=== PATIENT | female | born 1945 ===

== ENCOUNTER 2024-01-09 16:33 | Outpatient (CLI) | payer OTHER, SELFPAY ==
--- OUTSIDE RECORDS SUMMARY | 2024-01-09 16:36 | XMS_ITS | Encounter Summary ---
Author Organization [facility] Address [address] [address] Care Team Providers Care Bi Data Architect Name Role Phone Monet Vallejo MD Primary Care Provider [phone] Encounter Details Date Type Department Care Team (Latest Contact Info) Description 05/03/1995 Orders Only Surekha Santiago Social History Tobacco Use Types Packs/Day Years Used Date Smoking Tobacco: Never Assessed Sex and Gender Information Value Date Recorded Sex Assigned at Not on file Gender Identity Not on file Sexual Orientation Not on file documented as of this encounter Plan of Treatment Not on file documented as of this encounter Visit Diagnoses Not on filedocumented in this encounter Additional Health Concerns Infection Onset Date Last Indicated Resolved Time R/O COVID19 01/19/2020 01/19/2020 01/26/2020 3:17 AM CDT documented as of this encounter Care Teams Bi Data Architect Relationship Specialty [place] [address] [place] [address] PCP - General Family Practice 10/12/21 documented as of this encounter
--- OUTSIDE RECORDS SUMMARY | 2024-01-09 16:36 | XMS_ITS | Encounter Summary ---
Author Organization [facility] Address [address] [place] [address] Care Team Providers Care Trim Setter Name Role Phone Monet Vallejo MD Primary Care Provider [phone] Encounter Details Date Type Department Care Team (Latest Contact Info) Description 06/08/1997 Orders Only Gerry Rondon MD [place] Social History Tobacco Use Types Packs/Day Years [...] documented as of this encounter Care Teams Trim Setter Relationship Specialty [place] [address] [place] [address] PCP - General Family Practice 10/12/21 documented as of this encounter
--- OUTSIDE RECORDS SUMMARY | 2024-01-09 16:36 | XMS_ITS | Encounter Summary ---
Author Organization [facility] Address [address] [place] [address] Care Team Providers Care Laborer Salvage Name Role Phone Monet Vallejo MD Primary Care Provider [phone] Encounter Details Date Type Department Care Team (Latest Contact Info) Description 07/03/1995 Orders Only Peter Jo MD [address] [place] [address] Social History Tobacco Use Types Packs/Day Years [...] documented as of this encounter Care Teams Laborer Salvage Relationship Specialty [place] [address] [place] [address] PCP - General Family Practice 10/12/21 documented as of this encounter
--- OUTSIDE RECORDS SUMMARY | 2024-01-09 16:36 | XMS_ITS | Encounter Summary ---
Author Organization [facility] Address [address] [place] [address] Care Team Providers Care Lead Project Engineer Name Role Phone Monet Vallejo MD Primary Care Provider [phone] Encounter Details Date Type Department Care Team (Latest Contact Info) Description 12/02/1996 Orders Only Gerry Rondon MD [place] Social [...] documented as of this encounter Care Teams Lead Project Engineer Relationship Specialty [place] [address] [place] [address] PCP - General Family Practice 10/12/21 documented as of this encounter
--- OUTSIDE RECORDS SUMMARY | 2024-01-09 16:36 | XMS_ITS | Encounter Summary ---
Author Organization [facility] Address [address] [place] [address] Care Team Providers Care Court Worker Name Role Phone Monet Vallejo MD Primary Care Provider [phone] Encounter Details Date Type Department Care Team (Latest Contact Info) Description 11/23/1997 Orders Only Peter Jo MD [address] [place] [address] Social History Tobacco Use Types Packs/Day Years [...] documented as of this encounter Care Teams Court Worker Relationship Specialty [place] [address] [place] [address] PCP - General Family Practice 10/12/21 documented as of this encounter
--- OUTSIDE RECORDS SUMMARY | 2024-01-09 16:36 | XMS_ITS | Encounter Summary ---
Author Organization [facility] Address [address] [place] [address] Care Team Providers Care Strawhat Inspector And Packer Name Role Phone Monet Vallejo MD Primary Care Provider [phone] Encounter Details Date Type Department Care Team (Latest Contact Info) Description 04/02/1998 Orders Only Danilo Bernardo Social History Tobacco Use Types Packs/Day Years [...] documented as of this encounter Care Teams Strawhat Inspector And Packer Relationship Specialty [place] [address] [place] [address] PCP - General Family Practice 10/12/21 documented as of this encounter
--- OUTSIDE RECORDS SUMMARY | 2024-01-09 16:36 | XMS_ITS | Encounter Summary ---
Author Organization [facility] Address [address] [place] [address] Care Team Providers Care Photography Colorist Name Role Phone Monet Vallejo MD Primary Care Provider [phone] Encounter Details Date Type Department Care Team (Latest Contact Info) Description 02/27/1995 Orders Only Radha Swift Social History Tobacco Use Types Packs/Day Years [...] documented as of this encounter Care Teams Photography Colorist Relationship Specialty [place] [address] [place] [address] PCP - General Family Practice 10/12/21 documented as of this encounter
--- OUTSIDE RECORDS SUMMARY | 2024-01-09 16:36 | XMS_ITS | Encounter Summary ---
Author Organization [facility] Address [address] [place] [address] Care Team Providers Care Machine Setter Supervisor Name Role Phone Monet Vallejo MD Primary Care Provider [phone] Encounter Details Date Type Department Care Team (Latest Contact Info) Description 03/19/1998 Orders Only Elvia Askew Social History Tobacco Use Types Packs/Day Years [...] documented as of this encounter Care Teams Machine Setter Supervisor Relationship Specialty [place] [address] [place] [address] PCP - General Family Practice 10/12/21 documented as of this encounter
--- OUTSIDE RECORDS SUMMARY | 2024-01-09 16:36 | XMS_ITS | Encounter Summary ---
Author Organization [facility] Address [address], [place] [address] Care Team Providers Care Nursery School Teacher Name Role Phone Monet Vallejo MD Primary Care Provider [phone] Encounter Details Date Type Department Care Team (Latest Contact Info) Description 11/06/1996 Orders Only Maddie Lovelace APRN, TIMBER SETTER Social History Tobacco Use Types Packs/Day Years [...] documented as of this encounter Care Teams Nursery School Teacher Relationship Specialty [place] [address] [place] [address] PCP - General Family Practice 10/12/21 documented as of this encounter
--- OUTSIDE RECORDS SUMMARY | 2024-01-09 16:36 | XMS_ITS | Encounter Summary ---
Author Organization [facility] Address [address], [place] [address] Care Team Providers Care Pattern Maker Programer Name Role Phone Monet Vallejo MD Primary Care Provider [phone] Encounter Details Date Type Department Care Team (Latest Contact Info) Description 03/29/1995 Orders Only Surekha Santiago Social History Tobacco [...] documented as of this encounter Care Teams Pattern Maker Programer Relationship Specialty [place] [address] [place] [address] PCP - General Family Practice 10/12/21 documented as of this encounter
--- OUTSIDE RECORDS SUMMARY | 2024-01-09 16:36 | XMS_ITS | Encounter Summary ---
Author Organization [facility] Address [address] [place] [address] Care Team Providers Care Riding Silks Custodian Name Role Phone Monet Vallejo MD Primary Care Provider [phone] Encounter Details Date Type Department Care Team (Latest Contact Info) Description 03/22/1998 Orders Only Elvia Askew Social History Tobacco [...] documented as of this encounter Care Teams Riding Silks Custodian Relationship Specialty [place] [address] [place] [address] PCP - General Family Practice 10/12/21 documented as of this encounter
--- OUTSIDE RECORDS SUMMARY | 2024-01-09 16:36 | XMS_ITS | Encounter Summary ---
Author Organization [facility] Address [address] [place] [address] Care Team Providers Care Supply Technician Name Role Phone Monet Vallejo MD Primary Care Provider [phone] Encounter Details Date Type Department Care Team (Latest Contact Info) Description 07/15/1996 Orders Only Peter Jo MD [address] [place] [address] Social History Tobacco Use Types Packs/Day Years [...] documented as of this encounter Care Teams Supply Technician Relationship Specialty [place] [address] [place] [address] PCP - General Family Practice 10/12/21 documented as of this encounter
--- OUTSIDE RECORDS SUMMARY | 2024-01-09 16:36 | XMS_ITS | Encounter Summary ---
Author Organization [facility] Address [address] [place] [address] Care Team Providers Care Farmworker Cranberry Name Role Phone Monet Vallejo MD Primary Care Provider [phone] Reason for Visit * Reason Comments Refill buPROPion (WELLBUTRI N XL) 150 MG 24 hour release tablet [Pharmacy Med Name: BUPROPION HYDROCHLORIDE ER (XL) 150 MG Tablet Extended Release 24 Hour] Encounter Details Date Type Department Care Team (Late st Contact Info) Description 10/07/2023 Refill [facility] Medicine [address] [place], [place] [phone] [place] [address] [place] [phone] Refill (buPROPion (WELLBUTRIN XL) 150 MG 24 hour release tablet [Pharmacy Med Name: BUPROPION HYDROCHLORIDE ER (XL) 150 MG Tablet Extended Release 24 Hour]) Social History Tobacco Use Types Packs/Day Years Used Date Smoking Tobacco: Former Cigarettes 0.5 10 Smokeless Tobacco: Never Alcohol Use Standard Drinks/Week Comments Yes 0 (1 standard drink = 0.6 oz pur e alcohol) 1 every few months PHQ-2 Answer Date Recorded PHQ-2 Score 0 03/27/2022 Sex and Gender Information Value Date Recorded Sex Assigned at Not on file Gender Identity Not on file Sexual Orientation Not on file documented as of this encounter Nursing Notes * Char Bartlett RN - 10/09/2023 12:57 PM CDT Further Assistance Needed on Refill from Salt Plant Operator Patient is due for Qualifying Visit- Please call patient my chart message not read. Medication has been refilled for 90 day supply. Patient is due for an Office/Video Visit in the next 90 days. Call Patient and document using .JUAN. After attempting to schedule patient: Close encounter. Refill has already been processed per standing order. Requested Prescriptions Pending Prescriptions Disp Refills buPROPion (WELLBUTRIN XL) 150 MG 24 hour release tablet [Pharmacy Med Name: BUPROPION HYDROCHLORIDEER (XL) 150 MG Tablet Extended Release 24 Hour] 90 Tablet 0 Sig: TAKE 1 TABLET EVERY DAY IN ADDITION TO 300MG TABLET FOR TOTAL 450MG DAILY * Paul Delgado Xrwcomm - 10/07/2023 2:08 AM CDT buPROPion (WELLBUTRIN XL) 150 MG 24 hour release tablet [Pharmacy Med Name: BUPROPION HYDROCHLORIDEER (XL) 150 MG Tablet Extended Release 24 Hour] Medication started: 06/17/2021 Last ordered by MONET VALLEJO: 10/04/2023 (3 days ago) QTY: 90, Refills: 0, Sig: take in addition to 300 mg dose daily (changed) -> The medication is active at more than one strength (150 mg on 10/04/2023, 300 mg on 01/04/2023). -> The patient is requesting a renewal from a different pharmacy. -> Unable to determine if sig has changed, review required. -> Refill x 3 months (until due for an office visit) -> Calculate the quantity and number of refills manually. Last qualifying visit: 12/19/2022 (with MONET VALLEJO) (A more recent visit (in Internal Medicine with CARLITA RAO) was found) Next scheduled visit: None Age: 78 [employer] Embedded Refills, Reference: [id number], 10/07/2023 2:08:38 AM CDT, Raymundo Dyer Centralized Services - Primary Care [[id number]] ([id number]) documented in this encounter Plan of Treatment Not on file documented as of this encounter Visit Diagnoses Diagnosis Depressive disorder Depressive disorder, not elsewhere classified documented in this encounter Care Teams Farmworker Cranberry Relationship Specialty [place] [address] [place] [address] PCP - General Family Practice 10/12/21 documented as of this encounter
--- OUTSIDE RECORDS SUMMARY | 2024-01-09 16:36 | XMS_ITS | Encounter Summary ---
Author Organization [facility] Address [address] [place] [address] Care Team Providers Care Termite Helper Name Role Phone Monet Vallejo MD Primary Care Provider [phone] Encounter Details Date Type Department Care Team (Latest Contact Info) Description 11/19/1997 Orders Only Peter Jo MD [address] [place] [address] Social History Tobacco Use Types Packs/Day Years [...] documented as of this encounter Care Teams Termite Helper Relationship Specialty [place] [address] [place] [address] PCP - General Family Practice 10/12/21 documented as of this encounter
--- OUTSIDE RECORDS SUMMARY | 2024-01-09 16:36 | XMS_ITS | Encounter Summary ---
Author Organization [facility] Address [address], [place] [address] Care Team Providers Care Sugar House Supervisor Name Role Phone Monet Vallejo MD Primary Care Provider [phone] Encounter Details Date Type Department Care Team (Late st Contact Info) Description 01/11/1997 Orders Only [facility] Dave Greman MD [address] [place] [address] Social History Tobacco Use Types Packs/Day Years [...] documented as of this encounter Care Teams Sugar House Supervisor Relationship Specialty [place] [address] [place] [address] PCP - General Family Practice 10/12/21 documented as of this encounter
--- OUTSIDE RECORDS SUMMARY | 2024-01-09 16:36 | XMS_ITS | Encounter Summary ---
Author Organization [facility] Address [address], [place] [address] Care Team Providers Care Powder Mill Operator Name Role Phone Monet Vallejo MD Primary Care Provider [phone] Encounter Details Date Type Department Care Team (Latest Contact Info) Description 03/11/1996 Orders Only Jack, Surekha Social History Tobacco Use Types Packs/Day Years [...] documented as of this encounter Care Teams Powder Mill Operator Relationship Specialty [place] [address] [place] [address] PCP - General Family Practice 10/12/21 documented as of this encounter
--- OUTSIDE RECORDS SUMMARY | 2024-01-09 16:36 | XMS_ITS | Encounter Summary ---
Author Organization [facility] Address [address] [place] [address] Care Team Providers Care Ampoule Filler Name Role Phone Monet Vallejo MD Primary Care Provider [phone] Encounter Details Date Type Department Care Team (Latest Contact Info) Description 06/04/1995 Orders Only Breann Boyle, DO [address] [place] [address] Social History Tobacco Use Types Packs/Day Years [...] documented as of this encounter Care Teams Ampoule Filler Relationship Specialty [place] [address] [place] [address] PCP - General Family Practice 10/12/21 documented as of this encounter
--- OUTSIDE RECORDS SUMMARY | 2024-01-09 16:36 | XMS_ITS | Encounter Summary ---
Author Organization [facility] Address [address] [place] [address] Care Team Providers Care Flight Control Tower Operator Name Role Phone Monet Vallejo MD Primary Care Provider [phone] Encounter Details Date Type Department Care Team (Latest Contact Info) Description 03/26/1995 Orders Only Breann Boyle, DO [address] [place] [address] Social History Tobacco Use Types Packs/Day Years [...] documented as of this encounter Care Teams Flight Control Tower Operator Relationship Specialty [place] [address] [place] [address] PCP - General Family Practice 10/12/21 documented as of this encounter
--- OUTSIDE RECORDS SUMMARY | 2024-01-09 16:36 | XMS_ITS | Encounter Summary ---
Author Organization [facility] Address [address], [place] [address] Care Team Providers Care Career Development Coordinator/Teacher Name Role Phone Monet Vallejo MD Primary Care Provider [phone] Encounter Details Date Type Department Care Team (Latest Contact Info) Description 02/23/1998 Orders Only Calvin [place] [address] Social History Tobacco Use Types Packs/Day Years [...] documented as of this encounter Care Teams Career Development Coordinator/Teacher Relationship Specialty [place] [address] [place] [address] PCP - General Family Practice 10/12/21 documented as of this encounter
--- OUTSIDE RECORDS SUMMARY | 2024-01-09 16:36 | XMS_ITS | Encounter Summary ---
Author Organization [facility] Address [address] [place] [address] Care Team Providers Care Senior Policy Associate Name Role Phone Monet Vallejo MD Primary Care Provider [phone] Encounter Details Date Type Department Care Team (Latest Contact Info) Description 07/13/1997 Orders Only Peter oJ MD [address] [place] [address] Social History Tobacco Use Types Packs/Day Years [...] documented as of this encounter Care Teams Senior Policy Associate Relationship Specialty [place] [address] [place] [address] PCP - General Family Practice 10/12/21 documented as of this encounter
--- OUTSIDE RECORDS SUMMARY | 2024-01-09 16:36 | XMS_ITS | Encounter Summary ---
Author Organization [facility] Address [address] [place] [address] Care Team Providers Care Biodiesel Process Control Technician Name Role Phone Monet Vallejo MD Primary Care Provider [phone] Reason for Visit * Reason Comments Refill buPROPion (WELLBUTRI N XL) 150 MG 24 hour release tablet [Pharmacy Med Name: BUPROPION HYDROCHLORIDE ER (XL) 150 MG Tablet Extended Release 24 Hour] Encounter Details Date Type Department Care Team (Late st Contact Info) Description 12/18/2023 Refill [facility] Medicine [address] [place], [place] [phone] Monet Vallejo [place] [address] [place] [phone] Refill (buPROPion (WELLBUTRIN XL) 150 MG 24 [...] as of this encounter Nursing Notes * Kailey Wall - 12/25/2023 12:23 PM CDT Medication Refill - Due for Visit Medication still pending for clinician review, patient is due to be seen in the next 30 days. Called patient, was: unable to reach patient. 2nd call attempted. Unsuccessful in reaching patient. Frontline Action: Route to clinician identified in nursing documentation below. Clinician Action: Unsuccessful in reaching patient to schedule, requests refill. Please determine whether refill is appropriate. Recommend using ???Refuse All?? quick action to address request. * Kailey Wall - 12/25/2023 12:22 PM CDT Medication Refill - Due for Visit Medication still pending for clinician review, patient is due to be seen in the next 30 days. Called patient, was: unable to reach patient. 1st call attempted. Left message to call back. Scheduling Action: Patient needs to schedule an appointment in the next 30 days. If able to schedule, please document date of appointment and route to clinician/pool identified in nursing documentation below. * Janna Sparrow RN - 12/25/2023 11:38 AM CDT Further Assistance Needed on Refill from Belt Changer Patient is due for Qualifying Visit Medication is still pending. Patient is due for an Office/Video Visit in the next 30 days. Call Patient and document using .JUAN. After attempting to schedule patient: If appointment is scheduled within 60 days: Please route to: Primary Care: Refill candy attendant Specialty Care: Refill candy attendant If unable to schedule appointment: Please route to Monet Vallejo MD Patient was already notified to schedule appt via refill encounter from 10/01/23 and 10/07/23, and noappt has been scheduled. Last qualifying visit: 12/19/2022 Requested Prescriptions Pending Prescriptions Disp Refills buPROPion (WELLBUTRIN XL) 150 MG 24 hour release tablet [Pharmacy Med Name: BUPROPION HYDROCHLORIDEER (XL) 150 MG Tablet Extended Release 24 Hour] 90 Tablet Sig: TAKE 1 TABLET EVERY DAY IN ADDITION TO 300MG TABLET FOR TOTAL 450MG DAILY documented in this encounter Plan of Treatment Not on file documented as of this encounter Visit Diagnoses Diagnosis Depressive disorder Depressive disorder, not elsewhere classified documented in this encounter Care Teams Biodiesel Process Control Technician Relationship Specialty [place] [address] [place] [address] PCP - General Family Practice 10/12/21 documented as of this encounter
--- OUTSIDE RECORDS SUMMARY | 2024-01-09 16:36 | XMS_ITS | Encounter Summary ---
Author Organization [facility] Address [address] [place] [address] Care Team Providers Care Heating Element Winder Name Role Phone Monet Vallejo MD Primary Care Provider [phone] Reason for Visit * Reason Comments Refill metoprolol tartrate (LOPRESSOR) 25 MG tablet [Pharmacy Med Name: METOPROLOL TARTRATE 25 MG Tablet] Encounter Details Date Type Department Care Team (Late st Contact Info) Description 11/07/2023 Refill [facility] [address] [place], [place] [id number] Monet Vallejo MD [address] [place] [phone] Refill (metoprolol tartrate (LOPRESSOR) 25 MG tablet [Pharmacy Med Name: METOPROLOL TARTRATE 25 MG Tablet]) Social History Tobacco Use Types Packs/Day Years [...] as of this encounter Nursing Notes * Freida Del Real RN - 11/07/2023 10:02 AM CDT Renewed medication per refill standing order. Requested Prescriptions Pending Prescriptions Disp Refills metoprolol tartrate (LOPRESSOR) 25 MG tablet [Pharmacy Med Name: METOPROLOL TARTRATE 25 MG Tablet] 90 Tablet 0 Sig: TAKE 1/2 TABLET TWICE DAILY * Paul Delgado Xrwcomm - 11/07/2023 12:50 AM CDT metoprolol tartrate (LOPRESSOR) 25 MG tablet [Pharmacy Med Name: METOPROLOL TARTRATE 25 MG Tablet] Medication started: 06/17/2021 Last ordered by MONET VALLEJO: 01/10/2023 (301 days ago) QTY: 90, Refills: 3, Sig: take 0.5 tablets (12.5 mg) by mouth two times a day. (changed but equivalent) -> Refill x 3 months (until due for an office visit) Last qualifying visit: 12/19/2022 (with MONET VALLEJO) (A more recent visit (in Internal Medicine with CARLITA RAO) was found) Next scheduled visit: [facility] Embedded Refills, Reference: [id number], 11/07/2023 12:50:48 AM CDTChilo: [facility] Refill Centralized Services - Primary Care [[id number]] ([id number]) documented in this encounter Plan of Treatment Not on file documented as of this encounter Visit Diagnoses Diagnosis Hypertension, unspecified type (HRC) documented in this encounter Care Teams Heating Element Winder Relationship Specialty [place] [address] [place] [address] PCP - General Family Practice 10/12/21 documented as of this encounter
--- OUTSIDE RECORDS SUMMARY | 2024-01-09 16:36 | XMS_ITS | Encounter Summary ---
Author Organization [facility] Address [address] [place] [address] Care Team Providers Care Detective Youth Bureau Name Role Phone Monet Vallejo MD Primary Care Provider [phone] Encounter Details Date Type Department Care Team (Latest Contact Info) Description 02/09/1998 Orders Only Peter Jo MD [address] [place] [address] Social History Tobacco Use Types Packs/Day Years [...] documented as of this encounter Care Teams Detective Youth Bureau Relationship Specialty [place] [address] [place] [address] PCP - General Family Practice 10/12/21 documented as of this encounter
--- OUTSIDE RECORDS SUMMARY | 2024-01-09 16:36 | XMS_ITS | Encounter Summary ---
Author Organization Formerly [facility] Address [address] [place] [address] Care Team Providers Care Biochemistry Teacher Name Role Phone Monet Vallejo MD Primary Care Provider [phone] Reason for Visit * Reason Comments Refill buPROPion (WELLBUTRI N XL) 150 MG 24 hour release tablet [Pharmacy Med Name: BUPROPION HCL XL 150 MG TABLET] Encounter Details Date Type Department Care Team (Late st Contact Info) Description 10/01/2023 Refill [facility] [address] [place] [address] [place] [address] [place] [address] Refill (buPROPion (WELLBUTRIN XL) 150 MG 24 hour release tablet [Pharmacy Med Name: BUPROPION HCL XL 150 MG TABLET]) Social History Tobacco Use Types Packs/Day Years [...] as of this encounter Nursing Notes * La Nena Mars - 10/04/2023 12:29 PM CDT Further Assistance Needed on Refill from Health Care Attorney Patient is due for Qualifying Visit and lab(s). Last qualifying visit: 12/19/2022 (with MONET VALLEJO Medication has been refilled for 90 day supply. Patient is due for an Office/Video Visit in the next 90 days. Call Patient and document using .JUAN. After attempting to schedule patient: Close encounter. Refill has already been processed per standing order. Requested Prescriptions Pending Prescriptions Disp Refills buPROPion (WELLBUTRIN XL) 150 MG 24 hour release tablet [Pharmacy Med Name: BUPROPION HCL XL 150 MGTABLET] 90 Tablet Sig: TAKE IN ADDITION TO 300 MG DOSE DAILY * Paul Delgado Xrwcomm - 10/01/2023 2:07 PM CDT buPROPion (WELLBUTRIN XL) 150 MG 24 hour release tablet [Pharmacy Med Name: BUPROPION HCL XL 150 MGTABLET] Medication started: 06/17/2021 Last ordered by MONET VALLEJO: 12/19/2022 (286 days ago) QTY: 90, Refills: 3, Sig: take in addition to 300 mg tab for total of 450 mg daily (changed) -> The requested strength (150 mg extended release oral tablet) was last ordered on 12/19/2022. The patient is taking 300 mg extended release oral tablet as of 01/04/2023. -> The medication is active at more than one strength (150 mg on 12/19/2022, 300 mg on 01/04/2023). -> Unable to determine if sig has changed, review required. -> Refill x 3 months (until due for an office visit) -> Calculate the quantity and number of refills manually. Last qualifying visit: 12/19/2022 (with MONET VALLEJO) (A more recent visit (in Internal Medicine with CARLITA RAO) was found) Next scheduled visit: None Age: 78 [employer] Embedded Refills, Reference: [id number], 10/01/2023 2:07:08 PM CDT, Pool: INNA Refill Centralized Services - Primary Care [[id number]] ([id number]) documented in this encounter Plan of Treatment Not on file documented as of this encounter Visit Diagnoses Diagnosis Depressive disorder Depressive disorder, not elsewhere classified documented in this encounter Care Teams Biochemistry Teacher Relationship Specialty Start [place] [address] [place] [address] [place] [address] PCP - General Family Practice 10/12/21 documented as of this encounter
--- OUTSIDE RECORDS SUMMARY | 2024-01-09 16:36 | XMS_ITS | Clinical Summary ---
Author Organization Formerly [facility] Address [address], [place] [address] Care Team Providers Care Dielectric Testing Machine Operator Name Role Phone Monet Vallejo MD Primary Care Provider + [phone] Source Comments You are receiving this document as you are listed as the primary care provider,follow-up provider, or the patient has been referred to you for consultation.This is in compliance with the Medicare and[facility] Cent[facility] EHR Incentive Program,which states Providers who transition their patient to another setting of careor provider of care or refers their patient to another provider of care shouldprovide summary care record for each transition of care or referral. [facility] Allergies Active Allergy Reactions Criticality Noted Date Comments Aminoglycosides Itching 02/20/2005 ear gtts- symptoms worsened during use Other Hives High 01/25/2023 Sulfa Antibiotics Itching 06/07/2009 PN: LW Reaction: Itching, Pruritis Medications Medication Sig Dispensed Refills Start Date End Date Status FLONASE 50 MCG/ACT NA SUSPIndications:Si nusitis Inhale two (2) sprays into each nostril once a day. 1 prn 06/15/2006 Active Additional Information Patient not taking.Reported on 03/08/2023 MULTIPLE VITAMIN TABS Take one tablet by mouth every day. Active FISH OIL None Entered Active Cowley-3 Fatty Acids (FISH OIL) 1000 MG capsule Take 1 Capsule (1,000 mg) by mouth every 24 hours. Active magnesium 250 MG oral tablet Take 1 Tablet (250 mg) by mouth daily. Active loratadine (CLARITIN) 10 MG tablet Take 1 Tablet (10 mg) by mouth as needed. Active acetaminophen (TYLENOL) 500 MG tablet Take 1-2 Tablets (500-1,000 mg) by mouth every 4 hours as needed for Pain. Maximum acetaminophen dose is 4000 mg in 24 hours Active Misc Natural Products (GLUCOSAMINE CHOND COMPLEX/MSM OR) Take by mouth daily. Active buPROPion (WELLBUTRIN XL) 300 MG 24 hour release tabletIndications: Depressive disorder Take in addition to 150 mg tablet for total of 450 mg daily 90 Tablet 3 01/04/2023 Active lisinopril (ZESTRIL) 5 MG tabletIndications: Depressive disorder,Hypertens ion, unspecified type (HRC) Take 1 Tablet (5 mg) by mouth daily. 90 Tablet 3 01/10/2023 Active buPROPion (WELLBUTRIN XL) 150 MG 24 hour release tabletIndications: Depressive disorder TAKE 1 TABLET EVERY DAY IN ADDITION TO 300MG TABLET FOR TOTAL 450MG DAILY 90 Tablet 10/09/2023 Active metoprolol tartrate (LOPRESSOR) 25 MG tabletIndications: Hypertension, unspecified type (HRC) TAKE 1/2 TABLET TWICE DAILY 90 Tablet 11/07/2023 Active Active Problems Problem Noted Date Diagnosed Date Constipation 12/13/2020 Overview: Last Assessment & Plan: Lifelong, IBS likely. Senokot, MiraLAX ineffective in the past. Lactulose effective but stopped a few years ago. Resume. [facility] database Memory loss 12/13/2020 Overview: Last Assessment & Plan: She reports this began after her craniotomy. She is taking notes. Chart review indicates no recent evaluation for secondary causes.. [facility] database Hyponatremia 01/14/2020 CKD (chronic kidney disease) stage 3, GFR 30-59 ml/min 06/09/2019 Overview: Last Assessment & Plan: She is quite concerned about her diagnosis of CKD. In the [facility] doctors told her she had no kidney damage. She has never taken the MILKA inhibitor. GFR Estimate Date Value Ref Range Status 11/23/2020 52 (L) >60 mL/min/[1.73_m2] Final Comment: Non GFR Calc Starting 06/25/2018, serum creatinine based estimated GFR (eGFR) will be calculated using the Chronic Kidney Disease Epidemiology Collaboration (CKD-EPI) equation. 11/22/2020 53 (L) >60 mL/min/[1.73_m2] Final Comment: Non GFR Calc Starting 06/25/2018, serum creatinine based estimated GFR (eGFR) will be calculated using the Chronic Kidney Disease Epidemiology Collaboration (CKD-EPI) equation. 02/19/2020 49 (L) >60 mL/min/[1.73_m2] Final 01/26/2020 48 (L) >60 mL/min/[1.73_m2] Final Comment: Non GFR Calc Starting 06/25/2018, serum creatinine based estimated GFR (eGFR) will be calculated using the Chronic Kidney Disease Epidemiology Collaboration (CKD-EPI) equation. 01/12/2020 57 (L) >60 mL/min/[1.73_m2] Final Comment: Non GFR Calc Starting 06/25/2018, serum creatinine based estimated GFR (eGFR) will be calculated using the Chronic Kidney Disease Epidemiology Collaboration (CKD-EPI) equation. Discussed CKD, recommend MILKA inhibitor Primary osteoarthritis of both hands 05/16/2018 Cervical high risk HPV (human papillomavirus) te st positive 05/01/2018 Overview: 2007, 2009, 2010 NIL paps. 05/01/18 NIL, +HR HPV, not 16/18. Plan 1 yr co-test 05/29/19 NIL pap, + HR HPV (not 16 or 18). Plan 1 yr co-test, no colp at this time per PCP 08/12/20 Lost to follow-up for pap tracking 11/22/20 NIL, +HR HPV, not 16/18. Plan [facility] bef 02/22/21 12/01/20 Left msg TCB 12/09/20 Left 2nd msg TCB and Result letter sent out 01/21/21 Certified ltr sent. Tracking # [id number] 02/24/21 Your item has been delivered to the original sender at 9:57 am on February 16, 2021 [place] [address]. 02/28/21 [facility] not done. Tracking updated for 6 mo colp/pap due 05/25/21. 04/05/21 Colposcopy completed? Will watch for records (this line entered after reminder letter sent) 04/08/21 [facility]- Normal. Plan 1 yr repeat pap (outside records from [facility]) 05/10/21 Reminder letter - sent before [facility] records received above. Last Assessment & Plan: After discussion and consideration she thinks she may pursue colposcopy when she turns approximately 90-day hence Monoclonal paraproteinemia 04/04/2018 Overview: Last Assessment & Plan: Oncology. Recent bone scan shows humeral areas of question. Defer report and discussion to oncology Dyspepsia 01/11/2018 HTN (hypertension) 11/15/2012 Overview: Last Assessment & Plan: Resume MILKA inhibitor, never taken Hoarding behavior 04/26/2012 H/O: stroke with residual effects 12/29/2011 Overview: 2/2 complication of meningioma removal Anxiety 10/05/2011 Overview: Last Assessment & Plan: She is worried about her health. She is afraid that her. She is afraid that her physician will not listen to all her complaints Diverticulitis of colon 07/24/2008 Fibromyalgia 07/24/2008 History of meningioma 07/24/2008 Overview: (Problem list name updated by automated process. Provider to review and confirm.) Last Assessment & Plan: Status post craniotomy. Completely removed at last imaging Insomnia 07/24/2008 Hyperlipidemia 06/23/2008 IBS (irritable bowel syndrome) 06/23/2008 S/P LASIK surgery 06/22/2008 Overview: S/P LASIK Surgery OU Old retinal detachment, total or subtotal 2007 Overview: Old Retinal Detachment repair OS likely Vitrectomy Depressive disorder 07/18/2004 Overview: Depressive disorder, not elsewhere classified (HRC) Resolved Problems Problem Noted Date Diagnosed Date Resolved Date NILES (obstructive sleep apnea) 05/16/2018 12/19/2022 Senile nuclear sclerosis 06/22/2008 Overview: Senile Nuclear Sclerosis OS Posterior subcapsular polar senile cataract 06/22/2008 12/19/2022 Overview: Posterior Subcapsular Polar Senile OS Encounters Date Type Department Care Team Description 12/18/[address] [address] Monet Vallejo MD Refill (buPROPion (WELLBUTRIN XL) 150 MG 24 hour release tablet [Pharmacy Med Name: BUPROPION HYDROCHLORIDE ER (XL) 150 MG Tablet Extended Release 24 Hour]) 11/07/2023 Refill [facility] [address] [place] [address] Monet Vallejo MD Refill (metoprolol tartrate (LOPRESSOR) 25 MG tablet [Pharmacy Med Name: METOPROLOL TARTRATE 25 MG Tablet]) from Last 3 Months Immunizations Name Administration Dates Next Due Cholera, Unspecified Formulation 06/10/2002 DT Ped 02/11/1987 Flu Vac (3+ yrs) 03/26/2012, 0,04/12/2009,2007,05/16/2006 Flu Vac Preserv Free (3+yrs) 04/05/2013 [id number] 06/11/2009 HepA, Unspecified Formulation 06/10/2002, 998 Influenza ([facility] Only) (Flul aval Quad 0.5, 3+ yrs) 04/08/2021 Influenza (Fluad) 03/25/2019 Influenza IIV3 (Trivalent) F luzone Highdose, 65+ Yrs (75251) 03/27/2018,03/28/2017,03/27/2014 Influenza IIV4 (Quadrivalent ) Fluad, 65+ Yrs 04/26/2022 Influenza IIV4 (Quadrivalent ) Fluzone, 65+ Yrs 04/14/2021,03/02/2020 Influenza Vaccine (3+years) ([facility]) 05/20/2007 Influenza, Unspecified Formulation 05/09,04/07/2022,03/22/2018,1995 OPV, Trivalent (Orimune or tOPV) 02/11/1987 PCV13 (Prevnar) 01/11/2018 PPSV23 (Pneumovax) 03/26/2012, 7,03/08/2007,1994 Pfizer Bivalent 12+ 05/10/2022,04/26/2022 Pfizer Monovalent 12+ 03/07/2022 Pfizer Monovalent 12+ Purple Top 022,02/21/2021,09/04/2020,2020 Td 01/02/1997 Td (7+ yrs) 06/10/2002 Td, Preservative Free 06/10/2002 Tdap 01/12/2020,11/22/2009 Varicella 01/16/1997(Deferred: Immune by Naveen miller) Zoster RZV (Shingrix) 07/15/2018,05/01/2018 Family History Medical History Relation Name Comments Arthritis Father and mother, bot h degenerative Coronary Artery Disease Father 72 y o Hypertension Father Cataract Mother Mental Disorder Mother schizophreni c, age 68 Heart Attack Brother age 52 Diabetes Maternal Grandmother mother Macular Degeneration Maternal Grandmother Relation Name Status Comments Father Mother Brother Maternal Grandmother Social History Tobacco Use Types Packs/Day Years [...] on file Sexual Orientation Not on file Last Filed Vital Signs Vital Sign Reading Time Taken Comments Blood Pressure 138/64 03/08/2023 10:52 AM CDT Pulse 66 03/08/2023 10:52 AM CDT Temperature 36.8 ??C (98.3 ??F) 03/08/2023 10:52 AM C DT Respiratory Rate 12 03/08/2023 10:52 AM CDT Oxygen Saturation 100% 03/08/2023 10:52 AM CDT Inhaled Oxygen Concentration - - Weight 71.5 kg (157 lb 9.6 oz) 01/25/2023 9:00 A M CDT Height 157 cm (5' 1.81) 01/25/2023 9:00 AM CDT Body Mass Index 29 01/25/2023 9:00 AM CDT Plan of Treatment Health Maintenance Due Date Last Done Comments Colonoscopy 12/25/2011 12/24/2006 COVID-19 Vaccine ( season) 2023 05/10/2022, 04/26/2022, 03/07/2022, Additional history exists Medicare Annual Wellness Visit 07/09/2023 12/19/2022 Influenza (Season Ended) 2024 022, 04/26/2022, 04/07/2022, Additional history exists DTaP/Tdap/Td (7 - Tdap) 01/11/2030 01/12/20 20, 11/22/2009, 06/10/2002, Additional history exists IPV (Polio) Aged Out 02/11/1987 No longer eligi ble based on patient's age to complete this topic HepA Aged Out 06/10/2002, 04/12/1998 No lo nger eligible based on patient's age to complete this topic Dexa Completed 05/27/2013 (Completed) Pneumococcal 65+ Yrs Completed 01/11/2018, 03/26/2012, 05/31/2007, Additional history exists Zoster/Shingles Completed 07/15/2018, 05/01/2018 Cholesterol Discontinued 11/21/2021, 06/08, 11/02/2006, Additional history exists Hep C Screening (Preventive Services) Completed 11/21/2021 HepB Aged Out No longer eligi ble based on patient's age to complete this topic Hib Aged Out No longer eligi ble based on patient's age to complete this topic MCV4 Aged Out No longer eligi ble based on patient's age to complete this topic Procedures Procedure Name Priority Date/Time Associated Diagnosis Comments HEPATITIS C ANTIBODY, WITH REFLEX Routine 11/21/2021 8:16 AM CDT Need for hepatitis C screening test LIPID PANEL & DIRECT LDL (IF NEEDED) Routine 11/21/2021 8:16 AM CDT Hyperlipidemia, unspecified hyperlipidemia type COLONOSCOPY 12/24/2006 12:00 AM CDT from Last 3 Months or Most Recently Relevant to Health Maintenance Results * (ABNORMAL) Lipid Panel - LDLD If Trig High (11/21/2021 8:16 AM CDT) Cholesterol 247(H) 0 - 199 mg/dL 11/21/2021 11:41 AM CDT [facility] Triglyceride 91 <=149 mg/dL 11/21/2021 11:41 AM CDT [facility] HDL Cholesterol 91 >=40 mg/dL 11/21/2021 11:41 AM CDT [facility] LDL, Calculated 138(H) <130 mg/dL 11/21/2021 11:41 AM CDT [facility] Non HDL Chol, Calculated 156 <=159 mg/dL 11/21/2021 11:41 AM CDT [facility] Cholesterol/HDL Ratio 2.7 11/21/2021 11:41 AM CDT [facility] Hours Fasting 12 11/21/2021 11:41 AM CDT [facility] Blood Venipuncture / Unknown 11/21/2021 8:16 AM CDT 11/21/2021 8:16 AM CDT Monet Vallejo MD LAB_1 [facility] [address] [address], [facility] [phone] [facility] [address] [place] [address], [facility] [phone] * Hepatitis C Antibody, with Reflex (11/21/2021 8:16 AM CDT) Hepatitis C Antibody Negative (Non Reactive) Negative (Non Reactive) 11/21/2021 12:06 PM CDT [facility] Comment:Antibodies to HCV no t detected. Does not exclude the possiblity of exposure to HCV. Blood Venipuncture / Unknown 11/21/2021 8:16 AM CDT 11/21/2021 8:16 AM CDT Monet Vallejo MD LAB_1 [facility] [address] [phone] * COLONOSCOPY (12/24/2006 12:00 AM CDT) Narrative 12/24/2006 12:00 AM CDT Ordered by an unspecified provider. Transcriptions Rigoberto Barriga - 12/24/2006 12:00 AM CDT Physician Unknown DUMMY/OTHER/AR from Last 3 Months or Most Recently Relevant to Health Maintenance Advance Directives Documents on File Type Date Recorded Patient Feather Sawyer Expl anation Advance Directive/Living Will/Durable Power of Attny on file/POLST PN Care Teams Dielectric Testing Machine Operator Relationship Specialty [place] [address] [place] [address] PCP - General Family Practice 10/12/21
--- OUTSIDE RECORDS SUMMARY | 2024-01-09 16:36 | XMS_ITS | Encounter Summary ---
Author Organization [facility] Address [address] [place] [address] Care Team Providers Care Bleaching Supervisor Name Role Phone Monet Vallejo MD Primary Care Provider [phone] Encounter Details Date Type Department Care Team (Latest Contact Info) Description 04/17/1995 Orders Only Markos Anderson Social History Tobacco Use Types Packs/Day Years [...] Resolved Time R/O COVID19 01/19/2020 01/19/2020 01/26/2020 3:1 7 AM CDT documented as of this encounter Care Teams Bleaching Supervisor Relationship Specialty [place] [address] [place] [address] PCP - General Family Practice 10/12/21 documented as of this encounter
--- OUTSIDE RECORDS SUMMARY | 2024-01-09 16:37 | XMS_ITS | Encounter Summary ---
Author Organization [facility] Address [address] [place] [address] Care Team Providers Care Crisis Clinician Name Role Phone Monet Vallejo MD Primary Care Provider [phone] Encounter Details Date Type Department Care Team (Latest Contact Info) Description 07/24/1994 Orders Only Breann Boyle, DO [address] [place] [address] Social History Tobacco Use Types Packs/Day Years [...] documented as of this encounter Care Teams Crisis Clinician Relationship Specialty [place] [address] [place] [address] PCP - General Family Practice 10/12/21 documented as of this encounter
--- OUTSIDE RECORDS SUMMARY | 2024-01-09 16:37 | XMS_ITS | Encounter Summary ---
Author Organization Formerly [facility] Address [address], [place] [address] Care Team Providers Care Energy Trader Name Role Phone Monet Vallejo MD Primary Care Provider [phone] Encounter Details Date Type Department Care Team (Latest Contact Info) Description 07/13/1994 Orders Only Yinka Ricardo MD [address] [id number] Social History Tobacco Use Types Packs/Day Years [...] documented as of this encounter Care Teams Energy Trader Relationship Specialty [place] [address] [place] [address] PCP - General Family Practice 10/12/21 documented as of this encounter
--- OUTSIDE RECORDS SUMMARY | 2024-01-09 16:37 | XMS_ITS | Encounter Summary ---
Author Organization [place] Address [facility] [place] [address] Care Team Providers Care Foundation Drill Operator Name Role Phone System, Provider Not In Unavailable Unavaila Timothy Driscoll MD Primary Care Provider [phone] Manoj Holley MD Unavailable [phone] Timothy Knott MD Unavailable [phone] Manoj Holley MD Unavailable [phone] Yanelis Galvez Unavailable Unavailable Alia Miller PA-C Unavailable [phone] Lori Barbosa MD Unavailable + Timothy Knott MD Unavailable [phone] Tierney Panchal APRN FORM DESIGNER Unavailable Unavail able Lori Barbosa MD Unavailable + Timothy Knott MD Unavailable [phone] Reason for Visit * Reason Comments Medication Refill Encounter Details Date Type Department Care Team (Late st Contact Info) Description 03/15/[address] [address] Lori Barbosa MD PRIMARY ENT [address] [facility] [address] [place] [address] Medication Refill Social History Tobacco Use Types Packs/Day Years Used Date Smoking Tobacco: Former Cigarettes Q uit: 07/09/1991 Smokeless Tobacco: Never Alcohol Use Standard Drinks/Week Comments Yes 0 (1 standard drink = 0.6 oz pur e alcohol) occasionally PHQ-2 Answer Date Recorded PHQ-2 Score 0 11/22/2020 Sex and Gender Information Value Date Recorded Sex Assigned at Not on file Gender Identity Not on file Sexual Orientation Not on file documented as of this encounter Miscellaneous Notes * Telephone Encounter - Enedina Wagner RN - 03/16/2021 9:44 AM CDT Please review message below and assist patient. JÚNIOR Sanchez, RN [facility] * Telephone Encounter - Tierney Panchal APRN CNP - 03/15/2021 3:35 PM CDT Refilled. Please call to update PHQ and MICHELLE. Plan for virtual visit if remaining out of range. Thank you Tierney Panchal APRN CNP on 03/15/2021 at 3:35 PM * Telephone Encounter - Tierney Matthews RN - 03/15/2021 3:19 PM CDT Images from the original note were not included. Routing refill request to provider for review/approval because: Patient needs to be seen because: SSRIs Protocol [id number]/15/2021 12:29 PM PHQ-9 score less than 5 in past 6 months JÚNIOR Greenwood, RN - Patient Advocate and Liaison (PAL) [facility] [phone] * Telephone Encounter - Eleni Mcqueen - 03/15/2021 12:27 PM CDT Medication Question or Refill Who is calling: Jeannine What medication are you calling about (include dose and sig)?: WELLBUTRIN Controlled Substance Agreement on file: No Patient all out of both dosages Who prescribed the medication?: Dr Knott and Dr Pham Do you need a refill? Yes: When did you use the medication last? Sept 6 Patient offered an appointment? No Do you have any questions or concerns? No [facility] Okay to leave a detailed message?: Yes at Home number on file [phone] (home) documented in this encounter Plan of Treatment Not on file documented as of this encounter Visit Diagnoses Diagnosis Anxiety Anxiety state, unspecified Migraine without status migrainosus, not intractable, unspecified migraine type Mild major depression (H24) Major depressive disorder, single episode, mild documented in this encounter Additional Health Concerns Infection Onset Date Last Indicated Resolved Time Rule Out COVID-03/17/2022 03/17/2022 03/17/2022 1:20 PM CDT COVID-19 03/17/2022 03/17/2022 04/07/2022 11:4 1 PM CDT Assessment Noted Time PHQ-9 Depression Total Score: 5 11/24/19 21 7:03 AM CDT documented as of this encounter Care Teams Foundation Drill Operator Relationship Specialty Start [place] [address] [place] [address] PCP - General Family Practice 01/11/18 System, Provider Not In Clinic 02/03/15 Manoj Holley MD [address] [place] [address] [address] [place] [address] Hematology & Oncology 04/28/19 [place] [address] [place] [address] Assigned PCP 01/25/20 07/16/21 Manoj Holley MD [address] [facility] [address] [place] [address] Assigned Cancer Care Provider 12/05/20 06/02/22 Yanelis Galvez Personal Advocate & Liaison (PAL) 12/14/20 Alia Miller, PAMichaelC [address] [place] [address] Assigned Surgical Provider 01/30/21 07/28/22 Lori Barbosa MD [facility] [address] [facility] [address] [place] [address] Assigned PCP 07/17/21 05/26/22 [place] [address] [place], [place] [id number] Assigned PCP 05/27/22 06/16/22 Tierney Panchal APRN [facility] Assigned PCP 06/17/22 07/21/22 Lori Barbosa MD PRIMARY ENT [address] [facility] [address] [place] [address] Assigned PCP 07/22/22 09/01/22 [place] [address] [place], [place] [address] Assigned PCP 09/02/22 documented as of this encounter
--- OUTSIDE RECORDS SUMMARY | 2024-01-09 16:37 | XMS_ITS | Encounter Summary ---
Author Organization Formerly [facility], [facility] Address [address] [place] [address] Care Team Providers Care Dry Cans Operator Name Role Phone Monet Vallejo MD Primary Care Provider [phone] Encounter Details Date Type Department Care Team (Latest Contact Info) Description 08/30/1994 Orders Only Radha Swift Social History Tobacco [...] documented as of this encounter Care Teams Dry Cans Operator Relationship Specialty [place] [address] [place] [address] PCP - General Family Practice 10/12/21 documented as of this encounter
--- OUTSIDE RECORDS SUMMARY | 2024-01-09 16:37 | XMS_ITS | Encounter Summary ---
Author Organization [facility] Address [address] [place] [address] Care Team Providers Care Wood Milling Machine Operator Name Role Phone Zohra Rosado PA-C Primary Care Provid er System, Provider Not In Unavailable Unavaila ble System, Provider Not In Primary Care Provider Un available No Ref-Primary, Physician Primary Care Provider Timothy Knott MD Primary Care Provider [phone] Timothy Knott MD Unavailable [phone] Timothy Knott MD Unavailable [phone] Manoj Holley MD Unavailable [phone] Tierney Valencia RN Unavailable [phone] Timothy Knott MD Unavailable [phone] Timothy Knott MD Unavailable [phone] Chantale Barboza RN Unavailable Unavailable Manoj Holley MD Unavailable [phone] Radha Trejo DPM, Podiatry /Foot and Ankle Surgery Unavailable Manoj Holley MD Unavailable [phone] Yanelis Galvez Unavailable Unavailable Alia Miller PA-C Unavailable [phone] Lori Barbosa MD Unavailable + Timothy Knott MD Unavailable [phone] Tierney Panchal APRN HYDRO MECHANIC Unavailable Unavail able Lori Barbosa MD Unavailable + Timothy Knott MD Unavailable Reason for Visit * Reason Onset Date Comments Refill Request 05/18/2011 citalopram Encounter Details Date Type Department Care Team (Late st Contact Info) Description 05/18/[address] [phone] Zohra Rosado PA-C [address] [address] Refill Request (citalopram) Social History Tobacco Use Types Packs/Day Years Used Date Smoking Tobacco: Former Cigarettes Q uit: 07/09/1991 Smokeless Tobacco: Never Alcohol Use Standard Drinks/Week Comments No 0 (1 standard drink = 0.6 oz pur e alcohol) Sex and Gender Information Value Date Recorded Sex Assigned at Not on file Gender Identity Not on file Sexual Orientation Not on file documented as of this encounter Miscellaneous Notes * Telephone Encounter - Myranda Patel - 05/18/2011 3:54 PM CST Note dose is 60 mg. Do you advise to continue? Please sign and send if ok. Myranda Patel RN Message Handled by Nurse Triage DEPRESSION/ANXIETY Last Office Visit R/T Diagnosis: 04/03/11 Last PHQ-9 score on record= 7 Date: 04/03/11 SSRI: Celexa OV: 6mths or as indicated in chart. If <18 yrs of age q 3 mths or as indicated in chart Should have OV 1-2 mths after initial RX ANXIETY: follow up q 12 mths Tests: PHQ-9 q 6 mths If PHQ9 has been done once in the last 6 mths, and if score is 5 or less, OK to refill for 12 mths ANXIETY: if SSRI for anxiety, PHQ9 is not needed Max Refills: 6mths N ASSEMBLER * Telephone Encounter - Janine Morgan - 05/18/2011 12:16 PM CST Medication and directions: citalopram - TK 1?? 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 documented in this encounter Additional Health Concerns Infection Onset Date Last Indicated Resolved Time Rule Out COVID-03/17/2022 03/17/2022 03/17/2022 1:20 PM CDT COVID-03/17/2022 03/17/2022 04/07/2022 11:4 1 PM CDT documented as of this encounter Care Teams Wood Milling Machine Operator Relationship Specialty Start Date End Date Zohra Rosado PA-C [address] [address] [place] [address] PCP - General Family Practice 11/22/09 02/05/15 System, Provider Not In PCP - General Clinic 05/30/17 11/14/17 No Ref-Primary, Physician PCP - General 11/15/17 01/10/18 [place] [address] [place] [address] PCP - General Family Practice 01/11/18 [place] [address] [place] [address] PCP - Assigned PCP 11/18/17 09/10/18 System, Provider Not In Clinic 02/03/15 [place] [address] [place] [address] Assigned PCP 11/18/17 11/29/19 Manoj Holley MD [address] [facility] [address] [place] [address] Hematology & Oncology 04/28/19 Tierney Valencia, RN Lead Industrial Mechanic 05/01/19 0 [place] [address] [place] [address] Assigned PCP 01/25/20 07/16/21 [place] [address] [place] [address] Assigned PCP 11/30/19 01/24/20 Chantale Barboza, RN Personal Advocate & Liaison (PAL) Family Practice 04/05/20 12/02/20 Manoj Holley MD [address] [address] Assigned Cancer Care Provider 04/30/20 10/30/20 Radha Trejo DPM, Podiatry/Foot and Ankle Surgery [address] [place] [address] Assigned Musculoskeletal Provider 04/30/20 11/13/20 Manoj Holley MD [address] [address] Assigned Cancer Care Provider 12/05/20 06/02/22 Yanelis Galvez Personal Advocate & Liaison (PAL) 12/14/20 Alia Miller PA-C [address] [place] [address] Assigned Surgical Provider 01/30/21 07/28/22 Lori Barbosa MD PRIMARY ENT [address] [place] [address] Assigned PCP 07/17/21 05/26/22 [place] [address] [place] [address] Assigned PCP 05/27/22 06/16/22 Tierney Panchal APRN [facility] Assigned PCP 06/17/22 07/21/22 Lori Barbosa MD [facility] [address] [facility] [address] [place] [address] Assigned PCP 07/22/22 09/01/22 [place] [address] [place] [address] Assigned PCP 09/02/22 documented as of this encounter
--- OUTSIDE RECORDS SUMMARY | 2024-01-09 16:37 | XMS_ITS | Encounter Summary ---
[facility] Organization [facility] Address [address] [place] [address] Care Team Providers Care Executive Pilot Name Role Phone Monet Vallejo MD Primary Care Provider [phone] Encounter Details Date Type Department Care Team (Latest Contact Info) Description 08/16/1994 Orders Only Jeremias Diaz Social History Tobacco Use Types Packs/Day Years [...] documented as of this encounter Care Teams Executive Pilot Relationship Specialty [place] [address] [place] [address] PCP - General Family Practice 10/12/21 documented as of this encounter
--- OUTSIDE RECORDS SUMMARY | 2024-01-09 16:37 | XMS_ITS | Clinical Summary ---
Author Organization [facility] Address [address] [place] [address] Care Team Providers Care Facilities Assistant Name Role Phone System, Provider Not In Unavailable Unavaila Timothy Driscoll MD Primary Care Provider [phone] Manoj Holley MD Unavailable [phone] Yanelis Galvez Unavailable Unavailable Timothy Knott MD Unavailable [phone] Allergies Active Allergy Reactions Criticality Noted Date Comments Ragweeds 03/28/2019 Sulfa Antibiotics Nausea,Itching,Rash 9 Medications Medication Sig Dispensed Refills Start Date End Date Status fish oil-omega-3 fatty acids 1000 MG capsule Take by mouth daily. Active cholecalciferol (VITAMIN D) 1000 UNIT tablet Take 1 tablet by mouth daily. 100 tablet 3 10/05/2011 Active multivitamin, therapeutic with minerals (THERA-VIT-M) TABS Take 1 tablet by mouth daily. Active calcium carbonate 600 mg-vitamin D 400 units (CALCIUM 600 + D) 600-400 MG-UNIT per tabletIndications:Loki richardson general medical examination at a health care facility Take 1 tablet by mouth 2 times daily 200 tablet 3 03/27/2018 Active buPROPion (WELLBUTRIN XL) 300 MG 24 hr tabletIndications:Anx iety,Mild major depression (H24),Migraine without status migrainosus, not intractable, unspecified migraine type TAKE 1 TABLET (300 MG) BY MOUTH ONCE DAILY IN THE MORNING. TOTAL 450 MG A DAY 90 tablet 09/13/2021 Active buPROPion (WELLBUTRIN XL) 150 MG 24 hr tabletIndications:Anx iety,Mild major depression (H24),Migraine without status migrainosus, not intractable, unspecified migraine type TAKE 1 TABLET BY MOUTH IN THE MORNING . TAKE WITH 300MG TABLET FOR A TOTAL OF 450MG 90 tablet 09/13/2021 Active lisinopril (ZESTRIL) 5 MG tabletIndications:Sta ge 3 chronic kidney disease, unspecified whether stage 3a or 3b CKD (H) Take 1 tablet by mouth once daily 90 tablet 09/13/2021 Active metoprolol tartrate (LOPRESSOR) 25 MG tabletIndications:Ess ential hypertension Take 1/2 (one-half) tablet by mouth twice daily 90 tablet 09/13/2021 Active loratadine (CLARITIN) 10 MG tablet Take 10 mg by mouth daily Active magnesium 250 MG tablet Take 1 tablet by mouth daily Active ondansetron (ZOFRAN ODT) 4 MG ODT tabIndications:Vomiti ng and diarrhea Take 1 tablet (4 mg) by mouth every 8 hours as needed for nausea 9 tablet 03/18/2022 Active Active Problems Problem Noted Date Diagnosed Date Vomiting and diarrhea 03/17/2022 Infection due to 2019 novel coronavirus 03/17/20 22 Callus of foot 12/13/2020 Last Assessment & Plan: Podiatry recommended daily shaving, which she does with unknown device. She cannot see her foot, and abraded herself to bleeding. That wound is 2 mm, not infected. Care discussed, daily pumice stone without complete callus removal discussed and recommended Encephalomalacia on imaging study 12/13/2020 Last Assessment & Plan: Memory defects she reports date to her craniotomy. No recent evaluation for secondary causes. Abdominal pain, right upper quadrant 12/13/2020 Last Assessment & Plan: Episodic, sometimes radiates to back. Status post cholecystectomy. Copious stool x-ray. Exam benign. Treat constipation. Suspect IBS Memory loss 12/13/2020 Last Assessment & Plan: She reports this began after her craniotomy. She is taking notes. Chart review indicates no recent evaluation for secondary causes.. [employer] database Constipation, unspecified constipation type 01/2021 Last Assessment & Plan: Lifelong, IBS likely. Senokot, MiraLAX ineffective in the past. Lactulose effective but stopped a few years ago. Resume. [facility] database Hyponatremia 01/14/2020 Special screening for malignant neoplasms, colon 06/19/2019 Last Assessment & Plan: She is due for colonoscopy Mild major depression 06/19/2019 Last Assessment & Plan: PHQ-9 score: PHQ-9 SCORE 03/28/2019 PHQ-9 Total Score - PHQ-9 Total Score MyChart - PHQ-9 Total Score 5 Partial remission. Continue bupropion CKD (chronic kidney disease) stage 3, GFR 30-59 ml/min 06/09/2019 Last Assessment & Plan: She is quite concerned about her diagnosis of CKD. In the [facility] doctors told her she had no kidney [...] (CKD-EPI) equation. Discussed CKD, recommend MILKA inhibitor NILES (obstructive sleep apnea) 05/16/2018 Primary osteoarthritis of both hands 05/16/2018 Cervical [...] 11/22/20 NIL, +HR HPV, not 16/18. Plan [facility] bef 02/22/21 12/01/20 Left msg TCB 12/09/20 Left 2nd msg TCB and Result letter sent out 01/21/21 Certified ltr sent. Tracking # [id number] 02/24/21 Your item has been delivered to the original sender at 9:57 am on February 16, 2021 [place] [address]. 02/28/21 [facility] not done. Tracking updated for 6 mo colp/pap due 05/25/21. 04/05/21 Colposcopy completed? Will watch for records (this line entered after reminder letter sent) 04/08/21 Collins- Normal. Plan 1 yr repeat pap (outside records from [facility]) 05/10/21 Reminder letter - sent before [facility] records received above. 12/12/2021 ECC - negative. (Care Everywhere at [facility]) Visit note states she will be switching to [facility] due to insurance change. Tracking discontinue. Last Assessment & Plan: After discussion and consideration she thinks she may pursue colposcopy when she turns approximately 90-day hence Monoclonal paraproteinemia 04/04/2018 Last Assessment & Plan: Oncology. Recent bone scan shows humeral areas of question. Defer report and discussion to oncology Hyperlipidemia LDL goal <160 01/12/2018 Overview: The 10-year ASCVD risk score ([place] NIHARIKA Jr, et al., 2013) is: 12.8% Values used to calculate the score: Age: 72 years Sex: Female Is Non- : No Diabetic: No Tobacco smoker: No Systolic Blood Pressure: 115 mmHg Is BP treated: Yes HDL Cholesterol: 58 mg/dL Total Cholesterol: 217 mg/dL Dyspepsia 01/11/2018 Situational anxiety 11/15/2012 HTN (hypertension) 11/15/2012 Last Assessment & Plan: Resume MILKA inhibitor, never taken Moderate major depression 04/26/2012 Last Assessment & Plan: Not well controlled. Increase bupropion from 150mg to 300mg daily. PHQ-9 SCORE 03/27/2018 05/01/2018 11/22/2018 PHQ-9 Total Score - - - PHQ-9 Total Score MyChart - 3 (Minimal depression) 11 (Moderate depression) PHQ-9 Total Score 5 3 11 Hoarding behavior 04/26/2012 Migraine 02/16/2012 Last Assessment & Plan: Subcutaneous Imitrex yields incomplete improvement. Add oral dose H/O: stroke with residual effects 12/29/2011 Non-cardiac chest pain 10/17/2011 Anxiety 10/05/2011 Last Assessment & Plan: She is worried about her health. She is afraid that her. She is afraid that her physician will not listen to all her complaints Fibromyalgia 07/24/2008 Diverticulitis of colon 07/24/2008 Insomnia 07/24/2008 Restless leg 07/24/2008 History of meningioma 07/24/2008 Overview: (Problem list name updated by automated process. Provider to review and confirm.) Last Assessment & Plan: Status post craniotomy. 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 Jaky Alvarado RN-BSN, [facility] [phone] DX V65.8 REPLACED WITH [id number] HEALTH CUSTODIAL (10/14/2012) Advanced directives, counseling/discussion 10/05/2011 12/24/2023 Overview: Discussed advance care planning with patient; however, patient declined at this time. 10/05/2011 Major depressive disorder, s karen episode, moderate 07/07/2010 04/26/2012 CARDIOVASCULAR SCREENING; LD L GOAL LESS THAN 160 05/08/2010 01/12/2018 Immunizations Name Administration Dates Next Due COVID-19 MONOVALENT 12+ (Pfizer) 09/04/2020,020 12/2020 Cholera, unspecified formulation 06/10/2002 Flu 65+ Years 03/25/2019 HEPA 06/10/2002,04/12/1998 Influenza (H1N1) 06/11/2009 Influenza (High Dose) 3 denny nt vaccine 03/27/2018 Influenza (IIV3) PF 03/26/2012,04/25/2010,2008 Influenza Vaccine 65+ (Fluzone HD) 03/02/2020 OPV, trivalent, live 02/11/1987 Pneumo Conj 13-V (2010&after) 01/11/2018 Pneumococcal 23 valent 03/26/2012,2006,03/08/2007,1994 TDAP (Adacel,Boostrix) 01/12/2020,11/22/2009 TDAP Vaccine (Adacel) 01/12/2020,11/22/2009 TDAP Vaccine (Boostrix) 11/22/2009 Zoster recombinant adjuvante d (SHINGRIX) 07/15/2018,05/01/2018 Family History Medical History Relation Comments Cardiovascular Brother Depression Brother Diabetes Daughter 1 Hypertension Daughter 1 Cardiovascular Father Depression Father Prostate Cancer Maternal Grandfather Substance Abuse Maternal Grandfather Diabetes Mother Genitourinary Problems Mother Schizophrenia Mother Cardiovascular Paternal Grandfather Cardiovascular Paternal Grandmother Relation Status Comments Brother Alive Daughter 1 Alive Daughter 2 Alive Father Maternal Grandfather Maternal Grandmother Mother Paternal Grandfather Paternal Grandmother Son Alive Social History Tobacco Use Types Packs/Day Years Used Date Smoking Tobacco: Former Cigarettes Q uit: 07/09/1991 Smokeless Tobacco: Never Tobacco Cessation:Counseling Given: Yes Alcohol Use Standard Drinks/Week Comments Yes 0 (1 standard drink = 0.6 oz pur e alcohol) occasionally PHQ-2 Answer Date Recorded PHQ-2 Score 0 11/22/2020 Adolescent Education Answer Date Record ed Getting School Help Needed Not on file 04/23 Sex and Gender Information Value Date Recorded Sex Assigned at Not on file Gender Identity Not on file Sexual Orientation Not on file Last Filed Vital Signs Vital Sign Reading Time Taken Comments Blood Pressure 140/64 03/18/2022 3:38 PM CDT Pulse 67 03/18/2022 3:38 PM CDT Temperature 36.6 ??C (97.9 ??F) 03/18/2022 3:38 PM CD T Respiratory Rate 20 03/18/2022 3:38 PM CDT Oxygen Saturation 100% 03/18/2022 3:38 PM CDT Inhaled Oxygen Concentration - - Weight 66.6 kg (146 lb 12.8 oz) 03/18/2022 8:40 AM CDT Height 160 cm (5' 3) 03/18/2022 8:40 AM CDT Body Mass Index 26 03/18/2022 8:40 AM CDT Plan of Treatment Health Maintenance Due Date Last Done Comments CT COLONOGRAPHY 1945 FLEX SIG 1945 MICROALBUMIN 1945 sDNA (Cologuard) 1945 IPV IMMUNIZATION (2 of 3 - Adult catch-up series) 03/11/1987 02/11/1987 RSV VACCINE ( & 60+) (1 - 1-dose 60+ series) 2005 COLONOSCOPY 08/05/2014 08/05/2009, 12/24/2006 COLORECTAL CANCER SCREENING 11/06/2018 LIPID 01/11/2019 01/11/2018, 04/12/2011, 12/17/2009 FIT 11/06/2019 11/05/2018, 01/29/2006 LUNG CANCER SCREENING 02/18/2021 02/19/2020 MICHELLE ASSESSMENT 11/14/2021 05/17/2021, 11/06, 01/12/2020, Additional history exists PHQ-9 11/14/2021 05/17/2021, 11/06, 01/12/2020, Additional history exists FALL RISK ASSESSMENT 11/22/2021 11/22/2020, 11/22/2020, 05/01/2019, Additional history exists MEDICARE ANNUAL WELLNESS VISIT 11/22/2021 11/22/2020, 05/01/2018, 11/25/2009, Additional history exists ANNUAL REVIEW OF HM ORDERS 12/13/2021 12/13/2020, HPV FOLLOW-UP 04/08/2022 11/22/2020, 05/10, 05/01/2018 PAP FOLLOW-UP 04/08/2022 11/22/2020, 05/10, 05/01/2018, Additional history exists BMP 09/15/2022 03/18/2022, 09/0 03/2022, 11/23/2020, Additional history exists COVID-19 Vaccine ( season) 2023 03/07/2022, 09/14/2021, 02/21/2021, Additional history exists HEMOGLOBIN 03/18/2023 03/18/2022, 09/0 03/2022, 11/23/2020, Additional history exists INFLUENZA VACCINE (#1) 2024 , 03/02/2020, 03/25/2019, Additional history exists GLUCOSE 03/18/2025 03/18/2022, 09/0 03/2022, 11/23/2020, Additional history exists ADVANCE CARE PLANNING 11/22/2025 11/22/2020 , 10/05/2011, 10/05/2011 DTAP/TDAP/TD IMMUNIZATION (6 - Td or Tdap) 01/11/2030 01/12/2020, 01/12/2020, 11/22/2009, Additional history exists DEXA 07/14/2030 07/14/2015 MIGRAINE ACTION PLAN Completed 02/16/2012 DEPRESSION ACTION PLAN Completed 8, 02/06/2015, 10/31/2012, Additional history exists HEPATITIS C SCREENING Completed 01/11/2018 Pneumococcal Vaccine: 65+ Years Completed 01/11/2018, 03/26/2012, 05/31/2007, Additional history exists ZOSTER IMMUNIZATION Completed 07/15/2018, 8 MAMMO SCREENING Discontinued 04/16/2020, 100 10/2018, 10/11/2018, Additional history exists URINALYSIS Completed 03/17/2022, 06/0 01/2021, 03/27/2018, Additional history exists HPV IMMUNIZATION Aged Out No longer e ligible based on patient's age to complete this topic MENINGITIS IMMUNIZATION Aged Out No l onger eligible based on patient's age to complete this topic RSV MONOCLONAL ANTIBODY Aged Out No l onger eligible based on patient's age to complete this topic Procedures Procedure Name Priority Date/Time Associated Diagnosis Comments CBC WITH PLATELETS AND DIFFERENTIAL STAT 03/18/2022 10:15 AM CDT BASIC METABOLIC PANEL STAT 03/18/2022 10:15 AM CDT ROUTINE UA WITH MICROSCOPIC REFLEX TO CULTURE STAT 03/17/2022 4:14 PM CDT HPV HIGH RISK TYPES DNA CERVICAL Routine 11/22/2020 11:50 AM CDT Encounter for Medicare annual wellness exam PAP IMAGED THIN LAYER SCREEN Routine 11/22/2020 11:43 AM CDT Encounter for screening for malignant neoplasm of cervix MA SCREENING DIGITAL BILATERAL Routine 04/16/2020 1:44 PM CDT Encounter for screening mammogram for malignant neoplasm of breast CT CHEST W CONTRAST Routine 02/19/2020 1 1:06 AM CDT Abnormal chest x-ray FECAL COLORECTAL CANCER SCREEN FIT Routine 11/05/2018 1:05 PM CDT Special screening for malignant neoplasms, colon HEPATITIS C ANTIBODY Routine 01/11/2018 3:57 PM CDT Need for hepatitis C screening test LIPID REFLEX TO DIRECT LDL PANEL Routine 01/11/2018 3:57 PM CDT CARDIOVASCULAR SCREENING; LDL GOAL LESS THAN 160 COLONOSCOPY Routine 08/05/2009 from Last 3 Months or Most Recently Relevant to Health Maintenance Results * CBC with platelets and differential (03/18/2022 10:15 AM CDT) WBC Count 4.2 4.0 - 11.0 10e3/uL 03/18/2022 10:42 AM CDT [facility] RBC Count 3.81 3.80 - 5.20 10e6/uL 03/18/2022 10:42 AM CDT [facility] Hemoglobin 12.1 11.7 - 15.7 g/dL 03/18/2022 10:42 AM CDT [facility] Hematocrit 36.2 35.0 - 47.0 % 03/18/2022 10:42 AM CDT [facility] MCV 95 78 - 100 fL 03/18/2022 10:42 AM CDT [facility] MCH 31.8 26.5 - 33.0 pg 03/18/2022 10:42 AM CDT [facility] MCHC 33.4 31.5 - 36.5 g/dL 03/18/2022 10:42 AM CDT [facility] RDW 12.9 10.0 - 15.0 % 03/18/2022 10:42 AM CDT [facility] Platelet Count 161 150 - 450 10e3/uL 03/18/2022 10:42 AM CDT [facility] % Neutrophils 43 % 03/18/2022 10:42 AM CDT [facility] % Lymphocytes 48 % 03/18/2022 10:42 AM CDT [facility] % Monocytes 9 % 03/18/2022 10:42 AM CDT [facility] % Eosinophils 0 % 03/18/2022 10:42 AM CDT [facility] % Basophils 0 % 03/18/2022 10:42 AM CDT [facility] % Immature Granulocytes 0 % 03/18/2022 10:42 AM CDT [facility] NRBCs per 100 WBC 0 <1 /100 022 10:42 AM CDT [facility] Absolute Neutrophils 1.8 1.6 - 8.3 10e3/uL 03/18/2022 10:42 AM CDT [facility] Absolute Lymphocytes 2.0 0.8 - 5.3 10e3/uL 03/18/2022 10:42 AM CDT [facility] Absolute Monocytes 0.4 0.0 - 1.3 10e3/uL 03/18/2022 10:42 AM CDT [facility] Absolute Eosinophils 0.0 0.0 - 0.7 10e3/uL 03/18/2022 10:42 AM CDT [facility] Absolute Basophils 0.0 0.0 - 0.2 10e3/uL 03/18/2022 10:42 AM CDT [facility]OR[facility] Absolute Immature Granulocytes 0.0 <=0.4 10e3/uL 03/18/2022 10:42 AM CDT LABOR[facility] Absolute NRBCs 0.0 10e3/uL 03/18/2022 10:42 AM CDT [facility] Blood STRUCTURE OF LEFT UPPER LIMB / Unknown Venipuncture / Unknown 03/18/2022 10:15 AM CDT 03/18/2022 10:36 AM CDT Reina Barton PA-C LAB - BLOOD [facility] [address] [facility] (1st [facility], no room number) [place] [address], [facility] [phone] * (ABNORMAL) Basic metabolic panel (03/18/2022 10:15 AM CDT) Creatinine 0.86 0.51 - 0.95 mg/dL 03/18/2022 10:59 AM CDT [facility] Sodium 133(L) 136 - 145 mmol/L 03/18/2022 10:59 AM CDT [facility] Potassium 3.9 3.4 - 5.3 mmol/L 03/18/2022 10:59 AM CDT [facility] Urea Nitrogen 8.1 8.0 - 23.0 mg/dL 03/18/2022 10:59 AM CDT LAB[facility] Chloride 100 98 - 107 mmol/L 03/18/2022 10:59 AM CDT [facility] Carbon Dioxide (CO2) 22 22 - 29 mmol/L 03/18/2022 10:59 AM CDT [facility] Anion Gap 11 7 - 15 mmol/L 03/18/2022 10:59 AM CDT LABOR[facility]ORY Glucose 95 70 - 99 mg/dL 03/18/2022 10:59 AM CDT LABOR[facility]ORY GFR Estimate 70 >60 mL/min/1.7 3m2 03/18/2022 10:59 AM CDT [facility] Comment:Effective June 092020 eGFRcr in adults is calculated using the 2020 CKD-EPI creatinine equation which includes age and gender (Lizy et al., NEJM, DOI: 10.1056/UVODxu0668891) Calcium 8.6(L) 8.8 - 10.2 mg/dL 03/18/2022 10:59 AM CDT [facility] Blood STRUCTURE OF LEFT UPPER LIMB / Unknown Venipuncture / Unknown 03/18/2022 10:15 AM CDT 03/18/2022 10:36 AM CDT Reina Barton PA-C LAB - BLOOD [facility] [address] [facility] [address] (1st floor, no room number) [place] [address], [facility] [phone] * (ABNORMAL) UA with Microscopic reflex to Culture (03/17/2022 4:14 PM CDT) Color Urine Yellow Colorless, Straw, Light Yellow, Yellow 03/17/2022 4:32 PM CDT LABORATORY Appearance Urine Clear Clear 03/17/20 4:32 PM CDT LABORATORY Glucose Urine Negative Negative mg/dL 03/17/2022 4:32 PM CDT LABORATORY Bilirubin Urine Negative Negative 4:32 PM CDT LABORATORY Ketones Urine 10(A) Negative mg/dL 03/17/2022 4:32 PM CDT LABORATORY Specific [place] Urine 1.012 1.003 - 1.035 03/17/2022 4:32 PM CDT LABORATORY Blood Urine Negative Negative 03/17/2022 4:32 PM CDT LABORATORY pH Urine 5.5 5.0 - 7.0 03/17/2022 4:32 PM CDT LABORATORY Protein Albumin Urine Negative Negative mg/dL 03/17/2022 4:32 PM CDT LABORATORY Urobilinogen Urine Normal Normal, 2.0 mg/dL 03/17/2022 4:32 PM CDT LABORATORY Nitrite Urine Negative Negative 03/17/2022 4:32 PM CDT LABORATORY Leukocyte Esterase Urine Negative Negative 03/17/2022 4:32 PM CDT LABORATORY Mucus Urine Present(A) None Seen /LPF 03/17/2022 4:32 PM CDT [facility] RBC Urine <1 <=2 /HPF 03/17/2022 4:32 PM CDT [facility] WBC Urine 2 <=5 /HPF 03/17/2022 4:32 PM CDT [facility] Squamous Epithelials Urine <1 <=1 /HPF 03/17/2022 4:32 PM CDT [facility] Urine URINE SPECIMEN OBTAINED BY CLEAN CATCH PROCEDURE / Unknown Non-blood Collection / Unknown 03/17/2022 4:14 PM CDT 03/17/2022 4:20 PM CDT Narrative [facility] - 03/17/2022 4:32 PM CDT Urine Culture not indicated Bhanu Sen MD LAB - URINE [facility] [address] [facility] (1st floor, no room number) [place] [phone], [facility] [phone] * (ABNORMAL) HPV High Risk Types DNA Cervical (11/22/2020 11:50 AM CDT) HPV Source SurePath 11/22/2020 11:43 AM CDT [facility] HPV 16 DNA Negative NEG^Nega tive 11/29/2020 4:41 PM CDT [facility] HPV 18 DNA Negative NEG^Nega tive 11/29/2020 4:41 PM CDT [facility] Other HR HPV Positive(A) NEG^Nega tive 11/29/2020 4:41 PM CDT [facility] Final Diagnosis This patient's sample is positive for other HR HPV DNA (types 31, 33, 35, 39, 45, 51, 52, 56, 58, 59, 66 or 68), not HPV 16 or HPV 18 DNA. This result requires clinical correlation with concurrent cytology findings. 11/29/2020 4:41 PM CDT [facility] Comment: This test was developed and its performance characteristics determined by the [facility], [facility]. It has not been cleared or approved by the FDA. The laboratory is regulated under CLIA as qualified to perform high-complexity testing. This test is used for clinical purposes. It should not be regarded as investigational or for research. (Note) METHODOLOGY: ??The Jeremias sandie 4800 system uses automated extraction, simultaneous amplification of HPV (L1 region) and beta-globin, ?? followed by ??real time detection of fluorescent labeled HPV and beta globin using specific oligonucleotide probes . The test specifically identifies types HPV 16 DNA and HPV 18 DNA while concurrently detecting the rest of the high risk types (31, 33, 35, 39, 45, 51, 52, 56, 58, 59, 66 or 68). COMMENTS: ??This test is not intended for use as a screening device for women under age 30 with normal cervical cytology. ??Results should be correlated with cytologic and histologic findings. Close clinical followup is recommended. Specimen Description Cervical Cells 11/22/2020 11:43 AM CDT [facility] Cervical Cells 11/22/2020 11 :50 AM CDT 11/22/2020 12:01 PM CDT Lesa Barbosa MD LAB - BLOO D ORDERABLES [facility] [address] [place] [address] [address] * Pap imaged thin layer screen with HPV - recommended age 30 - 65 years (select HPV order below) (11/22/2020 11:43 AM CDT) PAP AMY Riley Report Patient Name: JEANNINE HERNANDEZ MR#: [id number] Specimen #: [id number] Collected: 11/22/2020 Received: 11/23/2020 Reported: 11/26/2020 10:55 Ordering Phy(s): LESA BARBOSA For improved result formatting, select 'View Enhanced Report Format' under Linked Documents section. SPECIMEN/STAIN PROCESS: Pap imaged thin layer prep screening (Surepath, FocalPoint with guided screening) ? Pap-Cyto x 1, HPV ordered x 1 SOURCE: Cervical, endocervical Pap imaged thin layer prep screening (Surepath, FocalPoint with guided screening) SPECIMEN ADEQUACY: Satisfactory for evaluation. -Transformation zone component present. CYTOLOGIC INTERPRETATION: Negative for intraepithelial lesion or malignancy Electronically signed out by: DIDIER Fernandez ??(ASCP) CLINICAL HISTORY: LMP: [id number] Post Menopausal, A previous normal pap Date of Last Pap: 05/29/2019, Papanicolaou Test Limitations: ??Cervical cytology is a screening test with limited sensitivity; regular screening is critical for cancer prevention; Pap tests are primarily effective for the diagnosis/preventi on of squamous cell carcinoma, not adenocarcinomas or other cancers. COLLECTION SITE: Client: ??[facility] Location: [facility] (R) The technical component of this testing [facility], with the professional component performed at the [facility], [address] [place] [phone] ([phone]) [facility] Cytology 11/22/2020 11:4 3 AM CDT 11/23/2020 9:48 AM CDT Lesa Barbosa MD LAB - OPTI [place] CLINICAL SPECIMEN [facility] * *MA Screening Digital Bilateral (04/16/2020 1:44 PM CDT) Anatomical Region Laterality Modality Breast Bilateral Mammography Impressions 04/19/2020 11:19 AM CDT IMPRESSION: BI-RADS CATEGORY: 1 - ??NEGATIVE. RECOMMENDED FOLLOW-UP: Annual Mammography. The patient will be notified of the results. CARLOS NOLEN MD Narrative 04/19/2020 11:19 AM CDT Examination: Bilateral digital screening mammography with computer aided detection, 04/16/2020 1:44 PM. Comparison: 04/11/2019, ??03/04/2018, : 11/24/16, 07/14/15 History: No current breast concerns. BREAST DENSITY: Scattered fibroglandular densities. COMMENTS: ??No suspicious finding. Procedure Note Carlos Nolen MD - 04/19/2020 Examination: Bilateral digital screening mammography with computer aided detection, 04/16/2020 1:44 PM. Comparison: 04/11/2019, 03/04/2018, : 11/24/16, 07/14/15 History: No current breast concerns. BREAST DENSITY: Scattered fibroglandular densities. COMMENTS: No suspicious finding. IMPRESSION: BI-RADS CATEGORY: 1 - NEGATIVE. RECOMMENDED FOLLOW-UP: Annual Mammography. The patient will be notified of the results. CARLOS NOLEN MD Timothy nKott MD IMG MAMMOGRAPHY ORDE RABLES * CT Chest w Contrast (02/19/2020 11:06 AM CDT) Anatomical Region Laterality Modality Chest, SUBRAD CT BODY, UMP CT CHEST, RAD CT Computed Tomography Impressions 02/19/2020 11:45 AM CDT IMPRESSION: 1. ??Benign-appearing subcoracoid calcification may represent a large osteochondral body, calcified bursitis, or less likely, synovial chondromatosis. 2. ??Large hiatal hernia. RODRÍGUEZ PALACIO MD Narrative 02/19/2020 11:[address] CHEST WITH CONTRAST 02/19/2020 11:06 AM CLINICAL HISTORY: Abnormal chest x-ray axillary calcification. Abnormal chest x-ray. TECHNIQUE: CT chest with IV contrast. Multiplanar reformats were obtained. Dose reduction techniques were used. CONTRAST: 80mL Isovue-370 COMPARISON: 01/26/2020 chest x-ray FINDINGS: LUNGS AND PLEURA: Lungs are clear. No pleural effusion. MEDIASTINUM: No lymphadenopathy. No thoracic aneurysm. UPPER ABDOMEN: Moderate-sized hiatal hernia. Prior cholecystectomy. MUSCULOSKELETAL: There is a calcified subcoracoid lesion on the left that measures 2.9 x 1.8 cm (series 2, image 8) that corresponds to the abnormality seen on the previous chest x-ray. Procedure Note Rodríguez Palacio MD - 02/19/2020 CT CHEST WITH CONTRAST 02/19/2020 11:06 AM CLINICAL HISTORY: Abnormal chest x-ray axillary calcification. Abnormal chest x-ray. TECHNIQUE: CT chest with IV contrast. Multiplanar reformats were obtained. Dose reduction techniques were used. CONTRAST: 80mL Isovue-370 COMPARISON: 01/26/2020 chest x-ray FINDINGS: LUNGS AND PLEURA: Lungs are clear. No pleural effusion. MEDIASTINUM: No lymphadenopathy. No thoracic aneurysm. UPPER ABDOMEN: Moderate-sized hiatal hernia. Prior cholecystectomy. MUSCULOSKELETAL: There is a calcified subcoracoid lesion on the left that measures 2.9 x 1.8 cm (series 2, image 8) that corresponds to the abnormality seen on the previous chest x-ray. IMPRESSION: 1. Benign-appearing subcoracoid calcification may represent a large osteochondral body, calcified bursitis, or less likely, synovial chondromatosis. 2. Large hiatal hernia. RODRÍGUEZ PALACIO MD Timothy Knott MD IMG CT ORDERABLES * Fecal colorectal cancer screen (FIT) (11/05/2018 1:05 PM CDT) Pathologist [facility] Occult Blood Scn FIT Negative NEG^Negati ve 11/10/2018 10:02 AM CDT [facility] Stool specimen (specimen) 11/05/2018 1:05 PM CDT 11/10/2018 7:34 AM CDT Timothy Knott MD LAB - STOOLS ORDERAB LES Performing Organization Address City/State/[facility] Co de Phone Number [facility] [address] [place] [address] * (ABNORMAL) Lipid panel reflex to direct LDL Non-fasting (01/11/2018 3:57 PM CDT) Cholesterol 217(H) <200 mg/dL 01/12/2018 2:15 PM CDT [facility] Comment:Desirable: <200 mg/d l Triglycerides 162(H) <150 mg/dL 01/12/2018 2:22 PM CDT [facility] Comment: Borderline high: ??150-199 mg/dl High: ? 200-499 mg/dl Very high: ? >499 mg/dl Non Fasting HDL Cholesterol 58 >49 mg/dL 8 2:15 PM CDT [facility] LDL Cholesterol Calculated 127(H) <100 mg/dL 01/12/2018 2:22 PM CDT [facility] Comment: Above desirable: ??100-129 mg/dl Borderline High: ??130-159 mg/dL High: ? 160-189 mg/dL Very high: ? >189 mg/dl Non HDL Cholesterol 159(H) <130 mg/dL 01/12/2018 2:15 PM CDT [facility] Comment: Above Desirable: ??130-159 mg/dl Borderline high: ??160-189 mg/dl High: ? 190-219 mg/dl Very high: ? >219 mg/dl Blood specimen (specimen) 01/11/2018 3:57 PM CDT 01/11/2018 3:58 PM CDT Timothy Knott MD LAB - BLOOD ORDERABL ES Performing Organization Address City/[facility] Co de Phone Number [facility] [address], [place] [address] * Hepatitis C antibody (01/11/2018 3:57 PM CDT) Hepatitis C Antibody Nonreactive NR^Nonre active 01/14/2018 9:10 AM CDT [facility] Comment: Assay performance characteristics have not been established for newborns, infants, and children Blood specimen (specimen) 01/11/2018 3:57 PM CDT 01/11/2018 3:58 PM CDT Timothy Knott MD LAB - BLOOD ORDERABL ES Performing Organization Address City/[facility]/ZIP Co de Phone Number [facility] [address] [place] [address] * COLONOSCOPY (08/05/2009) Zohra Rosado PA-C PROCEDURES from Last 3 Months or Most Recently Relevant to Health Maintenance Advance Directives For more information, please contact: [phone] Documents on File Type Date Recorded Patient Carbon Blocks Press Operator Expl anation Advance Directives and Living Will 03/25/2009 * Full Code (Latest Code Status on File) Date Activated Date Inactivated Comments 03/17/2022 10:26 PM 03/18/2022 7:38 PM All basic an d advanced life-sustaining interventions are performed as appropriate Question Answer Comments Code status determined by: Discussion with patie nt/ legal decision maker * Full Code Date Activated Date Inactivated Comments 10/13/2011 1:49 AM 10/14/2011 12:53 PM Care Teams Facilities Assistant Relationship Specialty [place] [address] [place] [address] PCP - General Family Practice 01/11/18 System, Provider Not In Clinic 02/03/15 Manoj Holley MD [address] [facility] [address] [place] [address] Hematology & Oncology 04/28/19 Yanelis Galvez Personal Advocate & Liaison (PAL) 12/14/20 [place] [address] [place] [address] Assigned PCP 09/02/22
--- OUTSIDE RECORDS SUMMARY | 2024-01-09 16:37 | XMS_ITS | Encounter Summary ---
Author Organization [facility] Address [address] [place] [address] Care Team Providers Care Chief Quality Officer Name Role Phone Monet Vallejo MD Primary Care Provider [phone] Encounter Details Date Type Department Care Team (Latest Contact Info) Description 08/23/1994 Orders Only Radha Swift Social History Tobacco [...] documented as of this encounter Care Teams Chief Quality Officer Relationship Specialty [place] [address] [place] [address] PCP - General Family Practice 10/12/21 documented as of this encounter
--- OUTSIDE RECORDS SUMMARY | 2024-01-09 16:37 | XMS_ITS | Encounter Summary ---
Author Organization [facility] Address [address] [place] [address] Care Team Providers Care Apartment Maintenance Technician Name Role Phone System, Provider Not In Unavailable Unavaila Timothy Driscoll MD Primary Care Provider [phone] KishanManoj champagne MD Unavailable [phone] Manoj Holley MD Unavailable [phone] Yanelis Galvez Unavailable Unavailable Alia Miller PA-C Unavailable [phone] Lori Barbosa MD Unavailable + Timothy Knott MD Unavailable [phone] Tierney Panchal APRN REGIONAL SALES TRAINER Unavailable Unavail able Lori Barbosa MD Unavailable + Timothy Knott MD Unavailable [phone] Encounter Details Date Type Department Care Team (Late st Contact Info) Description 03/18/2022 Documentation Only INTERFACED REPORT Unknown, Provider Social History Tobacco Use Types Packs/Day Years [...] on file Sexual Orientation Not on file COVID-19 Exposure Response Date Recorded In the last 10 days, have yo u been in contact with someone who was confirmed or suspected to have Coronavirus/COVID-19? No / Unsure 03/17/2022 10:56 AM CDT documented as of this encounter Plan of Treatment Not on file documented as of this encounter Visit Diagnoses Not on filedocumented in this encounter Additional Health Concerns Infection Onset Date Last Indicated Resolved Time COVID-19 03/17/2022 03/17/2022 04/07/2022 11:4 1 PM CDT Assessment Noted Time PHQ-9 Depression Total Score: 1 05/18/20 21 7:29 AM PRICE LISTER documented as of this encounter Care Teams Apartment Maintenance Technician Relationship Specialty [place] [address] [place] [address] PCP - General Family Practice 01/11/18 System, Provider Not In Clinic 02/03/15 Manoj Holley MD [address] [place] [address] Hematology & Oncology 04/28/19 Manoj Holley MD [address] [place] [address] Assigned Cancer Care Provider 12/05/20 06/02/22 Yanelis Galvez Personal Advocate & Liaison (PAL) 12/14/20 Alia Miller, PA-C [address] [place] [address] Assigned Surgical Provider 01/30/21 07/28/22 Lori Barbosa MD PRIMARY ENT [address] [place] [address] Assigned PCP 07/17/21 05/26/22 [place] [address] [place] [address] Assigned PCP 05/27/22 06/16/22 Tierney Panchal APRN REGIONAL SALES TRAINER Assigned PCP 06/17/22 07/21/22 Lori Barbosa MD PRIMARY ENT [address] [facility] [address] [place] [address] Assigned PCP 07/22/22 09/01/22 [place] [address] [place] [address] Assigned PCP 09/02/22 documented as of this encounter
--- OUTSIDE RECORDS SUMMARY | 2024-01-09 16:37 | XMS_ITS | Encounter Summary ---
Author Organization [facility] Address [address] [place] [address] Care Team Providers Care Aircraft Detail Draftsperson Name Role Phone Zohra Rosado PA-C Primary Care Provid er System, Provider Not In Unavailable Unavaila ble System, Provider Not In Primary Care Provider Un available No Ref-Primary, Physician Primary Care Provider Timothy Knott MD Primary Care Provider [phone] Timothy Knott MD Unavailable [phone] Timothy Knott MD Unavailable [phone] Manoj Holley MD Unavailable [phone] Tierney Valencia RN Unavailable [phone] Timothy Knott MD Unavailable [phone] Timothy Knott MD Unavailable [phone] Chantale Barboza RN Unavailable Unavailable Manoj Holley MD Unavailable [phone] Radha Trejo DPM, Podiatry /Foot and Ankle Surgery Unavailable Manoj Holley MD Unavailable [phone] Yanelis Galvez Unavailable Unavailable Alia Miller PA-C Unavailable [phone] Lori Barbosa MD Unavailable + Timothy Knott MD Unavailable Miguelito Panchaltoby HERNANDEZ HOUSEPERSON Unavailable Unavail able Lori Barbosa MD Unavailable + Timothy Knott MD Unavailable [phone] Encounter Details Date Type Department Care Team (Late st Contact Info) Description 01/02/2012 [facility] Extended Documentation [address] [address] Brenda Pereyra XXX RESIGNED XXX [address] [facility] [address] [place] [address] Social History Tobacco Use Types Packs/Day Years [...] Date Last Indicated Resolved Time Rule Out COVID-19 03/17/2022 03/17/2022 03/17/2022 1:20 PM CDT COVID-19 03/17/2022 03/17/2022 04/07/2022 11:4 1 PM CDT documented as of this encounter Care Teams Aircraft Detail Draftsperson Relationship Specialty Start Date End Date Zohra Rosado PA-C [address] [address] [place] [address] PCP - General Family Practice 11/22/09 02/05/15 System, Provider Not In PCP - General Clinic 05/30/17 11/14/17 No Ref-Primary, Physician PCP - General 11/15/17 01/10/18 [place] [address] [place] [address] PCP - General Family Practice 01/11/18 [place] [address] [place] [address] PCP - Assigned PCP 11/18/17 09/10/18 System, Provider Not In Clinic 02/03/15 [place] [address] [place], [place] [id number] Assigned PCP 11/18/17 11/29/19 Manoj Holley MD [address] [facility] [place] [address] [place], [place] [id number] Hematology & Oncology 04/28/19 Tierney Valencia RN Lead Thread Dresser 05/01/19 0 [place] [address] [place], [place] [address] Assigned PCP 01/25/20 07/16/21 [place] [address] [place] [address] Assigned PCP 11/30/19 01/24/20 Chantale Barboza, ROD Personal Advocate & Liaison (PAL) Family Practice 04/05/20 12/02/20 Manoj Holley MD [address] [facility] [place] [address] [place], [place] [address] Assigned Cancer Care Provider 04/30/20 10/30/20 Radha Trejo, DPM, Podiatry/Foot and Ankle Surgery [address] [facility] [address] [place] [address] Assigned Musculoskeletal Provider 04/30/20 11/13/20 Manoj Holley MD [address] [facility] [place] [address] [place], [place] [address] Assigned Cancer Care Provider 12/05/20 06/02/22 Yanelis Galvez Personal Advocate & Liaison (PAL) 12/14/20 Alia Miller PAMichaelC [address] [place] [address] Assigned Surgical Provider 01/30/21 07/28/22 Lori Barbosa MD PRIMARY ENT [address] [facility] [address] [place], [place] [address] Assigned PCP 07/17/21 05/26/22 [place] [address] [place], [place] [address] Assigned PCP 05/27/22 06/16/22 Tierney Panchal APRN HOUSEPERSON Assigned PCP 06/17/22 07/21/22 Lori Barbosa MD PRIMARY ENT [address] [facility] [address] [place] [address] Assigned PCP 07/22/22 09/01/22 [place] [address] [place], [place] [address] Assigned PCP 09/02/22 documented as of this encounter
--- OUTSIDE RECORDS SUMMARY | 2024-01-09 16:37 | XMS_ITS | Clinical Summary ---
Author Organization [facility] Address [place], [place] [address] Care Team Providers Care Salt Manager Name Role Phone Aurelia Susana [facility] - Primary Care Provider Allergies Active Allergy Reactions Criticality Noted Date Comments Aminoglycosides Itching 02/20/2005 ear gtts- symptoms worsened during use Sulfa (Sulfonamide Antibiotics) Itching,Nausea Only,Rash Low 07/24/2008 PN: LW Reaction: Itching, Pruritis Medications Medication Sig Dispensed Refills Start Date End Date Status fish oil-omega-3 fatty acids 1,000-340 mg capsule Take 1,000 mg by mouth once daily. Active metoprolol tartrate (LOPRESSOR) 25 mg tablet Take 12.5 mg by mouth two times daily. 09/13/2021 Active loratadine (CLARITIN) 10 mg tablet Take 10 mg by mouth once daily. Active lisinopriL (PRINIVIL; ZESTRIL) 5 mg tablet Take 5 mg by mouth once daily. 09/13/2021 Active buPROPion (WELLBUTRIN XL) 300 mg Extended-Release tablet Take 300 mg by mouth once daily. 09/13/2021 Active buPROPion (WELLBUTRIN XL) 150 mg Extended-Release tablet 150 mg once daily in the evening. 09/13/2021 Active acetaminophen (TYLENOL EXTRA STRGTH) 500 mg tablet Take 500 mg by mouth every 4 hours if needed. Active multivitamins with minerals tablet Take 1 Tablet by mouth once daily. Active magnesium 250 mg tab Take 250 mg by mouth once daily in the evening. Active ondansetron (ZOFRAN ODT) [address] 4 mg on the tongue every 8 hours if needed. 03/18/2022 Active aspirin 325 mg tabletIndications:S/ P reverse total shoulder arthroplasty, left Take 1 Tablet (325 mg) by mouth once daily with a meal. 30 Tablet 01/29/2023 Active sennosides-docusate (SENOKOT S) (8.6-50 mg) tabletIndications:S/ P reverse total shoulder arthroplasty, left Take 1 Tablet by mouth 2 times daily if needed for Constipation. 20 Tablet 01/29/2023 Active HYDROcodone-acetamin ophen (NORCO) 5-325 mg per tabletIndications:S/ P reverse total shoulder arthroplasty, left Take 1-2 Tablets by mouth every 4 hours if needed for Pain (1 tab for moderate pain, 2 tabs for severe pain). Max acetaminophen dose: 4000 mg in 24 hrs. 20 Tablet 01/30/2023 Active Active Problems Problem Noted Date Diagnosed Date S/P reverse total shoulder arthroplasty, left Hyperkalemia 01/29/2023 CKD (chronic kidney disease) stage 3, GFR 30-59 ml/min 06/09/2019 Overview: Last Assessment & Plan: She is quite concerned about her diagnosis of CKD. [place] [facility] [place] kidney [...] (CKD-EPI) equation. Discussed CKD, recommend MILKA inhibitor Last Assessment & Plan: She is quite concerned about her diagnosis of CKD. [place] [facility] [place] had no kidney [...] MILKA inhibitor NILES (obstructive sleep apnea) 05/16/2018 HTN (hypertension) 11/15/2012 Overview: Last Assessment & Plan: Resume MILKA inhibitor, never taken Last Assessment & Plan: Resume MILKA inhibitor, never taken Fibromyalgia 07/24/2008 Hyperlipidemia 06/23/2008 Overview: The 10-year ASCVD risk score (Teresa BUNDY Jr, et al., 2013) is: 12.8% Values used to calculate the score: Age: 72 years Sex: Female Is Non- : No Diabetic: No Tobacco smoker: No Systolic Blood Pressure: 115 mmHg Is BP treated: Yes HDL Cholesterol: 58 mg/dL Total Cholesterol: 217 mg/dL Major depression 07/18/2004 Overview: Last Assessment & Plan: Not well controlled. Increase bupropion from 150mg to 300mg daily. PHQ-9 SCORE 03/27/2018 05/01/2018 11/22/2018 PHQ-9 Total Score - - - PHQ-9 Total Score MyChart - 3 (Minimal depression) 11 (Moderate depression) PHQ-9 Total Score 5 3 11 Last Assessment & Plan: PHQ-9 score: PHQ-9 SCORE 03/28/2019 PHQ-9 Total Score - PHQ-9 Total Score MyChart - PHQ-9 Total Score 5 Partial remission. Continue bupropion Depressive disorder, not elsewhere classified ([facility]) Social History Tobacco Use Types Packs/Day Years Used Date Smoking Tobacco: Never Smokeless Tobacco: Never Tobacco Cessation:Counseling Given: Not Answered Alcohol Use Standard Drinks/Week Comments Not Currently 0 (1 standard drink = 0.6 oz pur e alcohol) Sex and Gender Information Value Date Recorded Sex Assigned at Not on file Gender Identity Not on file Sexual Orientation Not on file Obstetrics History Last Filed Vital Signs Vital Sign Reading Time Taken Comments Blood Pressure 116/56 01/30/2023 12:13 PM CDT Pulse 71 01/30/2023 12:13 PM CDT Temperature 36.9 ??C (98.4 ??F) 01/30/2023 12:13 PM C DT Respiratory Rate 16 01/30/2023 12:13 PM CDT Oxygen Saturation 96% 01/30/2023 12:13 PM CDT Inhaled Oxygen Concentration - - Weight 70.9 kg (156 lb 4.9 oz) 01/29/2023 10:39 AM CDT Height 157.5 cm (5' 2) 01/29/2023 10:39 AM CDT Body Mass Index 28.59 01/29/2023 10:39 AM CDT Plan of Treatment Health Maintenance Due Date Last Done Comments Tdap 1956 Depression screening for age 12+ 1957 BMI (ht and wt on same day) for age 18+ 1963 Hepatitis C screening for ag e 18-79 1963 Tetanus booster 1965 Zoster (shingles) series for age 50+ (1 of 2) 1995 DEXA/DXA scan for age 65+ 2010 Medicare Wellness for age 65+ 2010 Pneumococcal series for age 65+ (1 of 1 - PCV) 2010 COVID-19 vaccine series (2022-24 ) 03/09/2023 05/10/2022, 03/07/2022, 02/21/2021, Additional history exists Influenza for age 65+ 03/09/2024 Medical Devices Implanted Type Area Surveyor Chain Helper Device Identifier Shelf Expiration Date Model / Serial / Lot Baseplate Glenoid 25mm 35 Deg Perform+ Half Wedge - [id number] Implanted:Qty: 1 on 01/29/2023 by Geoffrey Lord MD at [facility] Left: Shoulder [employer] 12/14/2027 [id number] / [id number] / Glenoid 36mm Aequalis Perform+ Rev - [id number] Implanted:Qty: 1 on 01/29/2023 by Geoffrey Lord MD at [facility] Left: Shoulder [employer] 11/29/2027 [id number] / [id number] / Liner Hum Sz 36mm +6 Ascend Flex - [id number] Implanted:Qty: 1 on 01/29/2023 by Geoffrey Lord MD at [facility] Left: Shoulder [employer] 10/05/2027 [id number] / [id number] / Baseplate Hum Sz 0 Ascend Rev Flex Centered - [id number] Implanted:Qty: 1 on 01/29/2023 by Geoffrey Lord MD at [facility] Left: Shoulder [employer] 11/01/2027 [id number] / [id number] / Stem Hum Sz 5b Ascend Flex Std - [id number] Implanted:Qty: 1 on 01/29/2023 by Geoffrey Lord MD at [facility] Left: Shoulder [employer] 10/04/2027 [id number] / [id number] / Post Shoulder Glenoid 6.5x25mm Perform+ Rev - [id number] Implanted:Qty: 1 on 01/29/2023 by Geoffrey Lord MD at [facility] Left: Shoulder [employer] [id number] / / Screw Shoulder 14mm Perform+ Periph - [id number] Implanted:Qty: 2 on 01/29/2023 by Geoffrey Lord MD at [facility] Left: Shoulder [employer] [id number] / / Screw Shoulder 30mm Perform+ Periph - [id number] Implanted:Qty: 1 on 01/29/2023 by Geoffrey Lord MD at [facility] Left: Shoulder [employer] [id number] / / Screw Shoulder 26mm Perform+ Periph - [id number] Implanted:Qty: 1 on 01/29/2023 by Geoffrey Lord MD at [facility] Left: Shoulder [employer] [id number] / / Advance Directives * Full Code (Latest Code Status on File) Date Activated Date Inactivated Comments 01/30/2023 2:47 PM 01/30/2023 5:03 PM Question Answer Comments Code Status Discussion: Reviewed Preferences * Full Code Date Activated Date Inactivated Comments 01/29/2023 10:21 AM 01/30/2023 2:47 PM Question Answer Comments Code Status Discussion: Unable to Assess Preferences, Provider to review later Care Teams Salt Manager Relationship Specialty Start Date End Date Susana Moses [facility] - [address] [place] [address] PCP - General 01/08/23
--- OUTSIDE RECORDS SUMMARY | 2024-01-09 16:37 | XMS_ITS | Encounter Summary ---
Author Organization [facility] Address [address] [address] Care Team Providers Care Asset Management Coordinator Name Role Phone Monet Vallejo MD Primary Care Provider [phone] Encounter Details Date Type Department Care Team (Latest Contact Info) Description 11/22/1994 Orders Only Jack, Surekha Social History Tobacco [...] documented as of this encounter Care Teams Asset Management Coordinator Relationship Specialty [place] [address] [place] [address] PCP - General Family Practice 10/12/21 documented as of this encounter
--- OUTSIDE RECORDS SUMMARY | 2024-01-09 16:37 | XMS_ITS | Encounter Summary ---
Author Organization [facility] Address [address] [place] [address] Care Team Providers Care Surgical Consultant Name Role Phone System, Provider Not In Unavailable Unavaila Timothy Driscoll MD Primary Care Provider [phone] Timothy Knott MD Unavailable [phone] Manoj Holley MD Unavailable [phone] Tierney Valencia RN Unavailable [phone] Timothy Knott MD Unavailable [phone] Timothy Knott MD Unavailable [phone] Chantale Barboza RN Unavailable Unavailable Manoj Holley MD Unavailable [phone] Radha Trejo DPM, Podiatry /Foot and Ankle Surgery Unavailable Manoj Holley MD Unavailable [phone] Yanelis Galvez Unavailable Unavailable Alia Miller PA-C Unavailable [phone] Lori Barbosa MD Unavailable + Timothy Knott MD Unavailable [phone] Tierney Panchal APRN [facility] [employer] Unavailable Unavail able Lori Barbosa MD Unavailable + Timothy Knott MD Unavailable [phone] Reason for Visit * Reason Onset Date Comments Refill Request 02/20/2019 Refill on Metopr olol Encounter Details Date Type Department Care Team (Late st Contact Info) Description 02/20/2019 Refill [facility] [id number] [place] [phone] [place] [id number] [place] [address] Refill Request (Refill on Metoprolol) Social History Tobacco Use Types Packs/Day Years Used Date Smoking Tobacco: Former Cigarettes Q uit: 07/09/1991 Smokeless Tobacco: Never Alcohol Use Standard Drinks/Week Comments Yes 0 (1 standard drink = 0.6 oz pur e alcohol) occasionally PHQ-2 Answer Date Recorded PHQ-2 Score 0 07/16/2018 Sex and Gender Information Value Date Recorded Sex Assigned at Not on file Gender Identity Not on file Sexual Orientation Not on file documented as of this encounter Plan of Treatment Not on file documented as of this encounter Visit Diagnoses Diagnosis Essential hypertension Unspecified essential hypertension documented in this encounter Additional Health Concerns Infection Onset Date Last Indicated Resolved Time Rule Out COVID-19 03/17/2022 03/17/2022 03/17/2022 1:20 PM CDT COVID-19 03/17/2022 03/17/2022 04/07/2022 11:4 1 PM CDT Assessment Noted Time PHQ-9 Depression Total Score: 11 019 7:03 AM CDT documented as of this encounter Care Teams Surgical Consultant Relationship Specialty Start Date [place] [id number] [place] [address] PCP - General Family Practice 01/11/18 System, Provider Not In Clinic 02/03/15 [place] [address] [place] [address] Assigned PCP 11/18/17 11/29/19 Manoj Holley MD [address] [facility] [address] [place] [address] Hematology & Oncology 04/28/19 Tierney Valencia, RN Lead Supervisor Press Room 05/01/19 0 [place] [address] [place], [place] [address] Assigned PCP 01/25/20 07/16/21 [place] [address] [place], [place] [address] Assigned PCP 11/30/19 01/24/20 Chantale Barboza RN Personal Advocate & Liaison (PAL) Family Practice 04/05/20 12/02/20 Manoj Holley MD [address] [address] Assigned Cancer Care Provider 04/30/20 10/30/20 Radha Terjo DPM, Podiatry/Foot and Ankle Surgery [address] [place] [address] [address] Assigned Musculoskeletal Provider 04/30/20 11/13/20 Manoj Holley MD [address] [facility] [address] [address] Assigned Cancer Care Provider 12/05/20 06/02/22 Yanelis Galvez Personal Advocate & Liaison (PAL) 12/14/20 Alia Miller, PA-C [address] [place] [address] Assigned Surgical Provider 01/30/21 07/28/22 Lori Barbosa MD PRIMARY ENT [address] [facility] [address] [place] [address] Assigned PCP 07/17/21 05/26/22 [place] [address] [place] [address] Assigned PCP 05/27/22 06/16/22 Tierney Panchal APRN [facility] Assigned PCP 06/17/22 07/21/22 Lori Barbosa MD [facility] [address] [facility] [address] [place] [address] Assigned PCP 07/22/22 09/01/22 [place] [address] [place], [place] [address] Assigned PCP 09/02/22 documented as of this encounter
--- OUTSIDE RECORDS SUMMARY | 2024-01-09 16:37 | XMS_ITS | Referral Summary ---
Author Organization [facility] Address [address] [place] [address] Care Team Providers Care Assembly Press Operator Name Role Phone System, Provider Not In Unavailable Unavaila Timothy Driscoll MD Primary Care Provider [phone] Manoj Holley MD Unavailable [phone] Yanelis Galvez Unavailable Unavailable Timothy Knott MD Unavailable [phone] Allergies Active Allergy Reactions Criticality Noted [...] indicates no recent evaluation for secondary causes.. [employer] database Constipation, unspecified constipation type 01/2021 Last [...] about her diagnosis of CKD. In the [facility] doctors told her she had [...] 11/22/20 NIL, +HR HPV, not 16/18. Plan [place] bef 02/22/21 12/01/20 Left msg TCB 12/09/20 Left 2nd msg TCB and Result letter sent out 01/21/21 Certified ltr sent. Tracking # [id number] 02/24/21 Your item has been delivered to the original sender at 9:57 am on February 16, 2021 [place] [address]. 02/28/21 [place] not done. Tracking updated for 6 mo colp/pap due 05/25/21. 04/05/21 Colposcopy completed? Will watch for records (this line entered after reminder letter sent) 04/08/21 [place]- Normal. Plan 1 yr repeat pap (outside records from [facility]) 05/10/21 Reminder letter - sent before [place] records received above. 12/12/2021 ECC - negative. [...] 01/12/2018 Overview: The 10-year ASCVD risk score (Parkman NIHARIKA Jr, et al., 2013) is: 12.8% [...] Noted Date Diagnosed Date Resolved Date Health Skilled Nursing 10/13/2011 04/09/2013 Overview: Patient is disenrolled from [facility] as of March [address] [facility] for nurse unit manager. Jaky Alvarado RN-BSN, [facility] [phone] DX V65.8 REPLACED WITH [id number] HEALTH LONG TERM (10/14/2012) Advanced directives, counseling/discussion 10/05/2011 12/24/2023 Overview: [...] 11/22/2009 Zoster recombinant adjuvante d (SHINGRIX) 07/15/2018,05/01/2018 Social History Tobacco Use Types Packs/Day Years [...] 03/18/2022 8:40 AM CDT Plan of Treatment Not on file Procedures Procedure Name Priority Date/Time Associated Diagnosis [...] - 0.2 10e3/uL 03/18/2022 10:42 AM CDT [facility] Absolute Immature Granulocytes 0.0 <=0.4 10e3/uL 03/18/2022 10:42 AM CDT [facility] Absolute NRBCs 0.0 10e3/uL 03/18/2022 10:42 AM CDT LABORATORY Blood STRUCTURE OF LEFT UPPER LIMB / Unknown Venipuncture / Unknown 03/18/2022 10:15 AM CDT 03/18/2022 10:36 AM CDT Reina Barton PA-C LAB - BLOOD KAMARI BEDOLLA LABORATORY [facility] [address] [facility] Lab (1st floor, no room number) [place] [address] [phone] * (ABNORMAL) Basic metabolic panel (03/18/2022 10:15 [...] includes age and gender (Lizy et al., NE, DOI: 10.1056/SKVCvk1416283) Calcium 8.6(L) 8.8 - 10.2 mg/dL 03/18/2022 10:59 AM CDT LABORATORY Blood STRUCTURE OF LEFT UPPER LIMB / Unknown Venipuncture / Unknown 03/18/2022 10:15 AM CDT 03/18/2022 10:36 AM CDT Reina Barton PA-C LAB - BLOOD K[facility]I BEDOLLA LAB[facility]AT[facility] [address] [facility] Lab (1st floor, no room number) [place] [address], [facility] [phone] * (ABNORMAL) UA with Microscopic reflex to Culture (03/17/2022 4:14 PM CDT) Color Urine Yellow Colorless, Straw, Light Yellow, Yellow 03/17/2022 4:32 PM CDT LABORATORY Appearance Urine Clear Clear 03/17/20 4:32 PM CDT LABORATORY Glucose Urine Negative Negative mg/dL 03/17/2022 4:32 PM CDT LABORATORY Bilirubin Urine Negative Negative 4:32 PM CDT LABORATORY Ketones Urine 10(A) Negative mg/dL 03/17/2022 4:32 PM CDT LABORATORY Specific [place] Urine 1.012 1.003 - 1.035 03/17/2022 4:32 PM CDT LABORATORY Blood Urine Negative Negative 03/17/2022 4:32 PM CDT LABORATORY pH Urine 5.5 5.0 - 7.0 03/17/2022 4:32 PM CDT LABORATORY Protein Albumin Urine Negative Negative mg/dL 03/17/2022 4:32 PM CDT LABORATORY Urobilinogen Urine Normal Normal, 2.0 mg/dL 03/17/2022 4:32 PM CDT [facility] Nitrite Urine Negative Negative 03/17/2022 4:32 PM CDT [facility] Leukocyte Esterase Urine Negative Negative 03/17/2022 4:32 PM CDT [facility] Mucus Urine Present(A) None Seen /LPF [...] indicated Bhanu Sen MD LAB - URINE KAMARI BEDOLLA [facility] Organization Address City/State/ZIP Co de Phone Number LABORATORY [facility] [address] Lab (1st floor, no room number) [place] [address], [facility] [phone] * (ABNORMAL) HPV High Risk Types DNA Cervical (11/22/2020 11:50 AM CDT) HPV Source [facility] 11/22/2020 11:43 AM CDT [facility] HPV 16 DNA Negative NEG^Nega tive [...] and its performance characteristics determined by the [facility], Molecular Diagnostics Laboratory. It has not been [...] Description Cervical Cells 11/22/2020 11:43 AM CDT [facility] Cervical Cells 11/22/2020 11 :50 AM CDT 11/22/2020 12:01 PM CDT Lesa Barbosa MD LAB - BLOO D ORDERABLES [facility] [address] [address] [facility] [address] [place], [place] [address] [address] [address] * Pap imaged thin layer screen with HPV - recommended age 30 - 65 years (select HPV order below) (11/22/2020 11:43 AM CDT) PAP AMY Riley Report Patient Name: JEANNINE HERNANDEZ MR#: [id number] Specimen #: [id number] Collected: 11/22/2020 Received: 11/23/2020 Reported: 11/26/2020 10:55 [...] by: DIDIER Fernandez ??(ASCP) CLINICAL HISTORY: LMP: [id number] Post Menopausal, A previous normal pap Date of Last Pap: 05/29/2019, Papanicolaou Test Limitations: ??Cervical cytology is a screening test with limited sensitivity; regular screening is critical for cancer prevention; Pap tests are primarily effective for the diagnosis/preventi on of squamous cell carcinoma, not adenocarcinomas or other cancers. COLLECTION SITE: Client: ??[facility] Location: [facility] (R) The technical component of this testing was completed at the General acute hospital, with the professional component performed at the General acute hospital, [address] [place] [phone] ([phone]) [facility] Cytology 11/22/2020 11:4 3 AM CDT [...] of the results. CARLOS NOLEN MD Timothy Knott MD IMG MAMMOGRAPHY ORDE RABLES * CT [...] hernia. RODRÍGUEZ PALACIO MD Timothy Knott MD G CT ORDERABLES * Fecal colorectal cancer screen (FIT) (11/05/2018 1:05 PM CDT) [facility] Occult Blood Scn FIT Negative NEG^Negati ve 11/10/2018 10:02 AM CDT [facility] Stool specimen (specimen) 11/05/2018 1:05 PM CDT 11/10/2018 7:34 AM CDT Timothy Knott MD LAB - STOOLS ORDERAB LES [facility] [address] [place] [address] * (ABNORMAL) Lipid panel reflex to direct LDL Non-fasting (01/11/2018 3:57 PM CDT) [facility] Cholesterol 217(H) <200 mg/dL 01/12/2018 2:15 PM CDT [facility] Comment:Desirable: <200 mg/d l Triglycerides 162(H) <150 mg/dL 01/12/2018 2:22 PM CDT [facility] Comment: Borderline high: ??150-199 mg/dl High: ? 200-499 mg/dl Very high: ? >499 mg/dl Non Fasting HDL Cholesterol 58 >49 mg/dL 8 2:15 PM CDT [facility] LDL Cholesterol Calculated 127(H) <100 mg/dL 01/12/2018 2:22 PM CDT [facility] Comment: Above desirable: ??100-129 mg/dl Borderline High: ??130-159 mg/dL High: ? 160-189 mg/dL Very high: ? >189 mg/dl Non HDL Cholesterol 159(H) <130 mg/dL 01/12/2018 2:15 PM CDT [facility] Comment: Above Desirable: ??130-159 mg/dl Borderline high: ??160-189 mg/dl High: ? 190-219 mg/dl Very high: ? >219 mg/dl Blood specimen (specimen) 01/11/2018 3:57 PM CDT 01/11/2018 3:58 PM CDT Timothy Knott MD LAB - BLOOD ORDERABL ES [facility] [address] [place] [address] * Hepatitis C antibody (01/11/2018 3:57 PM CDT) Hepatitis C Antibody Nonreactive NR^Nonre active 01/14/2018 9:10 AM CDT [facility] Comment: Assay performance characteristics have not been established for newborns, infants, and children Blood specimen (specimen) 01/11/2018 3:57 PM CDT 01/11/2018 3:58 PM CDT Timothy Knott MD LAB - BLOOD ORDERABL ES [facility] [address] [place] [address] * COLONOSCOPY (08/05/2009) Zohra Rosado PA-C PROCEDURES from Last 3 Months or Most Recently Relevant to Health Maintenance Advance Directives For more information, please contact: [phone] Documents on File Type Date Recorded Patient Personnel Clerks Supervisor Expl anation Advance Directives and Living Will [...] 1:49 AM 10/14/2011 12:53 PM Care Teams Assembly Press Operator Relationship Specialty [place] [address] [place] [address] PCP - General Family Practice 01/11/18 System, Provider Not In Clinic 02/03/15 Manoj Holley MD [address] [facility] [address] [place] [address] Hematology & Oncology 04/28/19 Yanelis Galvez Personal Advocate & Liaison (PAL) 12/14/20 [place] [address] [place] [address] Assigned PCP 09/02/22
--- OUTSIDE RECORDS SUMMARY | 2024-01-09 16:37 | XMS_ITS | Encounter Summary ---
Author Organization [facility] Address [address] [address] Care Team Providers Care Safety Consultant Name Role Phone Monet Vallejo MD Primary Care Provider [phone] Encounter Details Date Type Department Care Team (Latest Contact Info) Description 10/04/1994 Orders Only Yinka Ricardo MD [address] [address] Social History Tobacco Use Types Packs/Day Years [...] documented as of this encounter Care Teams Safety Consultant Relationship Specialty [place] [address] [place] [address] PCP - General Family Practice 10/12/21 documented as of this encounter
--- OUTSIDE RECORDS SUMMARY | 2024-01-09 16:37 | XMS_ITS | Patient Health Record ---
Author Organization [facility] Address [address] , [place] [address] Care Team Providers Care Donor Specialist Name Role Phone Gerry Thompson Primary Care Provider Johny Miller Unavailable [phone] Allergies Allergen (clinical drug ingredient) Drug/Non Drug Allergy documented on EMR Reaction Allergy Type Onset Date Status Seasonale sneezing Drug Allergy Active Substance with sulfonamide structure and antibacterial mechanism of action (substance) Sulfa Antibiotics nausea Drug Allergy Active Reason For Referral No Information Medications Medication SIG (Take, Route, Frequency, Duration) Notes Start Date End Date Status Metoprolol Succinate 25 MG 1/2 TAB Orally BID Active buPROPion HCl ER (XL) 300 MG 1 tablet in the morning Orally Once a day PLUS 150MG NIGHTLY Active Lisinopril 10 MG 1 tablet Orally Once a day Active Social History Tobacco Use: Social History Observation Description Date Details (start date - stop date) Former Smoker NA - NA smoking Question Answer Notes Are you a: former smoker alcohol Question Answer Notes Did you have a drink contain ing alcohol in the past year? Yes How often did you have a dri nk containing alcohol in the past year? Monthly or less (1 point) How many drinks did you have on a typical day when you were drinking in the past year? 1 or 2 (0 points) How often did you have six o r more drinks on one occasion in the past? 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) Active confirmed Problem Amnesia (97972132) Memory change (R41.3) Active confirmed Problem Chronic kidney disease stage 3A (disorder) (287676276) Chronic kidney disease, stage 3a (N18.31) Active confirmed Plan Of Treatment Pending Test Test Name Order Date MRI BRAIN WITHOUT CONTRAST NEUROQUANT VA OTOCOL W/ 3D RENDERING 08/14/2022 Insurance Providers Payer Name Payer Address Payer Phone Subscriber Number Group Number Insured Name Patient Relationship to Insured Coverage Start Date Coverage End Date [employer] [place] [address] [address] [place] [phone] [id number] YASH HERNANDEZ Self - patient is the insured Medical (General) History Medical History History ICD Code Gallstones Irritable bowel syndrome Reflux High Blood Pressure Headaches Fibromyalgia Mugus Brain tumor Surgical History Surgery Date(Month/Year) Appendix Brain Gall bladder Wrist- broken Peritonotis Hospitalization History Reason Date(Month/Year) Peritonotis Perit Stones Brain Covid
--- OUTSIDE RECORDS SUMMARY | 2024-01-09 16:37 | XMS_ITS | Encounter Summary ---
Author Organization [facility] Address [address] [place] [address] Care Team Providers Care Battery Service Technician Name Role Phone Monet Vallejo MD Primary Care Provider [phone] Encounter Details Date Type Department Care Team (Latest Contact Info) Description 10/10/1994 Orders Only Peter Jo MD [address] [place] [address] Social History Tobacco Use Types Packs/Day Years [...] documented as of this encounter Care Teams Battery Service Technician Relationship Specialty Start [place] [address] [address] [address] PCP - General Family Practice 10/12/21 documented as of this encounter
--- OUTSIDE RECORDS SUMMARY | 2024-01-09 16:37 | XMS_ITS | Encounter Summary ---
Author Organization [facility] Address [address] [place] [address] Care Team Providers Care Label Coder Name Role Phone Monet Vallejo MD Primary Care Provider [phone] Encounter Details Date Type Department Care Team (Latest Contact Info) Description 01/13/1995 Orders Only Peter Jo MD [address] [place] [address] Social History Tobacco Use Types Packs/Day Years [...] documented as of this encounter Care Teams Label Coder Relationship Specialty [place] [address] [place] [address] PCP - General Family Practice 10/12/21 documented as of this encounter
--- OUTSIDE RECORDS SUMMARY | 2024-01-09 16:37 | XMS_ITS | Encounter Summary ---
Author Organization [facility] Address [address], [place] [address] Care Team Providers Care Outside Sales Account Manager Name Role Phone Monet Vallejo MD Primary Care Provider [phone] Encounter Details Date Type Department Care Team (Latest Contact Info) Description 08/02/1994 Orders Only Yinka Ricardo MD [address] [address] Social History Tobacco Use Types Packs/Day Years [...] documented as of this encounter Care Teams Outside Sales Account Manager Relationship Specialty [place] [address] [place] [address] PCP - General Family Practice 10/12/21 documented as of this encounter
--- OUTSIDE RECORDS SUMMARY | 2024-01-09 16:38 | XMS_ITS | Patient Health Record ---
Author Organization [facility] Giul[facility] Tran DO Address [address] [facility] [address] [place], [place] [address] Care Team Providers Care Director Paid Media Name Role Phone Onesimo Tran [phone] ALLERGIES Allergen (clinical drug ingredient) Drug/Non Drug Allergy documented on EMR Reaction Allergy Type Onset Date Status Sulfacet-R Unknown Drug Allergy Active REASON FOR REFERRAL No Information MEDICATIONS Medication SIG (Take, Route, Frequency, Duration) Notes Start Date End Date Status Vaseline vaseline as directed topicall y tid for 30 days Active [place]-Smoothe/FS Scalp 0.01 % 1 applicat ion to affected area at bedtime Externally Once a day for 30 days 10/12/2016 Active Carisoprodol Active Xyzal 5 MG 1 tablet Orally Once a day for 30 day(s) Active Bacitracin 500 UNIT/GM 1 application to affected area Externally Once a day for 14 days Active Mupirocin 2 % 1 application to affected area Externally Three times a day for 30 days 10/09/2018 Active Vaseline vaseline as directed topicall y tid for 30 days Active hydrOXYzine HCl 25 MG 1 tablet Orally qh s for 30 day(s) Active Fluocinolone Acetonide 0.01 % 1 drop to affected area as needed Externally Once a day for 30 days 11/06/2016 Active Omeprazole Active Vaseline vaseline as directed topicall y tid for 30 days Active Ambien Active Bacitracin 500 UNIT/GM 1 application to affected area Externally Once a day for 14 days Active hydroCHLOROthiazide Active Fluocinonide 0.05 % as directed External ly bid for 30 days Active Metoprolol & Diet Manage Prod Active Vaseline vaseline as directed topicall y tid for 30 days Active Protopic 0.03 % 1 application to affected area Externally Twice a day for 30 days 12/02/2019 Active LORazepam Active Vaseline vaseline as directed topicall y tid for 30 days Active Meloxicam Active IMMUNIZATIONS Vaccine Route Administration Date Status Comme nts Pneumococcal Unknown 06/20/2017 Administered SOCIAL HISTORY Tobacco Use: Social History Observation Description Date Details (start date - stop date) Never Smoker NA - NA Sex Assigned At : Social History Observation Description Sex Assigned At Unknown Tobacco Use/Smoking Question Answer Notes Are you a nonsmoker PLAN OF TREATMENT Pending Test Test Name Order Date [facility] Pathology 11/06/2016 [facility] Path[facility] 04/13/2017 Insurance Providers Payer Name Payer Address Payer Phone Subscriber Number Group Number Insured Name Patient Relationship to Insured Coverage Start Date Coverage End Date [employer] [address] [place] [address] [id number] Jeannine Zuleta Self - patient is the insured 9
== END 2024-01-09 16:34 | disposition home or self-care (01) ==
LOC: LKVREF 16:34
PROVIDERS: PCP Emergency Medicine; Visit Provider Emergency Medicine
DX: I10 Essential (primary) hypertension (principal); N18.9 Chronic kidney disease, unspecified; R73.03 Prediabetes
CPT/HCPCS: 80048

== ENCOUNTER 2024-03-18 13:29 | Outpatient (CLI) | payer OTHER, SELFPAY ==
--- OUTSIDE RECORDS SUMMARY | 2024-03-18 13:32 | XMS_ITS | Encounter Summary ---
Author Organization [facility] Address [address] [place] [address] Care Team Providers Care Delicatessen Slicer Name Role Phone Monet Vallejo MD Primary Care Provider [phone] Encounter Details Date Type Department Care Team (Latest Contact Info) Description 07/13/1997 Orders Only Peter Jo MD [address] [place] [address] Social History Tobacco Use Types Packs/Day Years [...] documented as of this encounter Care Teams Delicatessen Slicer Relationship Specialty [place] [address] [place] [address] PCP - General Family Practice 10/12/21 documented as of this encounter
--- OUTSIDE RECORDS SUMMARY | 2024-03-18 13:32 | XMS_ITS | Clinical Summary ---
Author Organization [facility] Address [address], [place] [address] Care Team Providers Care Radio Division Lieutenant Name Role Phone Monet Vallejo MD Primary Care Provider + [phone] Source Comments You are receiving this document as you are listed as the primary care provider,follow-up provider, or the patient has been referred to you for consultation.This is in compliance with the Medicare and[facility] EHR Incentive Program,which states Providers who transition their patient to another setting of careor provider of care or refers their patient to another provider of care shouldprovide summary care record for each transition of care or referral. [facility] Allergies Active Allergy Reactions Criticality Noted Date [...] day. Active FISH OIL None Entered Active Wilmerding-3 Fatty Acids (FISH OIL) 1000 MG capsule [...] Problem Noted Date Diagnosed Date Constipation 12/13/2020 Overview (11/10/2021): Last Assessment & Plan: Lifelong, IBS likely. Senokot, MiraLAX ineffective in the past. Lactulose effective but stopped a few years ago. Resume. [employer] database Memory loss 12/13/2020 Overview (11/10/2021): Last Assessment & Plan: She reports this began after her craniotomy. She is taking notes. Chart review indicates no recent evaluation for secondary causes.. [employer] database Hyponatremia 01/14/2020 CKD (chronic kidney disease) stage 3, GFR 30-59 ml/min 06/09/2019 Overview (11/10/2021): Last Assessment & Plan: She is quite concerned about her diagnosis of CKD. In the [facility] doctors told her she had no kidney [...] HPV (human papillomavirus) te st positive 05/01/2018 Overview (11/10/2021): 2007, 2009, 2010 NIL paps. 05/01/18 NIL, +HR HPV, not 16/18. Plan 1 yr co-test 05/29/19 NIL pap, + HR HPV (not 16 or 18). Plan 1 yr co-test, no colp at this time per PCP 08/12/20 Lost to follow-up for pap tracking 11/22/20 NIL, +HR HPV, not 16/18. Plan [place] bef 02/22/21 12/01/20 Left msg TCB 12/09/20 Left 2nd msg TCB and Result letter sent out 01/21/21 Certified ltr sent. Tracking # [id number] 02/24/21 Your item has been delivered to the original sender at 9:57 am on February 16, 2021 [place] [address]. 02/28/21 [place] not done. Tracking updated for 6 mo colp/pap due 05/25/21. 04/05/21 Colposcopy completed? Will watch for records (this line entered after reminder letter sent) 04/08/21 [place]- Normal. Plan 1 yr repeat pap (outside records from [facility]) 05/10/21 Reminder letter - sent before [place] records received above. 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 Recent bone scan shows humeral areas of question. Defer report and discussion to oncology Dyspepsia 01/11/2018 HTN (hypertension) 11/15/2012 Overview (11/10/2021): Last Assessment & Plan: Resume MILKA inhibitor, never taken Hoarding behavior 04/26/2012 H/O: stroke with residual effects 12/29/2011 Overview (11/16/2021): 2/2 complication of meningioma removal Anxiety 10/05/2011 Overview (11/10/2021): Last Assessment & Plan: She is worried about her health. She is afraid that her. She is afraid that her physician will not listen to all her complaints Diverticulitis of colon 07/24/2008 Fibromyalgia 07/24/2008 History of meningioma 07/24/2008 Overview (11/10/2021): (Problem list name updated by automated process. Provider to review and confirm.) Last Assessment & Plan: Status post craniotomy. 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 Overview (02/28/2017): Senile Nuclear Sclerosis OS Posterior subcapsular polar senile cataract 06/22/2008 12/19/2022 Overview (02/28/2017): Posterior Subcapsular Polar Senile OS Encounters Date Type Department Care Team Description 03/14/[address] [address] Monet Vallejo MD Refill (lisinopril (ZESTRIL) 5 MG tablet [Pharmacy Med Name: Lisinopril Oral Tablet 5 MG]) 02/27/[address] [address] Monet Vallejo MD Refill (buPROPion (WELLBUTRIN XL) 300 MG 24 hour release tablet [Pharmacy Med Name: BUPROPION HYDROCHLORIDE ER (XL) 300 MG Tablet Extended Release 24 Hour]) 01/19/[address] [address] Monet Vallejo MD Refill (metoprolol tartrate (LOPRESSOR) 25 MG tablet [Pharmacy Med Name: METOPROLOL TARTRATE 25 MG Tablet]) 12/18/2023 Refill [facility] [address] [place] [address] Monet Vallejo MD Refill (buPROPion (WELLBUTRIN XL) 150 MG 24 hour release tablet [Pharmacy Med Name: BUPROPION HYDROCHLORIDE ER (XL) 150 MG Tablet Extended Release 24 Hour]) from Last 3 Months Immunizations Name Administration Dates Next Due Cholera, Unspecified Formulation 06/10/2002 DT Ped 02/11/1987 Flu Vac (3+ yrs) 03/26/2012, 0,04/12/2009,2007,05/16/2006 Flu Vac Preserv Free (3+yrs) 04/05/2013 [id number] 06/11/2009 HepA, Unspecified Formulation 06/10/2002, 998 Influenza ([place] Only) (Flul aval Quad 0.5, 3+ yrs) 04/08/2021 Influenza IIV3 (Trivalent) F luzone Highdose, 65+ Yrs (51657) 03/27/2018,03/28/2017,03/27/2014 Influenza IIV4 (Quadrivalent ) Fluad, 65+ Yrs 04/26/2022 Influenza IIV4 (Quadrivalent ) Fluzone, 65+ Yrs 04/14/2021,03/02/2020 Influenza Vaccine (3+years) (Imm Clinic) 05/20/2007 Influenza aIIV3 65+ Years (Fluad) 03/25/2019 Influenza, Unspecified Formulation 05/09,04/07/2022,03/22/2018,1995 OPV, Trivalent (Orimune [...] Date Last Done Comments Colonoscopy 12/25/2011 12/24/2006 Medicare Annual Wellness Visit 07/09/2023 12/19/2022 COVID-19 Vaccine ( season) 2024 05/10/2022, 04/26/2022, 03/07/2022, Additional history exists Influenza (#1) 2024 05/09/2022, 04/08, 04/07/2022, Additional history exists DTaP/Tdap/Td (7 - [...] - 199 mg/dL 11/21/2021 11:41 AM CDT [facility] Triglyceride 91 <=149 mg/dL 11/21/2021 11:41 AM CDT [facility] HDL Cholesterol 91 >=40 mg/dL 11/21/2021 11:41 AM CDT [facility] LDL, Calculated 138(H) <130 mg/dL 11/21/2021 11:41 AM CDT [facility] Non HDL Chol, Calculated 156 <=159 mg/dL 11/21/2021 11:41 AM CDT [facility] Cholesterol/HDL Ratio 2.7 11/21/2021 11:41 AM CDT [facility] Hours Fasting 12 11/21/2021 11:41 AM CDT [facility] Blood Venipuncture / Unknown 11/21/2021 8:16 AM CDT 11/21/2021 8:16 AM CDT Monet Vallejo MD LAB_1 Performing Organization Address [facility] Co de Phone Number [facility] [address] [address], [facility] [phone] [facility] [address] [place] [address], [facility] [phone] * Hepatitis C Antibody, with Reflex (11/21/2021 8:16 AM CDT) Hepatitis C Antibody Negative (Non Reactive) Negative (Non Reactive) 11/21/2021 12:06 PM CDT [facility] Comment:Antibodies to HCV no t detected. Does not exclude the possiblity of exposure to HCV. Blood Venipuncture / Unknown 11/21/2021 8:16 AM CDT 11/21/2021 8:16 AM CDT Monet Vallejo MD LAB_1 Performing Organization Address [facility]/ZIP Co de Phone Number [facility] [address] [address], [facility] [phone] * COLONOSCOPY (12/24/2006 12:00 AM CDT) Narrative 12/24/2006 12:00 AM CDT Ordered by an unspecified provider. Transcriptions Rigoberto Barriga - 12/24/2006 12:00 AM CDT Physician Unknown DUMMY/OTHER/AR from Last 3 Months or Most Recently Relevant to Health Maintenance Advance Directives Documents on File Type Date Recorded Patient Finisher Denture Expl anation Advance Directive/Living Will/Durable Power of Attny on file/POLST PN Care Teams Radio Division Lieutenant Relationship Specialty [place] [address] [place] [address] PCP - General Family Practice 10/12/21
--- OUTSIDE RECORDS SUMMARY | 2024-03-18 13:32 | XMS_ITS | Encounter Summary ---
[facility] Address [address] [place] [address] Care Team Providers Care Mathematical Physicist Name Role Phone Monet Vallejo MD Primary Care Provider [phone] Reason for Visit * Reason Comments Refill buPROPion (WELLBUTRI N XL) 150 MG 24 hour release tablet [Pharmacy Med Name: BUPROPION HYDROCHLORIDE ER (XL) 150 MG Tablet Extended Release 24 Hour] Encounter Details Date Type Department Care Team (Late st Contact Info) Description 12/18/2023 Refill [facility] Medicine [address] [place], [place] [phone] [place] [address] [place], [place] [phone] Refill (buPROPion (WELLBUTRIN XL) 150 MG 24 [...] CDT Further Assistance Needed on Refill from Car Repair Supervisor Patient is due for Qualifying Visit Medication is still pending. Patient is due for an Office/Video Visit in the next 30 days. Call Patient and document using .JUAN. After attempting to schedule patient: If appointment is scheduled within 60 days: Please route to: Primary Care: Refill strip winder Specialty Care: Refill strip winder If unable to schedule appointment: Please route [...] 450MG DAILY * Paul Delgado Xrwcomm - 12/18/2023 11:15 AM CDT buPROPion (WELLBUTRIN XL) 150 MG 24 hour release tablet [Pharmacy Med Name: BUPROPION HYDROCHLORIDEER (XL) 150 MG Tablet Extended Release 24 Hour] Medication started: 06/17/2021 Last ordered by MONET VALLEJO: 10/09/2023 (70 days ago) QTY: 90, Refills: 0, Sig: take 1 tabletevery day in addition to 300mg tablet for total 450mg daily (unchanged) -> An office visit is overdue (performed over 12 months ago, required every 12 months). -> The medication is active at more than one strength (150 mg on 10/09/2023, 300 mg on 01/04/2023). -> Refill x 1 month (courtesy refill. overdue for an office visit) -> Calculate the quantity and number of refills manually. Last qualifying visit: 12/19/2022 (with MONET VALLEJO) (A more recent visit (in Internal Medicine with CARLITA RAO) was found) Next scheduled visit: None Age: 78 [employer] Embedded Refills, Reference: [id number], 12/18/2023 11:15:11 AM CDT, Pool: [facility] Refill Centralized Services - Primary Care [[id number]] ([id number]) documented in this encounter Plan of Treatment Not on file documented as of this encounter Visit Diagnoses Diagnosis Depressive disorder Depressive disorder, not elsewhere classified documented in this encounter Care Teams Mathematical Physicist Relationship Specialty Start [place] [address] [place] [address] PCP - General Family Practice 10/12/21 documented as of this encounter
--- OUTSIDE RECORDS SUMMARY | 2024-03-18 13:32 | XMS_ITS | Encounter Summary ---
Author Organization [facility] Address [address] [place] [address] Care Team Providers Care Machine Group Leader Name Role Phone Monet Vallejo MD Primary Care Provider [phone] Reason for Visit * Reason Comments Refill buPROPion (WELLBUTRI N XL) 300 MG 24 hour release tablet [Pharmacy Med Name: BUPROPION HYDROCHLORIDE ER (XL) 300 MG Tablet Extended Release 24 Hour] Encounter Details Date Type Department Care Team (Late st Contact Info) Description 02/27/2024 Refill [facility] Medicine [address] [place], [place] [phone] [place] [address] [place], [place] [phone] Refill (buPROPion (WELLBUTRIN XL) 300 MG 24 hour release tablet [Pharmacy Med Name: BUPROPION HYDROCHLORIDE ER (XL) 300 MG Tablet Extended Release 24 Hour]) Social [...] encounter Nursing Notes * Kailey Wall - 02/28/2024 9:31 AM CDT Medication Refill - Due for Visit [...] to address request. * Kailey Wall - 02/28/2024 9:31 AM CDT Medication Refill - Due for Visit [...] clinician/pool identified in nursing documentation below. * Jeff Wagoner RN - 02/27/2024 9:45 AM CDT Further Assistance Needed on Refill from Radiologic Technologist Chief Patient is due for Qualifying Visit Medication is still pending. Patient is due for an Office/Video Visit in the next 30 days. Call Patient and document using .JUAN. After attempting to schedule patient: If appointment is scheduled within 60 days: Please route to: Refill pool If unable to schedule appointment or scheduled greater than 60 days: Please route to: Monet Vallejo MD Requested Prescriptions Pending Prescriptions Disp Refills buPROPion (WELLBUTRIN XL) 300 MG 24 hour release tablet [Pharmacy Med Name: BUPROPION HYDROCHLORIDEER (XL) 300 MG Tablet Extended Release 24 Hour] 90 Tablet Sig: TAKE 1 TABLET EVERY DAY IN ADDITION TO 150MG TAB documented in this encounter Plan of Treatment Not on file documented as of this encounter Visit Diagnoses Diagnosis Depressive disorder Depressive disorder, not elsewhere classified documented in this encounter Care Teams Machine Group Leader Relationship Specialty [place] [address] [place] [address] PCP - General Family Practice 10/12/21 documented as of this encounter
--- OUTSIDE RECORDS SUMMARY | 2024-03-18 13:32 | XMS_ITS | Encounter Summary ---
Author Organization [facility] Address [address], [place] [address] Care Team Providers Care Log Chain Feeder Name Role Phone Monet Vallejo MD Primary Care Provider [phone] Encounter Details Date Type Department Care Team (Latest Contact Info) Description 02/23/1998 Orders Only Calvin [place] [address] Social History Tobacco Use Types Packs/Day Years [...] documented as of this encounter Care Teams Log Chain Feeder Relationship Specialty [place] [address] [place] [address] PCP - General Family Practice 10/12/21 documented as of this encounter
--- OUTSIDE RECORDS SUMMARY | 2024-03-18 13:32 | XMS_ITS | Encounter Summary ---
Author Organization [facility] Address [address] [place] [address] Care Team Providers Care Stained Glass Installer Name Role Phone Monet Vallejo MD Primary Care Provider [phone] Encounter Details Date Type Department Care Team [...] documented as of this encounter Care Teams Stained Glass Installer Relationship Specialty [place] [address] [place] [address] PCP - General Family Practice 10/12/21 documented as of this encounter
--- OUTSIDE RECORDS SUMMARY | 2024-03-18 13:32 | XMS_ITS | Encounter Summary ---
Author Organization [facility] Address [address] [place] [address] Care Team Providers Care Woolen Tester Name Role Phone Monet Vallejo MD Primary Care Provider [phone] Encounter Details Date Type Department Care Team (Latest Contact Info) Description 11/19/1997 Orders Only Peter Jo MD [address] [place] [address] Social History Tobacco Use Types Packs/Day Years [...] documented as of this encounter Care Teams Woolen Tester Relationship Specialty [place] [address] [place] [address] PCP - General Family Practice 10/12/21 documented as of this encounter
--- OUTSIDE RECORDS SUMMARY | 2024-03-18 13:32 | XMS_ITS | Encounter Summary ---
Author Organization [facility] Address [address] [place] [address] Care Team Providers Care Fiberglass Ski Maker Name Role Phone Monet Vallejo MD Primary Care Provider [phone] Encounter Details Date Type Department Care Team (Latest Contact Info) Description 11/23/1997 Orders Only Peter Jo MD [address] [place] [address] Social History Tobacco Use Types Packs/Day Years [...] documented as of this encounter Care Teams Fiberglass Ski Maker Relationship Specialty [place] [address] [place] [address] PCP - General Family Practice 10/12/21 documented as of this encounter
--- OUTSIDE RECORDS SUMMARY | 2024-03-18 13:32 | XMS_ITS | Encounter Summary ---
Author Organization [facility] Address [address] [place] [address] Care Team Providers Care Statistician Mathematical Name Role Phone Monet Vallejo MD Primary Care Provider [phone] Reason for Visit * Reason Comments Refill metoprolol tartrate (LOPRESSOR) 25 MG tablet [Pharmacy Med Name: METOPROLOL TARTRATE 25 MG Tablet] Encounter Details Date Type Department Care Team (Late st Contact Info) Description 01/19/2024 Refill [facility] [address] [place], [place] [phone] Monet Vallejo MD [address] [place] [phone] Refill (metoprolol tartrate (LOPRESSOR) 25 MG tablet [...] encounter Nursing Notes * Kailey Wall - 01/24/2024 1:15 PM CDT Medication Refill - Due for [...] to address request. * Kailey Wall - 01/24/2024 1:14 PM CDT Medication Refill - Due for [...] clinician/pool identified in nursing documentation below. * Char Bartlett RN - 01/24/2024 12:49 PM CDT Further Assistance Needed on Refill from Central Office Repairer Supervisor Patient is due for Qualifying Visit Medication is still pending. Patient is due for an Office/Video Visit in the next 30 days. Call Patient and document using .LINADUE. After attempting to schedule patient: If appointment is scheduled within 60 days: Please route to: Refill pool If unable to schedule appointment or scheduled greater than 60 days: Please route to: Monet Vallejo MD * Paul Delgado Xrwcomm - 01/19/2024 1:36 AM CDT metoprolol tartrate (LOPRESSOR) 25 MG tablet [Pharmacy Med Name: METOPROLOL TARTRATE 25 MG Tablet] Medication started: 06/17/2021 Last ordered by MONET VALLEJO M: 11/07/2023 (73 days ago) QTY: 90, Refills: 0, Sig: take 1/2 tablet twice daily (unchanged) -> An office visit is overdue (performed over 13 months ago, required every 12 months). Last qualifying visit: 12/19/2022 (with MONET VALLEJO) (A more recent visit (in Internal Medicine with CARLITA RAO) was found) Next scheduled visit: None [employer] Embedded Refills, Reference: [id number], 01/19/2024 1:36:32 AM CDT, [place]: [facility] [place] Centralized Services - Primary Care [[id number]] ([id number]) documented in this encounter Plan of Treatment Not on file documented as of this encounter Visit Diagnoses Diagnosis Hypertension, unspecified type (HRC) documented in this encounter Care Teams Statistician Mathematical Relationship Specialty [place] [address] [place] [address] PCP - General Family Practice 10/12/21 documented as of this encounter
--- OUTSIDE RECORDS SUMMARY | 2024-03-18 13:32 | XMS_ITS | Encounter Summary ---
Author Organization [facility] Address [address] [place] [address] Care Team Providers Care Shirt Operator Name Role Phone Monet Vallejo MD Primary Care Provider [phone] Encounter Details Date Type Department Care Team [...] documented as of this encounter Care Teams Shirt Operator Relationship Specialty [place] [address] [place] [address] PCP - General Family Practice 10/12/21 documented as of this encounter
--- OUTSIDE RECORDS SUMMARY | 2024-03-18 13:32 | XMS_ITS | Encounter Summary ---
Author Organization [facility] Address [address] [place] [address] Care Team Providers Care Sales Manager Name Role Phone Monet Vallejo MD Primary Care Provider [phone] Encounter Details Date Type Department Care Team (Latest Contact Info) Description 02/09/1998 Orders Only Peter Jo MD [address] [place] [address] Social History Tobacco Use Types Packs/Day Years [...] documented as of this encounter Care Teams Sales Manager Relationship Specialty [place] [address] [place] [address] PCP - General Family Practice 10/12/21 documented as of this encounter
--- OUTSIDE RECORDS SUMMARY | 2024-03-18 13:32 | XMS_ITS | Encounter Summary ---
Author Organization [facility] Address [address] [place] [address] Care Team Providers Care Materials Development Engineer Name Role Phone Monet Vallejo MD Primary Care Provider [phone] Reason for Visit * Reason Comments Refill lisinopril (ZESTRIL) 5 MG tablet [Pharmacy Med Name: Lisinopril Oral Tablet 5 MG] Encounter Details Date Type Department Care Team (Late st Contact Info) Description 03/14/2024 Refill [facility] Medicine [address] [place], [place] [phone] Monet Vallejo [place] [address] [place] [phone] Refill (lisinopril (ZESTRIL) 5 MG tablet [Pharmacy Med Name: Lisinopril Oral Tablet 5 MG]) Social History Tobacco Use Types Packs/Day Years [...] Depressive disorder Depressive disorder, not elsewhere classified Hypertension, unspecified type (HRC) documented in this encounter Care Teams Materials Development Engineer Relationship Specialty [place] [address] [place] [address] PCP - General Family Practice 10/12/21 documented as of this encounter
--- OUTSIDE RECORDS SUMMARY | 2024-03-18 13:32 | XMS_ITS | Encounter Summary ---
Author Organization [facility] Address [address] [place] [address] Care Team Providers Care Project Eng Name Role Phone Monet Vallejo MD Primary Care Provider [phone] Encounter Details Date Type Department Care Team [...] documented as of this encounter Care Teams Project Eng Relationship Specialty [place] [address] [place] [address] PCP - General Family Practice 10/12/21 documented as of this encounter
--- OUTSIDE RECORDS SUMMARY | 2024-03-18 13:32 | XMS_ITS | Encounter Summary ---
Author Organization [facility] Address [address] [place] [address] Care Team Providers Care Meal Miller Name Role Phone Monet Vallejo MD Primary Care Provider [phone] Encounter Details Date Type Department Care Team [...] documented as of this encounter Care Teams Meal Miller Relationship Specialty [place] [address] [place] [address] PCP - General Family Practice 10/12/21 documented as of this encounter
--- OUTSIDE RECORDS SUMMARY | 2024-03-18 13:33 | XMS_ITS | Encounter Summary ---
Author Organization [facility] Address [address], [place] [address] Care Team Providers Care Operator Ground Based Air Defence Name Role Phone Monet Vallejo MD Primary Care Provider [phone] Encounter Details Date Type Department Care Team [...] documented as of this encounter Care Teams Operator Ground Based Air Defence Relationship Specialty [place] [address] [place] [address] PCP - General Family Practice 10/12/21 documented as of this encounter
--- OUTSIDE RECORDS SUMMARY | 2024-03-18 13:33 | XMS_ITS | Encounter Summary ---
Author Organization [facility] Address [address] [place] [address] Care Team Providers Care Home Mortgage Disclosure Act Specialist Name Role Phone Monet Vallejo MD Primary Care Provider [phone] Encounter Details Date Type Department Care Team (Latest Contact Info) Description 07/13/1994 Orders Only Yinka Ricardo MD [address] [address] Social History Tobacco Use Types Packs/Day Years [...] documented as of this encounter Care Teams Home Mortgage Disclosure Act Specialist Relationship Specialty Start [place] [address] [place] [address] PCP - General Family Practice 10/12/21 documented as of this encounter
--- OUTSIDE RECORDS SUMMARY | 2024-03-18 13:33 | XMS_ITS | Encounter Summary ---
Author Organization [facility] Address [address] [place] [id number] Care Team Providers Care System Development Engineer Name Role Phone Monet Vallejo MD Primary Care Provider [phone] Encounter Details Date Type Department Care Team (Latest Contact Info) Description 10/10/1994 Orders Only Peter Jo MD [address] [place] [address] Social History Tobacco Use Types Packs/Day Years [...] documented as of this encounter Care Teams System Development Engineer Relationship Specialty [place] [id number] [address] [place] [id number] PCP - General Family Practice 10/12/21 documented as of this encounter
--- OUTSIDE RECORDS SUMMARY | 2024-03-18 13:33 | XMS_ITS | Clinical Summary ---
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 Role Phone System, Provider Not In Unavailable Unavaila Manoj Garcia MD Unavailable [phone] Yanelis Galvez Unavailable Unavailable Elizabeth Rausch MD Primary Care Provider [phone] Allergies Active Allergy Reactions Criticality Noted Date [...] (CALCIUM 600 + D) 600-400 MG-UNIT per tabletIndications:[facility] at a health care facility Take 1 tablet by mouth 2 times daily 200 tablet 3 03/27/2018 Active buPROPion (WELLBUTRIN XL) 300 MG 24 hr tabletIndications:An xiety,Mild major depression (H24),Migraine without status migrainosus, not intractable, unspecified migraine type TAKE 1 TABLET (300 MG) BY MOUTH ONCE DAILY IN THE MORNING. TOTAL 450 MG A DAY 90 tablet 09/13/2021 Active buPROPion (WELLBUTRIN XL) 150 MG 24 hr tabletIndications:An xiety,Mild major depression (H24),Migraine without status migrainosus, not intractable, unspecified migraine type TAKE 1 TABLET BY MOUTH IN THE MORNING . TAKE WITH 300MG TABLET FOR A TOTAL OF 450MG 90 tablet 09/13/2021 Active lisinopril (ZESTRIL) 5 MG tabletIndications:St age 3 chronic kidney disease, unspecified whether stage 3a or 3b CKD (H) Take 1 tablet by mouth once daily 90 tablet 09/13/2021 Active metoprolol tartrate (LOPRESSOR) 25 MG tabletIndications:Es sential hypertension Take 1/2 (one-half) tablet by mouth twice daily 90 tablet 09/13/2021 Active loratadine (CLARITIN) 10 MG tablet Take 10 mg by mouth daily Active magnesium 250 MG tablet Take 1 tablet by mouth daily Active ondansetron (ZOFRAN ODT) 4 MG ODT tabIndications:Vomit ing and diarrhea Take 1 tablet (4 mg) by mouth every 8 hours as needed for nausea 9 tablet 03/18/2022 Active sucralfate (CARAFATE) 1 GM/10ML suspension Take 10 mLs (1 g) by mouth 4 times daily. 414 mL 03/05/2024 Active ondansetron (ZOFRAN ODT) 4 MG ODT tab Take 1 tablet (4 mg) by mouth every 6 hours as needed for nausea or vomiting. 10 tablet 03/05/2024 03/08/2024 traMADol (ULTRAM) 50 MG tablet Take 1 tablet (50 mg) by mouth every 6 hours as needed for severe pain. 10 tablet 03/05/2024 03/08/2024 Active Problems Problem Noted Date Diagnosed Date [...] indicates no recent evaluation for secondary causes.. [employer] Constipation, unspecified constipation type 01/2021 Last Assessment & Plan: Lifelong, IBS likely. Senokot, MiraLAX ineffective in the past. Lactulose effective but stopped a few years ago. Resume. [employer] Hyponatremia 01/14/2020 Special screening for malignant [...] about her diagnosis of CKD. In the [facility] doctors told her she had no [...] 11/22/20 NIL, +HR HPV, not 16/18. Plan [place] bef 02/22/21 12/01/20 Left msg TCB 12/09/20 Left 2nd msg TCB and Result letter sent out 01/21/21 Certified ltr sent. Tracking # [id number] 02/24/21 Your item has been delivered to the original sender at 9:57 am on February 16, 2021 [place] [address]. 02/28/21 [place] not done. Tracking updated for 6 mo colp/pap due 05/25/21. 04/05/21 Colposcopy completed? Will watch for records (this line entered after reminder letter sent) 04/08/21 [place]- Normal. Plan 1 yr repeat pap (outside records from [facility]) 05/10/21 Reminder letter - sent before [place] records received above. 12/12/2021 ECC - negative. 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 Jaky Alvarado RN-BSN, [facility] [phone] DX V65.8 REPLACED WITH [id number] [facility] (10/14/2012) Advanced directives, counseling/discussion 10/05/2011 12/24/2023 Overview: Discussed advance care planning with patient; however, patient declined at this time. 10/05/2011 Major depressive disorder, s karen episode, moderate 07/07/2010 04/26/2012 CARDIOVASCULAR SCREENING; LD L GOAL LESS THAN 160 05/08/2010 01/12/2018 Encounters Date Type Department Care Team Description 03/04/2024 11:19 PM CDT - 03/05/2024 2:44 AM CDT Emergency [facility] Emergency Dept [address] [place] [address] [phone] Timothy Pink MD Right sided abdominal pain Discharge Disposition: Home or Self Care 03/04/2024 Travel from Last 3 Months Immunizations Name Administration Dates Next Due COVID-19 MONOVALENT 12+ (Pfizer) 09/04/2020,02/0 12/2020 Cholera, unspecified formulation 06/10/2002 Flu 65+ (Fluad) 03/25/2019 HEPA 06/10/2002,04/12/1998 Influenza (H1N1) 06/11/2009 Influenza (High Dose) Trival ent,PF (Fluzone) 03/27/2018 Influenza (IIV3) PF 03/26/2012,04/25/2010,2008 Influenza Vaccine [...] Sign Reading Time Taken Comments Blood Pressure 164/85 03/04/2024 10:47 PM CDT Pulse 74 03/05/2024 2:42 AM CDT Temperature 36.7 ??C (98.1 ??F) 03/04/2024 1 0:47 PM CDT Respiratory Rate 18 03/05/2024 2:42 AM CDT Oxygen Saturation 96% 03/05/2024 2:42 AM CDT Inhaled Oxygen Concentration - - Weight 74.8 kg (164 lb 12.8 oz) 024 10:47 PM CDT Height 157.5 cm (5' 2) 03/04/2024 10:4 7 PM CDT Body Mass Index 30.14 03/04/2024 10:47 PM CDT Plan of Treatment Health Maintenance Due Date Last Done Comments CT COLONOGRAPHY 1945 FLEX SIG 1945 MICROALBUMIN 1945 sDNA (Cologuard) 1945 COLONOSCOPY 08/05/2014 08/05/2009, 12/24/2006 COLORECTAL CANCER SCREENING 11/06/2018 LIPID 01/11/2019 01/11/2018, /12/2011, 12/17/2009 FIT 11/06/2019 11/05/2018, 01/29/2006 RSV VACCINE (1 - 1-dose 75+ series) 2020 LUNG CANCER SCREENING 02/18/2021 02/19/2020 MICHELLE ASSESSMENT [...] 04/08/2022 11/22/2020, 05/10, 05/01/2018, Additional history exists COVID-19 Vaccine ( season) 2024 04/05/2023, 05/10/2022, 04/26/2022, Additional history exists INFLUENZA VACCINE (#1) 2024 , 05/09/2022, 04/26/2022, Additional history exists BMP 09/04/2024 03/04/2024, 03/09, 03/17/2022, Additional history exists HEMOGLOBIN 03/04/2025 03/04/2024, 03/09, 03/17/2022, Additional history exists ADVANCE CARE PLANNING 11/22/2025 11/22/2020 , 10/05/2011, 10/05/2011 GLUCOSE 03/04/2027 03/04/2024, 03/09, 03/17/2022, Additional history exists DTAP/TDAP/TD IMMUNIZATION (6 - Td or Tdap) 01/11/2030 01/12/2020, 01/12/2020, 11/22/2009, Additional history exists DEXA 07/14/2030 07/14/2015 MIGRAINE ACTION PLAN Completed 02/16/2012 DEPRESSION ACTION PLAN Completed 8, 02/06/2015, 10/31/2012, Additional history exists HEPATITIS C SCREENING Completed 01/11/2018 Pneumococcal Vaccine: 65+ Years Completed 01/11/2018, 03/26/2012, 05/31/2007, Additional history exists ZOSTER IMMUNIZATION Completed 07/15/2018, 8 MAMMO SCREENING Discontinued 04/16/2020, 10/2018, 10/11/2018, Additional history exists URINALYSIS Completed 03/05/2024, 03/2022, 12/13/2020, Additional history exists HPV IMMUNIZATION Aged Out No longer e ligible based on patient's age to complete this topic MENINGITIS IMMUNIZATION Aged Out No l onger eligible based on patient's age to complete this topic RSV MONOCLONAL ANTIBODY Aged Out No l onger eligible based on patient's age to complete this topic Procedures Procedure Name Priority Date/Time Associated Diagnosis Comments CT ABDOMEN PELVIS W CONTRAST STAT 03/05/2024 1:36 AM CDT ROUTINE UA WITH MICROSCOPIC REFLEX TO CULTURE STAT 03/05/2024 12:38 AM CDT CBC WITH PLATELETS & DIFFERENTIAL STAT 03/04/2024 11:58 PM CDT EXTRA RED TOP TUBE STAT 03/04/2024 11 :58 PM CDT EXTRA BLUE TOP TUBE STAT 03/04/2024 1 1:58 PM CDT CBC WITH PLATELETS AND DIFFERENTIAL STAT 03/04/2024 11:58 PM CDT EXTRA TUBE STAT 03/04/2024 11:58 PM CDT LIPASE STAT 03/04/2024 11:58 PM CDT COMPREHENSIVE METABOLIC PANEL STAT 03/04/2024 11:58 PM CDT HPV HIGH RISK TYPES DNA [...] Recently Relevant to Health Maintenance Results * CT Abdomen Pelvis w Contrast (03/05/2024 1:36 AM CDT) Anatomical Region Laterality Modality Abdomen/Pelvis, SUBRAD CT ALEKSANDAR DY, UMP CT ABDOMEN PELVIS, RAD CT Computed Tomography 03/05/2024 1:36 AM CDT Impressions 03/05/2024 2:07 AM CDT IMPRESSION: 1. ??Partially visualized moderate esophageal hiatal hernia with the upper third of the stomach in the posterior mediastinum. No evidence for significant dilatation of the distal esophagus or stomach. 2. ??No bowel obstruction or inflammatory change. Large amount of stool in the colon, particularly the proximal colon. 3. ??Colonic diverticulosis without diverticulitis. 4. ??Symmetric renal enhancement without evidence for urinary collecting system dilatation or obstructing calculi. Narrative 03/05/2024 2:07 AM CDT EXAM: CT ABDOMEN PELVIS W CONTRAST LOCATION: [facility] DATE: 03/05/2024 INDICATION: Right flank pain. COMPARISON: CT chest 02/19/2020. TECHNIQUE: CT scan of the abdomen and pelvis was performed following injection of IV contrast. Multiplanar reformats were obtained. Dose reduction techniques were used. CONTRAST: 82 mL Isovue 370. FINDINGS: LOWER CHEST: Partially visualized moderate esophageal hiatal hernia with the upper third of the stomach in the posterior mediastinum. No evidence for significant dilatation. Subpleural bleb medial aspect left lower lobe. HEPATOBILIARY: Cholecystectomy. No biliary dilatation. Liver unremarkable. PANCREAS: Normal. SPLEEN: Normal. ADRENAL GLANDS: Stable mild bilateral adrenal nodularity, no further imaging follow-up. KIDNEYS/BLADDER: Symmetric bilateral renal enhancement. Low-attenuation subcentimeter renal lesion(s). These are compatible with small benign cysts and no specific imaging evaluation or followup is recommended. No urinary collecting system dilatation or calculi. BOWEL: No bowel obstruction or inflammatory change. Large amount of stool, particularly involving the proximal colon. Colonic diverticulosis without diverticulitis. LYMPH NODES: No lymphadenopathy. VASCULATURE: Normal caliber aorta. Moderate vascular calcification. PELVIC ORGANS: Unremarkable. No free fluid. MUSCULOSKELETAL: Degenerative changes throughout the spine. Procedure Note Gonzalez Tobar MD - 03/05/2024 EXAM: CT ABDOMEN PELVIS W CONTRAST LOCATION: [facility] DATE: 03/05/2024 INDICATION: Right flank pain. COMPARISON: CT chest 02/19/2020. TECHNIQUE: CT scan of the abdomen and pelvis was performed followinginjection of IV contrast. Multiplanar reformats were obtained. Dosereduction techniques were used. CONTRAST: 82 mL Isovue 370. FINDINGS: LOWER CHEST: Partially visualized moderate esophageal hiatal hernia withthe upper third of the stomach in the posterior mediastinum. No evidencefor significant dilatation. Subpleural bleb medial aspect left lowerlobe. HEPATOBILIARY: Cholecystectomy. No biliary dilatation. Liverunremarkable. PANCREAS: Normal. SPLEEN: Normal. ADRENAL GLANDS: Stable mild bilateral adrenal nodularity, no furtherimaging follow-up. KIDNEYS/BLADDER: Symmetric bilateral renal enhancement. Low- attenuationsubcentimeter renal lesion(s). These are compatible with small benigncysts and no specific imaging evaluation or followup is recommended. Nourinary collecting system dilatation or calculi. BOWEL: No bowel obstruction or inflammatory change. Large amount of stool,particularly involving the proximal colon. Colonic diverticulosis withoutdiverticulitis. LYMPH NODES: No lymphadenopathy. VASCULATURE: Normal caliber aorta. Moderate vascular calcification. PELVIC ORGANS: Unremarkable. No free fluid. MUSCULOSKELETAL: Degenerative changes throughout the spine. IMPRESSION: 1. Partially visualized moderate esophageal hiatal hernia with the upperthird of the stomach in the posterior mediastinum. No evidence forsignificant dilatation of the distal esophagus or stomach. 2. No bowel obstruction or inflammatory change. Large amount of stool inthe colon, particularly the proximal colon. 3. Colonic diverticulosis without diverticulitis. 4. Symmetric renal enhancement without evidence for urinary collectingsystem dilatation or obstructing calculi. Timothy Pink MD IMG CT ORDERABLE S * (ABNORMAL) UA with Microscopic reflex to Culture (03/05/2024 12:38 AM CDT) Color Urine Straw Colorless, Straw, Light Yellow, Yellow 03/05/2024 12:51 AM CDT LABORATORY Appearance Urine Clear Clear 03/05/20 12:51 AM CDT LABORATORY Glucose Urine Negative Negative mg/dL 03/05/2024 12:51 AM CDT LABORATORY Bilirubin Urine Negative Negative 12:51 AM CDT LABORATORY Ketones Urine Negative Negative mg/dL 03/05/2024 12:51 AM CDT LABORATORY Specific Blain Urine 1.004 1.003 - 1.035 03/05/2024 12:51 AM CDT LABORATORY Blood Urine Negative Negative 03/05/2024 12:51 AM CDT LABORATORY pH Urine 5.0 5.0 - 7.0 03/05/2024 12:51 AM CDT LABORATORY Protein Albumin Urine Negative Negative mg/dL 03/05/2024 12:51 AM CDT LABORATORY Urobilinogen Urine Normal Normal, 2.0 mg/dL 03/05/2024 12:51 AM CDT LABORATORY Nitrite Urine Negative Negative 03/05/2024 12:51 AM CDT LABORATORY Leukocyte Esterase Urine Trace(A) Negative 03/05/2024 12:51 AM CDT [facility] Bacteria Urine Few(A) None Seen /HPF 03/05/2024 12:51 AM CDT [facility] RBC Urine <1 <=2 /HPF 03/05/2024 12:51 AM CDT [facility] WBC Urine 2 <=5 /HPF 03/05/2024 12:51 AM CDT [facility] Squamous Epithelials Urine <1 <=1 /HPF 03/05/2024 12:51 AM CDT [facility] Urine MID-STREAM URINE SPECIMEN / Unknown Non-blood Collection / Unknown 03/05/2024 12:38 AM CDT 03/05/2024 12:45 AM CDT Narrative [facility] - 03/05/2024 12:51 AM CDT Urine Culture not indicated Timothy Pink MD LAB - URINE KAMARI BEDOLLA [facility] [address] Lab (1st floor, no room number) [place] [phone] [place] [address] * Extra Red Top Tube (03/04/2024 11:58 PM CDT) Hold Specimen [facility] 03/05/2024 1:31 AM CDT LABORATORY Blood BLOOD SPECIMEN / Unknown Venipuncture / Unknown 03/04/2024 11:58 PM CDT 03/05/2024 12:17 AM CDT Timothy Pink MD LAB - BLOOD KAM[facility]I [facility]A [facility] [address] Lab (1st floor, no room number) [place] [phone] [place] [address] * Extra Blue Top Tube (03/04/2024 11:58 PM CDT) Hold Specimen [facility] 03/05/2024 1:31 AM CDT [facility] Blood BLOOD SPECIMEN / Unknown Venipuncture / Unknown 03/04/2024 11:58 PM CDT 03/05/2024 12:17 AM CDT Timothy Pink MD LAB - BLOOD KAMARI BEDOLLA [facility] Organization Address City/State/ZIP Co de Phone Number [facility] [address] Lab (1st floor, no room number) [place] [address], [facility] * CBC with platelets and differential (03/04/2024 11:58 PM CDT) WBC Count 8.5 4.0 - 11.0 10e3/uL 03/05/2024 12:21 AM CDT [facility] RBC Count 3.99 3.80 - 5.20 10e6/uL 03/05/2024 12:21 AM CDT [facility] Hemoglobin 12.7 11.7 - 15.7 g/dL 03/05/2024 12:21 AM CDT [facility] Hematocrit 37.8 35.0 - 47.0 % 03/05/2024 12:21 AM CDT [facility] MCV 95 78 - 100 fL 03/05/2024 12:21 AM CDT [facility] MCH 31.8 26.5 - 33.0 pg 03/05/2024 12:21 AM CDT [facility] MCHC 33.6 31.5 - 36.5 g/dL 03/05/2024 12:21 AM CDT [facility] RDW 12.1 10.0 - 15.0 % 03/05/2024 12:21 AM CDT [facility] Platelet Count 205 150 - 450 10e3/uL 03/05/2024 12:21 AM CDT [facility] % Neutrophils 53 % 03/05/2024 12:21 AM CDT [facility] % Lymphocytes 36 % 03/05/2024 12:21 AM CDT [facility] % Monocytes 9 % 03/05/2024 12:21 AM CDT [facility] % Eosinophils 2 % 03/05/2024 12:21 AM CDT [facility] % Basophils 1 % 03/05/2024 12:21 AM CDT [facility] % Immature Granulocytes 0 % 03/05/2024 12:21 AM CDT [facility] NRBCs per 100 WBC 0 <1 /100 024 12:21 AM CDT [facility] Absolute Neutrophils 4.5 1.6 - 8.3 10e3/uL 03/05/2024 12:21 AM CDT [facility] Absolute Lymphocytes 3.0 0.8 - 5.3 10e3/uL 03/05/2024 12:21 AM CDT [facility] Absolute Monocytes 0.7 0.0 - 1.3 10e3/uL 03/05/2024 12:21 AM CDT [facility] Absolute Eosinophils 0.1 0.0 - 0.7 10e3/uL 03/05/2024 12:21 AM CDT [facility] Absolute Basophils 0.0 0.0 - 0.2 10e3/uL 03/05/2024 12:21 AM CDT [facility] Absolute Immature Granulocytes 0.0 <=0.4 10e3/uL 03/05/2024 12:21 AM CDT [facility] Absolute NRBCs 0.0 10e3/uL 03/05/2024 12:21 AM CDT [facility] Blood BLOOD SPECIMEN / Unknown Venipuncture / Unknown 03/04/2024 11:58 PM CDT 03/05/2024 12:17 AM CDT Timothy Pink MD LAB - BLOOD ORDRuben BEDOLLA [facility] Lab [address] Lab (1st floor, no room number) [address] * Lipase (03/04/2024 11:58 PM CDT) Lipase 51 13 - 60 U/L 03/05/2024 12:37 AM CDT LABORATORY Blood BLOOD SPECIMEN / Unknown Venipuncture / Unknown 03/04/2024 11:58 PM CDT 03/05/2024 12:17 AM CDT Timothy Pink MD LAB - BLOOD ORDRuben BEDOLLA [facility] Lab [address] Lab (1st floor, no room number) [address] [place] [address] * (ABNORMAL) Comprehensive metabolic panel (03/04/2024 11:58 PM CDT) Sodium 128(L) 135 - 145 mmol/L 03/05/2024 12:37 AM CDT LABORATORY Potassium 4.0 3.4 - 5.3 mmol/L 03/05/2024 12:37 AM CDT LABORATORY Carbon Dioxide (CO2) 20(L) 22 - 29 mmol/L 03/05/2024 12:37 AM CDT LABORATORY Anion Gap 14 7 - 15 mmol/L 03/05/2024 12:37 AM CDT LABORATORY Urea Nitrogen 24.4(H) 8.0 - 23.0 mg/dL 03/05/2024 12:37 AM CDT LABORATORY Creatinine 1.08(H) 0.51 - 0.95 mg/dL 03/05/2024 12:37 AM CDT LABORATORY GFR Estimate 52(L) >60 mL/min/1.7 3m2 03/05/2024 12:37 AM CDT [facility] Comment:eGFR calculated usin 2020 CKD-EPI equation. Calcium 9.1 8.8 - 10.4 mg/dL 03/05/2024 12:37 AM CDT LABORATORY Comment:Reference intervals for this test were updated on 01/22/2024 to reflect our healthy population more accurately. There may be differences in the flagging of prior results with similar values performed with this method. Those prior results can be interpreted in the context of the updated reference intervals. Chloride 94(L) 98 - 107 mmol/L 03/05/2024 12:37 AM CDT LABORATORY Glucose 86 70 - 99 mg/dL 03/05/2024 12:37 AM CDT LABORATORY Alkaline Phosphatase 94 40 - 150 U/L 03/05/2024 12:37 AM CDT LABORATORY AST 20 0 - 45 U/L 03/05/2024 12:37 AM CDT LABORATORY ALT 17 0 - 50 U/L 03/05/2024 12:37 AM CDT LABORATORY Protein Total 6.9 6.4 - 8.3 g/dL 03/05/2024 12:37 AM CDT LABORATORY Albumin 4.0 3.5 - 5.2 g/dL 03/05/2024 12:37 AM CDT LABORATORY Bilirubin Total 0.4 <=1.2 mg/dL 03/05/2024 12:37 AM CDT LABORATORY Blood BLOOD SPECIMEN / Unknown Venipuncture / Unknown 03/04/2024 11:58 PM CDT 03/05/2024 12:17 AM CDT Timothy Pink MD LAB - BLOOD KAMARI BEDOLLA LABORATORY [facility] Lab [address] [facility] Lab (1st floor, no room number) [place] [address] * (ABNORMAL) HPV High Risk Types DNA Cervical (11/22/2020 11:50 AM CDT) HPV Source [facility] 11/22/2020 11:43 AM CDT [facility] HPV 16 DNA Negative NEG^Nega tive 11/29/2020 4:41 PM CDT [facility] HPV 18 DNA Negative NEG^Nega tive 11/29/2020 4:41 PM CDT [facility] Other HR HPV Positive(A) NEG^Nega tive 11/29/2020 4:41 PM CDT [facility] Final Diagnosis This patient's sample is positive for other HR HPV DNA (types 31, 33, 35, 39, 45, 51, 52, 56, 58, 59, 66 or 68), not HPV 16 or HPV 18 DNA. This result requires clinical correlation with concurrent cytology findings. 11/29/2020 4:41 PM CDT [facility] Comment: This test was developed and its performance characteristics determined by the [facility], Molecular Diagnostics Laboratory. It has not [...] Description Cervical Cells 11/22/2020 11:43 AM CDT [facility] Cervical Cells 11/22/2020 11 :50 AM CDT 11/22/2020 12:01 PM CDT Lesa Barbosa MD LAB - BLOO D ORDERABLES [facility] [address] [place] [address] [address] * Pap imaged thin layer screen with HPV - recommended age 30 - 65 years (select HPV order below) (11/22/2020 11:43 AM CDT) PAP AMY Riley Report Patient Name: JEANNINE HERNANDEZ MR#: [id number] Specimen #: [id number] Collected: 11/22/2020 Received: 11/23/2020 Reported: 11/26/2020 10:55 [...] lesion or malignancy Electronically signed out by: Leo T Stan, CT ??(ASCP) CLINICAL HISTORY: LMP: [id number] Post Menopausal, A previous normal pap Date of Last Pap: 05/29/2019, Papanicolaou Test Limitations: ??Cervical cytology is a screening test with limited sensitivity; regular screening is critical for cancer prevention; Pap tests are primarily effective for the diagnosis/preventi on of squamous cell carcinoma, not adenocarcinomas or other cancers. COLLECTION SITE: Client: ??[facility] Location: [facility] (R) The [facility] component of this testing [facility], with [facility], [address] [place] [phone] ([phone]) [facility] Cytology 11/22/2020 11:4 3 AM CDT 11/23/2020 9:48 AM CDT Lesa Barbosa MD LAB - OPTI GA CLINICAL SPECIMEN [facility] * *MA Screening Digital [...] cancer screen (FIT) (11/05/2018 1:05 PM CDT) Occult Blood Scn FIT Negative NEG^Negati ve 11/10/2018 10:02 AM CDT [facility] Stool specimen (specimen) 11/05/2018 1:05 PM CDT 11/10/2018 7:34 AM CDT Timothy Knott MD LAB - STOOLS ORDERAB LES [facility] [address] [place] [address] * (ABNORMAL) Lipid panel reflex to direct LDL Non-fasting (01/11/2018 3:57 PM CDT) Pathologist [facility] Cholesterol 217(H) <200 mg/dL 01/12/2018 2:15 PM CDT [facility] Comment:Desirable: <200 mg/d l Triglycerides 162(H) <150 mg/dL 01/12/2018 2:22 PM CDT [facility] Comment: Borderline high: ??150-199 mg/dl High: ? 200-499 mg/dl Very high: ? >499 mg/dl Non Fasting HDL Cholesterol 58 >49 mg/dL 8 2:15 PM CDT [facility] LDL Cholesterol Calculated 127(H) <100 mg/dL 01/12/2018 2:22 PM CDT [facility] Comment: Above desirable: ??100-129 mg/dl Borderline High: ??130-159 mg/dL High: ? 160-189 mg/dL Very high: ? >189 mg/dl Non HDL Cholesterol 159(H) <130 mg/dL 01/12/2018 2:15 PM CDT [facility] Comment: Above Desirable: ??130-159 mg/dl Borderline high: ??160-189 mg/dl High: ? 190-219 mg/dl Very high: ? >219 mg/dl Blood specimen (specimen) 01/11/2018 3:57 PM CDT 01/11/2018 3:58 PM CDT Timothy Knott MD LAB - BLOOD ORDERABL ES Performing Organization Address City/[facility]/ZIP Co de Phone Number [facility] [address] [place] [address] * Hepatitis C antibody (01/11/2018 3:57 PM CDT) Hepatitis C Antibody Nonreactive NR^Nonre active 01/14/2018 9:10 AM CDT [facility] Comment: Assay performance characteristics have not been established for newborns, infants, and children Blood specimen (specimen) 01/11/2018 3:57 PM CDT 01/11/2018 3:58 PM CDT Timothy Knott MD LAB - BLOOD ORDERABL ES [facility] [address] [place] [address] * COLONOSCOPY (08/05/2009) Zohra Rosado PA-C PROCEDURES from Last 3 Months or Most Recently Relevant to Health Maintenance Advance Directives For more information, please contact: [phone] Documents on File Type Date Recorded Patient Dinkey Dispatcher Expl anation Advance Directives and Living Will [...] 1:49 AM 10/14/2011 12:53 PM 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
--- OUTSIDE RECORDS SUMMARY | 2024-03-18 13:33 | XMS_ITS | Encounter Summary ---
Author Organization [facility] Address [address] [place] [address] Care Team Providers Care Crop Farmers Name Role Phone Monet Vallejo MD Primary Care Provider [phone] Encounter Details Date Type Department Care Team (Latest Contact Info) Description 07/03/1995 Orders Only Peter Jo MD [address] [place] [address] Social History Tobacco Use Types Packs/Day Years [...] documented as of this encounter Care Teams Crop Farmers Relationship Specialty [place] [address] [place] [address] PCP - General Family Practice 10/12/21 documented as of this encounter
--- OUTSIDE RECORDS SUMMARY | 2024-03-18 13:33 | XMS_ITS | Encounter Summary ---
Author Organization [facility] Address [address] [place] [address] Care Team Providers Care Special Education Teachers Name Role Phone Monet Valljeo MD Primary Care Provider [phone] Encounter Details Date Type Department Care Team [...] documented as of this encounter Care Teams Special Education Teachers Relationship Specialty [place] [address] [place] [address] PCP - General Family Practice 10/12/21 documented as of this encounter
--- OUTSIDE RECORDS SUMMARY | 2024-03-18 13:33 | XMS_ITS | Encounter Summary ---
Author Organization [facility] Address [address], [place] [address] Care Team Providers Care Wet End Helper Name Role Phone Monet Vallejo MD Primary Care Provider [phone] Encounter Details Date Type Department Care Team [...] documented as of this encounter Care Teams Wet End Helper Relationship Specialty [place] [address] [place] [address] PCP - General Family Practice 10/12/21 documented as of this encounter
--- OUTSIDE RECORDS SUMMARY | 2024-03-18 13:33 | XMS_ITS | Encounter Summary ---
Author Organization [facility] Address [address] [place] [address] Care Team Providers Care Patrol Sergeant Name Role Phone Monet Vallejo MD Primary Care Provider [phone] Encounter Details Date Type Department Care Team [...] documented as of this encounter Care Teams Patrol Sergeant Relationship Specialty [place] [address] [place] [address] PCP - General Family Practice 10/12/21 documented as of this encounter
--- OUTSIDE RECORDS SUMMARY | 2024-03-18 13:33 | XMS_ITS | Encounter Summary ---
Author Organization [facility] Address [address] [place] [address] Care Team Providers Care Adjuster And Inspector Name Role Phone Monet Vallejo MD Primary Care Provider [phone] Encounter Details Date Type Department Care Team [...] documented as of this encounter Care Teams Adjuster And Inspector Relationship Specialty [place] [address] [place] [address] PCP - General Family Practice 10/12/21 documented as of this encounter
--- OUTSIDE RECORDS SUMMARY | 2024-03-18 13:33 | XMS_ITS | Encounter Summary ---
Author Organization [facility] Address [address] [place] [address] Care Team Providers Care Oven Laborer Name Role Phone Monet Vallejo MD Primary Care Provider [phone] Encounter Details Date Type Department Care Team [...] documented as of this encounter Care Teams Oven Laborer Relationship Specialty [place] [address] [place] [address] PCP - General Family Practice 10/12/21 documented as of this encounter
--- OUTSIDE RECORDS SUMMARY | 2024-03-18 13:33 | XMS_ITS | Encounter Summary ---
Author Organization [facility] Address [address] [place] [address] Care Team Providers Care Copy Operator Name Role Phone Monet Vallejo MD Primary Care Provider [phone] Encounter Details Date Type Department Care Team (Latest Contact Info) Description 06/04/1995 Orders Only Breann Boyle, DO [address] [place] [address] Social History Tobacco Use Types Packs/Day Years [...] documented as of this encounter Care Teams Copy Operator Relationship Specialty [place] [address] [place] [address] PCP - General Family Practice 10/12/21 documented as of this encounter
--- OUTSIDE RECORDS SUMMARY | 2024-03-18 13:33 | XMS_ITS | Encounter Summary ---
Author Organization [facility] Address [address] [place] [address] Care Team Providers Care Prepress Operator Name Role Phone Monet Vallejo MD Primary Care Provider [phone] Encounter Details Date Type Department Care Team (Latest Contact Info) Description 10/04/1994 Orders Only Yinka Ricardo MD [address] [address] Social History Tobacco Use Types Packs/Day Years [...] documented as of this encounter Care Teams Prepress Operator Relationship Specialty [place] [address] [place] [address] PCP - General Family Practice 10/12/21 documented as of this encounter
--- OUTSIDE RECORDS SUMMARY | 2024-03-18 13:33 | XMS_ITS | Encounter Summary ---
Author Organization [facility] Address [address] [place] [address] Care Team Providers Care Relocation Counselor Name Role Phone Monet Vallejo MD Primary Care Provider [phone] Encounter Details Date Type Department Care Team (Latest Contact Info) Description 01/13/1995 Orders Only Peter Jo MD [address] [place] [address] Social History Tobacco Use Types Packs/Day Years [...] documented as of this encounter Care Teams Relocation Counselor Relationship Specialty [place] [address] [place] [address] PCP - General Family Practice 10/12/21 documented as of this encounter
--- OUTSIDE RECORDS SUMMARY | 2024-03-18 13:33 | XMS_ITS | Encounter Summary ---
Author Organization [facility] Address [address] [place] [address] Care Team Providers Care Explosive Technician Name Role Phone Monet Vallejo MD Primary Care Provider [phone] Encounter Details Date Type Department Care Team [...] documented as of this encounter Care Teams Explosive Technician Relationship Specialty [place] [address] [place] [address] PCP - General Family Practice 10/12/21 documented as of this encounter
--- OUTSIDE RECORDS SUMMARY | 2024-03-18 13:33 | XMS_ITS | Encounter Summary ---
Author Organization [facility] Address [address] [place] [address] Care Team Providers Care It Network Architect Name Role Phone Monet Vallejo MD Primary Care Provider [phone] Encounter Details Date Type Department Care Team [...] documented as of this encounter Care Teams It Network Architect Relationship Specialty [place] [address] [place] [address] PCP - General Family Practice 10/12/21 documented as of this encounter
--- OUTSIDE RECORDS SUMMARY | 2024-03-18 13:33 | XMS_ITS | Encounter Summary ---
Author Organization [facility] Address [address] [place] [address] Care Team Providers Care Police Detective Name Role Phone Monet Vallejo MD Primary Care Provider [phone] Encounter Details Date Type Department Care Team (Latest Contact Info) Description 08/02/1994 Orders Only Yinka Ricardo MD [address] [address] Social History Tobacco Use Types Packs/Day Years [...] documented as of this encounter Care Teams Police Detective Relationship Specialty [place] [address] [place] [address] PCP - General Family Practice 10/12/21 documented as of this encounter
--- OUTSIDE RECORDS SUMMARY | 2024-03-18 13:33 | XMS_ITS | Encounter Summary ---
Author Organization [facility] Address [address] [place] [address] Care Team Providers Care Fisheries Officer Name Role Phone Monet Vallejo MD Primary Care Provider [phone] Encounter Details Date Type Department Care Team (Latest Contact Info) Description 07/15/1996 Orders Only Peter Jo MD [address] [place] [address] Social History Tobacco Use Types Packs/Day Years [...] documented as of this encounter Care Teams Fisheries Officer Relationship Specialty [place] [address] [place] [address] PCP - General Family Practice 10/12/21 documented as of this encounter
--- OUTSIDE RECORDS SUMMARY | 2024-03-18 13:33 | XMS_ITS | Encounter Summary ---
Author Organization [facility] Address [address] [place] [address] Care Team Providers Care Manager Of Business Operations Name Role Phone Monet Vallejo MD Primary Care Provider [phone] Encounter Details Date Type Department Care Team [...] documented as of this encounter Care Teams Manager Of Business Operations Relationship Specialty [place] [address] [place] [address] PCP - General Family Practice 10/12/21 documented as of this encounter
--- OUTSIDE RECORDS SUMMARY | 2024-03-18 13:33 | XMS_ITS | Encounter Summary ---
Author Organization [facility] Address [address], [place] [address] Care Team Providers Care Pulverizer Feeder Name Role Phone Monet Vallejo MD Primary Care Provider [phone] Encounter Details Date Type Department Care Team [...] documented as of this encounter Care Teams Pulverizer Feeder Relationship Specialty [place] [address] [place] [address] PCP - General Family Practice 10/12/21 documented as of this encounter
--- OUTSIDE RECORDS SUMMARY | 2024-03-18 13:33 | XMS_ITS | Encounter Summary ---
Author Organization [facility] Address [address] [place] [address] Care Team Providers Care Diesel Truck Technician Name Role Phone Monet Vallejo MD Primary Care Provider [phone] Encounter Details Date Type Department Care Team (Latest Contact Info) Description 03/26/1995 Orders Only Breann Boyle, DO [address] [place] [address] Social History Tobacco Use Types Packs/Day Years [...] documented as of this encounter Care Teams Diesel Truck Technician Relationship Specialty [place] [address] [place] [address] PCP - General Family Practice 10/12/21 documented as of this encounter
--- OUTSIDE RECORDS SUMMARY | 2024-03-18 13:33 | XMS_ITS | Encounter Summary ---
Author Organization [facility] Address [address], [place] [address] Care Team Providers Care Grain Elevator Operator Name Role Phone Monet Vallejo MD Primary Care Provider [phone] Encounter Details Date Type Department Care Team (Latest Contact Info) Description 11/06/1996 Orders Only Maddie Lovelace APRN, INSTRUCTOR OF SOCIOLOGY Social History Tobacco Use Types Packs/Day Years [...] documented as of this encounter Care Teams Grain Elevator Operator Relationship Specialty [place] [address] [place] [address] PCP - General Family Practice 10/12/21 documented as of this encounter
--- OUTSIDE RECORDS SUMMARY | 2024-03-18 13:33 | XMS_ITS | Encounter Summary ---
Author Organization [facility] Address [address] [place] [address] Care Team Providers Care Nuclear Medicine Technologist Name Role Phone Monet Vallejo MD Primary Care Provider [phone] Encounter Details Date Type Department Care Team (Late st Contact Info) Description 01/11/1997 Orders Only [facility] Dave German MD [address] [place] [address] Social History Tobacco Use Types Packs/Day Years [...] documented as of this encounter Care Teams Nuclear Medicine Technologist Relationship Specialty [place] [address] [place] [address] PCP - General Family Practice 10/12/21 documented as of this encounter
--- OUTSIDE RECORDS SUMMARY | 2024-03-18 13:33 | XMS_ITS | Encounter Summary ---
Author Organization [facility] Address [address] [place] [address] Care Team Providers Care Summer Associate Name Role Phone Monet Vallejo MD Primary Care Provider [phone] Encounter Details Date Type Department Care Team (Latest Contact Info) Description 07/24/1994 Orders Only Breann Boyle, DO [address] [place] [address] Social History Tobacco Use Types Packs/Day Years [...] documented as of this encounter Care Teams Summer Associate Relationship Specialty [place] [address] [place] [address] PCP - General Family Practice 10/12/21 documented as of this encounter
--- OUTSIDE RECORDS SUMMARY | 2024-03-18 13:34 | XMS_ITS | Referral Summary ---
Author Organization [facility] Address [address] [place] [address] Phone [phone] Care Team Providers Care Art Teacher Name Role Phone Pcp, No Primary Care Provider Unavailabl e Allergies Active Allergy Reactions Criticality Noted Date Comments Sulfa Antibiotics Itching,Nausea Only,Rash Low 07/24/2008 PN: LW Reaction: Itching, Pruritis Medications Medication Sig Dispensed Refills Start Date End Date Status metoprolol tartrate (Lopressor) 25 MG tablet TAKE 0.5 TABLETS BY MOUTH TWO TIMES A DAY. 09/13/2021 Active lisinopril 5 MG tablet Take 1 tablet by mouth 1 (one) time each day. 09/13/2021 Active buPROPion XL (Wellbutrin XL) 300 MG 24 hr tablet TAKE 1 TABLET (300 MG) BY MOUTH ONCE DAILY IN THE MORNING. TOTAL 450 MG A DAY 11/19/2018 Active buPROPion XL (Wellbutrin XL) 150 MG 24 hr tablet TAKE IN ADDITION TO 300 MG DOSE DAILY 10/16/2022 Active Social History Tobacco Use Types Packs/Day Years [...] Sign Reading Time Taken Comments Blood Pressure 149/81 11/01/2022 11:10 AM [facility] Pulse 65 11/01/2022 11:10 AM [facility] Temperature 36.8 ??C (98.3 ??F) 11/01/2022 11:10 AM [facility] Respiratory Rate 18 11/01/2022 11:10 AM [facility] Oxygen Saturation 97% 11/01/2022 11:10 AM [facility] Inhaled Oxygen Concentration - - Weight 70.8 kg (156 lb) 11/01/2022 11:10 AM [facility] Height 160 cm (5' 3) 11/01/2022 11:10 AM [facility] Body Mass Index 27.63 11/01/2022 11:10 AM [facility] Plan of Treatment Not on file Care Teams Art Teacher Relationship Specialty Start Date End Date NO PCP PCP - General 11/01/22
--- OUTSIDE RECORDS SUMMARY | 2024-03-18 13:34 | XMS_ITS | Referral Summary ---
Author Organization [place] Address [address] [place] [address] Care Team Providers Care Regroover Name Role Phone System, Provider Not In Unavailable Unavaila Manoj Garcia MD Unavailable [phone] Yanelis Galvez Unavailable Unavailable Elizabeth Rausch MD Primary Care Provider [phone] Encounters Date Type Department Care Team Description 03/04/2024 11:19 PM CDT - 03/05/2024 2:44 AM CDT Emergency [facility] Emergency Dept [address] [place] [phone] Timothy Pink MD Right sided abdominal pain Discharge Disposition: Home or Self Care 03/04/2024 Travel from Last 3 Months Allergies Active Allergy Reactions Criticality Noted Date [...] (CALCIUM 600 + D) 600-400 MG-UNIT per tabletIndications:Ro utine general medical examination at a health care [...] indicates no recent evaluation for secondary causes.. [facility] database Constipation, unspecified constipation type 01/2021 Last Assessment & Plan: Lifelong, IBS likely. Senokot, MiraLAX ineffective in the past. Lactulose effective but stopped a few years ago. Resume. [facility] database Hyponatremia 01/14/2020 Special screening for malignant [...] about her diagnosis of CKD. In the [facility] doctors told her she had [...] 11/22/20 NIL, +HR HPV, not 16/18. Plan [facility] [place] bef 02/22/21 12/01/20 Left msg TCB 12/09/20 Left 2nd msg TCB and Result letter sent out 01/21/21 Certified ltr sent. Tracking # [id number] 02/24/21 Your item has been delivered to the original sender at 9:57 am on February 16, 2021 [place] [address]. 02/28/21 [facility] [place] not done. Tracking updated for 6 mo colp/pap due 05/25/21. 04/05/21 Colposcopy completed? Will watch for records (this line entered after reminder letter sent) 04/08/21 [place]- Normal. Plan 1 yr repeat pap (outside records from [facility]) 05/10/21 Reminder letter - sent before [facility] [place] records received above. 12/12/2021 ECC - negative. [...] 01/12/2018 Overview: The 10-year ASCVD risk score (Teresa [...] Noted Date Diagnosed Date Resolved Date Health Shelter 10/13/2011 04/09/2013 Overview: Patient is disenrolled from 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 Jaky Alvarado RN-BSN, [facility] [phone] DX V65.8 REPLACED WITH [id number] HEALTH HALFWAY (10/14/2012) Advanced directives, counseling/discussion 10/05/2011 12/24/2023 Overview: [...] 03/04/2024 10:47 PM CDT Plan of Treatment Not on file [...] EXAM: CT ABDOMEN PELVIS W CONTRAST LOCATION: [facility] DATE: 03/05/2024 INDICATION: Right flank pain. COMPARISON: [...] EXAM: CT ABDOMEN PELVIS W CONTRAST LOCATION: [facility] DATE: 03/05/2024 INDICATION: Right flank pain. COMPARISON: [...] Negative Negative mg/dL 03/05/2024 12:51 AM CDT [facility] Bilirubin Urine Negative Negative 12:51 AM CDT [facility] Ketones Urine Negative Negative mg/dL 03/05/2024 12:51 AM CDT LABORATORY Specific [place] Urine 1.004 1.003 - 1.035 03/05/2024 12:51 AM CDT LABORATORY Blood Urine Negative Negative 03/05/2024 12:51 AM CDT LABORATORY pH Urine 5.0 5.0 - 7.0 03/05/2024 12:51 AM CDT [facility] Protein Albumin Urine Negative Negative mg/dL 03/05/2024 12:51 AM CDT [facility] Urobilinogen Urine Normal Normal, 2.0 mg/dL 03/05/2024 12:51 AM CDT [facility] Nitrite Urine Negative Negative 03/05/2024 12:51 AM CDT [facility] Leukocyte Esterase Urine Trace(A) Negative 03/05/2024 12:51 AM CDT [facility] Bacteria Urine Few(A) None Seen /HPF 03/05/2024 12:51 AM CDT [facility] RBC Urine <1 <=2 /HPF 03/05/2024 12:51 AM CDT [facility] WBC Urine 2 <=5 /HPF 03/05/2024 12:51 AM CDT [facility] Squamous Epithelials Urine <1 <=1 /HPF 03/05/2024 12:51 AM CDT LABORATORY Urine MID-STREAM URINE SPECIMEN / Unknown Non-blood Collection / Unknown 03/05/2024 12:38 AM CDT 03/05/2024 12:45 AM CDT Narrative LABORATORY - 03/05/2024 12:51 AM CDT Urine Culture not indicated Timothy Pink MD LAB - URINE SALMAE GRAEME [facility] Care Lab [address] Lab (1st floor, no room number) [place] [address] * Extra Red Top Tube (03/04/2024 11:58 PM CDT) Hold Specimen [facility] 03/05/2024 1:31 AM CDT LABORATORY Blood BLOOD SPECIMEN / Unknown Venipuncture / Unknown 03/04/2024 11:58 PM CDT 03/05/2024 12:17 AM CDT Timothy Pink MD LAB - BLOOD ORDRuben BEDOLLA [facility] Care Lab [address] Lab (1st floor, no room number) [place] [address] * Extra Blue Top Tube (03/04/2024 11:58 PM CDT) Hold Specimen [facility] 03/05/2024 1:31 AM CDT [facility] Blood BLOOD SPECIMEN / Unknown Venipuncture / Unknown 03/04/2024 11:58 PM CDT 03/05/2024 12:17 AM CDT Timothy Pink MD LAB - BLOOD KAMARI BEDOLLA [facility] Acute Care Lab [address] Lab (1st floor, no room number) [place] [address], [facility] * CBC with platelets and differential (03/04/2024 [...] CDT Timothy Pink MD LAB - BLOOD ORDE [facility] Organization Address City/State/ZIP Co de Phone Number LABORATORY [facility] Acute Care Lab [address] [facility] Lab (1st floor, no room number) [place] [address], [facility] * Lipase (03/04/2024 11:58 PM CDT) Pathologist [facility] Lipase 51 13 - 60 U/L 03/05/2024 12:37 AM CDT [facility] Blood BLOOD SPECIMEN / Unknown Venipuncture / Unknown 03/04/2024 11:58 PM CDT 03/05/2024 12:17 AM CDT Timothy Pink MD LAB - BLOOD KAMARI BEDOLLA [facility] Acute Care Lab [address] [facility] Lab (1st floor, no room number) [place] [address], [facility] * (ABNORMAL) Comprehensive metabolic panel (03/04/2024 11:58 [...] - 0.95 mg/dL 03/05/2024 12:37 AM CDT [facility] GFR Estimate 52(L) >60 mL/min/1.7 3m2 03/05/2024 12:37 AM CDT [facility] Comment:eGFR calculated usin 2020 CKD-EPI equation. Calcium 9.1 8.8 - 10.4 mg/dL 03/05/2024 12:37 AM CDT [facility] Comment:Reference intervals for this test were updated on 01/22/2024 to reflect our healthy population more accurately. There may be differences in the flagging of prior results with similar values performed with this method. Those prior results can be interpreted in the context of the updated reference intervals. Chloride 94(L) 98 - 107 mmol/L 03/05/2024 12:37 AM CDT [facility] Glucose 86 70 - 99 mg/dL 03/05/2024 12:37 AM CDT [facility] Alkaline Phosphatase 94 40 - 150 U/L 03/05/2024 12:37 AM CDT [facility] AST 20 0 - 45 U/L 03/05/2024 12:37 AM CDT [facility] ALT 17 0 - 50 U/L 03/05/2024 12:37 AM CDT [facility] Protein Total 6.9 6.4 - 8.3 g/dL 03/05/2024 12:37 AM CDT [facility] Albumin 4.0 3.5 - 5.2 g/dL 03/05/2024 12:37 AM CDT [facility] Bilirubin Total 0.4 <=1.2 mg/dL 03/05/2024 12:37 AM CDT [facility] Blood BLOOD SPECIMEN / Unknown Venipuncture / Unknown 03/04/2024 11:58 PM CDT 03/05/2024 12:17 AM CDT Timothy Pink MD LAB - BLOOD ORDE GRAEME [facility] Acute Care Lab [address] [facility] Lab (1st floor, no room number) [place] [address] * (ABNORMAL) HPV High Risk Types DNA Cervical (11/22/2020 11:50 AM CDT) HPV Source [facility] 11/22/2020 11:43 AM CDT [facility] HPV 16 DNA Negative NEG^Nega tive 11/29/2020 4:41 PM CDT [facility] HPV 18 DNA Negative NEG^Nega tive 11/29/2020 4:41 PM CDT [facility] Other HR HPV Positive(A) NEG^Nega tive 11/29/2020 4:41 PM CDT [facility] Final Diagnosis This patient's sample is positive for other HR HPV DNA (types 31, 33, 35, 39, 45, 51, 52, 56, 58, 59, 66 or 68), not HPV 16 or HPV 18 DNA. This result requires clinical correlation with concurrent cytology findings. 11/29/2020 4:41 PM CDT [facility] Comment: This test was developed and its performance characteristics determined by the [facility], Molecular Diagnostics Laboratory. It has not been [...] Description Cervical Cells 11/22/2020 11:43 AM CDT [facility] Cervical Cells 11/22/2020 11 :50 AM CDT 11/22/2020 12:01 PM CDT Lesa Barbosa MD LAB - BLOO D ORDERABLES Performing Organization Address City/State/[facility] Co de Phone Number [facility] [address] [place] [address] [address] * Pap imaged thin layer screen with HPV - recommended age 30 - 65 years (select HPV order below) (11/22/2020 11:43 AM CDT) PAP AMY Riley Report Patient Name: JEANNINE HERNANDEZ MR#: [id number] Specimen #: [id number] Collected: 11/22/2020 Received: 11/23/2020 Reported: 11/26/2020 10:55 [...] by: DIDIER Fernandez ??(ASCP) CLINICAL HISTORY: LMP: [id number] Post Menopausal, A previous normal pap Date of Last Pap: 05/29/2019, Papanicolaou Test Limitations: ??Cervical cytology is a screening test with limited sensitivity; regular screening is critical for cancer prevention; Pap tests are primarily effective for the diagnosis/preventi on of squamous cell carcinoma, not adenocarcinomas or other cancers. COLLECTION SITE: Client: ??[facility] Location: [facility] (R) The technical component of this testing was completed at the [facility], with the professional component performed at the [facility], [address] [place] [phone] ([phone]) [facility] Cytology 11/22/2020 11:4 3 AM CDT 11/23/2020 9:48 AM CDT Lesa Barbosa MD LAB - OPTI DE CLINICAL SPECIMEN [facility] * *MA Screening Digital [...] screen (FIT) (11/05/2018 1:05 PM CDT) Pathologist [facility] Occult Blood Scn FIT Negative NEG^Negati ve 11/10/2018 10:02 AM CDT [facility] Stool specimen (specimen) 11/05/2018 1:05 PM CDT 11/10/2018 7:34 AM CDT Timothy Knott MD LAB - STOOLS ORDERAB LES Performing Organization Address City/State/[facility] Co de Phone Number [facility] [address] [place] [address] * (ABNORMAL) Lipid panel reflex to direct LDL Non-fasting (01/11/2018 3:57 PM CDT) Cholesterol 217(H) <200 mg/dL 01/12/2018 2:15 PM CDT [facility] Comment:Desirable: <200 mg/d l Triglycerides 162(H) <150 mg/dL 01/12/2018 2:22 PM CDT [facility] Comment: Borderline high: ??150-199 mg/dl High: ? 200-499 mg/dl Very high: ? >499 mg/dl Non Fasting HDL Cholesterol 58 >49 mg/dL 8 2:15 PM CDT [facility] LDL Cholesterol Calculated 127(H) <100 mg/dL 01/12/2018 2:22 PM CDT [facility] Comment: Above desirable: ??100-129 mg/dl Borderline High: ??130-159 mg/dL High: ? 160-189 mg/dL Very high: ? >189 mg/dl Non HDL Cholesterol 159(H) <130 mg/dL 01/12/2018 2:15 PM CDT [facility] Comment: Above Desirable: ??130-159 mg/dl Borderline high: ??160-189 mg/dl High: ? 190-219 mg/dl Very high: ? >219 mg/dl Blood specimen (specimen) 01/11/2018 3:57 PM CDT 01/11/2018 3:58 PM CDT Timothy Knott MD LAB - BLOOD ORDERABL ES [facility] [address] [address] * Hepatitis C antibody (01/11/2018 3:57 PM CDT) Hepatitis C Antibody Nonreactive NR^Nonre active 01/14/2018 9:10 AM CDT [facility] Comment: Assay performance characteristics have not been established for newborns, infants, and children Blood specimen (specimen) 01/11/2018 3:57 PM CDT 01/11/2018 3:58 PM CDT Timothy Knott MD LAB - BLOOD ORDERABL ES [facility] [address] [place] [address] * COLONOSCOPY (08/05/2009) Zohra Rosado PA-C PROCEDURES from Last 3 Months or Most Recently Relevant to Health Maintenance Advance Directives For more information, please contact: [phone] Documents on File Type Date Recorded Patient Census Taker Expl anation Advance Directives and Living Will [...] 1:49 AM 10/14/2011 12:53 PM Care Teams Regroover Relationship Specialty Start Date End Date Elizabeth Rausch MD [facility] [address] [place] [address] PCP - General Family Medicine 03/05/24 System, Provider Not In Clinic 02/03/15 Manoj Holley MD [address] [place] [address] Hematology & Oncology 04/28/19 Yanelis Galvez Personal Advocate & Liaison (PAL) 12/14/20
--- OUTSIDE RECORDS SUMMARY | 2024-03-18 13:34 | XMS_ITS | Encounter Summary ---
Author Organization [place] Address [facility]0 [facility] 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
--- OUTSIDE RECORDS SUMMARY | 2024-03-18 13:34 | XMS_ITS | Encounter Summary ---
Author Organization [place] Address [facility] [place] [address] Care Team Providers Care Geriatrician Name Role Phone Zohra Rosado PA-C Primary Care Provid er System, Provider Not In Unavailable Unavaila ble System, Provider Not In Primary Care Provider Un available No Ref-Primary, Physician Primary Care Provider Timothy Knott MD Primary Care Provider [phone] Timothy Knott MD Unavailable [phone] Timothy Knott MD Unavailable [phone] Manoj Holley MD Unavailable [phone] Tierney Valencia RN Unavailable [phone] Timothy Knott MD Unavailable [phone] Timothy Knott MD Unavailable [phone] Chantale Barboza RN Unavailable Unavailable Manoj Holley MD Unavailable [phone] Radha Trejo DPM, Podiatry /Foot and Ankle Surgery Unavailable Manoj Holley MD Unavailable [phone] Yanelis Galvez Unavailable Unavailable Alia Miller PA-C Unavailable [phone] Lori Barbosa MD Unavailable + Timothy Knott MD Unavailable [phone] Tierney Panchal APRN LONG HAUL TRUCK DRIVER Unavailable Lori Barbosa MD Unavailable + Timothy Knott MD Unavailable [phone] Clinic - [facility] Unavail able Elizabeth Rausch MD Primary Care Provider [phone] Encounter Details Date Type Department Care Team (Late st Contact Info) Description 01/02/2012 [facility] Extended Documentation [facility] [id number] [place] [phone] Brenda Pereyra XXX RESIGNED XXX [address] [facility] [address] [place] [address] Social History Tobacco Use Types Packs/Day [...] documented as of this encounter Care Teams Geriatrician Relationship Specialty Start Date End Date Zohra Rosado PA-C [address] [address] [place] [address] PCP - General Family Practice 11/22/09 02/05/15 System, Provider Not In PCP - General Clinic 05/30/17 11/14/17 No Ref-Primary, Physician PCP - General 11/15/17 01/10/18 [place] [address] [place] [address] PCP - General Family Practice 01/11/18 03/04/24 [place] [address] [place] [address] PCP - Assigned PCP 11/18/17 09/10/18 Elizabeth Rausch MD [facility] [address], [place] [address] PCP - General Family Medicine 03/05/24 System, Provider Not In Clinic 02/03/15 [place] [address] [place], [place] [id number] Assigned PCP 11/18/17 11/29/19 Manoj Holley MD 420 [facility] [address] [place] [address] Hematology & Oncology 04/28/19 Tierney Valencia, RN Lead Platform Material Handler Manager 05/01/19 0 [place] [address] [place] [address] Assigned PCP 01/25/20 07/16/21 [place] [address] [place] [address] Assigned PCP 11/30/19 01/24/20 Chantale Barboza, RN Personal Advocate & Liaison (PAL) Family Practice 04/05/20 12/02/20 Manoj Holley MD [address] [address] Assigned Cancer Care Provider 04/30/20 10/30/20 Radha Trejo DPM, Podiatry/Foot and Ankle Surgery [address] [place] [address] Assigned Musculoskeletal Provider 04/30/20 11/13/20 Manoj Holley MD [address] [address] Assigned Cancer Care Provider 12/05/20 06/02/22 Yanelis Galvez Personal Advocate & Liaison (PAL) 12/14/20 Alia Miller, PA-C [address] [place] [address] [address] [place] [address] Assigned Surgical Provider 01/30/21 07/28/22 Lori Barbosa MD PRIMARY ENT [address] [facility] [address] [place], [place] [address] Assigned PCP 07/17/21 05/26/22 [place] [address] [place] [address] Assigned PCP 05/27/22 06/16/22 Tierney Panchal APRN [employer] TRUCK DRIVER [address] [place] [address] Assigned PCP 06/17/22 07/21/22 Lori Barbosa MD PRIMARY ENT [address] [place] [id number] Assigned PCP 07/22/22 09/01/22 [place] [address] [place], [place] [id number] Assigned PCP 09/02/22 01/28/24 [facility] [address] [place], [place] [id number] Assigned PCP 01/29/24 02/28/24 documented as of this encounter
--- OUTSIDE RECORDS SUMMARY | 2024-03-18 13:34 | XMS_ITS | Clinical Summary ---
Author Organization [facility] Address [address] [place] [address] Phone [phone] Care Team Providers Care Founder & Ceo Name Role Phone Pcp, No Primary Care [...] Comments Blood Pressure 149/81 11/01/2022 11:10 AM [facility] Pulse 65 11/01/2022 11:10 AM [facility] Temperature 36.8 ??C (98.3 ??F) 11/01/2022 11:10 AM [facility] Respiratory Rate 18 11/01/2022 11:10 AM [facility] Oxygen Saturation 97% 11/01/2022 11:10 AM [facility] Inhaled Oxygen Concentration - - Weight 70.8 kg (156 lb) 11/01/2022 11:10 AM [facility] Height 160 cm (5' 3) 11/01/2022 11:10 AM [facility] Body Mass Index 27.63 11/01/2022 11:10 AM [facility] Plan of Treatment Health Maintenance Due Date Last Done Comments Bone Density Scan 1945 Hepatitis C Screening 1945 Lipid Panel 1945 Pneumococcal Vaccine: 65+ Years (1 of 4 - PCV) 952 Zoster Vaccines (1 of 2) 1964 Influenza Vaccine (#1) 2024 Care Teams Founder & Ceo Relationship Specialty Start Date End Date NO PCP PCP - General 11/01/22
--- OUTSIDE RECORDS SUMMARY | 2024-03-18 13:34 | XMS_ITS | Encounter Summary ---
Author Organization [place] Address [address] [place] [address] Care Team Providers Care Gold And Silver Assayer Name Role Phone System, Provider Not In Unavailable UnavailTimothy Mata MD Primary Care Provider [phone] Timothy Knott MD Unavailable [phone] Manoj Holley MD Unavailable [phone] Tierney Valencia RN Unavailable Timothy Knott MD Unavailable [phone] Timothy Knott MD Unavailable [phone] Chantale Barboza RN Unavailable Unavailable Manoj Holley MD Unavailable [phone] Radha Trejo DPM, Podiatry /Foot and Ankle Surgery Unavailable Manoj Holley MD Unavailable [phone] Yanelis Galvez Unavailable Unavailable Alia Miller PA-C Unavailable [phone] Lori Barbosa MD Unavailable + Timothy Knott MD Unavailable [phone] Tierney Panchal APRN, CNP Unavailable Lori Barbosa MD Unavailable + Timothy Knott MD Unavailable [phone] Clinic - [facility] Unavail able Elizabeth Rausch MD Primary Care Provider [phone] Reason for Visit * Reason Onset Date Comments Refill Request 02/20/2019 Refill on Metopr olol Encounter Details Date Type Department Care Team (Late st Contact Info) Description 02/20/2019 Refill [facility] [address] [place] [phone] [place] [address] [place], [place] [phone] Refill Request (Refill on Metoprolol) Social History [...] documented as of this encounter Care Teams Gold And Silver Assayer Relationship Specialty Start Date [place] [id number] [place] [id number] PCP - General Family Practice 01/11/18 03/04/24 Elizabeth Rausch MD [facility] [address] [place] [address] PCP - General Family Medicine 03/05/24 System, Provider Not In Clinic 02/03/15 [place] [address] [place], [place] [id number] Assigned PCP 11/18/17 11/29/19 Manoj Holley MD [address] [address] Hematology & Oncology 04/28/19 Tierney Valencia RN Lead Field Trainer 05/01/19 0 [place] [address] [place] [address] Assigned PCP 01/25/20 07/16/21 [place] [address] [place] [address] Assigned PCP 11/30/19 01/24/20 Chantale Barboza, RN Personal Advocate & Liaison (PAL) Family Practice 04/05/20 12/02/20 Manoj Holley MD [address] [address] Assigned Cancer Care Provider 04/30/20 10/30/20 Radha Trejo DPM, Podiatry/Foot and Ankle Surgery [address] [place] [address] Assigned Musculoskeletal Provider 04/30/20 11/13/20 Manoj Holley MD 420 [facility] [address] [place], [place] [address] Assigned Cancer Care Provider 12/05/20 06/02/22 Yanelis Galvez Personal Advocate & Liaison (PAL) 12/14/20 Alia Miller PA-C [address] [place] [address] Assigned Surgical Provider 01/30/21 07/28/22 Lori Barbosa MD PRIMARY ENT [address] [facility] [address] [place] [address] Assigned PCP 07/17/21 05/26/22 [place] [address] [place] [address] Assigned PCP 05/27/22 06/16/22 Tierney Panchal APRN CNP [address] [place] [address] Assigned PCP 06/17/22 07/21/22 Lori Barbosa MD PRIMARY ENT [address] [facility] [address] [place], [place] [address] Assigned PCP 07/22/22 09/01/22 [place] [address] [place], [place] [phone] Assigned PCP 09/02/22 01/28/24 Clinic - [facility] [address] [place] [address] Assigned PCP 01/29/24 02/28/24 documented as of this encounter
--- OUTSIDE RECORDS SUMMARY | 2024-03-18 13:34 | XMS_ITS | Encounter Summary ---
Author Organization [place] Address [facility] [place] [address] Care Team Providers Care Supply Chain Consultant Name Role Phone Zohra Rosado PA-C Primary Care Provid er System, Provider Not In Unavailable Unavaila ble System, Provider Not In Primary Care Provider Un available No Ref-Primary, Physician Primary Care Provider Timothy Knott MD Primary Care Provider [phone] Timothy Knott MD Unavailable [phone] Timothy Knott MD Unavailable [phone] Manoj Holley MD Unavailable [phone] Tierney Valencia RN Unavailable [phone] Timothy Knott MD Unavailable [phone] Timothy Knott MD Unavailable [phone] Chantale Barboza RN Unavailable Unavailable Manoj Holley MD Unavailable [phone] Radha Trejo DPM, Podiatry /Foot and Ankle Surgery Unavailable Manoj Holley MD Unavailable [phone] Yanelis Galvez Unavailable Unavailable Alia Miller PA-C Unavailable [phone] Lori Barbosa MD Unavailable + Timothy Knott MD Unavailable [phone] Tierney Panchal APRN TECHNICAL PROJECT LEAD Unavailable Lori Barbosa MD Unavailable + Timothy Knott MD Unavailable [phone] [facility] - [facility] Unavail able Elizabeth Rausch MD Primary Care Provider [phone] Reason for Visit * Reason Onset Date Comments Refill Request 05/18/2011 citalopram Encounter Details Date Type Department Care Team (Late st Contact Info) Description 05/18/2011 Refill [facility] [id number] [place] [phone] Zohra Rosado PA-C [address] [address] Refill Request (citalopram) Social History [...] PHQ9 is not needed Max Refills: 6mths DER / CEO * Telephone Encounter - Janine Morgan - 05/18/2011 12:16 PM CST Medication and directions: citalopram - TK 1?? TS PO D Last office visit related to request: 04.03.11 routine general medical exam Last filled: 11.18.10 Refills: 2 Pharmacy: [facility] Janine Morgan, Student [place] DER / CEO documented in this encounter Plan of Treatment [...] as of this encounter Care Teams Supply Chain Consultant Relationship Specialty Start Date End Date Zohra Rosado PA-C [address] [address] PCP - General Family Practice 11/22/09 02/05/15 System, Provider Not In PCP - General Clinic 05/30/17 11/14/17 No Ref-Primary, Physician PCP - General 11/15/17 01/10/18 [place] [address] [place] [address] PCP - General Family Practice 01/11/18 03/04/24 [place] [address] [place], [place] [id number] PCP - Assigned PCP 11/18/17 09/10/18 Elizabeth Rausch MD [facility] [address] [place] [address] PCP - General Family Medicine 03/05/24 System, Provider Not In Clinic 02/03/15 [place] [address] [place], [place] [id number] Assigned PCP 11/18/17 11/29/19 Manoj Holley MD 420 [facility] [address] [place], [place] [id number] Hematology & Oncology 04/28/19 Tierney Valencia RN Lead Infection Control Practitioner 05/01/19 0 [place] [address] [place], [place] [id number] Assigned PCP 01/25/20 07/16/21 [place] [address] [place] [address] Assigned PCP 11/30/19 01/24/20 Chantale Barboza, ROD Personal Advocate & Liaison (PAL) Family Practice 04/05/20 12/02/20 Manoj Holley MD 420 [facility] [address] [place], [place] [address] Assigned Cancer Care Provider 04/30/20 10/30/20 Radha Trejo DPM, Podiatry/Foot and Ankle Surgery [address] [place] [address] Assigned Musculoskeletal Provider 04/30/20 11/13/20 Manoj Holley MD 420 [facility] [address] [place] [address] Assigned Cancer Care Provider 12/05/20 06/02/22 Yanelis Galvez Personal Advocate & Liaison (PAL) 12/14/20 Alia Miller PAMichaelC [address] [place] [address] Assigned Surgical Provider 01/30/21 07/28/22 Lori Barbosa MD PRIMARY ENT [address] [facility] 13 [facility] [address] [place] [id number] Assigned PCP 07/17/21 05/26/22 [place] [address] [place], [place] [id number] Assigned PCP 05/27/22 06/16/22 Tierney Panchal APRN TECHNICAL PROJECT LEAD [address] [place] [id number] Assigned PCP 06/17/22 07/21/22 Lori Barbosa MD PRIMARY ENT [address] [facility] 13 [facility] [address] [place] [id number] Assigned PCP 07/22/22 09/01/22 [place] [address] [place], [place] [id number] Assigned PCP 09/02/22 01/28/24 [facility] [id number] [place] [id number] Assigned PCP 01/29/24 02/28/24 documented as of this encounter
--- OUTSIDE RECORDS SUMMARY | 2024-03-18 13:34 | XMS_ITS | Encounter Summary ---
Author Organization [place] Address [address] [place] [address] Care Team Providers Care Web Applications Administrator Name Role Phone System, Provider Not In Unavailable Unavaila ble Timothy Knott MD Primary Care Provider [phone] Manoj Holley MD Unavailable [phone] Timothy Knott MD Unavailable [phone] Manoj Holley MD Unavailable [phone] Yanelis Galvez Unavailable Unavailable Alia Miller PA-C Unavailable [phone] Lori Barbosa MD Unavailable + Timothy Knott MD Unavailable [phone] Tierney Panchal APRN CHIEF OF FIELD OPERATIONS Unavailable [phone] Lori Barbosa MD Unavailable + Timothy Knott MD Unavailable [phone] [facility] Unavail able Elizabeth Rausch MD Primary Care Provider Reason for Visit * Reason Comments Medication Refill Encounter Details Date Type Department Care Team (Late st Contact Info) Description 03/15/[address] [phone] Lori Barbosa MD PRIMARY ENT [address] [facility] [address] [place] [address] Medication Refill Social History Tobacco Use Types [...] below and assist patient. JÚNIOR Sanchez, RN [facility] * Telephone Encounter - [...] needs to be seen because: SSRIs Protocol Efijsy2903/15/2021 12:29 PM PHQ-9 score less than 5 in past 6 months JÚNIOR Greenwood, RN - Patient Advocate and Liaison (PAL) [facility] [phone] * Telephone Encounter - Elfering, Eleni - 03/15/2021 12:27 PM CDT Medication Question or Refill Who is calling: Jeannine What medication are you calling about (include dose and sig)?: WELLBUTRIN Controlled Substance Agreement on file: No Patient all out of both dosages Who prescribed the medication?: Dr Knott and Dr Pham Do you need a refill? Yes: When did you use the medication last? Mar 6 Patient offered an appointment? No Do you have any questions or concerns? No Requested Pharmacy: [facility] Okay to leave a detailed message?: Yes at Home number on file [phone] (home) documented in this encounter Plan of [...] documented as of this encounter Care Teams Web Applications Administrator Relationship Specialty Start [place] [address] [place] [address] PCP - General Family Practice 01/11/18 03/04/24 Elizabeth Rausch MD [facility] [address] [place] [address] PCP - General Family Medicine 03/05/24 System, Provider Not In Clinic 02/03/15 Manoj Holley MD [address] [place] [address] [facility] [address] [place], [place] [address] Hematology & Oncology 04/28/19 [place] [address] [place] [address] Assigned PCP 01/25/20 07/16/21 Manoj Holley MD [address] [place] [address] [facility] [address] [place], [place] [address] Assigned Cancer Care Provider 12/05/20 06/02/22 Yanelis Galvez Personal Advocate & Liaison (PAL) 12/14/20 Alia Miller PA-C [address] [place] [address] Assigned Surgical Provider 01/30/21 07/28/22 Lori Barbosa MD PRIMARY ENT [address] [facility] 13 [facility] 350 [place] [address] Assigned PCP 07/17/21 05/26/22 [place] [address] [place] [address] Assigned PCP 05/27/22 06/16/22 Tierney Panchal APRN CHIEF OF FIELD OPERATIONS [address] [place] [id number] Assigned PCP 06/17/22 07/21/22 Lori Barbosa MD PRIMARY ENT [address] [place] [address] Assigned PCP 07/22/22 09/01/22 [place] [address] [place] [address] Assigned PCP 09/02/22 01/28/24 [facility] [address] [place] [address] Assigned PCP 01/29/24 02/28/24 documented as of this encounter
--- OUTSIDE RECORDS SUMMARY | 2024-03-18 13:34 | XMS_ITS | Encounter Summary ---
Author Organization [place] Address [address] [place] [address] Care Team Providers Care Roll Plugger Machine Operator Name Role Phone System, Provider Not In Unavailable Unavaila Timothy Driscoll MD Primary Care Provider [phone] KihsanManoj champagne MD Unavailable [phone] Manoj Holley MD Unavailable [phone] Yanelis Galvez Unavailable Unavailable Alia Miller PA-C Unavailable [phone] Lori Barbosa MD Unavailable + Timothy Knott MD Unavailable [phone] Tierney Panchal APRN [facility] Unavailable [phone] Lori Barbosa MD Unavailable + Timothy Knott MD Unavailable [phone] [facility] Unavail able Elizabeth Rausch MD Primary Care Provider + [phone] Encounter Details Date Type Department Care Team [...] Total Score: 1 05/18/20 21 7:29 AM SWIMMING INSTRUCTOR documented as of this encounter Care Teams Roll Plugger Machine Operator Relationship Specialty Start [place] [address] [place] [address] PCP - General Family Practice 01/11/18 03/04/24 Elizabeth Rausch MD [facility] [address] [place] [address] PCP - General Family Medicine 03/05/24 System, Provider Not In Clinic 02/03/15 Manoj Holley MD [address] [address] Hematology & Oncology 04/28/19 Manoj Holley MD [address] [address] Assigned Cancer Care Provider 12/05/20 06/02/22 Yanelis Galvez Personal Advocate & Liaison (PAL) 12/14/20 Alia Miller, PAMichaelC [address] [place] [address] Assigned Surgical Provider 01/30/21 07/28/22 Lori Barbosa MD PRIMARY ENT [address] [facility] [address] [place] [address] Assigned PCP 07/17/21 05/26/22 [place] [address] [facility], [place] [id number] Assigned PCP 05/27/22 06/16/22 Tierney Panchal APRN [place] [address] [place] [address] Assigned PCP 06/17/22 07/21/22 Lori Barbosa MD PRIMARY ENT [address] [facility] [address] [place] [address] Assigned PCP 07/22/22 09/01/22 [place] [address] [facility], [place] [id number] Assigned PCP 09/02/22 01/28/24 [facility] [address] [facility], [place] [id number] Assigned PCP 01/29/24 02/28/24 documented as of this encounter
--- OUTSIDE RECORDS SUMMARY | 2024-03-18 13:34 | XMS_ITS | Clinical Summary ---
Author Organization [facility] Address [place], [place] [address] Care Team Providers Care Cuff Turner Name Role Phone Susana Moses [facility] - Primary Care Provider Allergies Active Allergy [...] stage 3, GFR 30-59 ml/min 06/09/2019 Overview (01/29/2023): Last Assessment & Plan: She is quite concerned about her diagnosis of CKD. In the [facility] doctors told her she had [...] about her diagnosis of CKD. In the [facility] doctors told her she had [...] (obstructive sleep apnea) 05/16/2018 HTN (hypertension) 11/15/2012 Overview (01/29/2023): Last Assessment & Plan: Resume MILKA inhibitor, never taken Last Assessment & Plan: Resume MILKA inhibitor, never taken Fibromyalgia 07/24/2008 Hyperlipidemia 06/23/2008 Overview (01/29/2023): The 10-year ASCVD risk score (Teresaodell BUNDY Jr, et al., 2013) is: 12.8% Values used to calculate the score: Age: 72 years Sex: Female Is Non- : No Diabetic: No Tobacco smoker: No Systolic Blood Pressure: 115 mmHg Is BP treated: Yes HDL Cholesterol: 58 mg/dL Total Cholesterol: 217 mg/dL Major depression 07/18/2004 Overview (01/29/2023): Last Assessment & Plan: Not well controlled. [...] for age 50+ (1 of 2) 1995 RSV vaccine for adults or (1 - 1-dose 60+ series) 2005 DEXA/DXA scan for age 65+ 2010 Medicare Wellness for age 65+ 2010 Pneumococcal series for age 65+ (1 of 1 - PCV) 2010 COVID-19 vaccine series (2022-24 season) 2024 05/10/2022, 03/07/2022, 02/21/2021, Additional history exists Influenza for age 65+ 03/09/2024 Medical Devices Implanted Type Area A&P Technician Device Identifier Shelf Expiration Date Model / Serial / Lot Baseplate Glenoid 25mm 35 Deg Perform+ Half Wedge - [id number] Implanted:Qty: 1 on 01/29/2023 by Geoffrey Lord MD at [facility] Left: Shoulder [employer] 12/14/2027 [id number] / [id number] / Glenoid 36mm Aequalis Perform+ Rev - [id number] Implanted:Qty: 1 on 01/29/2023 by Geoffrey Lord MD at [facility] Left: Shoulder [employer] 11/29/2027 [id number] / [id number] / Liner Hum Sz 36mm +6 Ascend Flex - [id number] Implanted:Qty: 1 on 01/29/2023 by Geoffrey Lord MD at [facility] Left: Shoulder [employer] 10/05/2027 [id number] / [id number] / Baseplate Hum Sz 0 Ascend Rev Flex Centered - [id number] Implanted:Qty: 1 on 01/29/2023 by Geoffrey Lord MD at [facility] Left: Shoulder [employer] 11/01/2027 [id number] / [id number] / Stem Hum Sz 5b Ascend Flex Std - [id number] Implanted:Qty: 1 on 01/29/2023 by Geoffrey Lord MD at [facility] Left: Shoulder [employer] 10/04/2027 [id number] / [id number] / Post Shoulder Glenoid 6.5x25mm Perform+ Rev - [id number] Implanted:Qty: 1 on 01/29/2023 by Geoffrey Lord MD at [facility] Left: Shoulder [employer] [id number] / / Screw Shoulder 14mm Perform+ Periph - [id number] Implanted:Qty: 2 on 01/29/2023 by Geoffrey Lord MD at [facility] Left: Shoulder [employer] [id number] / / Screw Shoulder 30mm Perform+ Periph - [id number] Implanted:Qty: 1 on 01/29/2023 by Geoffrey Lord MD at [facility] Left: Shoulder [employer] [id number] / / Screw Shoulder 26mm Perform+ Periph - [id number] Implanted:Qty: 1 on 01/29/2023 by Geoffrey Lord MD at [facility] Left: Shoulder [employer] [id number] / / Advance Directives * Full Code (Latest Code Status on File) Date Activated Date Inactivated Comments 01/30/2023 2:47 PM 01/30/2023 5:03 PM Question Answer Comments Code Status Discussion: Reviewed Preferences * Full Code Date Activated Date Inactivated Comments 01/29/2023 10:21 AM 01/30/2023 2:47 PM Question Answer Comments Code Status Discussion: Unable to Assess Preferences, Provider to review later Care Teams Cuff Turner Relationship Specialty Start Date End Date Susana Moses [facility] - [address] [place] [address] PCP - General 01/08/23
--- OUTSIDE RECORDS SUMMARY | 2024-03-18 13:34 | XMS_ITS | Encounter Summary ---
Author Organization [facility] Address [address] [place] [address] Care Team Providers Care Physician Chief Of Pathology Name Role Phone System, Provider Not In Unavailable Unavaila Timothy Driscoll MD Primary Care Provider [phone] KishanManoj champagne MD Unavailable [phone] Yanelis Galvez Unavailable Unavailable Elizabeth Rausch MD Primary Care Provider [phone] Reason for Visit * Reason Comments Abdominal Pain Encounter Details Date Type Department Care Team (Late st Contact Info) Description 03/04/2024 11:19 PM CDT - 03/05/2024 2:44 AM T Emergency [facility] Emergency Dept [address] [place] [address] [phone] Timothy Pink MD [facility] [address] [place] [address] Right sided abdominal pain Discharge Disposition: Home or Self Care Social History Tobacco Use Types Packs/Day Years [...] on file documented as of this encounter Last Filed Vital Signs Vital Sign Reading [...] Mass Index 30.14 03/04/2024 10:47 PM CDT documented in this encounter Discharge Instructions * Discharge Instructions* Timothy Pink MD - 03/05/2024 2:[address] scan does identify a hiatal hernia but does not identify clear cause for right-sided abdominal pain. Take Carafate to coat the esophagus. Use Zofran for nausea. Use pain medication if absolutely necessary. Return to the emergency room with yellow color to your eyes Coca-Cola colored urine or fever greater than 100.4. Please follow-up with your regular doctor for reassessment of abdominal pain of unclear etiology. * Attachments The following attachments cannot be sent through Care Everywhere. * Abdominal Pain (Slovenian) * Hiatal Hernia (Slovenian) documented in this encounter Medications at Time of Discharge Medication Sig Dispensed Refills Start Date End Date sucralfate (CARAFATE) 1 GM/10ML suspension Take 10 mLs (1 g) by mouth 4 times daily. 414 mL 03/05/2024 buPROPion (WELLBUTRIN XL) 150 MG 24 hr tabletIndications:Anxiet y,Mild major depression (H24),Migraine without status migrainosus, not intractable, unspecified migraine type TAKE 1 TABLET BY MOUTH IN THE MORNING . TAKE WITH 300MG TABLET FOR A TOTAL OF 450MG 90 tablet 09/13/2021 buPROPion (WELLBUTRIN XL) 300 MG 24 hr tabletIndications:Anxiet y,Mild major depression (H24),Migraine without status migrainosus, not intractable, unspecified migraine type TAKE 1 TABLET (300 MG) BY MOUTH ONCE DAILY IN THE MORNING. TOTAL 450 MG A DAY 90 tablet 09/13/2021 calcium carbonate 600 mg-vitamin D 400 units (CALCIUM 600 + D) 600-400 MG-UNIT per tabletIndications:Routin e general medical examination at a health care facility Take 1 tablet by mouth 2 times daily 200 tablet 3 03/27/2018 cholecalciferol (VITAMIN D) 1000 UNIT tablet Take 1 tablet by mouth daily. 100 tablet 3 10/05/2011 fish oil-omega-3 fatty acids 1000 MG capsule Take by mouth daily. lisinopril (ZESTRIL) 5 MG tabletIndications:Stage 3 chronic kidney disease, unspecified whether stage 3a or 3b CKD (H) Take 1 tablet by mouth once daily 90 tablet 09/13/2021 loratadine (CLARITIN) 10 MG tablet Take 10 mg by mouth daily magnesium 250 MG tablet Take 1 tablet by mouth daily metoprolol tartrate (LOPRESSOR) 25 MG tabletIndications:Essent ial hypertension Take 1/2 (one-half) tablet by mouth twice daily 90 tablet 09/13/2021 multivitamin, therapeutic with minerals (THERA-VIT-M) TABS Take 1 tablet by mouth daily. ondansetron (ZOFRAN ODT) 4 MG ODT tabIndications:Vomiting and diarrhea Take 1 tablet (4 mg) by mouth every 8 hours as needed for nausea 9 tablet 03/18/2022 ondansetron (ZOFRAN ODT) 4 MG ODT tab Take 1 tablet (4 mg) by mouth every 6 hours as needed for nausea or vomiting. 10 tablet 03/05/2024 03/08/2024 traMADol (ULTRAM) 50 MG tablet Take 1 tablet (50 mg) by mouth every 6 hours as needed for severe pain. 10 tablet 03/05/2024 03/08/2024 documented as of this encounter ED Notes * Timothy Pink MD - 03/05/2024 2:44 AM CDT Emergency Department Note History of Present Illness Chief Complaint Abdominal Pain HPI Jeannine Zuleta is a 78 year old female who presents with right-sided abdominal pain. Patient is 78 with a history of prior cholecystectomy. Developed acute pain for the last hour or 2. And presents theemergency room with family for assessment. Brought to emergency by family for assessment associate with some nausea. Pain is intermittent. No black tarry stool no hematemesis. No urinary symptoms Independent Historian None Review of External Notes Past Medical History Medical History and Problem List Past Medical History: Diagnosis Date Anxiety CARDIOVASCULAR SCREENING; LDL GOAL LESS THAN 160 05/08/2010 Cervical high risk HPV (human papillomavirus) test positive 05/01/2018, 05/29/19 CKD (chronic kidney disease) stage 3, GFR 30-59 ml/min (H) 06/09/2019 Diverticulitis of colon 07/24/2008 Dyspepsia 01/11/2018 Encephalomalacia on imaging study 12/13/2020 Fibromyalgia 07/24/2008 Hyperlipidemia LDL goal <160 01/12/2018 Hyponatremia 01/14/2020 iamdcSOMAT DYSFUNC SACRAL REG 11/21/2005 iamdcSPRAIN LUMBOSACRAL 11/21/2005 Insomnia 07/24/2008 Major depressive disorder, single episode, moderate (H) 07/07/2010 Meningioma, benign 07/24/2008 Migraine 02/16/2012 Mild major depression (H) 07/24/2008 Monoclonal paraproteinemia 04/04/2018 Non-cardiac chest pain 10/17/2011 NILES (obstructive sleep apnea) 05/16/2018 Primary osteoarthritis of both hands 05/16/2018 Restless leg 07/24/2008 Medications ondansetron (ZOFRAN ODT) 4 MG ODT tab sucralfate (CARAFATE) 1 GM/10ML suspension traMADol (ULTRAM) 50 MG tablet buPROPion (WELLBUTRIN XL) 150 MG 24 hr tablet buPROPion (WELLBUTRIN XL) 300 MG 24 hr tablet calcium carbonate 600 mg-vitamin D 400 units (CALCIUM 600 + D) 600-400 MG-UNIT per tablet cholecalciferol (VITAMIN D) 1000 UNIT tablet fish oil-omega-3 fatty acids 1000 MG capsule lisinopril (ZESTRIL) 5 MG tablet loratadine (CLARITIN) 10 MG tablet magnesium 250 MG tablet metoprolol tartrate (LOPRESSOR) 25 MG tablet multivitamin, therapeutic with minerals (THERA-VIT-M) TABS ondansetron (ZOFRAN ODT) 4 MG ODT tab Surgical History Past Surgical History: Procedure Laterality Date ABDOMEN SURGERY APPENDECTOMY BRAIN SURGERY CHOLECYSTECTOMY Physical Exam No data found. Physical Exam HENT: Head: Normocephalic. Cardiovascular: Rate and Rhythm: Normal rate and regular rhythm. Pulmonary: Effort: Pulmonary effort is normal. Abdominal: Tenderness: There is abdominal tenderness in the right upper quadrant and epigastric area. Skin: General: Skin is warm. Capillary Refill: Capillary refill takes less than 2 seconds. Neurological: General: No focal deficit present. Mental Status: She is alert and oriented to person, place, and time. Psychiatric: Mood and Affect: Mood normal. Diagnostics Lab Results Labs Ordered and Resulted from Time of ED Arrival to Time of ED Departure COMPREHENSIVE METABOLIC PANEL - Abnormal Result Value Sodium 128 (*) Potassium 4.0 Carbon Dioxide (CO2) 20 (*) Anion Gap 14 Urea Nitrogen 24.4 (*) Creatinine 1.08 (*) GFR Estimate 52 (*) Calcium 9.1 Chloride 94 (*) Glucose 86 Alkaline Phosphatase 94 AST 20 ALT 17 Protein Total 6.9 Albumin 4.0 Bilirubin Total 0.4 ROUTINE UA WITH MICROSCOPIC REFLEX TO CULTURE - Abnormal Color Urine Straw Appearance Urine Clear Glucose Urine Negative Bilirubin Urine Negative Ketones Urine Negative Specific Terrell Urine 1.004 Blood Urine Negative pH Urine 5.0 Protein Albumin Urine Negative Urobilinogen Urine Normal Nitrite Urine Negative Leukocyte Esterase Urine Trace (*) Bacteria Urine Few (*) RBC Urine <1 WBC Urine 2 Squamous Epithelials Urine <1 LIPASE - Normal Lipase 51 CBC WITH PLATELETS AND DIFFERENTIAL WBC Count 8.5 RBC Count 3.99 Hemoglobin 12.7 Hematocrit 37.8 MCV 95 MCH 31.8 MCHC 33.6 RDW 12.1 Platelet Count 205 % Neutrophils 53 % Lymphocytes 36 % Monocytes 9 % Eosinophils 2 % Basophils 1 % Immature Granulocytes 0 NRBCs per 100 WBC 0 Absolute Neutrophils 4.5 Absolute Lymphocytes 3.0 Absolute Monocytes 0.7 Absolute Eosinophils 0.1 Absolute Basophils 0.0 Absolute Immature Granulocytes 0.0 Absolute NRBCs 0.[address] Abdomen Pelvis w Contrast Final Result IMPRESSION: 1. Partially visualized moderate esophageal hiatal hernia with the upper third of the stomach in the posterior mediastinum. No evidence for significant dilatation of the distal esophagus or stomach. 2. No bowel obstruction or inflammatory change. Large amount of stool in the colon, particularly the proximal colon. 3. Colonic diverticulosis without diverticulitis. 4. Symmetric renal enhancement without evidence for urinary collecting system dilatation or obstructing calculi. Independent Interpretation None ED Course Medications Administered Medications ketorolac (TORADOL) injection 15 mg (15 mg Intravenous $Given 03/05/24 0008) ondansetron (ZOFRAN) injection 4 mg (4 mg Intravenous $Given 03/05/24 0008) morphine (PF) injection 2 mg (2 mg Intravenous $Given 03/05/24 0034) CT scan flush (61 mLs Intravenous $Given 03/05/24 012) iopamidol (ISOVUE-370) solution 500 mL (82 mLs Intravenous $Given 03/05/24 012) morphine (PF) injection 2 mg (2 mg Intravenous $Given 03/05/24 0229) Procedures Procedures Discussion of Management None ED Course Additional Documentation None Medical Decision Making / Diagnosis [facility] Diagnoses: and None MIPS None [facility] Jeannine Zuleta is a 78 year old female presents with abdominal pain. Due to age and abdominal pain CTrecommended for complete assessment and negative for acute findings. Lab work also unremarkable. Care was discussed with the patient Close low sodium but no need for admission for now. I recommended follow-up for recheck this as well as follow-up for reassessment for abdominal pain as an outpatient and was discharged home in stable condition. And admitted related to the be acute but not longstanding. Encouraged to return with fever or worsening condition to consider reassessment Disposition The patient was discharged. Diagnosis ICD-10-CM 1. Right sided abdominal pain R10.9 Discharge Medications Discharge Medication List as of 03/05/2024 2:22 AM START taking these medications Details !! ondansetron (ZOFRAN ODT) 4 MG ODT tab Take 1 tablet (4 mg) by mouth every 6 hours as needed for nausea or vomiting., Disp-10 tablet, R-0, Local Print sucralfate (CARAFATE) 1 GM/10ML suspension Take 10 mLs (1 g) by mouth 4 times daily., Disp-414 mL, R-0, Local Print traMADol (ULTRAM) 50 MG tablet Take 1 tablet (50 mg) by mouth every 6 hours as needed for severe pain., Disp-10 tablet, R-0, Local Print !! - Potential duplicate medications found. Please discuss with provider. MD Joesph Rowell Brian Samuel, MD 03/07/24 0017 * Joanne Gonzalez RN - 03/04/2024 10:46 PM CDT Patient reports 2 hours of abdominal pain. Patient denies nausea, vomiting, diarrhea. Patient reports a BM prior to arrival. Triage Assessment (Adult) Row Name 03/04/24 2246 Triage Assessment Airway WDL WDL Respiratory WDL Respiratory WDL WDL Skin Circulation/Temperature WDL Skin Circulation/Temperature WDL WDL Cardiac WDL Cardiac WDL WDL Peripheral/Neurovascular WDL Peripheral Neurovascular WDL WDL Cognitive/Neuro/Behavioral WDL Cognitive/Neuro/Behavioral WDL WDL documented in this encounter Plan of Treatment Not on file documented as of this encounter Procedures Procedure Name Priority Date/Time Associated Diagnosis Comments CT ABDOMEN PELVIS W CONTRAST STAT 03/05/2024 1:36 AM CDT ROUTINE UA WITH MICROSCOPIC REFLEX TO CULTURE STAT 03/05/2024 12:38 AM CDT EXTRA TUBE STAT 03/04/2024 11:58 PM CDT EXTRA RED TOP TUBE STAT 03/04/2024 11 :58 PM CDT EXTRA BLUE TOP TUBE STAT 03/04/2024 1 1:58 PM CDT CBC WITH PLATELETS AND DIFFERENTIAL STAT 03/04/2024 11:58 PM CDT CBC WITH PLATELETS & DIFFERENTIAL STAT 03/04/2024 11:58 PM CDT LIPASE STAT 03/04/2024 11:58 PM CDT COMPREHENSIVE METABOLIC PANEL STAT 03/04/2024 11:58 PM CDT documented in this encounter Results * CT Abdomen Pelvis w Contrast [...] EXAM: CT ABDOMEN PELVIS W CONTRAST LOCATION: [facility] DATE: 03/05/2024 INDICATION: Right flank pain. COMPARISON: [...] EXAM: CT ABDOMEN PELVIS W CONTRAST LOCATION: [facility] DATE: 03/05/2024 INDICATION: Right flank pain. COMPARISON: [...] dilatation or obstructing calculi. Timothy Pink MD [facility] ORDERABLE S * (ABNORMAL) UA with Microscopic reflex to Culture (03/05/2024 12:38 AM CDT) Color Urine Straw Colorless, Straw, Light Yellow, Yellow 03/05/2024 12:51 AM CDT [facility] Appearance Urine Clear Clear 03/05/20 12:51 AM CDT [facility] Glucose Urine Negative Negative mg/dL 03/05/2024 12:51 AM CDT [facility] Bilirubin Urine Negative Negative 12:51 AM CDT [facility] Ketones Urine Negative Negative mg/dL 03/05/2024 12:51 AM CDT [facility] Specific Terrell Urine 1.004 1.003 - 1.035 03/05/2024 12:51 AM CDT [facility] Blood Urine Negative Negative 03/05/2024 12:51 AM CDT [facility] pH Urine 5.0 5.0 - 7.0 [...] Pink MD LAB - URINE SALMAE GRAEME [facility] Organization Address City/State/ZIP Co de Phone Number LABORATORY [facility] Acute Care Lab [address] Lab (1st floor, no room number) [place] [address], [facility] * Extra Red Top Tube (03/04/2024 11:58 PM CDT) Pathologist [facility] Hold Specimen [facility] 03/05/2024 1:31 AM CDT LABORATORY Blood BLOOD SPECIMEN / Unknown Venipuncture / Unknown 03/04/2024 11:58 PM CDT 03/05/2024 12:17 AM CDT Timothy Pink MD LAB - BLOOD ORDRuben ROBSLIM LABORATORY [facility] Lab [address] Lab (1st floor, no room number) [place] [phone] [place] [address] * Extra Blue Top Tube (03/04/2024 11:58 PM CDT) Hold Specimen [facility] 03/05/2024 1:31 AM CDT [facility] Blood BLOOD SPECIMEN / Unknown Venipuncture / Unknown 03/04/2024 11:58 PM CDT 03/05/2024 12:17 AM CDT Timothy Pink MD LAB - BLOOD KAMARI BEDOLLA Performing Organization Address City/[facility]/ZIP Co de Phone Number LABORATORY [facility] Care Lab [address] Lab (1st floor, no room number) [place] [phone] * CBC with platelets and differential (03/04/2024 [...] Pink MD LAB - BLOOD KAMARI BEDOLLA [facility] Organization Address City/State/ZIP Co de Phone Number [facility] [address] [facility] Lab (1st floor, no room number) [place] [address], [facility] * Lipase (03/04/2024 11:58 PM CDT) Lipase 51 13 - 60 U/L 03/05/2024 12:37 AM CDT LABORATORY Blood BLOOD SPECIMEN / Unknown Venipuncture / Unknown 03/04/2024 11:58 PM CDT 03/05/2024 12:17 AM CDT Timothy Pink MD LAB - BLOOD KAMARI BEDOLLA [facility] Organization Address City/State/ZIP Co de Phone Number LABORATORY [facility] Lab [address] [facility] Lab (1st floor, no room number) [place] [address] * (ABNORMAL) Comprehensive metabolic panel (03/04/2024 11:58 [...] >60 mL/min/1.7 3m2 03/05/2024 12:37 AM CDT LABORATORY Comment:eGFR calculated usin 2020 CKD-EPI equation. [...] Pink MD LAB - BLOOD KAMARI BEDOLLA [facility] Organization Address City/State/ZIP Co de Phone Number [facility] Acute Care Lab [address] Lab (1st floor, no room number) [place] [address], [facility] documented in this encounter Visit Diagnoses Diagnosis Right sided abdominal pain Abdominal pain, unspecified site documented in this encounter Administered Medications Inactive Administered Medications - up to 3 most recent administrations Medication Order MAR Action Action Date Dose Rate Site CT scan flush Intravenous, 100 mL, ONCE, On Sun03/05/24 at 0130, For 1 dose, This entry is for use by Radiology to intermittently used as a flush in patients receiving a CT scan. $Given 03/05/2024 1:29 AM CDT 61 mLs iopamidol (ISOVUE-370) solution 500 mL 500 mL, Intravenous, ONCE, On Sun03/05/24 at 0130, For 1 dose $Given 03/05/2024 1:29 AM CDT 82 mLs ketorolac (TORADOL) injection 15 mg 15 mg, Intravenous, ONCE, On Sun03/04/24 at 2340, For 1 dose, Can cause pain on injection. If ordered intravenously (IV) : administer through a running maintenance fluid over 1 minute followed by a flush. If patient complains of pain on injection, may dilute 15-30 mg in 5 mL and push over 1 to 2 minutes. $Given 03/05/2024 12:08 AM CDT 15 mg morphine (PF) injection 2 mg 2 mg, Intravenous, ONCE, On Sun03/04/24 at 2340, For 1 dose $Given 03/05/2024 12:34 AM CDT 2 mg morphine (PF) injection 2 mg 2 mg, Intravenous, ONCE, On Sun03/05/24 at 0215, For 1 dose $Given 03/05/2024 2:29 AM CDT 2 mg ondansetron (ZOFRAN) injection 4 mg 4 mg, Intravenous, ONCE, Administer over 2-5 Minutes, On Sun03/04/24 at 2340, For 1 dose $Given 03/05/2024 12:08 AM CDT 4 mg documented in this encounter Active and Recently Administered Medications Times are shown in CDT. Scheduled Medication Order 03/03/2024 03/04/2024 03/05/2024 CT scan flush (COMPLETED) Intravenous, 100 mL, ONCE, On Sun03/05/24 at 0130, For 1 dose, This entry is for use by Radiology to intermittently used as a flush in patients receiving a CT scan. 0129 ($Given - Provi rody: Mady Schmitz) iopamidol (ISOVUE-370) solution 500 mL (COMPLETED) 500 mL, Intravenous, ONCE, On Sun03/05/24 at 0130, For 1 dose 0129 ($Given - Provi rody: Mady Schmitz) ketorolac (TORADOL) injection 15 mg (COMPLETED) 15 mg, Intravenous, ONCE, On Sun03/04/24 at 2340, For 1 dose, Can cause pain on injection. If ordered intravenously (IV) : administer through a running maintenance fluid over 1 minute followed by a flush. If patient complains of pain on injection, may dilute 15-30 mg in 5 mL and push over 1 to 2 minutes. 0008 ($Given - Provi rody: Valery Beverly RN) morphine (PF) injection 2 mg (COMPLETED) 2 mg, Intravenous, ONCE, On Sun03/04/24 at 2340, For 1 dose 0034 ($Given - Provi rody: Valery Beverly RN) morphine (PF) injection 2 mg (COMPLETED) 2 mg, Intravenous, ONCE, On Sun03/05/24 at 0215, For 1 dose 0229 ($Given - Provi rody: Radha Saucedo RN) ondansetron (ZOFRAN) injection 4 mg (COMPLETED) 4 mg, Intravenous, ONCE, Administer over 2-5 Minutes, On Sun03/04/24 at 2340, For 1 dose 0008 ($Given - Provi rody: Valery Beverly RN) documented in this encounter Additional Health Concerns Assessment Noted Time PHQ-9 Depression Total Score: 1 05/18/20 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
== END 2024-03-18 13:30 | disposition home or self-care (01) ==
LOC: LKVREF 13:30
PROVIDERS: PCP Emergency Medicine; Visit Provider Emergency Medicine
DX: E87.1 Hypo-osmolality and hyponatremia (principal)
CPT/HCPCS: 80048

== ENCOUNTER 2024-04-10 14:31 | Outpatient (CLI) | payer OTHER, SELFPAY ==
--- OUTSIDE RECORDS SUMMARY | 2024-04-10 14:35 | XMS_ITS | Encounter Summary ---
Author Organization [facility] Address [address], [place] [address] Care Team Providers Care Van Helper Name Role Phone Monet Vallejo MD Primary Care Provider [phone] Encounter Details Date Type Department Care Team [...] documented as of this encounter Care Teams Van Helper Relationship Specialty [place] [address] [place] [address] PCP - General Family Practice 10/12/21 documented as of this encounter
--- OUTSIDE RECORDS SUMMARY | 2024-04-10 14:35 | XMS_ITS | Encounter Summary ---
Author Organization [facility] Address [address] [place] [address] Care Team Providers Care Auto Engine Mechanic Name Role Phone Monet Vallejo MD Primary Care Provider [phone] Encounter Details Date Type Department Care Team (Late st Contact Info) Description 01/11/1997 Orders Only [facility] Dave German MD [address] [place] [address] Social History Tobacco Use Types Packs/Day Years [...] documented as of this encounter Care Teams Auto Engine Mechanic Relationship Specialty [place] [address] [address] [place] [address] PCP - General Family Practice 10/12/21 documented as of this encounter
--- OUTSIDE RECORDS SUMMARY | 2024-04-10 14:35 | XMS_ITS | Encounter Summary ---
Author Organization [facility] Address [address] [place] [address] Care Team Providers Care Turkey Pinner Name Role Phone Monet Vallejo MD Primary Care Provider [phone] Encounter Details Date Type Department Care Team [...] documented as of this encounter Care Teams Turkey Pinner Relationship Specialty [place] [address] [place] [address] PCP - General Family Practice 10/12/21 documented as of this encounter
--- OUTSIDE RECORDS SUMMARY | 2024-04-10 14:35 | XMS_ITS | Encounter Summary ---
Author Organization [facility] Address [address] [place] [address] Care Team Providers Care Local Bulk Driver Name Role Phone Monet Vallejo MD Primary Care Provider [phone] Encounter Details Date Type Department Care Team (Latest Contact Info) Description 06/04/1995 Orders Only Breann Boyle, DO [address] [place] [address] Social History Tobacco Use Types Packs/Day Years [...] documented as of this encounter Care Teams Local Bulk Driver Relationship Specialty Start [place] [address] [address] [place] [address] PCP - General Family Practice 10/12/21 documented as of this encounter
--- OUTSIDE RECORDS SUMMARY | 2024-04-10 14:35 | XMS_ITS | Clinical Summary ---
Author Organization [facility] Address [address], [place] [address] Care Team Providers Care Battery Vent Plug Inserter Name Role Phone Monet Vallejo MD Primary Care Provider [phone] Source Comments You are receiving this document as you are listed as the primary care provider,follow-up provider, or the patient has been referred to you for consultation.This is in compliance with the Medicare and[facility] Hospital[facility] EHR Incentive Program,which states Providers who transition their patient to another setting of careor provider of care or refers their patient to another provider of care shouldprovide summary care record for each transition of care or referral. [facility] Allergies Active Allergy Reactions Criticality [...] day. Active FISH OIL None Entered Active [place]-3 Fatty Acids (FISH OIL) 1000 MG capsule [...] but stopped a few years ago. Resume. [facility] database Memory loss 12/13/2020 Overview (11/10/2021): Last Assessment & Plan: She reports this began after her craniotomy. She is taking notes. Chart review indicates no recent evaluation for secondary causes.. [facility] database Hyponatremia 01/14/2020 CKD (chronic kidney disease) stage 3, GFR 30-59 ml/min 06/09/2019 Overview (11/10/2021): Last Assessment & Plan: She is quite concerned about her diagnosis of CKD. In the [facility] doctors told her she had no kidney [...] 11/22/20 NIL, +HR HPV, not 16/18. Plan [facility] bef 02/22/21 12/01/20 Left msg TCB 12/09/20 Left 2nd msg TCB and Result letter sent out 01/21/21 Certified ltr sent. Tracking # [id number] 02/24/21 Your item has been delivered to the original sender at 9:57 am on February 16, 2021 [place] [address]. 02/28/21 [facility] not done. Tracking updated for 6 mo colp/pap due 05/25/21. 04/05/21 Colposcopy completed? Will watch for records (this line entered after reminder letter sent) 04/08/21 [facility]- Normal. Plan 1 yr repeat pap (outside records from [facility]) 05/10/21 Reminder letter - sent before [facility] records received above. Last Assessment & Plan: [...] Type Department Care Team Description 03/14/[address] [address] Monet Vallejo MD Refill (lisinopril (ZESTRIL) 5 MG tablet [Pharmacy Med Name: Lisinopril Oral Tablet 5 MG]) 02/27/[address] [address] Monet Vallejo MD Refill (buPROPion (WELLBUTRIN XL) 300 MG 24 hour release tablet [Pharmacy Med Name: BUPROPION HYDROCHLORIDE ER (XL) 300 MG Tablet Extended Release 24 Hour]) 01/19/[address] [address] Monet Vallejo MD Refill (metoprolol tartrate (LOPRESSOR) 25 MG tablet [Pharmacy Med Name: METOPROLOL TARTRATE 25 MG Tablet]) from Last 3 Months Immunizations Name Administration Dates Next Due Cholera, Unspecified Formulation 06/10/2002 DT Ped 02/11/1987 Flu Vac (3+ yrs) 03/26/2012, 0,04/12/2009,2007,05/16/2006 Flu Vac Preserv Free (3+yrs) 04/05/2013 [id number] 06/11/2009 HepA, Unspecified Formulation 06/10/2002, 998 Influenza ([place] Only) (Flul aval Quad 0.5, 3+ yrs) 04/08/2021 Influenza IIV3 (Trivalent) F luzone Highdose, 65+ Yrs (23848) 03/27/2018,03/28/2017,03/27/2014 Influenza IIV4 (Quadrivalent ) Fluad, 65+ [...] Date Last Done Comments Colonoscopy 12/25/2011 12/24/2006 RSV (1 - 1-dose 75+ series) 2020 Medicare Annual Wellness Visit 07/09/2023 12/19/2022 COVID-19 [...] - 199 mg/dL 11/21/2021 11:41 AM CDT [facility] Triglyceride 91 <=149 mg/dL 11/21/2021 11:41 AM CDT [facility] HDL Cholesterol 91 >=40 mg/dL 11/21/2021 11:41 AM CDT [facility] LDL, Calculated 138(H) <130 mg/dL 11/21/2021 11:41 AM CDT [facility] Non HDL Chol, Calculated 156 <=159 mg/dL 11/21/2021 11:41 AM CDT [facility] Cholesterol/HDL Ratio 2.7 11/21/2021 11:41 AM CDT [facility] Hours Fasting 12 11/21/2021 11:41 AM CDT [facility] Blood Venipuncture / Unknown 11/21/2021 8:16 AM CDT 11/21/2021 8:16 AM CDT Monet Vallejo MD LAB_1 Performing Organization Address [facility]/ZIP Co de Phone Number [facility] [address] [address], [place] [phone] [facility] [address] [place] [address], [place] [phone] * Hepatitis C Antibody, with Reflex (11/21/2021 8:16 AM CDT) Hepatitis C Antibody Negative (Non Reactive) Negative (Non Reactive) 11/21/2021 12:06 PM CDT [facility] Comment:Antibodies to HCV no t detected. Does not exclude the possiblity of exposure to HCV. Blood Venipuncture / Unknown 11/21/2021 8:16 AM CDT 11/21/2021 8:16 AM CDT Monet Vallejo MD LAB_1 Performing Organization Address [facility] Co de Phone Number [facility] [address] [address], [place] [phone] * COLONOSCOPY (12/24/2006 12:00 AM CDT) Narrative 12/24/2006 12:00 AM CDT Ordered by an unspecified provider. Transcriptions Rigoberto Barriga - 12/24/2006 12:00 AM CDT Physician Unknown DUMMY/OTHER/AR from Last 3 Months or Most Recently Relevant to Health Maintenance Advance Directives Documents on File Type Date Recorded Patient Marionette Performer Expl anation Advance Directive/Living Will/Durable Power of Attny on file/POLST Care Teams Battery Vent Plug Inserter Relationship Specialty [place] [address] [address] [place] [address] PCP - General Family Practice 10/12/21
--- OUTSIDE RECORDS SUMMARY | 2024-04-10 14:35 | XMS_ITS | Encounter Summary ---
[facility] Organization [facility] Address [address] [place] [address] Care Team Providers Care Machine Erector Name Role Phone Monet Vallejo MD Primary Care Provider [phone] Encounter Details Date Type Department Care Team (Latest Contact Info) Description 07/03/1995 Orders Only Peter Jo MD [address] [place] [address] Social History Tobacco Use Types Packs/Day Years [...] as of this encounter Care Teams Machine Erector Relationship Specialty [place] [address] [place] [address] PCP - General Family Practice 10/12/21 documented as of this encounter
--- OUTSIDE RECORDS SUMMARY | 2024-04-10 14:35 | XMS_ITS | Encounter Summary ---
Author Organization [facility] Address [address] [place] [address] Care Team Providers Care Plastic Battery Assembler Name Role Phone Monet Vallejo MD Primary Care Provider [phone] Encounter Details Date Type Department Care Team (Latest Contact Info) Description 07/13/1997 Orders Only Peter Jo MD [address] [place] [address] Social History Tobacco Use Types Packs/Day Years [...] documented as of this encounter Care Teams Plastic Battery Assembler Relationship Specialty [place] [address] [place] [address] PCP - General Family Practice 10/12/21 documented as of this encounter
--- OUTSIDE RECORDS SUMMARY | 2024-04-10 14:35 | XMS_ITS | Encounter Summary ---
Author Organization [facility] Address [address] [place] [address] Care Team Providers Care Glass Cutter Helper Name Role Phone Monet Vallejo MD Primary Care Provider [phone] Encounter Details Date Type Department Care Team (Latest Contact Info) Description 02/09/1998 Orders Only Peter Jo MD [address] [place] [address] Social History Tobacco Use Types Packs/Day Years [...] documented as of this encounter Care Teams Glass Cutter Helper Relationship Specialty [place] [address] [place] [address] PCP - General Family Practice 10/12/21 documented as of this encounter
--- OUTSIDE RECORDS SUMMARY | 2024-04-10 14:35 | XMS_ITS | Encounter Summary ---
[facility] Address [address] [place] [address] Care Team Providers Care Household Appliances Service Technician Name Role Phone Moent Vallejo MD Primary Care Provider [phone] Reason for Visit * Reason Comments Refill buPROPion (WELLBUTRI N XL) 150 MG 24 hour release tablet [Pharmacy Med Name: BUPROPION HYDROCHLORIDE ER (XL) 150 MG Tablet Extended Release 24 Hour] Encounter Details Date Type Department Care Team (Late st Contact Info) Description 12/18/2023 Refill [facility] Medicine [address] [place], [place] [id number] Monet Vallejo [place] [address] [place] [phone] Refill (buPROPion (WELLBUTRIN XL) 150 MG 24 [...] CDT Further Assistance Needed on Refill from Telesales Specialist Patient is due for Qualifying Visit Medication is still pending. Patient is due for an Office/Video Visit in the next 30 days. Call Patient and document using .JUAN. After attempting to schedule patient: If appointment is scheduled within 60 days: Please route to: Primary Care: Refill warehouse worker Specialty Care: Refill warehouse worker If unable to schedule appointment: Please route [...] Age: 78 [facility] [employer] Embedded Refills, Reference: [id number], 12/18/2023 11:15:11 AM CDT, Pool: [facility] Refill Centralized Services - Primary Care [[id number]] ([id number]) documented in this encounter Plan of Treatment Not on file documented as of this encounter Visit Diagnoses Diagnosis Depressive disorder Depressive disorder, not elsewhere classified documented in this encounter Care Teams Household Appliances Service Technician Relationship Specialty [place] [address] [place] [address] PCP - General Family Practice 10/12/21 documented as of this encounter
--- OUTSIDE RECORDS SUMMARY | 2024-04-10 14:35 | XMS_ITS | Encounter Summary ---
Author Organization [facility] Address [address] [place] [address] Care Team Providers Care Boilermaker Helper Name Role Phone Monet Vallejo MD Primary Care Provider [phone] Encounter Details Date Type Department Care Team (Latest Contact Info) Description 11/23/1997 Orders Only Peter Jo MD [address] [place] [address] Social History Tobacco Use Types Packs/Day Years [...] documented as of this encounter Care Teams Boilermaker Helper Relationship Specialty [place] [address] [place] [address] PCP - General Family Practice 10/12/21 documented as of this encounter
--- OUTSIDE RECORDS SUMMARY | 2024-04-10 14:35 | XMS_ITS | Encounter Summary ---
Author Organization [facility] Address [address], [place] [address] Care Team Providers Care Assistant Gm Of Content & Delivery Name Role Phone Monet Vallejo MD Primary Care Provider [phone] Encounter Details Date Type Department Care Team (Latest Contact Info) Description 11/06/1996 Orders Only Maddie Lovelace APRN, UNDERGROUND MINER Social History Tobacco Use Types Packs/Day Years [...] documented as of this encounter Care Teams Assistant Gm Of Content & Delivery Relationship Specialty [place] [address] [place] [address] PCP - General Family Practice 10/12/21 documented as of this encounter
--- OUTSIDE RECORDS SUMMARY | 2024-04-10 14:35 | XMS_ITS | Encounter Summary ---
Author Organization [facility] Address [address] [place] [address] Care Team Providers Care Spring Intern Name Role Phone Monet Vallejo MD Primary Care Provider [phone] Reason for Visit * Reason Comments Refill lisinopril (ZESTRIL) 5 MG tablet [Pharmacy Med Name: Lisinopril Oral Tablet 5 MG] Encounter Details Date Type Department Care Team (Late st Contact Info) Description 03/14/2024 Refill [facility] Medicine [address] [place], [place] [phone] [place] [address] [place], [place] [phone] Refill (lisinopril (ZESTRIL) 5 MG tablet [Pharmacy [...] as of this encounter Nursing Notes * Ludy Sanderson S - 03/25/2024 9:08 AM CDT (Frontline/PSC: If caller has no additional questions after reading below message, update note and close encounter) Left message for patient to call back. Frontline/[facility] (PSC), please inform patient of below message. Called and left voicemail reviewing providers message, patient was advised to call back clinic to schedule an appointment, or can schedule online using MyChart. MyChart message sent. * Najma Grace APRN, CNP - 03/24/2024 2:56 PM CDT This prescription was refused as pt is due for a visit. Virtual visit is ok if PCP unavailable. Please assist with scheduling an appt. * Valery Suarez - 03/24/2024 11:58 AM CDT Medication Refill - Due for Visit Medication still pending, patient is due to be seen in the next 30 days. Called patient, was: unable to reach patient. 2nd call attempted. Unsuccessful in reaching patient. MyChart message sent. Frontline Action: Route to clinician identified in nursing documentation below. Clinician Action: Unsuccessful in reaching patient to schedule, requests refill. Please determine whether refill is appropriate. Recommend using ???Refuse All?? quick action to address request. * Valery Suarez - 03/24/2024 11:57 AM CDT Medication Refill - Due for Visit Medication still pending, patient is due to be seen in the next 30 days. Called patient, was: unable to reach patient. 1st call attempted. Left message to call back. Scheduling Action: Patient needs to schedule an appointment in the next 30 days. If able to schedule, please document date of appointment and route to clinician/pool identified in nursing documentation below. * Char Bartlett RN - 03/18/2024 3:47 PM CDT Further Assistance Needed on Refill from Holistic Specialist Patient is due for Qualifying Visit and labs Medication is still pending. Patient is due for an Office/Video Visit in the next 30 days. Call Patient and document using .JUAN. After attempting to schedule patient: Please route to: Monet Vallejo MD Requested Prescriptions Pending Prescriptions Disp Refills lisinopril (ZESTRIL) 5 MG tablet [Pharmacy Med Name: Lisinopril Oral Tablet 5 MG] 90 Tablet 0 Sig: take 1 tablet every day * Paul Delgado Xrwcomm - 03/14/2024 8:46 AM CDT lisinopril (ZESTRIL) 5 MG tablet [Pharmacy Med Name: Lisinopril Oral Tablet 5 MG] Medication started: 06/17/2021 Last ordered by MONET VALLEJO: 01/10/2023 (429 days ago) QTY: 90, Refills: 3, Sig: take 1 tablet (5 mg) by mouth daily. (changed but equivalent) -> An office visit is overdue (performed over 15 months ago, required every 12 months). -> Cr and K are overdue (performed over 12 months ago, required every 12 months) -> Cr is abnormal (1.2 mg/dL lies outside 0.55 mg/dL - 1.02 mg/dL) Last qualifying visit: 12/19/2022 (with MONET VALLEJO) (A more recent visit (in Internal Medicine with CARLITA RAO) was found) Next scheduled visit: None Cr: 1.2 mg/dL on 03/08/2023 K: 4.8 mEq/L on 03/08/2023 [facility] Embedded Refills, Reference: [id number], 03/14/2024 8:46:57 AM ANDREINATRaymundo [facility] - Primary Care [[id number]] ([id number]) documented in this encounter Plan of Treatment Not on file documented as of this encounter Visit Diagnoses Diagnosis Depressive disorder Depressive disorder, not elsewhere classified Hypertension, unspecified type (HRC) documented in this encounter Care Teams Spring Intern Relationship Specialty [place] [address] [place] [address] PCP - General Family Practice 10/12/21 documented as of this encounter
--- OUTSIDE RECORDS SUMMARY | 2024-04-10 14:35 | XMS_ITS | Encounter Summary ---
Author Organization [facility] Address [address] [place] [address] Care Team Providers Care Rotor Pilot Name Role Phone Monet Vallejo MD Primary Care Provider [phone] Encounter Details Date Type Department Care Team [...] documented as of this encounter Care Teams Rotor Pilot Relationship Specialty [place] [address] [place] [address] PCP - General Family Practice 10/12/21 documented as of this encounter
--- OUTSIDE RECORDS SUMMARY | 2024-04-10 14:35 | XMS_ITS | Encounter Summary ---
Author Organization [facility] Address [address] [place] [address] Care Team Providers Care Booking Officer Name Role Phone Monet Vallejo MD Primary Care Provider [phone] Encounter Details Date Type Department Care Team (Latest Contact Info) Description 07/15/1996 Orders Only Peter Jo MD [address] [place] [address] Social History Tobacco Use Types Packs/Day Years [...] documented as of this encounter Care Teams Booking Officer Relationship Specialty [place] [address] [place] [address] PCP - General Family Practice 10/12/21 documented as of this encounter
--- OUTSIDE RECORDS SUMMARY | 2024-04-10 14:35 | XMS_ITS | Encounter Summary ---
Author Organization [facility] Address [address] [place] [address] Care Team Providers Care Financial Controller Name Role Phone Monet Vallejo MD Primary Care Provider [phone] Encounter Details Date Type Department Care Team (Latest Contact Info) Description 11/19/1997 Orders Only Peter Jo MD [address] [place] [address] Social History Tobacco Use Types Packs/Day Years [...] documented as of this encounter Care Teams Financial Controller Relationship Specialty [place] [address] [place] [address] PCP - General Family Practice 10/12/21 documented as of this encounter
--- OUTSIDE RECORDS SUMMARY | 2024-04-10 14:35 | XMS_ITS | Encounter Summary ---
Author Organization [facility] Address [address] [place] [address] Care Team Providers Care Online Communications Manager Name Role Phone Monet Vallejo MD Primary Care Provider [phone] Reason for Visit * Reason Comments Refill metoprolol tartrate (LOPRESSOR) 25 MG tablet [Pharmacy Med Name: METOPROLOL TARTRATE 25 MG Tablet] Encounter Details Date Type Department Care Team (Late st Contact Info) Description 01/19/2024 Refill [facility] [address] [place], [place] [phone] Monet Vallejo MD [address] [place] [phone] Refill (metoprolol tartrate (LOPRESSOR) 25 MG tablet [...] CDT Further Assistance Needed on Refill from Rv Mechanic Patient is due for Qualifying Visit Medication [...] visit: None [facility] Embedded Refills, Reference: [id number], 01/19/2024 1:36:32 AM CDT, [place]: [facility] [place] [facility] Services - Primary Care [[id number]] ([id number]) documented in this encounter Plan of Treatment Not on file documented as of this encounter Visit Diagnoses Diagnosis Hypertension, unspecified type (HRC) documented in this encounter Care Teams Online Communications Manager Relationship Specialty [place] [address] [place] [address] PCP - General Family Practice 10/12/21 documented as of this encounter
--- OUTSIDE RECORDS SUMMARY | 2024-04-10 14:35 | XMS_ITS | Encounter Summary ---
Author Organization [facility] Address [address] [place] [address] Care Team Providers Care Manager Respiratory Name Role Phone Moent Vallejo MD Primary Care Provider [phone] Encounter Details Date Type Department Care Team [...] as of this encounter Care Teams Manager Respiratory Relationship Specialty [place] [address] [place] [address] PCP - General Family Practice 10/12/21 documented as of this encounter
--- OUTSIDE RECORDS SUMMARY | 2024-04-10 14:35 | XMS_ITS | Encounter Summary ---
Author Organization [facility] Address [address], [place] [address] Care Team Providers Care Coupon Clerk Name Role Phone Monet Vallejo MD Primary Care Provider [phone] Encounter Details Date Type Department Care Team [...] documented as of this encounter Care Teams Coupon Clerk Relationship Specialty [place] [address] [place] [address] PCP - General Family Practice 10/12/21 documented as of this encounter
--- OUTSIDE RECORDS SUMMARY | 2024-04-10 14:35 | XMS_ITS | Encounter Summary ---
Author Organization [facility] Address [address] [place] [address] Care Team Providers Care Studio Manager Name Role Phone Monet Vallejo MD Primary Care Provider [phone] Encounter Details Date Type Department Care Team [...] documented as of this encounter Care Teams Studio Manager Relationship Specialty [place] [address] [place] [address] PCP - General Family Practice 10/12/21 documented as of this encounter
--- OUTSIDE RECORDS SUMMARY | 2024-04-10 14:35 | XMS_ITS | Encounter Summary ---
Author Organization [facility] Address [address] [place] [address] Care Team Providers Care Solar Pv Installer Name Role Phone Monet Vallejo MD Primary Care Provider [phone] Encounter Details Date Type Department Care Team [...] documented as of this encounter Care Teams Solar Pv Installer Relationship Specialty [place] [address] [place] [address] PCP - General Family Practice 10/12/21 documented as of this encounter
--- OUTSIDE RECORDS SUMMARY | 2024-04-10 14:35 | XMS_ITS | Encounter Summary ---
Author Organization [facility] Address [address] [place] [address] Care Team Providers Care Repair Armature Winder Name Role Phone Monet Vallejo MD Primary Care Provider [phone] Encounter Details Date Type Department Care Team [...] documented as of this encounter Care Teams Repair Armature Winder Relationship Specialty [place] [address] [place] [address] PCP - General Family Practice 10/12/21 documented as of this encounter
--- OUTSIDE RECORDS SUMMARY | 2024-04-10 14:35 | XMS_ITS | Encounter Summary ---
[facility] Organization [facility] Address [address] [place] [address] Care Team Providers Care Line Puller Name Role Phone Monet Vallejo MD Primary Care Provider [phone] Reason for Visit * Reason Comments Refill buPROPion (WELLBUTRI N XL) 300 MG 24 hour release tablet [Pharmacy Med Name: BUPROPION HYDROCHLORIDE ER (XL) 300 MG Tablet Extended Release 24 Hour] Encounter Details Date Type Department Care Team (Late st Contact Info) Description 02/27/2024 Refill [facility] Medicine [address] [place], [place] [phone] [place] [address] [place], [place] [phone] Refill (buPROPion (WELLBUTRIN XL) 300 MG 24 [...] CDT Further Assistance Needed on Refill from [employer] Business Analyst Patient is due for Qualifying Visit Medication [...] EVERY DAY IN ADDITION TO 150MG TAB * Webshyacinth, Refillwizasalvador Xrwcomm - 02/27/2024 1:27 AM CDT buPROPion (WELLBUTRIN XL) 300 MG 24 hour release tablet [Pharmacy Med Name: BUPROPION HYDROCHLORIDEER (XL) 300 MG Tablet Extended Release 24 Hour] Medication started: 06/17/2021 Last ordered by MONET VALLEJO: 01/04/2023 (419 days ago) QTY: 90, Refills: 3, Sig: take in addition to 150 mg tablet for total of 450 mg daily (changed) -> The requested strength (300 mg extended release oral tablet) was last ordered on 01/04/2023. The patient is taking 150 mg extended release oral tablet as of 10/09/2023. -> The medication is active at more than one strength (300 mg on 01/04/2023, 150 mg on 10/09/2023). -> Unable to determine if sig has changed, review required. -> An office visit is overdue (performed 15 months ago, required every 12 months). Last qualifying visit: 12/19/2022 (with MONET VALLEJO) (A more recent visit (in Internal Medicine with CARLITA RAO) was found) Next scheduled visit: None Age: 78 [employer] Emb[employer]ded Refills, Reference: [id number], 02/27/2024 1:27:38 AM Chilo PERRY: INNA Refill Centralized Services - Primary Care [[id number]] ([id number]) documented in this encounter Plan of Treatment Not on file documented as of this encounter Visit Diagnoses Diagnosis Depressive disorder Depressive disorder, not elsewhere classified documented in this encounter Care Teams Line Puller Relationship Specialty [place] [address] [address] PCP - General Family Practice 10/12/21 documented as of this encounter
--- OUTSIDE RECORDS SUMMARY | 2024-04-10 14:35 | XMS_ITS | Encounter Summary ---
Author Organization [facility] Address [address], [place] [address] Care Team Providers Care Usability Engineer Name Role Phone Monet Vallejo MD Primary Care Provider [phone] Encounter Details Date Type Department Care Team (Latest Contact Info) Description 03/11/1996 Orders Only Surekha Santiago Social History Tobacco [...] documented as of this encounter Care Teams Usability Engineer Relationship Specialty [place] [address] [place] [address] PCP - General Family Practice 10/12/21 documented as of this encounter
--- OUTSIDE RECORDS SUMMARY | 2024-04-10 14:35 | XMS_ITS | Encounter Summary ---
Author Organization [facility] Address [address], [place] [address] Care Team Providers Care Surveying Crew Stake Runner Name Role Phone Monet Vallejo MD Primary Care Provider [phone] Encounter Details Date Type Department Care Team (Latest Contact Info) Description 02/23/1998 Orders Only [place] [address] Social History Tobacco Use Types Packs/Day Years [...] documented as of this encounter Care Teams Surveying Crew Stake Runner Relationship Specialty [place] [address] [place] [address] PCP - General Family Practice 10/12/21 documented as of this encounter
--- OUTSIDE RECORDS SUMMARY | 2024-04-10 14:35 | XMS_ITS | Encounter Summary ---
Author Organization [facility] Address [address] [place] [address] Care Team Providers Care In Processing Instructor Name Role Phone Monet Vallejo MD Primary Care Provider [phone] Encounter Details Date Type Department Care Team (Latest Contact Info) Description 03/26/1995 Orders Only Breann Boyle, DO [address] [place] [address] Social History Tobacco Use Types Packs/Day Years [...] documented as of this encounter Care Teams In Processing Instructor Relationship Specialty [place] [address] [place] [address] PCP - General Family Practice 10/12/21 documented as of this encounter
--- OUTSIDE RECORDS SUMMARY | 2024-04-10 14:36 | XMS_ITS | Encounter Summary ---
Author Organization [facility] Address [address] [place] [address] Care Team Providers Care Cloth Stock Sorter Name Role Phone Monet Vallejo MD Primary Care Provider [phone] Encounter Details Date Type Department Care Team (Latest Contact Info) Description 10/04/1994 Orders Only Yinka Ricardo MD [address] [address] Social History Tobacco Use Types Packs/Day Years [...] documented as of this encounter Care Teams Cloth Stock Sorter Relationship Specialty [place] [address] [place] [address] PCP - General Family Practice 10/12/21 documented as of this encounter
--- OUTSIDE RECORDS SUMMARY | 2024-04-10 14:36 | XMS_ITS | Clinical Summary ---
Author Organization [facility] Address [address] [place] [address] Care Team Providers Care Guitar Maker Name Role Phone System, Provider Not In Unavailable Unavaila Manoj Garcia MD Unavailable [phone] Yanelis Galvez Unavailable Unavailable Elizabeth Rausch MD Primary Care Provider [phone] Allergies Active Allergy Reactions Criticality Noted Date [...] MG 24 hr tabletIndications:Anx iety,Mild major depression (H),Migraine without status migrainosus, not intractable, unspecified migraine type TAKE 1 TABLET (300 MG) BY MOUTH ONCE DAILY IN THE MORNING. TOTAL 450 MG A DAY 90 tablet 09/13/2021 Active buPROPion (WELLBUTRIN XL) 150 MG 24 hr tabletIndications:Anx iety,Mild major depression (H),Migraine without status migrainosus, not intractable, unspecified migraine [...] 4 times daily. 414 mL 03/05/2024 Active Active Problems Problem Noted Date Diagnosed [...] indicates no recent evaluation for secondary causes.. Broaden database Constipation, unspecified constipation type 01/2021 Last [...] about her diagnosis of CKD. In the [facility] doctors told her she had [...] 11/22/20 NIL, +HR HPV, not 16/18. Plan [place] bef 02/22/21 12/01/20 Left msg TCB 12/09/20 Left 2nd msg TCB and Result letter sent out 01/21/21 Certified ltr sent. Tracking # [id number] 02/24/21 Your item has been delivered to the original sender at 9:57 am on February 16, 2021 [place] [address]. 02/28/21 [place] not done. Tracking updated for 6 mo colp/pap due 05/25/21. 04/05/21 Colposcopy completed? Will watch for records (this line entered after reminder letter sent) 04/08/21 [place]- Normal. Plan 1 yr repeat pap (outside records from [facility]) 05/10/21 Reminder letter - sent before [place] records received above. 12/12/2021 ECC - negative. 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 Jaky Alvarado RN-BSN, CPHN [phone] DX V65.8 REPLACED WITH [id number] [facility] (10/14/2012) Advanced directives, counseling/discussion 10/05/2011 12/24/2023 Overview: Discussed advance care planning with patient; however, patient declined at this time. 10/05/2011 Major depressive disorder, s karen episode, moderate 07/07/2010 04/26/2012 CARDIOVASCULAR SCREENING; LD L GOAL LESS THAN 160 05/08/2010 01/12/2018 Encounters Date Type Department Care Team Description 03/04/2024 11:19 PM CDT - 03/05/2024 2:44 AM CDT Emergency [facility] Emergency Dept [address] [place] [address] Timothy Pink MD Right sided abdominal pain Discharge Disposition: Home or Self Care 03/04/2024 Travel from Last 3 Months Immunizations Name Administration Dates Next Due COVID-19 MONOVALENT 12+ (Pfizer) 09/04/2020,0212/2020 Cholera, unspecified formulation 06/10/2002 Flu 65+ (Fluad) [...] 01/11/2018, 04/12/2011, 12/17/2009 FIT 11/06/2019 11/05/2018, 01/29/2006 RSV VACCINE [...] EXAM: CT ABDOMEN PELVIS W CONTRAST LOCATION: [facility] DATE: 03/05/2024 INDICATION: Right flank pain. COMPARISON: [...] EXAM: CT ABDOMEN PELVIS W CONTRAST LOCATION: [facility] DATE: 03/05/2024 INDICATION: Right flank pain. COMPARISON: [...] mg/dL 03/05/2024 12:51 AM CDT LABORATORY Specific [place] Urine 1.004 1.003 - 1.035 03/05/2024 12:51 [...] Urine Trace(A) Negative 03/05/2024 12:51 AM CDT LABORATORY Bacteria Urine Few(A) None Seen /HPF 03/05/2024 12:51 AM CDT [facility] RBC Urine <1 <=2 /HPF 03/05/2024 12:51 AM CDT [facility] WBC Urine 2 <=5 /HPF 03/05/2024 12:51 AM CDT LABORATORY Squamous Epithelials Urine <1 <=1 /HPF 03/05/2024 12:51 AM CDT [facility] Urine MID-STREAM URINE SPECIMEN / Unknown Non-blood Collection / Unknown 03/05/2024 12:38 AM CDT 03/05/2024 12:45 AM CDT Narrative [facility] - 03/05/2024 12:51 AM CDT Urine Culture not indicated Timothy Pink MD LAB - URINE KAMARI BEDOLLA [facility] [address] Lab (1st floor, no room number) [place] [phone] [place] [address] * Extra Red Top Tube (03/04/2024 11:58 PM CDT) Hold Specimen [facility] 03/05/2024 1:31 AM CDT LABORATORY Blood BLOOD SPECIMEN / Unknown Venipuncture / Unknown 03/04/2024 11:58 PM CDT 03/05/2024 12:17 AM CDT Timothy Pink MD LAB - BLOOD KAMARI BEDOLLA Performing Organization Address City/[facility]/ZIP Co de Phone Number [facility] [address] Lab (1st floor, no room number) [place] [address], [place] * Extra Blue Top Tube (03/04/2024 11:58 PM CDT) Hold Specimen [facility] 03/05/2024 1:31 AM CDT LABORATORY Blood BLOOD SPECIMEN / Unknown Venipuncture / Unknown 03/04/2024 11:58 PM CDT 03/05/2024 12:17 AM CDT Timothy Pink MD LAB - BLOOD KAMARI BEDOLLA [facility] [address] Lab (1st floor, no room number) [place] [address], [facility] * CBC with platelets and differential (03/04/2024 11:58 PM CDT) [facility] WBC Count 8.5 4.0 - 11.0 10e3/uL [...] Pink MD LAB - BLOOD ORDRuben BEDOLLA [facility] [address] Lab (1st floor, no room number) [address] * Lipase (03/04/2024 11:58 PM CDT) Lipase 51 13 - 60 U/L 03/05/2024 12:37 AM CDT LABORATORY Blood BLOOD SPECIMEN / Unknown Venipuncture / Unknown 03/04/2024 11:58 PM CDT 03/05/2024 12:17 AM CDT Timothy Pink MD LAB - BLOOD ORDRuben BEDOLLA [facility] [address] Lab (1st floor, no room number) [address] * (ABNORMAL) Comprehensive metabolic panel (03/04/2024 11:58 PM CDT) Sodium 128(L) 135 - 145 mmol/L 03/05/2024 12:37 AM CDT LABORATORY Potassium 4.0 3.4 - 5.3 mmol/L 03/05/2024 12:37 AM CDT LABORATORY Carbon Dioxide (CO2) 20(L) 22 - 29 mmol/L 03/05/2024 12:37 AM CDT LABORATORY Anion Gap 14 7 - 15 mmol/L 03/05/2024 12:37 AM CDT [facility] Urea Nitrogen 24.4(H) 8.0 - 23.0 mg/dL 03/05/2024 12:37 AM CDT [facility] Creatinine 1.08(H) 0.51 - 0.95 mg/dL [...] Pink MD LAB - BLOOD KAMARI BEDOLLA [facility] Organization Address City/State/ZIP Co de Phone Number LABORATORY [facility] [address] [facility] ([facility], no room number) [place] [address] * (ABNORMAL) HPV High Risk Types DNA Cervical (11/22/2020 11:50 AM CDT) HPV Source [facility] 11/22/2020 11:43 AM CDT [facility] HPV 16 DNA Negative NEG^Nega tive 11/29/2020 4:41 PM CDT [facility] HPV 18 DNA Negative NEG^Nega tive 11/29/2020 4:41 PM CDT [facility] Other HR HPV Positive(A) NEG^Nega tive 11/29/2020 4:41 PM CDT [facility] Final Diagnosis This patient's sample is positive for other HR HPV DNA (types 31, 33, 35, 39, 45, 51, 52, 56, 58, 59, 66 or 68), not HPV 16 or HPV 18 DNA. This result requires clinical correlation with concurrent cytology findings. 11/29/2020 4:41 PM CDT [facility] Comment: This test was developed and its performance characteristics determined by the [facility], Molecular Diagnostics Laboratory. It has not [...] Description Cervical Cells 11/22/2020 11:43 AM CDT [facility] Cervical Cells 11/22/2020 11 :50 AM CDT 11/22/2020 12:01 PM CDT Lesa Barbosa MD LAB - BLOO D ORDERABLES [facility] [address] [place] [address] [address] * Pap imaged thin layer screen with HPV - recommended age 30 - 65 years (select HPV order below) (11/22/2020 11:43 AM CDT) PAP NIL MARIANN Riley Report Patient Name: JEANNINE HERNANDEZ MR#: [id number] Specimen #: [id number] Collected: 11/22/2020 Received: 11/23/2020 Reported: 11/26/2020 10:55 [...] by: DIDIER Fernandez ??(ASCP) CLINICAL HISTORY: LMP: [id number] Post Menopausal, A previous normal pap Date of Last Pap: 05/29/2019, Papanicolaou Test Limitations: ??Cervical cytology is a screening test with limited sensitivity; regular screening is critical for cancer prevention; Pap tests are primarily effective for the diagnosis/preventi on of squamous cell carcinoma, not adenocarcinomas or other cancers. COLLECTION SITE: Client: ??[facility] Location: [facility] (R) The [facility] component of this testing [facility] with the professional component performed at the [facility], [address] [place] [id number] ([phone]) COPATH Cytology 11/22/2020 11:4 3 AM CDT 11/23/2020 9:48 AM CDT Lesa Barbosa MD LAB - OPTI ME CLINICAL SPECIMEN COPATH * *MA Screening Digital [...] Negative NEG^Negati ve 11/10/2018 10:02 AM CDT [facility] Stool specimen (specimen) 11/05/2018 1:05 PM CDT 11/10/2018 7:34 AM CDT Timothy Knott MD LAB - STOOLS ORDERAB LES [facility] [address] [place] [address] * (ABNORMAL) Lipid panel reflex to direct LDL Non-fasting (01/11/2018 3:57 PM CDT) Pathologist [facility] Cholesterol 217(H) <200 mg/dL 01/12/2018 2:15 PM CDT [facility] Comment:Desirable: <200 mg/d l Triglycerides 162(H) <150 mg/dL 01/12/2018 2:22 PM CDT [facility] Comment: Borderline high: ??150-199 mg/dl High: ? 200-499 mg/dl Very high: ? >499 mg/dl Non Fasting HDL Cholesterol 58 >49 mg/dL 8 2:15 PM CDT [facility] LDL Cholesterol Calculated 127(H) <100 mg/dL 01/12/2018 2:22 PM CDT [facility] Comment: Above desirable: ??100-129 mg/dl Borderline High: ??130-159 mg/dL High: ? 160-189 mg/dL Very high: ? >189 mg/dl Non HDL Cholesterol 159(H) <130 mg/dL 01/12/2018 2:15 PM CDT [facility] Comment: Above Desirable: ??130-159 mg/dl Borderline high: ??160-189 mg/dl High: ? 190-219 mg/dl Very high: ? >219 mg/dl Blood specimen (specimen) 01/11/2018 3:57 PM CDT 01/11/2018 3:58 PM CDT Timothy Knott MD LAB - BLOOD ORDERABL ES Performing Organization Address City/[facility]/ZIP Co de Phone Number [facility] [address] [place] [address] * Hepatitis C antibody (01/11/2018 3:57 PM CDT) Hepatitis C Antibody Nonreactive NR^Nonre active 01/14/2018 9:10 AM CDT [facility] Comment: Assay performance characteristics have not been established for newborns, infants, and children Blood specimen (specimen) 01/11/2018 3:57 PM CDT 01/11/2018 3:58 PM CDT Timothy Knott MD LAB - BLOOD ORDERABL ES Performing Organization Address [facility] Co de Phone Number [facility] [address] [place] [address] * COLONOSCOPY (08/05/2009) Zohra WALLS-Manuel PROCEDURES from Last 3 Months or Most Recently Relevant to Health Maintenance Advance Directives For more information, please contact: [phone] Documents on File Type Date Recorded Patient Paper Rewinder Expl anation Advance Directives and Living Will [...] 1:49 AM 10/14/2011 12:53 PM Care Teams Guitar Maker Relationship Specialty Start Date End Date Elizabeth Rausch MD [facility] [address] [place] [address] PCP - General Family Medicine 03/05/24 System, Provider Not In Clinic 02/03/15 Manoj Holley MD [address] [facility] [address] [place] [address] Hematology & Oncology 04/28/19 Yanelis Galvez Personal Advocate & Liaison (PAL) 12/14/20
--- OUTSIDE RECORDS SUMMARY | 2024-04-10 14:36 | XMS_ITS | Referral Summary ---
Author Organization [facility] Address [address] [place] [address] Care Team Providers Care Candy Polisher Name Role Phone System, Provider Not In Unavailable Unavaila Manoj Garcia MD Unavailable [phone] Yanelis Galvez Unavailable Unavailable Elizabeth Rausch MD Primary Care Provider [phone] Encounters Date Type Department Care Team Description 03/04/2024 11:19 PM CDT - 03/05/2024 2:44 AM CDT Emergency [facility] Emergency Dept [address] [place] [id number] Timothy Pink MD Right sided abdominal pain [...] indicates no recent evaluation for secondary causes.. [employer] database Constipation, unspecified constipation type 01/2021 Last Assessment & Plan: Lifelong, IBS likely. Senokot, MiraLAX ineffective in the past. Lactulose effective but stopped a few years ago. Resume. [employer] database Hyponatremia 01/14/2020 Special screening for malignant [...] about her diagnosis of CKD. In the [facility] doctors told her she had no kidney [...] 11/22/20 NIL, +HR HPV, not 16/18. Plan [facility] bef 02/22/21 12/01/20 Left msg TCB 12/09/20 Left 2nd msg TCB and Result letter sent out 01/21/21 Certified ltr sent. Tracking # [id number] 02/24/21 Your item has been delivered to the original sender at 9:57 am on February 16, 2021 [place] [address]. 02/28/21 [facility] not done. Tracking updated for 6 mo colp/pap due 05/25/21. 04/05/21 Colposcopy completed? Will watch for records (this line entered after reminder letter sent) 04/08/21 [facility]- Normal. Plan 1 yr repeat pap (outside records from [facility]) 05/10/21 Reminder letter - sent before [facility] records received above. 12/12/2021 ECC - negative. 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 Jaky Alvarado RN-BSN, [facility] [phone] DX V65.8 REPLACED WITH [id number] HEALTH [facility] (10/14/2012) Advanced directives, counseling/discussion 10/05/2011 12/24/2023 Overview: [...] EXAM: CT ABDOMEN PELVIS W CONTRAST LOCATION: [facility] DATE: 03/05/2024 INDICATION: Right flank pain. [...] EXAM: CT ABDOMEN PELVIS W CONTRAST LOCATION: [facility] DATE: 03/05/2024 INDICATION: Right flank pain. [...] mg/dL 03/05/2024 12:51 AM CDT LABORATORY Specific [place] Urine 1.004 1.003 - 1.035 03/05/2024 12:51 [...] Timothy Pink MD LAB - URINE KAMARI BEODLLA LABORATORY [facility] Lab [address] Lab (1st floor, no room number) [address] * Extra Red Top Tube (03/04/2024 11:58 PM CDT) Hold Specimen [facility] 03/05/2024 1:31 AM CDT LABORATORY Blood BLOOD SPECIMEN / Unknown Venipuncture / Unknown 03/04/2024 11:58 PM CDT 03/05/2024 12:17 AM CDT Timothy Pink MD LAB - BLOOD ORDRuben BEDOLLA LABORATORY [facility] [address] Lab (1st floor, no room number) [address] [place] [address] * Extra Blue Top Tube (03/04/2024 11:58 PM CDT) Hold Specimen [facility] 03/05/2024 1:31 AM CDT RH LABORATORY Blood BLOOD SPECIMEN / Unknown Venipuncture / Unknown 03/04/2024 11:58 PM CDT 03/05/2024 12:17 AM CDT Timothy Pink MD LAB - BLOOD KAMARI BEDOLLA RH LABORATORY [facility] Lab [address] Lab (1st floor, no room number) [place] [address], [facility] * CBC with platelets and differential (03/04/2024 [...] Pink MD LAB - BLOOD ORDRuben BEDOLLA [facility] Lab [address] Lab (1st floor, no room number) [address] * Lipase (03/04/2024 11:58 PM CDT) Lipase 51 13 - 60 U/L 03/05/2024 12:37 AM CDT LABORATORY Blood BLOOD SPECIMEN / Unknown Venipuncture / Unknown 03/04/2024 11:58 PM CDT 03/05/2024 12:17 AM CDT Timothy Pink MD LAB - BLOOD ORDRuben BEDOLLA [facility] Lab [address] Lab (1st floor, no room number) [address] * (ABNORMAL) Comprehensive metabolic panel (03/04/2024 11:58 PM CDT) Sodium 128(L) 135 - 145 mmol/L 03/05/2024 12:37 AM CDT LABORATORY Potassium 4.0 3.4 - 5.3 mmol/L 03/05/2024 12:37 AM CDT LABORATORY Carbon Dioxide (CO2) 20(L) 22 - 29 mmol/L 03/05/2024 12:37 AM CDT RH LABORATORY Anion Gap 14 7 - 15 [...] LAB - BLOOD KAMARI BEDOLLA RH LABORATORY [facility] Lab [address] [facility] Lab (1st floor, no room number) [place] [address] * (ABNORMAL) HPV High Risk Types DNA Cervical (11/22/2020 11:50 AM CDT) HPV Source [facility] 11/22/2020 11:43 AM CDT [facility] HPV 16 DNA Negative NEG^Nega tive 11/29/2020 4:41 PM CDT [facility] HPV 18 DNA Negative NEG^Nega tive 11/29/2020 4:41 PM CDT [facility] Other HR HPV Positive(A) NEG^Nega tive 11/29/2020 4:41 PM CDT [facility] Final Diagnosis This patient's sample is positive for other HR HPV DNA (types 31, 33, 35, 39, 45, 51, 52, 56, 58, 59, 66 or 68), not HPV 16 or HPV 18 DNA. This result requires clinical correlation with concurrent cytology findings. 11/29/2020 4:41 PM CDT [facility] Comment: This test was developed and its performance characteristics determined by the [facility], Molecular Diagnostics Laboratory. It has not [...] Description Cervical Cells 11/22/2020 11:43 AM CDT [facility] Cervical Cells 11/22/2020 11 :50 AM CDT 11/22/2020 12:01 PM CDT Lesa Barbosa MD LAB - BLOO D ORDERABLES [facility] [address] [place] [address] [address] * Pap imaged thin layer screen with HPV - recommended age 30 - 65 years (select HPV order below) (11/22/2020 11:43 AM CDT) PAP AMY Riley Report Patient Name: JEANNINE HERNANDEZ MR#: [id number] Specimen #: [id number] Collected: 11/22/2020 Received: 11/23/2020 Reported: 11/26/2020 10:55 [...] by: DIDIER Fernandez ??(ASCP) CLINICAL HISTORY: LMP: [id number] Post Menopausal, A previous normal pap Date of Last Pap: 05/29/2019, Papanicolaou Test Limitations: ??Cervical cytology is a screening test with limited sensitivity; regular screening is critical for cancer prevention; Pap tests are primarily effective for the diagnosis/preventi on of squamous cell carcinoma, not adenocarcinomas or other cancers. COLLECTION SITE: Client: ??[facility] Location: [facility] (R) The technical component of this testing [facility], with the [facility], [address] [place] [phone] ([phone]) COP[facility] Cytology 11/22/2020 11:4 3 AM CDT [...] MD Timothy Knott MD IMG MAMMOGRAPHY ORDE RABSLIM * CT Chest w Contrast (02/19/2020 11:06 [...] Negative NEG^Negati ve 11/10/2018 10:02 AM CDT [facility] Stool specimen (specimen) 11/05/2018 1:05 PM CDT 11/10/2018 7:34 AM CDT Timothy Knott MD LAB - STOOLS ORDERAB LES [facility] [address] [place] [address] * (ABNORMAL) Lipid panel reflex to direct LDL Non-fasting (01/11/2018 3:57 PM CDT) Pathologist [facility] Cholesterol 217(H) <200 mg/dL 01/12/2018 2:15 PM CDT [facility] Comment:Desirable: <200 mg/d l Triglycerides 162(H) <150 mg/dL 01/12/2018 2:22 PM CDT [facility] Comment: Borderline high: ??150-199 mg/dl High: ? 200-499 mg/dl Very high: ? >499 mg/dl Non Fasting HDL Cholesterol 58 >49 mg/dL 8 2:15 PM CDT [facility] LDL Cholesterol Calculated 127(H) <100 mg/dL 01/12/2018 2:22 PM CDT [facility] Comment: Above desirable: ??100-129 mg/dl Borderline High: ??130-159 mg/dL High: ? 160-189 mg/dL Very high: ? >189 mg/dl Non HDL Cholesterol 159(H) <130 mg/dL 01/12/2018 2:15 PM CDT [facility] Comment: Above Desirable: ??130-159 mg/dl Borderline high: ??160-189 mg/dl High: ? 190-219 mg/dl Very high: ? >219 mg/dl Blood specimen (specimen) 01/11/2018 3:57 PM CDT 01/11/2018 3:58 PM CDT Timothy Knott MD LAB - BLOOD ORDERABL ES Performing Organization Address City/[facility]/ZIP Co de Phone Number [facility] [address] [place] [address] * Hepatitis C antibody (01/11/2018 3:57 PM CDT) Hepatitis C Antibody Nonreactive NR^Nonre active 01/14/2018 9:10 AM CDT [facility] Comment: Assay performance characteristics have not been established for newborns, infants, and children Blood specimen (specimen) 01/11/2018 3:57 PM CDT 01/11/2018 3:58 PM CDT Timothy Knott MD LAB - BLOOD ORDERABL ES [facility] [address] [place] [address] * COLONOSCOPY (08/05/2009) Zohra Rosado PA-C PROCEDURES from Last 3 Months or Most Recently Relevant to Health Maintenance Advance Directives For more information, please contact: [phone] Documents on File Type Date Recorded Patient Manager Net Expl anation Advance Directives and Living Will [...] 1:49 AM 10/14/2011 12:53 PM Care Teams Candy Polisher Relationship Specialty Start Date End Date Elizabeth Rausch MD [facility] [address] [place] [address] PCP - General Family Medicine 03/05/24 System, Provider Not In Clinic 02/03/15 Manoj Holley MD [address] [facility] [address] [place] [address] Hematology & Oncology 04/28/19 Yanelis Galvez Personal Advocate & Liaison (PAL) 12/14/20
--- OUTSIDE RECORDS SUMMARY | 2024-04-10 14:36 | XMS_ITS | Encounter Summary ---
Author Organization [facility] Address [address], [place] [address] Care Team Providers Care Compress Trucker Name Role Phone Monet Vallejo MD Primary Care Provider [phone] Encounter Details Date Type Department Care Team [...] documented as of this encounter Care Teams Compress Trucker Relationship Specialty [place] [address] [place] [address] PCP - General Family Practice 10/12/21 documented as of this encounter
--- OUTSIDE RECORDS SUMMARY | 2024-04-10 14:36 | XMS_ITS | Encounter Summary ---
Author Organization [facility] Address [address] [place] [address] Care Team Providers Care Regional Construction Manager Name Role Phone Monet Vallejo MD Primary Care Provider [phone] Encounter Details Date Type Department Care Team (Latest Contact Info) Description 07/13/1994 Orders Only Yinka Ricardo MD [address] [id number] Social History Tobacco Use Types Packs/Day Years [...] documented as of this encounter Care Teams Regional Construction Manager Relationship Specialty [place] [address] [address] [place] [address] PCP - General Family Practice 10/12/21 documented as of this encounter
--- OUTSIDE RECORDS SUMMARY | 2024-04-10 14:36 | XMS_ITS | Encounter Summary ---
Author Organization [facility] Address [address] [place] [address] Care Team Providers Care Accountant Cost Name Role Phone Monet Vallejo MD Primary Care Provider [phone] Encounter Details Date Type Department Care Team [...] documented as of this encounter Care Teams Accountant Cost Relationship Specialty [place] [address] [place] [address] PCP - General Family Practice 10/12/21 documented as of this encounter
--- OUTSIDE RECORDS SUMMARY | 2024-04-10 14:36 | XMS_ITS | Encounter Summary ---
Author Organization [facility] Address [address] [place] [address] Care Team Providers Care Front Of House Manager Name Role Phone Monet Vallejo MD Primary Care Provider [phone] Encounter Details Date Type Department Care Team (Latest Contact Info) Description 10/10/1994 Orders Only Peter Jo MD [address] [place] [address] Social History Tobacco Use Types Packs/Day Years [...] documented as of this encounter Care Teams Front Of House Manager Relationship Specialty [place] [address] [place] [address] PCP - General Family Practice 10/12/21 documented as of this encounter
--- OUTSIDE RECORDS SUMMARY | 2024-04-10 14:36 | XMS_ITS | Encounter Summary ---
Author Organization [facility] Address [address] [place] [address] Care Team Providers Care Brazer Electronic Name Role Phone Monet Vallejo MD Primary Care Provider [phone] Encounter Details Date Type Department Care Team (Latest Contact Info) Description 07/24/1994 Orders Only Breann Boyle, DO [address] [place] [address] Social History Tobacco Use Types Packs/Day Years [...] documented as of this encounter Care Teams Brazer Electronic Relationship Specialty [place] [address] [place] [address] PCP - General Family Practice 10/12/21 documented as of this encounter
--- OUTSIDE RECORDS SUMMARY | 2024-04-10 14:36 | XMS_ITS | Encounter Summary ---
Author Organization [facility] Address [address] [place] [address] Care Team Providers Care Vocal Artist Name Role Phone Monet Vallejo MD Primary Care Provider [phone] Encounter Details Date Type Department Care Team (Latest Contact Info) Description 08/02/1994 Orders Only Yinka Ricardo MD [address] [address] Social History Tobacco Use Types Packs/Day Years [...] documented as of this encounter Care Teams Vocal Artist Relationship Specialty [place] [address] [place] [address] PCP - General Family Practice 10/12/21 documented as of this encounter
--- OUTSIDE RECORDS SUMMARY | 2024-04-10 14:36 | XMS_ITS | Encounter Summary ---
Author Organization [facility] Address [address] [place] [address] Care Team Providers Care Agribusiness Internship Name Role Phone Monet Vallejo MD Primary Care Provider [phone] Encounter Details Date Type Department Care Team (Latest Contact Info) Description 01/13/1995 Orders Only Peter Jo MD [address] [place] [address] Social History Tobacco Use Types Packs/Day Years [...] documented as of this encounter Care Teams Agribusiness Internship Relationship Specialty [place] [address] [place] [address] PCP - General Family Practice 10/12/21 documented as of this encounter
--- OUTSIDE RECORDS SUMMARY | 2024-04-10 14:36 | XMS_ITS | Encounter Summary ---
Author Organization [facility] Address [address] [place] [address] Care Team Providers Care Poacher Wringer Operator Name Role Phone Monet Vallejo MD Primary Care Provider [phone] Encounter Details Date Type Department Care Team [...] documented as of this encounter Care Teams Poacher Wringer Operator Relationship Specialty [place] [address] [place] [address] PCP - General Family Practice 10/12/21 documented as of this encounter
--- OUTSIDE RECORDS SUMMARY | 2024-04-10 14:36 | XMS_ITS | Encounter Summary ---
Author Organization [facility] Address [address] [place] [address] Care Team Providers Care Hot Car Charger Name Role Phone Monet Vallejo MD Primary Care Provider [phone] Encounter Details Date Type Department Care Team [...] documented as of this encounter Care Teams Hot Car Charger Relationship Specialty [place] [address] [place] [address] PCP - General Family Practice 10/12/21 documented as of this encounter
--- OUTSIDE RECORDS SUMMARY | 2024-04-10 14:36 | XMS_ITS | Encounter Summary ---
Author Organization [facility] Address [address] [place] [address] Care Team Providers Care Bond Writer Name Role Phone Monet Vallejo MD Primary Care Provider [phone] Encounter Details Date Type Department Care Team [...] documented as of this encounter Care Teams Bond Writer Relationship Specialty [place] [address] [place] [address] PCP - General Family Practice 10/12/21 documented as of this encounter
--- OUTSIDE RECORDS SUMMARY | 2024-04-10 14:36 | XMS_ITS | Encounter Summary ---
Author Organization [facility] Address [address] [place] [address] Care Team Providers Care Yoga Instructor Name Role Phone System, Provider Not In Unavailable Unavaila Timothy Driscoll MD Primary Care Provider [phone] KishanManoj champagne MD Unavailable [phone] Yanelis Galvez Unavailable Unavailable Elizabeth Rausch MD Primary Care Provider [phone] Reason for Visit * Reason Comments Abdominal Pain Encounter Details Date Type Department Care Team (Late st Contact Info) Description 03/04/2024 11:19 PM CDT - 03/05/2024 2:44 AM T Emergency [facility] Emergency Dept [address] [place] [address] [phone] Timothy Pink MD [facility] [address] [place] [address] Right sided abdominal pain Discharge Disposition: Home [...] sent through Care Everywhere. * Abdominal Pain (Syrian) * Hiatal Hernia (Syrian) documented in this encounter Medications at Time of Discharge Medication Sig Dispensed Refills Start Date End Date sucralfate (CARAFATE) 1 GM/10ML suspension Take 10 mLs (1 g) by mouth 4 times daily. 414 mL 03/05/2024 buPROPion (WELLBUTRIN XL) 150 MG 24 hr tabletIndications:Anxiet y,Mild major depression (H),Migraine without status migrainosus, not intractable, unspecified migraine type TAKE 1 TABLET BY MOUTH IN THE MORNING . TAKE WITH 300MG TABLET FOR A TOTAL OF 450MG 90 tablet 09/13/2021 buPROPion (WELLBUTRIN XL) 300 MG 24 hr tabletIndications:Anxiet y,Mild major depression (H),Migraine without status migrainosus, not [...] Bilirubin Urine Negative Ketones Urine Negative Specific [place] Urine 1.004 Blood Urine Negative pH Urine [...] Documentation None Medical Decision Making / Diagnosis [facility] Diagnoses: and None MIPS None [facility] Jeannine Zuleta is a 78 year old [...] EXAM: CT ABDOMEN PELVIS W CONTRAST LOCATION: [facility] DATE: 03/05/2024 INDICATION: Right flank [...] EXAM: CT ABDOMEN PELVIS W CONTRAST LOCATION: [facility] DATE: 03/05/2024 INDICATION: Right flank [...] dilatation or obstructing calculi. Timothy Pink MD [facility] ORDERABLE S * (ABNORMAL) UA with [...] mg/dL 03/05/2024 12:51 AM CDT LABORATORY Specific [place] Urine 1.004 1.003 - 1.035 03/05/2024 12:51 [...] None Seen /HPF 03/05/2024 12:51 AM CDT LABORATORY RBC Urine <1 <=2 /HPF 03/05/2024 12:51 AM CDT LABORATORY WBC Urine 2 <=5 /HPF 03/05/2024 12:51 AM CDT LABORATORY Squamous Epithelials Urine <1 <=1 /HPF 03/05/2024 12:51 AM CDT LABORATORY Urine MID-STREAM URINE SPECIMEN / Unknown Non-blood Collection / Unknown 03/05/2024 12:38 AM CDT 03/05/2024 12:45 AM CDT Narrative LABORATORY - 03/05/2024 12:51 AM CDT Urine Culture not indicated Timothy Pink MD LAB - URINE ORDE GRAEME [facility] Organization Address City/State/ZIP Co de Phone Number LABORATORY [facility] Lab [address] Lab (1st floor, no room number) [place] [address], [facility] * Extra Red Top Tube (03/04/2024 11:58 PM CDT) Hold Specimen [facility] 03/05/2024 1:31 AM CDT LABORATORY Blood BLOOD SPECIMEN / Unknown Venipuncture / Unknown 03/04/2024 11:58 PM CDT 03/05/2024 12:17 AM CDT Timothy Pink MD LAB - BLOOD ORDRuben BEDOLLA LABORATORY [facility] [address] Lab (1st floor, no room number) [place] [id number] [place] [address] * Extra Blue Top Tube (03/04/2024 11:58 PM CDT) Hold Specimen [facility] 03/05/2024 1:31 AM CDT [facility] LABORATORY Blood BLOOD SPECIMEN / Unknown Venipuncture / Unknown 03/04/2024 11:58 PM CDT 03/05/2024 12:17 AM CDT Timothy Pink MD LAB - BLOOD KAMARI BEDOLLA Performing Organization Address City/[facility]/ZIP Co de Phone Number LABORATORY [facility] Lab [address] Lab (1st floor, no room number) [address] * CBC with platelets and differential [...] Pink MD LAB - BLOOD ORDE GRAEME [facility] Organization Address City/State/ZIP Co de Phone Number LABORATORY [facility] Lab [address] [facility] Lab (1st floor, no room number) [place] [address], [facility] * Lipase (03/04/2024 11:58 PM CDT) [facility] Lipase 51 13 - 60 U/L 03/05/2024 12:37 AM CDT LABORATORY Blood BLOOD SPECIMEN / Unknown Venipuncture / Unknown 03/04/2024 11:58 PM CDT 03/05/2024 12:17 AM CDT Timothy Pink MD LAB - BLOOD KAMARI BEDOLLA [facility] Organization Address City/State/ZIP Co de Phone Number LABORATORY [facility] Lab [address] Lab (1st floor, no room number) [place] [address] * (ABNORMAL) Comprehensive metabolic panel (03/04/2024 11:58 [...] Pink MD LAB - BLOOD KAMARI BEDOLLA [facility] Organization Address City/State/ZIP Co de Phone Number LABORATORY [facility] [address] Lab (1st floor, no room number) [place] [address], [facility] documented in this encounter Visit Diagnoses [...] dose 0229 ($Given - Provi rody: Radha Saucedo, ROD) ondansetron (ZOFRAN) injection 4 mg (COMPLETED) 4 mg, Intravenous, ONCE, Administer over 2-5 Minutes, On Sun03/04/24 at 2340, For 1 dose 0008 ($Given - Provi rody: Valery Beverly RN) documented in this encounter Additional Health Concerns Assessment Noted Time PHQ-9 Depression Total Score: 1 05/18/20 21 7:29 AM EDGER MACHINE OPERATOR documented as of this encounter Care Teams Yoga Instructor Relationship Specialty [place] [address] [place] [address] PCP - General Family Practice 01/11/18 03/04/24 Elizabeth Rausch MD [facility] [address] [address] PCP - General Family Medicine 03/05/24 System, Provider Not In Clinic 02/03/15 Manoj Holley MD [address] [facility] [address] [place] [address] Hematology & Oncology 04/28/19 Yanelis Galvez Personal Advocate & Liaison (PAL) 12/14/20 documented as of this encounter
--- OUTSIDE RECORDS SUMMARY | 2024-04-10 14:37 | XMS_ITS | Clinical Summary ---
Author Organization [employer] [facility] [facility] Address [place], [place] [address] Care Team Providers Care Typing Section Chief Name Role Phone Susana Moses Lorenzo [facility] - Primary Care Provider Allergies Active [...] diagnosis of CKD. In the [facility] doctors told her she had no kidney [...] diagnosis of CKD. In the [facility] doctors told her she had no kidney [...] Overview (01/29/2023): The 10-year ASCVD risk score (Indianolaodell BUNDY Jr, et al., 2013) is: 12.8% [...] 65+ (1 of 1 - PCV) 2010 RSV vaccine for adults or (1 - 1-dose 75+ series) 2020 COVID-19 vaccine series ( season) 2024 05/10/2022, 03/07/2022, 02/21/2021, Additional history exists Influenza for age 65+ 03/09/2024 Medical Devices Implanted Type Area Bending Machine Set Up Operator Device Identifier Shelf Expiration Date Model / Serial / Lot Baseplate Glenoid 25mm 35 Deg Perform+ Half Wedge - [id number] Implanted:Qty: 1 on 01/29/2023 by Geoffrey Lord MD at [facility] Left: Shoulder [employer] 12/14/2027 [id number] / [id number] / Glenoid 36mm Aequalis Perform+ Rev - [id number] Implanted:Qty: 1 on 01/29/2023 by Geoffrey Lord MD at [facility] Left: Shoulder [employer] 11/29/2027 [id number] / [id number] / Liner Hum Sz 36mm +6 Ascend Flex - [id number] Implanted:Qty: 1 on 01/29/2023 by Geoffrey Lord MD at [facility] Left: Shoulder [employer] 10/05/2027 [id number] / [id number] / Baseplate Hum Sz 0 Ascend Rev Flex Centered - [id number] Implanted:Qty: 1 on 01/29/2023 by Geoffrey Lord MD at [facility] Left: Shoulder [employer] 11/01/2027 [id number] / [id number] / Stem Hum Sz 5b Ascend Flex Std - [id number] Implanted:Qty: 1 on 01/29/2023 by Geoffrey Lord MD at [facility] Left: Shoulder [employer] 10/04/2027 [id number] / [id number] / Post Shoulder Glenoid 6.5x25mm Perform+ Rev - [id number] Implanted:Qty: 1 on 01/29/2023 by Geoffrey Lord MD at [facility] Left: Shoulder [employer] [id number] / / Screw Shoulder 14mm Perform+ Periph - [id number] Implanted:Qty: 2 on 01/29/2023 by Geoffrey Lord MD at [facility] Left: Shoulder [employer] [id number] / / Screw Shoulder 30mm Perform+ Periph - [id number] Implanted:Qty: 1 on 01/29/2023 by Geoffrey Lord MD at [facility] Left: Shoulder [employer] [id number] / / Screw Shoulder 26mm Perform+ Periph - [id number] Implanted:Qty: 1 on 01/29/2023 by Geoffrey Lord MD at [facility] Left: Shoulder [employer] [id number] / / Advance Directives * Full Code (Latest Code Status on File) Date Activated Date Inactivated Comments 01/30/2023 2:47 PM 01/30/2023 5:03 PM Question Answer Comments Code Status Discussion: Reviewed Preferences * Full Code Date Activated Date Inactivated Comments 01/29/2023 10:21 AM 01/30/2023 2:47 PM Question Answer Comments Code Status Discussion: Unable to Assess Preferences, Provider to review later Care Teams Typing Section Chief Relationship Specialty Start Date End Date Susana Moses [facility] - [address] [place] [address] PCP - General 01/08/23
--- OUTSIDE RECORDS SUMMARY | 2024-04-10 14:37 | XMS_ITS | Encounter Summary ---
Author Organization [facility] Address [facility] [place] [address] Care Team Providers Care Chair Installer Name Role Phone Zohra Rosado PA-C Primary Care Provid er System, Provider Not In Unavailable Unavaila ble System, Provider Not In Primary Care Provider Un available No Ref-Primary, Physician Primary Care Provider Timothy Knott MD Primary Care Provider [phone] Timothy Knott MD Unavailable [phone] Timothy Knott MD Unavailable [phone] Manoj Holley MD Unavailable [phone] Tierney Valencia RN Unavailable [phone] Timothy Knott MD Unavailable [phone] Timothy Knott MD Unavailable [phone] Chantale Barboza RN Unavailable Unavailable Manoj Holley MD Unavailable [phone] Radha Trejo DPM, Podiatry /Foot and Ankle Surgery Unavailable Manoj Holley MD Unavailable [phone] Yanelis Galvez Unavailable Unavailable Alia Miller PA-C Unavailable +[phone] Lori Barbosa MD Unavailable + Timothy Knott MD Unavailable [phone] Tierney Panchal APRN BATTERY CONTAINER TESTER Unavailable Lori Barbosa MD Unavailable + Timothy Knott MD Unavailable [phone] Clinic - [facility] Unavail able Elizabeth Rausch MD Primary Care Provider [phone] Reason for Visit * Reason Onset Date Comments Refill Request 05/18/2011 citalopram Encounter Details Date Type Department Care Team (Late st Contact Info) Description 05/18/2011 Refill [facility] [address] [place] [phone] Zohra Rosado PA-C [address] [address] Refill Request (citalopram) Social History [...] PHQ9 is not needed Max Refills: 6mths HING SUPERVISOR * Telephone Encounter - Janine Morgan - 05/18/2011 12:16 PM CST Medication and directions: citalopram - TK 1?? TS PO D Last office visit related to request: 04.03.11 routine general medical exam Last filled: 11.18.10 Refills: 2 Pharmacy: [facility] Janine Morgan, Student [place] HING SUPERVISOR documented in this encounter Plan of Treatment [...] documented as of this encounter Care Teams Chair Installer Relationship Specialty Start Date End Date Zohra Rosado PA-C [address] [address] PCP - General Family Practice 11/22/09 02/05/15 System, Provider Not In PCP - General Clinic 05/30/17 11/14/17 No Ref-Primary, Physician PCP - General 11/15/17 01/10/18 [place] [address] [place] [address] PCP - General Family Practice 01/11/18 03/04/24 [place] [address] [place], [place] [id number] PCP - Assigned PCP 11/18/17 09/10/18 Elizabeth Rausch MD [facility] [address] [place] [address] PCP - General Family Medicine 03/05/24 System, Provider Not In Clinic 02/03/15 [place] [address] [place], [place] [address] Assigned PCP 11/18/17 11/29/19 Manoj Holley MD 420 [facility] 480 [place], [place] [address] Hematology & Oncology 04/28/19 Tierney Valencia RN Lead Medical Instrument Cable Fabricator 05/01/19 0 [place] [address] [place], [place] [address] Assigned PCP 01/25/20 07/16/21 [place] [address] [place] [address] Assigned PCP 11/30/19 01/24/20 Chantale Barboza, ROD Personal Advocate & Liaison (PAL) Family Practice 04/05/20 12/02/20 Manoj Holley MD 420 [facility] 480 [place], [place] [address] Assigned Cancer Care Provider 04/30/20 10/30/20 Radha Trejo DPM, Podiatry/Foot and Ankle Surgery [address] [place] [address] Assigned Musculoskeletal Provider 04/30/20 11/13/20 Manoj Holley MD 420 [facility] 480 [place] [address] Assigned Cancer Care Provider 12/05/20 06/02/22 Yanelis Galvez Personal Advocate & Liaison (PAL) 12/14/20 Alia Miller PAMichaelC [address] [place] [address] Assigned Surgical Provider 01/30/21 07/28/22 Lori Barbosa MD PRIMARY ENT [address] [facility] 13 [facility] [address] [place] [id number] Assigned PCP 07/17/21 05/26/22 [place] [address] [place], [place] [address] Assigned PCP 05/27/22 06/16/22 Tierney Panchal APRN BATTERY CONTAINER TESTER [address] [place] [id number] Assigned PCP 06/17/22 07/21/22 Lori Barbosa MD PRIMARY ENT [address] [facility] 13 [facility] [address] [place] [id number] Assigned PCP 07/22/22 09/01/22 [place] [address] [place], [place] [address] Assigned PCP 09/02/22 01/28/24 [facility] [address] [place] [id number] Assigned PCP 01/29/24 02/28/24 documented as of this encounter
--- OUTSIDE RECORDS SUMMARY | 2024-04-10 14:37 | XMS_ITS | Patient Health Record ---
Author Organization [facility] Address [address] , [place] [address] Care Team Providers Care Health Facilities Surveyor Name Role Phone Gerry Thompson Primary Care Provider Johny Miller Unavailable [phone] Allergies Allergen (clinical drug ingredient) Drug/Non Drug [...] Risk Notes Problem Transient alteration of awareness (3811212829) Transient alteration of awareness (R40.4) Active confirmed Problem Cognitive disturbance (258394145) Other symptoms and signs involving cognitive functions and awareness (R41.89) Active confirmed Problem Hyperlipidemia (07616007) Hyperlipidemia (E78.5) Active confirmed Problem Sleep apnea (33726060) Sleep apnea (G47.30) Active confirmed Problem Monoclonal paraproteinemia (628223093) 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) Active confirmed Problem Amnesia (61727106) Memory change (R41.3) Active confirmed Problem Chronic kidney disease stage 3A (disorder) (896820219) Chronic kidney disease, stage 3a (N18.31) Active confirmed Plan Of Treatment Pending Test Test Name Order Date MRI BRAIN WITHOUT CONTRAST NEUROQUANT PA OTOCOL W/ 3D RENDERING 08/14/2022 Insurance Providers Payer Name Payer Address Payer Phone Subscriber Number Group Number Insured Name Patient Relationship to Insured Coverage Start Date Coverage End Date [employer] AD[employer] [address] [address] [place] [phone] [id number] YASH HERNANDEZ Self - patient is the insured Medical (General) History Medical History History ICD Code Gallstones Irritable bowel syndrome Reflux High Blood Pressure Headaches Fibromyalgia Mugus Brain tumor Surgical History Surgery Date(Month/Year) Appendix Brain Gall bladder Wrist- broken Peritonotis Hospitalization History Reason Date(Month/Year) Peritonotis Perit Stones Brain Covid
--- OUTSIDE RECORDS SUMMARY | 2024-04-10 14:37 | XMS_ITS | Encounter Summary ---
Author Organization [facility] Address [address] [place] [address] Care Team Providers Care Buckler And Lacer Name Role Phone System, Provider Not In Unavailable Unavaila ble Timothy Knott MD Primary Care Provider [phone] KishanManoj champagne MD Unavailable [phone] Manoj Holley MD Unavailable [phone] Yanelis Galvez Unavailable Unavailable Alia Miller PA-C Unavailable [phone] Lori Barbosa MD Unavailable + Timothy Knott MD Unavailable [phone] Tierney Panchal APRN RECORDS TECH Unavailable [phone] Lori Barbosa MD Unavailable + Timothy Knott MD Unavailable [phone] [facility] Unavail able Elizabeth Rausch MD Primary Care Provider + [phone] Encounter Details Date Type Department Care Team [...] Total Score: 1 05/18/20 21 7:29 AM AUTOMATION CONTROLS ENGINEER documented as of this encounter Care Teams Buckler And Lacer Relationship Specialty Start [place] [address] [place] [address] PCP - General Family Practice 01/11/18 03/04/24 Elizabeth Rausch MD [facility] [address] [place] [address] PCP - General Family Medicine 03/05/24 System, Provider Not In Clinic 02/03/15 Manoj Holley MD [address] [address] Hematology & Oncology 04/28/19 Manoj Holley MD [address] [address] Assigned Cancer Care Provider 12/05/20 06/02/22 Yanelis Galvez Personal Advocate & Liaison (PAL) 12/14/20 Alia Miller, PAMichaelC [address] [place] [address] Assigned Surgical Provider 01/30/21 07/28/22 Lori Barbosa MD PRIMARY ENT [address] [facility] [address] [place] [address] Assigned PCP 07/17/21 05/26/22 [place] [address] [facility], [place] [address] Assigned PCP 05/27/22 06/16/22 Tierney Panchal APRN RECORDS TECH [address] [place] [address] Assigned PCP 06/17/22 07/21/22 Lori Barbosa MD [facility]IMARY E[facility] [address] [facility] [address] [place] [address] Assigned PCP 07/22/22 09/01/22 [place] [address] [facility], [place] [address] Assigned PCP 09/02/22 01/28/24 [facility] [address] [facility], [place] [phone] Assigned PCP 01/29/24 02/28/24 documented as of this encounter
--- OUTSIDE RECORDS SUMMARY | 2024-04-10 14:37 | XMS_ITS | Clinical Summary ---
Author Organization [facility] Address [address] [place] [address] Phone [phone] Care Team Providers Care Solid Waste Technician Name Role Phone Pcp, No Primary Care [...] Comments Blood Pressure 149/81 11/01/2022 11:10 AM [facility] Pulse 65 11/01/2022 11:10 AM [facility] Temperature 36.8 ??C (98.3 ??F) 11/01/2022 11:10 AM [facility] Respiratory Rate 18 11/01/2022 11:10 AM [facility] Oxygen Saturation 97% 11/01/2022 11:10 AM [facility] Inhaled Oxygen Concentration - - Weight 70.8 kg (156 lb) 11/01/2022 11:10 AM [facility] Height 160 cm (5' 3) 11/01/2022 11:10 AM [facility] Body Mass Index 27.63 11/01/2022 11:10 AM [facility] Plan of Treatment Health Maintenance Due Date Last Done Comments Bone Density Scan 1945 Hepatitis C Screening 1945 Lipid Panel 1945 Pneumococcal Vaccine: 65+ Years (1 of 4 - PCV) 952 Zoster Vaccines (1 of 2) 1964 Influenza Vaccine (#1) 2024 Care Teams Solid Waste Technician Relationship Specialty Start Date End Date NO PCP PCP - General 11/01/22
--- OUTSIDE RECORDS SUMMARY | 2024-04-10 14:37 | XMS_ITS | Referral Summary ---
Author Organization [facility] Address [address] [place] [address] Phone [phone] Care Team Providers Care Electric Motor Fitter Name Role Phone Pcp, No Primary Care [...] Comments Blood Pressure 149/81 11/01/2022 11:10 AM [facility] Pulse 65 11/01/2022 11:10 AM [facility] Temperature 36.8 ??C (98.3 ??F) 11/01/2022 11:10 AM [facility] Respiratory Rate 18 11/01/2022 11:10 AM [facility] Oxygen Saturation 97% 11/01/2022 11:10 AM [facility] Inhaled Oxygen Concentration - - Weight 70.8 kg (156 lb) 11/01/2022 11:10 AM [facility] Height 160 cm (5' 3) 11/01/2022 11:10 AM [facility] Body Mass Index 27.63 11/01/2022 11:10 AM [facility] Plan of Treatment Not on file Care Teams Electric Motor Fitter Relationship Specialty Start Date End Date NO PCP PCP - General 11/01/22
--- OUTSIDE RECORDS SUMMARY | 2024-04-10 14:37 | XMS_ITS | Encounter Summary ---
Author Organization [facility] Address [address] [place] [address] Care Team Providers Care Painter Apprentice Name Role Phone System, Provider Not In Unavailable Unavaila ble Timothy Knott MD Primary Care Provider [phone] Manoj Holley MD Unavailable [phone] Timothy Knott MD Unavailable Manoj Holley MD Unavailable [phone] Yanelis Galvez Unavailable Unavailable Alia Miller PA-C Unavailable [phone] Lori Barbosa MD Unavailable + Timothy Knott MD Unavailable [phone] Tierney Panchal APRN DATA REVIEW SPECIALIST Unavailable [phone] Lori Barbosa MD Unavailable + Timothy Knott MD Unavailable [phone] [facility] Unavail able Elizabeth Rausch MD Primary Care Provider Reason for Visit * Reason Comments Medication Refill Encounter Details Date Type Department Care Team (Late st Contact Info) Description 03/15/[address] [address] Lori Barbosa MD PRIMARY ENT [address] [facility] [address] [place] [address] Medication Refill Social History Tobacco Use Types [...] below and assist patient. JÚNIOR Sanchez, RN [facility] * Telephone Encounter - Tierney Panchal APRN [...] needs to be seen because: SSRIs Protocol [id number]/15/2021 12:29 PM PHQ-9 score less than 5 in past 6 months JÚNIOR Greenwood, RN - Patient Advocate and Liaison (PAL) [facility] [phone] * Telephone Encounter - Elfering, Eleni - [...] any questions or concerns? No Requested Pharmacy: [facility] Okay to leave a detailed message?: Yes at Home number on file [phone] (home) documented in this encounter Plan of Treatment Not on file documented as of this encounter Visit Diagnoses Diagnosis Anxiety Anxiety state, unspecified Migraine without status migrainosus, not intractable, unspecified migraine type Mild major depression (H) Major depressive disorder, single episode, mild documented in this encounter Additional Health Concerns Infection Onset Date Last Indicated Resolved Time Rule Out COVID-19 03/17/2022 03/17/2022 03/17/2022 1:20 PM CDT COVID-19 03/17/2022 03/17/2022 04/07/2022 11:4 1 PM CDT Assessment Noted Time PHQ-9 Depression Total Score: 5 11/24/19 21 7:03 AM CDT documented as of this encounter Care Teams Painter Apprentice Relationship Specialty Start [place] [address] [place] [address] PCP - General Family Practice 01/11/18 03/04/24 Elizabeth Rausch MD [facility] [address] [place] [address] PCP - General Family Medicine 03/05/24 System, Provider Not In Clinic 02/03/15 Manoj Holley MD [address] [facility] [address] [place], [place] [address] Hematology & Oncology 04/28/19 [place] [address] [place] [address] Assigned PCP 01/25/20 07/16/21 Manoj Holley MD [address] [facility] [address] [place], [place] [address] Assigned Cancer Care Provider 12/05/20 06/02/22 Yanelis Galvez Personal Advocate & Liaison (PAL) 12/14/20 Alia Miller PA-C [address] [place] [address] Assigned Surgical Provider 01/30/21 07/28/22 Lori Barbosa MD PRIMARY ENT [address] [facility] [address] [address] Assigned PCP 07/17/21 05/26/22 [place] [address] [place] [address] Assigned PCP 05/27/22 06/16/22 Tierney Panchal APRN DATA REVIEW SPECIALIST [address] [place] [address] Assigned PCP 06/17/22 07/21/22 Lori Barbosa MD PRIMARY ENT [address] [place] [address] Assigned PCP 07/22/22 09/01/22 [place] [address] [place] [address] Assigned PCP 09/02/22 01/28/24 [facility] [address] [place] [address] Assigned PCP 01/29/24 02/28/24 documented as of this encounter
--- OUTSIDE RECORDS SUMMARY | 2024-04-10 14:37 | XMS_ITS | Encounter Summary ---
Author Organization [facility] Address [address] [place] [address] Care Team Providers Care Collaborative Physician Name Role Phone System, Provider Not In Unavailable UnavailTimothy Mata MD Primary Care Provider [phone] Timothy Knott MD Unavailable [phone] Manoj Holley MD Unavailable [phone] Tierney Valencia RN Unavailable Timothy Knott MD Unavailable [phone] Timothy Knott MD Unavailable [phone] Chantale Barboza RN Unavailable Unavailable Manoj Holley MD Unavailable [phone] Radha Trejo DPM, Podiatry /Foot and Ankle Surgery Unavailable Manoj Holley MD Unavailable [phone] Yanelis Galvez Unavailable Unavailable Alia Miller PA-C Unavailable [phone] Lori Barbosa MD Unavailable + Timothy Knott MD Unavailable [phone] Tierney Panchal APRN, CNP Unavailable Lori Barbosa MD Unavailable + Timothy Knott MD Unavailable [phone] Clinic - [facility] Unavail able Elizabeth Rausch MD Primary Care Provider [phone] Reason for Visit * Reason Onset Date Comments Refill Request 02/20/2019 Refill on Metopr olol Encounter Details Date Type Department Care Team (Late st Contact Info) Description 02/20/2019 Refill [facility] [address] [place] [phone] [place] [address] [place], [place] [phone] Refill Request (Refill on Metoprolol) Social History [...] documented as of this encounter Care Teams Collaborative Physician Relationship Specialty Start Date End Date [place] [address] [place] [id number] PCP - General Family Practice 01/11/18 03/04/24 Elizabeth Rausch MD [facility] [address] [place] [address] PCP - General Family Medicine 03/05/24 System, Provider Not In Clinic 02/03/15 [place] [address] [place], [place] [address] Assigned PCP 11/18/17 11/29/19 Manoj Holley MD [address] [address] Hematology & Oncology 04/28/19 Tierney Valencia RN Lead Apple Thinner 05/01/19 0 [place] [address] [place] [address] Assigned PCP 01/25/20 07/16/21 [place] [address] [place] [address] Assigned PCP 11/30/19 01/24/20 Chantale Barboza, RN Personal Advocate & Liaison (PAL) Family Practice 04/05/20 12/02/20 Manoj Holley MD [address] [address] Assigned Cancer Care Provider 04/30/20 10/30/20 Radha Trejo DPM, Podiatry/Foot and Ankle Surgery [address] [place] [address] Assigned Musculoskeletal Provider 04/30/20 11/13/20 Manoj Holley MD 420 [facility] 480 [place], [place] [address] Assigned Cancer Care Provider 12/05/20 06/02/22 Yanelis Galvez Personal Advocate & Liaison (PAL) 12/14/20 Alia Miller PA-C [address] [place] [address] Assigned Surgical Provider 01/30/21 07/28/22 Lori Barbosa MD [facility]IMARY E[facility] [address] [facility] [address] [place] [address] Assigned PCP 07/17/21 05/26/22 [place] [address] [place] [address] Assigned PCP 05/27/22 06/16/22 Tierney Panchal APRN CNP [address] [place] [address] Assigned PCP 06/17/22 07/21/22 Lori Barbosa MD PRIMARY ENT [address] [facility] [address] [place], [place] [address] Assigned PCP 07/22/22 09/01/22 [place] [address] [place], [place] [address] Assigned PCP 09/02/22 01/28/24 Clinic [place] [facility] [address] [place] [address] Assigned PCP 01/29/24 02/28/24 documented as of this encounter
--- OUTSIDE RECORDS SUMMARY | 2024-04-10 14:37 | XMS_ITS | Patient Health Record ---
Author Organization Onesimo Giuliano Tran DO Address [address] [facility] [address] [place], [place] [address] Care Team Providers Care Pilot Control Operator Helper Name Role Phone Onesimo Tran [phone] ALLERGIES Allergen (clinical drug ingredient) Drug/Non Drug Allergy documented on EMR Reaction Allergy Type Onset Date Status Sulfacet-R Unknown Drug Allergy Active REASON FOR REFERRAL No Information MEDICATIONS Medication SIG (Take, Route, Frequency, Duration) Notes Start Date End Date Status Vaseline vaseline as directed topicall y tid for 30 days Active Elton-Smoothe/FS Scalp 0.01 % 1 applicat ion to [...] Coverage End Date [employer] [address] [place] [id number] Jeannine Zuleta Self - patient is the insured 9
--- OUTSIDE RECORDS SUMMARY | 2024-04-10 14:37 | XMS_ITS | Encounter Summary ---
Author Organization [facility] Address [facility] [place] [address] Care Team Providers Care Math And Science Instructor Name Role Phone System, Provider Not In Unavailable Unavaila ble Timothy Knott MD Primary Care Provider [phone] Manoj Holley MD Unavailable [phone] Yanelis Galvez Unavailable Unavailable Encounter Details Date [...] Total Score: 1 05/18/20 21 7:29 AM SALES DEVELOPMENT DIRECTOR documented as of this encounter Care Teams Math And Science Instructor Relationship Specialty Start [place] [address] [place] [address] PCP - General Family Practice 01/11/18 03/04/24 System, Provider Not In Clinic 02/03/15 Manoj Holley MD 420 [facility] 480 [place] [address] Hematology & Oncology 04/28/19 Yanelis Galvez Personal Advocate & Liaison (PAL) 12/14/20 documented as of this encounter
--- OUTSIDE RECORDS SUMMARY | 2024-04-10 14:37 | XMS_ITS | Encounter Summary ---
Author Organization [place] Address Pending sale to [facility] [place] [address] Care Team Providers Care Precision Crop Manager Name Role Phone Zohra Rosado PA-C Primary Care Provid er System, Provider Not In Unavailable Unavaila ble System, Provider Not In Primary Care Provider Un available No Ref-Primary, Physician Primary Care Provider Timothy Knott MD Primary Care Provider [phone] Timothy Knott MD Unavailable [phone] Timothy Knott MD Unavailable Manoj Holley MD Unavailable [phone] Teirney Valencia RN Unavailable [phone] Timothy Knott MD Unavailable [phone] Timothy Knott MD Unavailable [phone] Chantale Barboza RN Unavailable Unavailable Manoj Holley MD Unavailable [phone] Radha Trejo DPM, Podiatry /Foot and Ankle Surgery Unavailable Manoj Holley MD Unavailable [phone] Yanelis Galvez Unavailable Unavailable Alia Miller PA-C Unavailable [phone] Lori Barbosa MD Unavailable + Timothy Knott MD Unavailable [phone] Tierney Panchal APRN FUND ACCOUNTANT Unavailable Lori Barbosa MD Unavailable + Timothy Knott MD Unavailable [phone] Clinic - [facility] Unavail able Elizabeth Rausch MD Primary Care Provider [phone] Encounter Details Date Type Department Care Team (Late st Contact Info) Description 01/02/2012 [facility] Extended Documentation [facility] [address] [place] [id number] Brenda Pereyra XXX RESIGNED XXX [address] [facility] [address] [place] [address] Social History Tobacco Use Types [...] documented as of this encounter Care Teams Precision Crop Manager Relationship Specialty Start Date End Date Zohra Rosado PA-C [address] [address] [place] [address] PCP - General Family Practice 11/22/09 02/05/15 System, Provider Not In PCP - General Clinic 05/30/17 11/14/17 No Ref-Primary, Physician PCP - General 11/15/17 01/10/18 [place] [address] [place] [address] PCP - General Family Practice 01/11/18 03/04/24 [place] [address] [place] [address] PCP - Assigned PCP 11/18/17 09/10/18 Elizabeth Rausch MD [facility] [address] [address] PCP - General Family Medicine 03/05/24 System, Provider Not In Clinic 02/03/15 [place] [address] [place], [place] [id number] Assigned PCP 11/18/17 11/29/19 Manoj Holley MD 420 [facility] [address] [place] [address] Hematology & Oncology 04/28/19 Tierney Valencia, RN Lead Plodder Operator 05/01/19 0 [place] [address] [place] [address] Assigned PCP 01/25/20 07/16/21 [place] [address] [place] [address] Assigned PCP 11/30/19 01/24/20 Chantale Barboza, RN Personal Advocate & Liaison (PAL) Family Practice 04/05/20 12/02/20 Manoj Holley MD [address] [address] Assigned Cancer Care Provider 04/30/20 10/30/20 Radha Trejo DPM, Podiatry/Foot and Ankle Surgery [address] [facility] [address] [place] [address] Assigned Musculoskeletal Provider 04/30/20 11/13/20 Manoj Holley MD [address] [address] Assigned Cancer Care Provider 12/05/20 06/02/22 Yanelis Galvez Personal Advocate & Liaison (PAL) 12/14/20 Alia Miller, PA-C [address] [place] [address] [address] [place] [address] Assigned Surgical Provider 01/30/21 07/28/22 Lori Barbosa MD PRIMARY ENT [address] [facility] 13 [facility] 350 [place], [place] [address] Assigned PCP 07/17/21 05/26/22 [place] [address] [place] [address] Assigned PCP 05/27/22 06/16/22 Tierney Panchal APRN FUND ACCOUNTANT [address] [place] [address] Assigned PCP 06/17/22 07/21/22 Lori Barbosa MD PRIMARY ENT [address] [place] [address] [place] [id number] Assigned PCP 07/22/22 09/01/22 [place] [address] [place], [place] [id number] Assigned PCP 09/02/22 01/28/24 [facility] [address] [place], [place] [address] Assigned PCP 01/29/24 02/28/24 documented as of this encounter
== END 2024-04-10 14:32 | disposition home or self-care (01) ==
PROVIDERS: PCP Emergency Medicine; Visit Provider Family Medicine
DX: R39.15 Urgency of urination (principal); N39.0 Urinary tract infection, site not specified
CPT/HCPCS: 87086

== ENCOUNTER 2024-04-23 10:44 | Outpatient (CLI) | payer OTHER, SELFPAY ==
--- OUTSIDE RECORDS SUMMARY | 2024-04-26 19:00 | XMS_ITS | Encounter Summary ---
[facility] Address [address] [place] [address] Care Team Providers Care Promotions Firm Accounts Manager Name Role Phone Monet Vallejo MD Primary Care Provider [phone] Reason for Visit * Reason Comments Refill buPROPion (WELLBUTRI N XL) 300 MG 24 hour release tablet [Pharmacy Med Name: BUPROPION HYDROCHLORIDE ER (XL) 300 MG Tablet Extended Release 24 Hour] Encounter Details Date Type Department Care Team (Late st Contact Info) Description 02/27/2024 Refill [facility] Medicine [address] [place], [place] [id number] [place] [address] [place], [place] [phone] Refill (buPROPion (WELLBUTRIN XL) 300 MG 24 [...] CDT Further Assistance Needed on Refill from Pattern Cutter Patient is due for Qualifying Visit Medication [...] Age: 78 [employer] Embedded Refills, Reference: [id number], 02/27/2024 1:27:38 AM Chilo PERRY: INNA [facility] Centralized Services - Primary Care [[id number]] ([id number]) documented in this encounter Plan of Treatment Not on file documented as of this encounter Visit Diagnoses Diagnosis Depressive disorder Depressive disorder, not elsewhere classified documented in this encounter Care Teams Promotions Firm Accounts Manager Relationship Specialty [place] [address] [address] [place] [address] PCP - General Family Practice 10/12/21 documented as of this encounter
--- OUTSIDE RECORDS SUMMARY | 2024-04-26 19:00 | XMS_ITS | Encounter Summary ---
Author Organization [facility] Address [address], [place] [address] Care Team Providers Care Nurse Outreach Case Manager Name Role Phone Monet Vallejo MD Primary Care Provider [phone] Encounter Details Date Type Department Care Team [...] documented as of this encounter Care Teams Nurse Outreach Case Manager Relationship Specialty [place] [address] [place] [address] PCP - General Family Practice 10/12/21 documented as of this encounter
--- OUTSIDE RECORDS SUMMARY | 2024-04-26 19:00 | XMS_ITS | Clinical Summary ---
Author Organization [facility] Address [address], [place] [address] Care Team Providers Care Boathouse Keeper Name Role Phone Monet Vallejo MD Primary Care Provider [phone] Source Comments You are receiving this document as you are listed as the primary care provider,follow-up provider, or the patient has been referred to you for consultation.This is in compliance with the Medicare and[facility] Medical Cent[facility]aid EHR Incentive Program,which states Providers who transition their patient to another setting of careor provider of care or refers their patient to another provider of care shouldprovide summary care record for each transition of care or referral. [facility] Allergies Active Allergy Reactions Criticality Noted [...] day. Active FISH OIL None Entered Active [place]-3 Fatty Acids (FISH OIL) 1000 MG capsule [...] but stopped a few years ago. Resume. [employer] database Memory loss 12/13/2020 Overview (11/10/2021): Last Assessment & Plan: She reports this began after her craniotomy. She is taking notes. Chart review indicates no recent evaluation for secondary causes.. [employer] database Hyponatremia 01/14/2020 CKD (chronic kidney disease) stage 3, GFR 30-59 ml/min 06/09/2019 Overview (11/10/2021): Last Assessment & Plan: She is quite concerned about her diagnosis of CKD. In the [facility] doctors told her she [...] 11/22/20 NIL, +HR HPV, not 16/18. Plan [facility] bef 02/22/21 12/01/20 Left msg TCB 12/09/20 Left 2nd msg TCB and Result letter sent out 01/21/21 Certified ltr sent. Tracking # [id number] 02/24/21 Your item has been delivered to the original sender at 9:57 am on February 16, 2021 [place] [address]. 02/28/21 [facility] not done. Tracking updated for 6 mo colp/pap due 05/25/21. 04/05/21 Colposcopy completed? Will watch for records (this line entered after reminder letter sent) 04/08/21 [facility]- Normal. Plan 1 yr repeat pap (outside records from [facility]) 05/10/21 Reminder letter - sent before [facility] records received above. Last Assessment & Plan: [...] Type Department Care Team Description 03/14/[address] [address] Monet Vallejo MD Refill (lisinopril (ZESTRIL) 5 MG tablet [Pharmacy Med Name: Lisinopril Oral Tablet 5 MG]) 02/27/[address] [address] Monet Vallejo MD Refill (buPROPion (WELLBUTRIN XL) 300 MG 24 hour release tablet [Pharmacy Med Name: BUPROPION HYDROCHLORIDE ER (XL) 300 MG Tablet Extended Release 24 Hour]) from Last 3 Months Immunizations Name Administration Dates Next Due Cholera, Unspecified Formulation 06/10/2002 DT Ped 02/11/1987 Flu Vac (3+ yrs) 03/26/2012, 0,04/12/2009,2007,05/16/2006 Flu Vac Preserv Free (3+yrs) 04/05/2013 [id number] 06/11/2009 HepA, Unspecified Formulation 06/10/2002, 998 Influenza ([place] Only) (Flul aval Quad 0.5, 3+ yrs) 04/08/2021 Influenza IIV3 (Trivalent) F luzone Highdose, 65+ Yrs (51375) 03/27/2018,03/28/2017,03/27/2014 Influenza IIV4 (Quadrivalent ) Fluad, 65+ [...] history exists DTaP/Tdap/Td (7 - Tdap) 01/11/2030 01/12/20, 11/22/2009, 06/10/2002, Additional history exists IPV (Polio) [...] on patient's age to complete this topic Infant RSV Aged Out No longer eligi ble based [...] - 199 mg/dL 11/21/2021 11:41 AM CDT [facility] Triglyceride 91 <=149 mg/dL 11/21/2021 11:41 AM CDT [facility] HDL Cholesterol 91 >=40 mg/dL 11/21/2021 11:41 AM CDT [facility] LDL, Calculated 138(H) <130 mg/dL 11/21/2021 11:41 AM CDT [facility] Non HDL Chol, Calculated 156 <=159 mg/dL 11/21/2021 11:41 AM CDT [facility] Cholesterol/HDL Ratio 2.7 11/21/2021 11:41 AM CDT [facility] Hours Fasting 12 11/21/2021 11:41 AM CDT [facility] Blood Venipuncture / Unknown 11/21/2021 8:16 AM CDT 11/21/2021 8:16 AM CDT Monet Vallejo MD LAB_1 Performing Organization Address [facility] Co de Phone Number [facility] [place] [facility] [address] [address] [phone] [facility] [address] [place] [address], [facility] [phone] * Hepatitis C Antibody, with Reflex (11/21/2021 8:16 AM CDT) Hepatitis C Antibody Negative (Non Reactive) Negative (Non Reactive) 11/21/2021 12:06 PM CDT [facility] [place] [facility] Comment:Antibodies to HCV no t detected. Does not exclude the possiblity of exposure to HCV. Blood Venipuncture / Unknown 11/21/2021 8:16 AM CDT 11/21/2021 8:16 AM CDT Monet Vallejo MD LAB_1 Performing Organization Address [facility] Co de Phone Number [facility] [place] [facility] White [facility] [address] [address] [phone] * COLONOSCOPY (12/24/2006 12:00 AM CDT) Narrative 12/24/2006 12:00 AM CDT Ordered by an unspecified provider. Transcriptions Rigoberto Barriga - 12/24/2006 12:00 AM CDT Physician Unknown DUMMY/OTHER/AR from Last 3 Months or Most Recently Relevant to Health Maintenance Advance Directives Documents on File Type Date Recorded Patient Filing Machine Operator Expl anation Advance Directive/Living Will/Durable Power of Attny on file/POLST PN Care Teams Boathouse Keeper Relationship Specialty [place] [address] [place] [address] PCP - General Family Practice 10/12/21
--- OUTSIDE RECORDS SUMMARY | 2024-04-26 19:00 | XMS_ITS | Encounter Summary ---
[facility] Address [address] [place] [address] Care Team Providers Care Burlap Roll Coverer Name Role Phone Monet Vallejo MD Primary Care Provider [phone] Encounter Details Date Type Department Care Team (Latest Contact Info) Description 11/23/1997 Orders Only Peter Jo MD [address] [place] [address] Social History Tobacco Use Types Packs/Day Years [...] documented as of this encounter Care Teams Burlap Roll Coverer Relationship Specialty Start [place] [address] [place] [address] PCP - General Family Practice 10/12/21 documented as of this encounter
--- OUTSIDE RECORDS SUMMARY | 2024-04-26 19:00 | XMS_ITS | Encounter Summary ---
Author Organization [facility] Address [address] [place] [address] Care Team Providers Care Design Technician Name Role Phone Monet Vallejo MD Primary Care Provider [phone] Encounter Details Date Type Department Care Team (Latest Contact Info) Description 02/09/1998 Orders Only Peter Jo MD [address] [place] [address] Social History Tobacco Use Types Packs/Day Years [...] documented as of this encounter Care Teams Design Technician Relationship Specialty [place] [address] [place] [address] PCP - General Family Practice 10/12/21 documented as of this encounter
--- OUTSIDE RECORDS SUMMARY | 2024-04-26 19:00 | XMS_ITS | Encounter Summary ---
Author Organization [facility] Address [address] [place] [address] Care Team Providers Care Velocity Shooter Name Role Phone Monet Vallejo MD Primary Care Provider [phone] Encounter Details Date Type Department Care Team (Latest Contact Info) Description 02/23/1998 Orders Only Calvin [place] [address] Social History Tobacco Use Types Packs/Day Years [...] documented as of this encounter Care Teams Velocity Shooter Relationship Specialty [place] [address] [place] [address] PCP - General Family Practice 10/12/21 documented as of this encounter
--- OUTSIDE RECORDS SUMMARY | 2024-04-26 19:00 | XMS_ITS | Encounter Summary ---
Author Organization [facility] Address [address] [place] [address] Care Team Providers Care Outside Machinist Supervisor Name Role Phone Monet Vallejo MD Primary Care Provider [phone] Encounter Details Date Type Department Care Team [...] as of this encounter Care Teams Outside Machinist Supervisor Relationship Specialty [place] [address] [place] [address] PCP - General Family Practice 10/12/21 documented as of this encounter
--- OUTSIDE RECORDS SUMMARY | 2024-04-26 19:00 | XMS_ITS | Encounter Summary ---
Author Organization [facility] Address [address], [place] [address] Care Team Providers Care Air Shovel Operator Name Role Phone Monet Vallejo MD Primary Care Provider [phone] Encounter Details Date Type Department Care Team [...] documented as of this encounter Care Teams Air Shovel Operator Relationship Specialty [place] [address] [place] [address] PCP - General Family Practice 10/12/21 documented as of this encounter
--- OUTSIDE RECORDS SUMMARY | 2024-04-26 19:00 | XMS_ITS | Encounter Summary ---
Author Organization [facility] Address [address] [place] [address] Care Team Providers Care Sectional Belt Mold Assembler Name Role Phone Monet Vallejo MD Primary Care Provider [phone] Reason for Visit * Reason Comments Refill metoprolol tartrate (LOPRESSOR) 25 MG tablet [Pharmacy Med Name: METOPROLOL TARTRATE 25 MG Tablet] Encounter Details Date Type Department Care Team (Late st Contact Info) Description 01/19/2024 Refill [facility] [address] [place], [place] [phone] Monet Vallejo MD [address] [place] [id number] Refill (metoprolol tartrate (LOPRESSOR) 25 MG tablet [...] CDT Further Assistance Needed on Refill from Valving Machine Operator Patient is due for Qualifying Visit Medication [...] visit: None [facility] [employer] Embedded Refills, Reference: [id number], 01/19/2024 1:36:32 AM CDT, Chilo: IN[facility] [place] [facility] Services - Primary Care [[id number]] ([id number]) documented in this encounter Plan of Treatment Not on file documented as of this encounter Visit Diagnoses Diagnosis Hypertension, unspecified type (HRC) documented in this encounter Care Teams Sectional Belt Mold Assembler Relationship Specialty [place] [address] [place] [address] PCP - General Family Practice 10/12/21 documented as of this encounter
--- OUTSIDE RECORDS SUMMARY | 2024-04-26 19:00 | XMS_ITS | Encounter Summary ---
Author Organization [facility] Address [address] [place] [address] Care Team Providers Care Furnace Erector Name Role Phone Monet Vallejo MD Primary Care Provider Encounter Details Date Type Department Care Team (Latest Contact Info) Description 07/15/1996 Orders Only Peter Jo MD [address] [place] [address] Social History Tobacco Use Types Packs/Day Years [...] documented as of this encounter Care Teams Furnace Erector Relationship Specialty [place] [address] [place] [address] PCP - General Family Practice 10/12/21 documented as of this encounter
--- OUTSIDE RECORDS SUMMARY | 2024-04-26 19:00 | XMS_ITS | Encounter Summary ---
Author Organization [facility] Address [address] [place] [address] Care Team Providers Care Mortgage Loan Officer Name Role Phone Monet Vallejo MD Primary Care Provider [phone] Reason for Visit * Reason Comments Refill lisinopril (ZESTRIL) 5 MG tablet [Pharmacy Med Name: Lisinopril Oral Tablet 5 MG] Encounter Details Date Type Department Care Team (Late st Contact Info) Description 03/14/2024 Refill [facility] Medicine [address] [place], [place] [phone] [place] [address] [place], [place] [phone] Refill (lisinopril (ZESTRIL) 5 MG tablet [Pharmacy [...] quick action to address request. * Valery Saurez - 03/24/2024 11:57 AM CDT Medication Refill [...] CDT Further Assistance Needed on Refill from Retail And Restaurant Patient is due for Qualifying Visit and [...] on 03/08/2023 K: 4.8 mEq/L on 03/08/2023 [facility] Embedded Refills, Reference: [id number], 03/14/2024 8:46:57 AM ANDREINATRaymundo [facility] - Primary Care [[id number]] ([id number]) documented in this encounter Plan of Treatment Not on file documented as of this encounter Visit Diagnoses Diagnosis Depressive disorder Depressive disorder, not elsewhere classified Hypertension, unspecified type (HRC) documented in this encounter Care Teams Mortgage Loan Officer Relationship Specialty [place] [address] [place] [address] PCP - General Family Practice 10/12/21 documented as of this encounter
--- OUTSIDE RECORDS SUMMARY | 2024-04-26 19:00 | XMS_ITS | Encounter Summary ---
Author Organization [facility] Address [address] [place] [address] Care Team Providers Care Press Assistant Name Role Phone Monet Vallejo MD Primary Care Provider [phone] Encounter Details Date Type Department Care Team [...] documented as of this encounter Care Teams Press Assistant Relationship Specialty [place] [address] [place] [address] PCP - General Family Practice 10/12/21 documented as of this encounter
--- OUTSIDE RECORDS SUMMARY | 2024-04-26 19:00 | XMS_ITS | Encounter Summary ---
Author Organization [facility] Address [address] [place] [address] Care Team Providers Care Concrete Pipe Maker Name Role Phone Monet Vallejo MD Primary Care Provider [phone] Encounter Details Date Type Department Care Team (Latest Contact Info) Description 08/02/1994 Orders Only Yinka Ricardo MD [address] [address] Social History Tobacco Use Types Packs/Day Years [...] documented as of this encounter Care Teams Concrete Pipe Maker Relationship Specialty [place] [address] [place] [address] PCP - General Family Practice 10/12/21 documented as of this encounter
--- OUTSIDE RECORDS SUMMARY | 2024-04-26 19:00 | XMS_ITS | Encounter Summary ---
Author Organization Replaced by [facility] Address [address], [place] [address] Care Team Providers Care Textile Clothing And Footwear Mechanic Name Role Phone Monet Vallejo MD Primary Care Provider [phone] Encounter Details Date Type Department Care Team [...] documented as of this encounter Care Teams Textile Clothing And Footwear Mechanic Relationship Specialty [place] [address] [place] [address] PCP - General Family Practice 10/12/21 documented as of this encounter
--- OUTSIDE RECORDS SUMMARY | 2024-04-26 19:00 | XMS_ITS | Encounter Summary ---
Author Organization [facility] Address [address] [place] [address] Care Team Providers Care Cut Out Operator Name Role Phone Monet Vallejo MD Primary Care Provider [phone] Encounter Details Date Type Department Care Team [...] documented as of this encounter Care Teams Cut Out Operator Relationship Specialty [place] [address] [place] [address] PCP - General Family Practice 10/12/21 documented as of this encounter
--- OUTSIDE RECORDS SUMMARY | 2024-04-26 19:00 | XMS_ITS | Encounter Summary ---
Author Organization [facility] Address [address] [place] [address] Care Team Providers Care Car Wash Manager Name Role Phone Monet Vallejo MD Primary Care Provider [phone] Encounter Details Date Type Department Care Team (Latest Contact Info) Description 07/13/1994 Orders Only Yinka Ricardo MD [address] [address] Social History Tobacco Use Types Packs/Day Years [...] documented as of this encounter Care Teams Car Wash Manager Relationship Specialty [place] [address] [place] [address] PCP - General Family Practice 10/12/21 documented as of this encounter
--- OUTSIDE RECORDS SUMMARY | 2024-04-26 19:00 | XMS_ITS | Encounter Summary ---
Author Organization [facility] Address [address] [place] [address] Care Team Providers Care Supervisor Gluing Name Role Phone Monet Vallejo MD Primary Care Provider [phone] Encounter Details Date Type Department Care Team (Latest Contact Info) Description 07/13/1997 Orders Only Peter Jo MD [address] [place] [address] Social History Tobacco Use Types Packs/Day Years [...] documented as of this encounter Care Teams Supervisor Gluing Relationship Specialty [place] [address] [place] [address] PCP - General Family Practice 10/12/21 documented as of this encounter
--- OUTSIDE RECORDS SUMMARY | 2024-04-26 19:00 | XMS_ITS | Encounter Summary ---
Author Organization [facility] Address [address] [place] [address] Care Team Providers Care Loan Documents Closer Name Role Phone Monet Vallejo MD Primary Care Provider [phone] Encounter Details Date Type Department Care Team [...] documented as of this encounter Care Teams Loan Documents Closer Relationship Specialty [place] [address] [place] [address] PCP - General Family Practice 10/12/21 documented as of this encounter
--- OUTSIDE RECORDS SUMMARY | 2024-04-26 19:00 | XMS_ITS | Encounter Summary ---
Author Organization [facility] Address [address] [place] [address] Care Team Providers Care City Assessor Name Role Phone Monet Vallejo MD Primary Care Provider [phone] Encounter Details Date Type Department Care Team (Latest Contact Info) Description 01/13/1995 Orders Only Peter Jo MD [address] [place] [address] Social History Tobacco Use Types Packs/Day Years [...] documented as of this encounter Care Teams City Assessor Relationship Specialty [place] [address] [place] [address] PCP - General Family Practice 10/12/21 documented as of this encounter
--- OUTSIDE RECORDS SUMMARY | 2024-04-26 19:00 | XMS_ITS | Encounter Summary ---
Author Organization [facility] Address [address] [place] [address] Care Team Providers Care Oracle Pl Sql Developer Name Role Phone Monet Vallejo MD Primary Care Provider [phone] Encounter Details Date Type Department Care Team (Latest Contact Info) Description 03/26/1995 Orders Only Breann Boyle, DO [address] [place] [address] Social History Tobacco Use Types Packs/Day Years [...] documented as of this encounter Care Teams Oracle Pl Sql Developer Relationship Specialty [place] [address] [place] [address] PCP - General Family Practice 10/12/21 documented as of this encounter
--- OUTSIDE RECORDS SUMMARY | 2024-04-26 19:00 | XMS_ITS | Encounter Summary ---
Author Organization [facility] Address [address], [place] [address] Care Team Providers Care Manager Retail Sales Name Role Phone Monet Vallejo MD Primary Care Provider [phone] Encounter Details Date Type Department Care Team (Latest Contact Info) Description 11/06/1996 Orders Only Maddie Lovelace APRN, FOREST SCIENTIST Social History Tobacco Use Types Packs/Day Years [...] as of this encounter Care Teams Manager Retail Sales Relationship Specialty [place] [address] [place] [address] PCP - General Family Practice 10/12/21 documented as of this encounter
--- OUTSIDE RECORDS SUMMARY | 2024-04-26 19:00 | XMS_ITS | Encounter Summary ---
Author Organization [facility] Address [address] [place] [address] Care Team Providers Care Help Desk Specialist Name Role Phone Monet Vallejo MD Primary Care Provider [phone] Encounter Details Date Type Department Care Team [...] documented as of this encounter Care Teams Help Desk Specialist Relationship Specialty [place] [address] [place] [address] PCP - General Family Practice 10/12/21 documented as of this encounter
--- OUTSIDE RECORDS SUMMARY | 2024-04-26 19:00 | XMS_ITS | Encounter Summary ---
Author Organization [facility] Address [address] [place] [address] Care Team Providers Care Flight Software Test Engineer Name Role Phone Monet Vallejo MD Primary Care Provider [phone] Encounter Details Date Type Department Care Team (Late st Contact Info) Description 01/11/1997 Orders Only [facility] Dave German MD [address] [place] [address] Social History Tobacco Use Types Packs/Day Years [...] as of this encounter Care Teams Flight Software Test Engineer Relationship Specialty [place] [address] [place] [address] PCP - General Family Practice 10/12/21 documented as of this encounter
--- OUTSIDE RECORDS SUMMARY | 2024-04-26 19:00 | XMS_ITS | Encounter Summary ---
Author Organization [facility] Address [address] [place] [address] Care Team Providers Care Quebracho Tanner Name Role Phone Monet Vallejo MD Primary Care Provider [phone] Encounter Details Date Type Department Care Team (Latest Contact Info) Description 07/03/1995 Orders Only Peter Jo MD [address] [place] [address] Social History Tobacco Use Types Packs/Day Years [...] documented as of this encounter Care Teams Quebracho Tanner Relationship Specialty [place] [address] [place] [address] PCP - General Family Practice 10/12/21 documented as of this encounter
--- OUTSIDE RECORDS SUMMARY | 2024-04-26 19:00 | XMS_ITS | Encounter Summary ---
Author Organization [facility] Address [address] [place] [address] Care Team Providers Care Water Quality Control Engineer Name Role Phone Monet Vallejo MD Primary Care Provider [phone] Encounter Details Date Type Department Care Team [...] documented as of this encounter Care Teams Water Quality Control Engineer Relationship Specialty [place] [address] [place] [address] PCP - General Family Practice 10/12/21 documented as of this encounter
--- OUTSIDE RECORDS SUMMARY | 2024-04-26 19:00 | XMS_ITS | Encounter Summary ---
Author Organization [facility] Address [address] [place] [address] Care Team Providers Care Tso Name Role Phone Monet Vallejo MD Primary Care Provider [phone] Encounter Details Date Type Department Care Team [...] documented as of this encounter Care Teams Tso Relationship Specialty [place] [address] [place] [address] PCP - General Family Practice 10/12/21 documented as of this encounter
--- OUTSIDE RECORDS SUMMARY | 2024-04-26 19:00 | XMS_ITS | Encounter Summary ---
Author Organization [facility] Address [address] [place] [address] Care Team Providers Care Major Assembly Inspector Name Role Phone Monet Vallejo MD Primary Care Provider [phone] Reason for Visit * Reason Comments Refill buPROPion (WELLBUTRI N XL) 150 MG 24 hour release tablet [Pharmacy Med Name: BUPROPION HYDROCHLORIDE ER (XL) 150 MG Tablet Extended Release 24 Hour] Encounter Details Date Type Department Care Team (Late st Contact Info) Description 12/18/2023 Refill [facility] [place] [facility] Medicine [address] [place], [place] [phone] [place] [address] [place], [place] [phone] Refill (buPROPion (WELLBUTRIN XL) 150 MG 24 [...] CDT Further Assistance Needed on Refill from Brand Manager Patient is due for Qualifying Visit Medication is still pending. Patient is due for an Office/Video Visit in the next 30 days. Call Patient and document using .JUAN. After attempting to schedule patient: If appointment is scheduled within 60 days: Please route to: Primary Care: Refill grocery caddy Specialty Care: Refill grocery caddy If unable to schedule appointment: Please route [...] Age: 78 [employer] Embedded Refills, Reference: [id number], 12/18/2023 11:15:11 AM CDT, Pool: [facility] Refill Centralized Services - Primary Care [[id number]] ([id number]) documented in this encounter Plan of Treatment Not on file documented as of this encounter Visit Diagnoses Diagnosis Depressive disorder Depressive disorder, not elsewhere classified documented in this encounter Care Teams Major Assembly Inspector Relationship Specialty [place] [address] [place] [address] PCP - General Family Practice 10/12/21 documented as of this encounter
--- OUTSIDE RECORDS SUMMARY | 2024-04-26 19:00 | XMS_ITS | Encounter Summary ---
Author Organization [facility] Address [address] [place] [address] Care Team Providers Care Drug Abuse Resistance Education Officer Name Role Phone Mnoet Vallejo MD Primary Care Provider [phone] Encounter Details Date Type Department Care Team (Latest Contact Info) Description 10/04/1994 Orders Only Yinka Ricardo MD [address] [address] Social History Tobacco Use Types Packs/Day Years [...] documented as of this encounter Care Teams Drug Abuse Resistance Education Officer Relationship Specialty [place] [address] [place] [address] PCP - General Family Practice 10/12/21 documented as of this encounter
--- OUTSIDE RECORDS SUMMARY | 2024-04-26 19:00 | XMS_ITS | Encounter Summary ---
Author Organization [facility] Address [address] [place] [address] Care Team Providers Care Fitter'S Assistant Name Role Phone Monet Vallejo MD Primary Care Provider [phone] Encounter Details Date Type Department Care Team (Latest Contact Info) Description 11/19/1997 Orders Only Peter Jo MD [address] [place] [address] Social History Tobacco Use Types Packs/Day Years [...] documented as of this encounter Care Teams Fitter'S Assistant Relationship Specialty [place] [address] [place] [address] PCP - General Family Practice 10/12/21 documented as of this encounter
--- OUTSIDE RECORDS SUMMARY | 2024-04-26 19:00 | XMS_ITS | Encounter Summary ---
Author Organization [facility] Address [address] [place] [address] Care Team Providers Care Sash Assembler Name Role Phone Monet Vallejo MD Primary Care Provider [phone] Encounter Details Date Type Department Care Team [...] documented as of this encounter Care Teams Sash Assembler Relationship Specialty [place] [address] [place] [address] PCP - General Family Practice 10/12/21 documented as of this encounter
--- OUTSIDE RECORDS SUMMARY | 2024-04-26 19:00 | XMS_ITS | Encounter Summary ---
Author Organization [facility] Address [address] [place] [address] Care Team Providers Care College Or University Department Head Name Role Phone Monet Vallejo MD Primary Care Provider [phone] Encounter Details Date Type Department Care Team [...] documented as of this encounter Care Teams College Or University Department Head Relationship Specialty [place] [address] [place] [address] PCP - General Family Practice 10/12/21 documented as of this encounter
--- OUTSIDE RECORDS SUMMARY | 2024-04-26 19:00 | XMS_ITS | Encounter Summary ---
Author Organization [facility] Address [address] [place] [address] Care Team Providers Care Crew Team Member Name Role Phone Monet Vallejo MD Primary Care Provider [phone] Encounter Details Date Type Department Care Team [...] documented as of this encounter Care Teams Crew Team Member Relationship Specialty [place] [address] [place] [address] PCP - General Family Practice 10/12/21 documented as of this encounter
--- OUTSIDE RECORDS SUMMARY | 2024-04-26 19:00 | XMS_ITS | Encounter Summary ---
Author Organization [facility] Address [address] [place] [address] Care Team Providers Care Guidance Adviser Name Role Phone Monet Vallejo MD Primary Care Provider [phone] Encounter Details Date Type Department Care Team [...] documented as of this encounter Care Teams Guidance Adviser Relationship Specialty [place] [address] [place] [address] PCP - General Family Practice 10/12/21 documented as of this encounter
--- OUTSIDE RECORDS SUMMARY | 2024-04-26 19:00 | XMS_ITS | Encounter Summary ---
Author Organization [facility] Address [address] [place] [address] Care Team Providers Care Adobe Layer Helper Name Role Phone Monet Vallejo MD Primary Care Provider Encounter Details Date Type Department Care Team (Latest Contact Info) Description 10/10/1994 Orders Only Peter Jo MD [address] [place] [address] Social History Tobacco Use Types Packs/Day Years [...] documented as of this encounter Care Teams Adobe Layer Helper Relationship Specialty [place] [address] [employer] [place] [address] PCP - General Family Practice 10/12/21 documented as of this encounter
--- OUTSIDE RECORDS SUMMARY | 2024-04-26 19:00 | XMS_ITS | Encounter Summary ---
Author Organization [facility] Address [address] [place] [address] Care Team Providers Care Garment Manufacturer Name Role Phone Monet Vallejo MD Primary Care Provider [phone] Encounter Details Date Type Department Care Team (Latest Contact Info) Description 06/04/1995 Orders Only Breann Boyle, DO [address] [place] [address] Social History Tobacco Use Types Packs/Day Years [...] documented as of this encounter Care Teams Garment Manufacturer Relationship Specialty [place] [address] [place] [address] PCP - General Family Practice 10/12/21 documented as of this encounter
--- OUTSIDE RECORDS SUMMARY | 2024-04-26 19:00 | XMS_ITS | Encounter Summary ---
Author Organization [facility] Address [address] [place] [address] Care Team Providers Care Custom Van Converter Name Role Phone Monet Vallejo MD Primary Care Provider [phone] Encounter Details Date Type Department Care Team (Latest Contact Info) Description 07/24/1994 Orders Only Breann Boyle, DO [address] [place] [address] Social History Tobacco Use Types Packs/Day Years [...] documented as of this encounter Care Teams Custom Van Converter Relationship Specialty [place] [address] [place] [address] PCP - General Family Practice 10/12/21 documented as of this encounter
--- OUTSIDE RECORDS SUMMARY | 2024-04-26 19:01 | XMS_ITS | Encounter Summary ---
Author Organization [facility] Address [address] [place] [address] Care Team Providers Care Middle School Spanish Teacher Name Role Phone System, Provider Not In Unavailable Unavaila Timothy Driscoll MD Primary Care Provider [phone] KishanManoj champagne MD Unavailable [phone] Yanelis Gavlez Unavailable Unavailable Elizabeth Rausch MD Primary Care Provider [phone] Reason for Visit * Reason Comments Abdominal Pain Encounter Details Date Type Department Care Team (Late st Contact Info) Description 03/04/2024 11:19 PM CDT - 03/05/2024 2:44 AM T Emergency [facility] Emergency Dept [address] [place] [address] [phone] Timothy Pink MD [facility] [address] [place] [address] Right sided abdominal pain Discharge Disposition: Home [...] sent through Care Everywhere. * Abdominal Pain (Tuvaluan) * Hiatal Hernia (Tuvaluan) documented in this encounter Medications at Time [...] Bilirubin Urine Negative Ketones Urine Negative Specific [place] Urine 1.004 Blood Urine Negative pH Urine [...] Documentation None Medical Decision Making / Diagnosis [facility] Diagnoses: and None MIPS None [facility] Jeannine Zuleta is a 78 year [...] EXAM: CT ABDOMEN PELVIS W CONTRAST LOCATION: [facility] DATE: 03/05/2024 INDICATION: Right flank [...] EXAM: CT ABDOMEN PELVIS W CONTRAST LOCATION: [facility] DATE: 03/05/2024 INDICATION: Right flank [...] dilatation or obstructing calculi. Timothy Pink MD [facility] [place] ORDER[place] S * (ABNORMAL) UA with [...] mg/dL 03/05/2024 12:51 AM CDT LABORATORY Specific [place] Urine 1.004 1.003 - 1.035 03/05/2024 12:51 [...] Pink MD LAB - URINE ORDE GRAEME [facility] Organization Address City/State/ZIP Co de Phone Number LABORATORY [facility] Acute Care Lab [address] Lab (1st floor, no room number) [place] [address], [facility] * Extra Red Top Tube (03/04/2024 11:58 PM CDT) Hold Specimen [facility] 03/05/2024 1:31 AM CDT LABORATORY Blood BLOOD SPECIMEN / Unknown Venipuncture / Unknown 03/04/2024 11:58 PM CDT 03/05/2024 12:17 AM CDT Timothy Pink MD LAB - BLOOD ORDRuben BEDOLLA LABORATORY [facility] Acute Care Lab [address] Lab (1st floor, no room number) [place] [phone] [place] [address] * Extra Blue Top Tube (03/04/2024 11:58 PM CDT) Hold Specimen JIC 03/05/2024 1:31 AM CDT RH LABORATORY Blood BLOOD SPECIMEN / Unknown Venipuncture / Unknown 03/04/2024 11:58 PM CDT 03/05/2024 12:17 AM CDT Timothy Pink MD LAB - BLOOD KAMARI BEDOLLA Performing Organization Address City/[facility]/ZIP Co de Phone Number LABORATORY [facility] Care Lab [address] Lab (1st floor, no room number) [address] * CBC with platelets and differential [...] Pink MD LAB - BLOOD ORDE GRAEME [facility] Organization Address City/State/ZIP Co de Phone Number LABORATORY [facility] Acute Care Lab [address] [facility] Lab (1st floor, no room number) [place] [address], [facility] * Lipase (03/04/2024 11:58 PM CDT) [facility] Lipase 51 13 - 60 U/L 03/05/2024 12:37 AM CDT LABORATORY Blood BLOOD SPECIMEN / Unknown Venipuncture / Unknown 03/04/2024 11:58 PM CDT 03/05/2024 12:17 AM CDT Timothy Pink MD LAB - BLOOD KAMARI BEDOLLA [facility] Organization Address City/State/ZIP Co de Phone Number LABORATORY [facility] Acute Care Lab [address] Lab (1st floor, no room number) [place] [address] * (ABNORMAL) Comprehensive metabolic panel [...] Timothy Pink MD LAB - BLOOD KAMARI BEDOLAL [facility] Organization Address City/State/ZIP Co de Phone Number LABORATORY [facility] Acute Care Lab [address] Lab (1st floor, no room number) [place] [address], [facility] documented in this encounter Visit Diagnoses [...] Total Score: 1 05/18/20 21 7:29 AM CHECK OUT CASHIER documented as of this encounter Care Teams Middle School Spanish Teacher Relationship Specialty [place] [address] [place] [address] PCP - General Family Practice 01/11/18 03/04/24 Elizabeth Rausch MD [facility] [address], [place] [address] PCP - General Family Medicine 03/05/24 System, Provider Not In Clinic 02/03/15 Manoj Holley MD [address] [facility] EMERGENCY [facility]PART[facility] [address] [place] [address] Hematology & Oncology 04/28/19 Yanelis Galvez Personal Advocate & Liaison (PAL) 12/14/20 documented as of this encounter
--- OUTSIDE RECORDS SUMMARY | 2024-04-26 19:01 | XMS_ITS | Clinical Summary ---
Author Organization [place] Address [address] [place] [address] Care Team Providers Care Safety Glass Installer Name Role Phone System, Provider Not In Unavailable Unavaila Manoj Garcia MD Unavailable [phone] Yanelis Galvez Unavailable Unavailable Elizabeth Rausch MD Primary Care Provider [phone] Allergies Active Allergy Reactions Criticality Noted Date [...] about her diagnosis of CKD. In the [facility] doctors told her she had [...] 11/22/20 NIL, +HR HPV, not 16/18. Plan [place] bef 02/22/21 12/01/20 Left msg TCB 12/09/20 Left 2nd msg TCB and Result letter sent out 01/21/21 Certified ltr sent. Tracking # [id number] 02/24/21 Your item has been delivered to the original sender at 9:57 am on February 16, 2021 [place] [address]. 02/28/21 [place] not done. Tracking updated for 6 mo colp/pap due 05/25/21. 04/05/21 Colposcopy completed? Will watch for records (this line entered after reminder letter sent) 04/08/21 [place]- Normal. Plan 1 yr repeat pap (outside records from [facility]) 05/10/21 Reminder letter - sent before [place] records received above. 12/12/2021 ECC - negative. 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 Jaky Alvarado RN-BSN, CPHN [phone] DX V65.8 REPLACED WITH [id number] [facility] (10/14/2012) Advanced directives, counseling/discussion 10/05/2011 12/24/2023 Overview: Discussed advance care planning with patient; however, patient declined at this time. 10/05/2011 Major depressive disorder, s karen episode, moderate 07/07/2010 04/26/2012 CARDIOVASCULAR SCREENING; LD L GOAL LESS THAN 160 05/08/2010 01/12/2018 Encounters Date Type Department Care Team Description 03/04/2024 11:19 PM CDT - 03/05/2024 2:44 AM CDT Emergency [facility] Emergency Dept [address] [place] [address] Timothy Pink MD Right sided abdominal pain [...] EXAM: CT ABDOMEN PELVIS W CONTRAST LOCATION: [facility] DATE: 03/05/2024 INDICATION: Right flank [...] EXAM: CT ABDOMEN PELVIS W CONTRAST LOCATION: [facility] DATE: 03/05/2024 INDICATION: Right flank [...] mg/dL 03/05/2024 12:51 AM CDT LABORATORY Specific [place] Urine 1.004 1.003 - 1.035 03/05/2024 12:51 [...] Pink MD LAB - URINE KAMARI BEDOLLA [facility] [address] Lab (1st floor, no room number) [place] [id number] [place] [address] * Extra Red Top Tube (03/04/2024 11:58 PM CDT) Hold Specimen [facility] 03/05/2024 1:31 AM CDT LABORATORY Blood BLOOD SPECIMEN / Unknown Venipuncture / Unknown 03/04/2024 11:58 PM CDT 03/05/2024 12:17 AM CDT Timothy Pink MD LAB - BLOOD KAMARI BEDOLLA Performing Organization Address City/[facility]/ZIP Co de Phone Number [facility] [address] Lab (1st floor, no room number) [place] [address], [place] * Extra Blue Top Tube (03/04/2024 11:58 PM CDT) Hold Specimen [facility] 03/05/2024 1:31 AM CDT LABORATORY Blood BLOOD SPECIMEN / Unknown Venipuncture / Unknown 03/04/2024 11:58 PM CDT 03/05/2024 12:17 AM CDT Timothy Pink MD LAB - BLOOD KAMARI BEDOLLA [facility] [address] Lab (1st floor, no room number) [place] [address], [facility] * CBC with platelets and differential (03/04/2024 11:58 PM CDT) [facility] WBC Count 8.5 4.0 - 11.0 10e3/uL [...] Pink MD LAB - BLOOD ORDRuben BEDOLLA [facility] [address] Lab (1st floor, no room number) [address] * Lipase (03/04/2024 11:58 PM CDT) Lipase 51 13 - 60 U/L 03/05/2024 12:37 AM CDT LABORATORY Blood BLOOD SPECIMEN / Unknown Venipuncture / Unknown 03/04/2024 11:58 PM CDT 03/05/2024 12:17 AM CDT Timothy Pink MD LAB - BLOOD ORDRuben BEDOLLA [facility] [address] Lab (1st floor, no room number) [address] * (ABNORMAL) Comprehensive metabolic panel (03/04/2024 [...] Pink MD LAB - BLOOD KAMARI BEDOLLA [facility] Organization Address City/State/ZIP Co de Phone Number LABORATORY [facility] [address] [facility] (1st floor, no room number) [place] [address] * (ABNORMAL) HPV High Risk Types DNA Cervical (11/22/2020 11:50 AM CDT) HPV Source [facility] 11/22/2020 11:43 AM CDT [facility] HPV 16 DNA Negative NEG^Nega tive 11/29/2020 4:[address] [facility] HPV 18 DNA Negative NEG^Nega tive 11/29/2020 4:[address] [facility] Other HR HPV Positive(A) NEG^Nega tive 11/29/2020 4:[address] [facility] Final Diagnosis This patient's sample is positive for other HR HPV DNA (types 31, 33, 35, 39, 45, 51, 52, 56, 58, 59, 66 or 68), not HPV 16 or HPV 18 DNA. This result requires clinical correlation with concurrent cytology findings. 11/29/2020 4:[address] [facility] Comment: This test was developed and its performance characteristics determined by the [facility], Molecular Diagnostics Laboratory. It has not been [...] Description Cervical Cells 11/22/2020 11:43 AM CDT [facility] Cervical Cells 11/22/2020 11 :50 AM CDT 11/22/2020 12:01 PM CDT Lesa Barbosa MD LAB - BLOO D ORDERABLES [facility] [address] [place] [address] [address] * Pap imaged thin layer screen with HPV - recommended age 30 - 65 years (select HPV order below) (11/22/2020 11:43 AM CDT) PAP NIL MARIANN Riley Report Patient Name: JEANNINE HERNANDEZ MR#: [id number] Specimen #: [id number] Collected: 11/22/2020 Received: 11/23/2020 Reported: 11/26/2020 10:55 [...] by: DIDIER Fernandez ??(ASCP) CLINICAL HISTORY: LMP: [id number] Post Menopausal, A previous normal pap Date of Last Pap: 05/29/2019, Papanicolaou Test Limitations: ??Cervical cytology is a screening test with limited sensitivity; regular screening is critical for cancer prevention; Pap tests are primarily effective for the diagnosis/preventi on of squamous cell carcinoma, not adenocarcinomas or other cancers. COLLECTION SITE: Client: ??[facility] Location: [facility] (R) The [facility] component of this testing [facility], with the professional component performed at the [facility], [address] [place] [phone] ([phone]) COPATH Cytology 11/22/2020 11:4 3 AM CDT 11/23/2020 9:48 AM CDT Lesa Barbosa MD LAB - OPTI ME CLINICAL SPECIMEN COPATH * *MA Screening Digital Bilateral (04/16/2020 1:44 PM CDT) Anatomical Region Laterality Modality Breast Bilateral Mammography Impressions 04/19/2020 11:19 AM CDT IMPRESSION: BI-RADS CATEGORY: 1 - ??NEGATIVE. RECOMMENDED FOLLOW-UP: Annual Mammography. The patient will be notified of the results. CARLOS NOLNE MD Narrative 04/19/2020 11:19 AM CDT Examination: [...] Negative NEG^Negati ve 11/10/2018 10:[address] [facility] Stool specimen (specimen) 11/05/2018 1:05 PM CDT 11/10/2018 7:34 AM CDT Timothy Knott MD LAB - STOOLS ORDERAB LES [facility] [address] [place] [address] * (ABNORMAL) Lipid panel reflex to direct LDL Non-fasting (01/11/2018 3:57 PM CDT) Pathologist [facility] Cholesterol 217(H) <200 mg/dL 01/12/2018 2:15 PM CDT [facility] Comment:Desirable: <200 mg/d l Triglycerides 162(H) <150 mg/dL 01/12/2018 2:22 PM CDT [facility] Comment: Borderline high: ??150-199 mg/dl High: ? 200-499 mg/dl Very high: ? >499 mg/dl Non Fasting HDL Cholesterol 58 >49 mg/dL 8 2:15 PM CDT [facility] LDL Cholesterol Calculated 127(H) <100 mg/dL 01/12/2018 2:22 PM CDT [facility] Comment: Above desirable: ??100-129 mg/dl Borderline High: ??130-159 mg/dL High: ? 160-189 mg/dL Very high: ? >189 mg/dl Non HDL Cholesterol 159(H) <130 mg/dL 01/12/2018 2:15 PM CDT [facility] Comment: Above Desirable: ??130-159 mg/dl Borderline high: ??160-189 mg/dl High: ? 190-219 mg/dl Very high: ? >219 mg/dl Blood specimen (specimen) 01/11/2018 3:57 PM CDT 01/11/2018 3:58 PM CDT Timothy Knott MD LAB - BLOOD ORDERABL ES Performing Organization Address City/[facility]/ZIP Co de Phone Number [facility] [address] [place] [address] * Hepatitis C antibody (01/11/2018 3:57 PM CDT) Hepatitis C Antibody Nonreactive NR^Nonre active 01/14/2018 9:[address] [facility] Comment: Assay performance characteristics have not been established for newborns, infants, and children Blood specimen (specimen) 01/11/2018 3:57 PM CDT 01/11/2018 3:58 PM CDT Timothy Knott MD LAB - BLOOD ORDERABL ES Performing Organization Address [facility] Co de Phone Number [facility] [address] [place] [address] * COLONOSCOPY (08/05/2009) Zohra WALLS-Manuel PROCEDURES from Last 3 Months or Most Recently Relevant to Health Maintenance Advance Directives For more information, please contact: [phone] Documents on File Type Date Recorded Patient [employer] Guidance Counselor Expl anation Advance Directives and Living Will [...] 1:49 AM 10/14/2011 12:53 PM Care Teams Safety Glass Installer Relationship Specialty Start Date End Date Elizabeth Rausch MD [facility] [address] [place] [address] PCP - General Family Medicine 03/05/24 System, Provider Not In Clinic 02/03/15 Manoj Holley MD [address] [facility] [address] [place] [address] Hematology & Oncology 04/28/19 Yanelis Galvez Personal Advocate & Liaison (PAL) 12/14/20
--- OUTSIDE RECORDS SUMMARY | 2024-04-26 19:01 | XMS_ITS | Encounter Summary ---
Author Organization [place] Address [facility] [place] [address] Care Team Providers Care Curriculum And Assessment Director Name Role Phone System, Provider Not In Unavailable Unavaila ble Timothy Knott MD Primary Care Provider [phone] Manoj Holley MD Unavailable [phone] Yanelis Galvez Unavailable Unavailable Encounter Details Date [...] Total Score: 1 05/18/20 21 7:29 AM LEGISLATIVE CORRESPONDENT documented as of this encounter Care Teams Curriculum And Assessment Director Relationship Specialty [place] [address] [place] [address] PCP - General Family Practice 01/11/18 03/04/24 System, Provider Not In Clinic 02/03/15 Manoj Holley MD [address] [facility] [address] [place] [address] Hematology & Oncology 04/28/19 Yanelis Galvez Personal Advocate & Liaison (PAL) 12/14/20 documented as of this encounter
--- OUTSIDE RECORDS SUMMARY | 2024-04-26 19:01 | XMS_ITS | Clinical Summary ---
Author Organization [facility] Address [place], [place] [address] Care Team Providers Care Medical Sales Associate Name Role Phone Susana Moses Lorenzo [facility] - Primary Care Provider Allergies Active Allergy [...] about her diagnosis of CKD. In the [facility] doctors told her she had [...] about her diagnosis of CKD. In the [facility] doctors told her she had [...] 65+ 03/09/2024 Medical Devices Implanted Type Area Chief I Dispatcher Device Identifier Shelf Expiration Date Model / Serial / Lot Baseplate Glenoid 25mm 35 Deg Perform+ Half Wedge - [id number] Implanted:Qty: 1 on 01/29/2023 by Geoffrey Lord MD at [facility] Left: Shoulder [employer] 12/14/2027 [id number] / [id number] / Glenoid 36mm Aequalis Perform+ Rev - [id number] Implanted:Qty: 1 on 01/29/2023 by Geoffrey Lord MD at [facility] Left: Shoulder [employer] 11/29/2027 [id number] / [id number] / Liner Hum Sz 36mm +6 Ascend Flex - [id number] Implanted:Qty: 1 on 01/29/2023 by Geoffrey Lord MD at [facility] Left: Shoulder [employer] 10/05/2027 [id number] / [id number] / Baseplate Hum Sz 0 Ascend Rev Flex Centered - [id number] Implanted:Qty: 1 on 01/29/2023 by Geoffrey Lord MD at [facility] Left: Shoulder [employer] 11/01/2027 [id number] / [id number] / Stem Hum Sz 5b Ascend Flex Std - [id number] Implanted:Qty: 1 on 01/29/2023 by Geoffrey Lord MD at [facility] Left: Shoulder [employer] 10/04/2027 [id number] / [id number] / Post Shoulder Glenoid 6.5x25mm Perform+ Rev - [id number] Implanted:Qty: 1 on 01/29/2023 by Geoffrey Lord MD at [facility] Left: Shoulder [employer] [id number] / / Screw Shoulder 14mm Perform+ Periph - [id number] Implanted:Qty: 2 on 01/29/2023 by Geoffrey Lord MD at [facility] Left: Shoulder [employer] [id number] / / Screw Shoulder 30mm Perform+ Periph - [id number] Implanted:Qty: 1 on 01/29/2023 by Geoffrey Lord MD at [facility] Left: Shoulder [employer] [id number] / / Screw Shoulder 26mm Perform+ Periph - [id number] Implanted:Qty: 1 on 01/29/2023 by Geoffrey Lord MD at [facility] Left: Shoulder [employer] [id number] / / Advance Directives * Full Code (Latest Code Status on File) Date Activated Date Inactivated Comments 01/30/2023 2:47 PM 01/30/2023 5:03 PM Question Answer Comments Code Status Discussion: Reviewed Preferences * Full Code Date Activated Date Inactivated Comments 01/29/2023 10:21 AM 01/30/2023 2:47 PM Question Answer Comments Code Status Discussion: Unable to Assess Preferences, Provider to review later Care Teams Medical Sales Associate Relationship Specialty Start Date End Date Susana Moses [facility] - [address] [place] [address] PCP - General 01/08/23
--- OUTSIDE RECORDS SUMMARY | 2024-04-26 19:01 | XMS_ITS | Encounter Summary ---
Author Organization [place] Address [facility] [place] [address] Care Team Providers Care Medical Advisor Name Role Phone Zohra Rosado PA-C Primary Care Provid er System, Provider Not In Unavailable Unavaila ble System, Provider Not In Primary Care Provider Un available No Ref-Primary, Physician Primary Care Provider Timothy Knott MD Primary Care Provider [phone] Timothy Knott MD Unavailable [phone] Timothy Knott MD Unavailable [phone] Manoj Holley MD Unavailable [phone] Tierney Valencia RN Unavailable [phone] Timothy Knott MD Unavailable [phone] Timothy Knott MD Unavailable [phone] Chantale Barboza RN Unavailable Unavailable Manoj Holley MD Unavailable [phone] Radha Trejo DPM, Podiatry /Foot and Ankle Surgery Unavailable Manoj Holley MD Unavailable [phone] Yanelis Galvez Unavailable Unavailable Alia Miller PA-C Unavailable [phone] Lori Barbosa MD Unavailable + Timothy Knott MD Unavailable [phone] Tierney Panchal APRN DIETITIAN TEACHING Unavailable [phone] Lori Barbosa MD Unavailable + Timothy Knott MD Unavailable [phone] Clinic - [facility] Unavail able Elizabeth Rausch MD Primary Care Provider [phone] Reason for Visit * Reason Onset Date Comments Refill Request 05/18/2011 citalopram Encounter Details Date Type Department Care Team (Late st Contact Info) Description 05/18/2011 Refill [facility] [address] [place] [address] Zohra Rosado PA-C [address] [address] Refill Request (citalopram) Social History [...] PHQ9 is not needed Max 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 documented in this encounter Plan of Treatment [...] documented as of this encounter Care Teams Medical Advisor Relationship Specialty Start Date End Date Zohra Rosado PA-C [address] [address] PCP - General Family Practice 11/22/09 02/05/15 System, Provider Not In PCP - General Clinic 05/30/17 11/14/17 No Ref-Primary, Physician PCP - General 11/15/17 01/10/18 [place] [address] [place] [address] PCP - General Family Practice 01/11/18 03/04/24 [place] [address] [place], [place] [id number] PCP - Assigned PCP 11/18/17 09/10/18 Elizabeth Rausch MD [facility] [address] [place] [address] PCP - General Family Medicine 03/05/24 System, Provider Not In Clinic 02/03/15 [place] [address] [place], [place] [id number] Assigned PCP 11/18/17 11/29/19 Manoj Holley MD [address] [facility] [address] [place], [place] [id number] Hematology & Oncology 04/28/19 Tierney Valencia RN Lead Wet Inspector Optical Glass 05/01/19 0 [place] [address] [place], [place] [id number] Assigned PCP 01/25/20 07/16/21 [place] [address] [place] [address] Assigned PCP 11/30/19 01/24/20 Chantale Barboza, ROD Personal Advocate & Liaison (PAL) Family Practice 04/05/20 12/02/20 Manoj Holley MD 420 [facility] [address] [place], [place] [address] Assigned Cancer Care Provider 04/30/20 10/30/20 Radha Trejo DPM, Podiatry/Foot and Ankle Surgery [address] [place] [address] Assigned Musculoskeletal Provider 04/30/20 11/13/20 Manoj Holley MD [address] [facility] [address] [place] [address] Assigned Cancer Care Provider 12/05/20 06/02/22 Yanelis Galvez Personal Advocate & Liaison (PAL) 12/14/20 Alia Miller [facility] [address] [place] [address] Assigned Surgical Provider 01/30/21 07/28/22 Lori Barbosa MD PRIMARY ENT [address] [facility] 13 [facility] [address] [place] [id number] Assigned PCP 07/17/21 05/26/22 [place] [address] [place], [place] [id number] Assigned PCP 05/27/22 06/16/22 Tierney Panchal APRN DIETITIAN TEACHING [address] [place] [id number] Assigned PCP 06/17/22 07/21/22 Lori Barbosa MD PRIMARY ENT [address] [facility] 13 [facility] [address] [place] [place] [id number] Assigned PCP 07/22/22 09/01/22 [place] [address] [place], [place] [id number] Assigned PCP 09/02/22 01/28/24 [facility] [id number] [place] [id number] Assigned PCP 01/29/24 02/28/24 documented as of this encounter
--- OUTSIDE RECORDS SUMMARY | 2024-04-26 19:01 | XMS_ITS | Referral Summary ---
Author Organization [facility] Address [address] [place] [address] Care Team Providers Care Criminal Defense Attorney Name Role Phone System, Provider Not In Unavailable Unavaila Manoj Garcia MD Unavailable [phone] Yanelis Galvez Unavailable Unavailable Elizabeth Rausch MD Primary Care Provider [phone] Encounters Date Type Department Care Team Description 03/04/2024 11:19 PM CDT - 03/05/2024 2:44 AM CDT Emergency [facility] Emergency Dept [address] [place] [phone] Timothy Pink MD Right sided abdominal pain [...] indicates no recent evaluation for secondary causes.. 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 Senokot, MiraLAX ineffective in the past. Lactulose effective but stopped a few years ago. Resume. [facility] database Hyponatremia 01/14/2020 Special screening for malignant [...] about her diagnosis of CKD. In the [facility] doctors told her she had no [...] 11/22/20 NIL, +HR HPV, not 16/18. Plan [place] bef 02/22/21 12/01/20 Left msg TCB 12/09/20 Left 2nd msg TCB and Result letter sent out 01/21/21 Certified ltr sent. Tracking # [id number] 02/24/21 Your item has been delivered to the original sender at 9:57 am on February 16, 2021 [place] [address]. 02/28/21 [place] not done. Tracking updated for 6 mo colp/pap due 05/25/21. 04/05/21 Colposcopy completed? Will watch for records (this line entered after reminder letter sent) 04/08/21 [place]- Normal. Plan 1 yr repeat pap (outside records from [facility]) 05/10/21 Reminder letter - sent before [place] records received above. 12/12/2021 ECC - negative. 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 Jaky Alvarado RN-BSN, [facility] [phone] DX V65.8 REPLACED WITH [id number] HEALTH LONGTERM (10/14/2012) Advanced directives, counseling/discussion 10/05/2011 12/24/2023 Overview: [...] EXAM: CT ABDOMEN PELVIS W CONTRAST LOCATION: [facility] DATE: 03/05/2024 INDICATION: Right flank pain. [...] EXAM: CT ABDOMEN PELVIS W CONTRAST LOCATION: [facility] DATE: 03/05/2024 INDICATION: Right flank pain. [...] mg/dL 03/05/2024 12:51 AM CDT LABORATORY Specific [place] Urine 1.004 1.003 - 1.035 03/05/2024 12:51 [...] MD LAB - URINE KAMARI BEDOLLA LABORATORY [facility] Lab [address] Lab (1st floor, no room number) [address] * Extra Red Top Tube (03/04/2024 11:58 PM CDT) Hold Specimen [facility] 03/05/2024 1:31 AM CDT LABORATORY Blood BLOOD SPECIMEN / Unknown Venipuncture / Unknown 03/04/2024 11:58 PM CDT 03/05/2024 12:17 AM CDT Timothy Pink MD LAB - BLOOD ORDRuben BEDOLLA LABORATORY [facility] Lab [address] Lab (1st floor, no room number) [address] [place] [address] * Extra Blue Top Tube (03/04/2024 11:58 PM CDT) Hold Specimen [facility] 03/05/2024 1:31 AM CDT RH LABORATORY Blood BLOOD SPECIMEN / Unknown Venipuncture / Unknown 03/04/2024 11:58 PM CDT 03/05/2024 12:17 AM CDT Timothy Pink MD LAB - BLOOD KAMARI BEDOLLA RH LABORATORY [facility] Lab [address] Lab (1st floor, no room number) [place] [address], [facility] * CBC with platelets and [...] Pink MD LAB - BLOOD ORDRuben BEDOLLA [facility] Lab [address] Lab (1st floor, no room number) [address] * Lipase (03/04/2024 11:58 PM CDT) Lipase 51 13 - 60 U/L 03/05/2024 12:37 AM CDT LABORATORY Blood BLOOD SPECIMEN / Unknown Venipuncture / Unknown 03/04/2024 11:58 PM CDT 03/05/2024 12:17 AM CDT Timothy Pink MD LAB - BLOOD ORDRuben BEDOLLA [facility] Lab [address] Lab (1st floor, no room number) [address] * (ABNORMAL) Comprehensive metabolic panel (03/04/2024 [...] LAB - BLOOD KAMARI BEDOLLA RH LABORATORY [facility] Lab [address] [facility] Lab (1st floor, no room number) [place] [address] * (ABNORMAL) HPV High Risk Types DNA Cervical (11/22/2020 11:50 AM CDT) HPV Source [facility] 11/22/2020 11:43 AM CDT [facility] HPV 16 DNA Negative NEG^Nega [...] and its performance characteristics determined by the [facility] Diagn[facility]. It has not been [...] Cervical Cells 11/22/2020 11:43 AM CDT [facility] Cervical Cells 11/22/2020 11 :50 AM CDT 11/22/2020 12:01 PM CDT Lesa Barbosa MD LAB - BLOO D ORDERABLES [facility] [address] [place] [address] [address] * Pap imaged thin layer screen with HPV - recommended age 30 - 65 years (select HPV order below) (11/22/2020 11:43 AM CDT) PAP AMY Riley Report Patient Name: JEANNINE HERNANDEZ MR#: [id number] Specimen #: [id number] Collected: 11/22/2020 Received: 11/23/2020 Reported: 11/26/2020 10:55 [...] by: DIDIER Fernandez ??(ASCP) CLINICAL HISTORY: LMP: [id number] Post Menopausal, A previous normal pap Date of Last Pap: 05/29/2019, Papanicolaou Test Limitations: ??Cervical cytology is a screening test with limited sensitivity; regular screening is critical for cancer prevention; Pap tests are primarily effective for the diagnosis/preventi on of squamous cell carcinoma, not adenocarcinomas or other cancers. COLLECTION SITE: Client: ??[facility] Location: [facility] (R) The technical component of this testing was [facility], with the [facility], [address] [place] [phone] ([phone]) COPATH Cytology 11/22/2020 11:4 3 AM CDT 11/23/2020 9:48 AM CDT Lesa Barbosa MD LAB - OPTI ND CLINICAL SPECIMEN COPATH * *MA Screening Digital [...] LES [facility] [address] [place] [address] * (ABNORMAL) Lipid panel reflex to direct LDL Non-fasting (01/11/2018 3:57 PM CDT) Pathologist [facility] Cholesterol 217(H) <200 mg/dL 01/12/2018 2:[address] [facility] Comment:Desirable: <200 mg/d l Triglycerides 162(H) <150 mg/dL 01/12/2018 2:[address] [facility] Comment: Borderline high: ??150-199 mg/dl High: ? 200-499 mg/dl Very high: ? >499 mg/dl Non Fasting HDL Cholesterol 58 >49 mg/dL 8 2:[address] [facility] LDL Cholesterol Calculated 127(H) <100 mg/dL 01/12/2018 2:[address] [facility] Comment: Above desirable: ??100-129 mg/dl Borderline High: ??130-159 mg/dL High: ? 160-189 mg/dL Very high: ? >189 mg/dl Non HDL Cholesterol 159(H) <130 mg/dL 01/12/2018 2:[address] [facility] Comment: Above Desirable: ??130-159 mg/dl Borderline high: ??160-189 mg/dl High: ? 190-219 mg/dl Very high: ? >219 mg/dl Blood specimen (specimen) 01/11/2018 3:57 PM CDT 01/11/2018 3:58 PM CDT Timothy Knott MD LAB - BLOOD ORDERABL ES Performing Organization Address City/[facility]/ZIP Co de Phone Number [facility] [address] [place] [address] * Hepatitis C antibody (01/11/2018 3:57 PM CDT) Hepatitis C Antibody Nonreactive NR^Nonre active 01/14/2018 9:10 AM CDT [facility] Comment: Assay performance characteristics have not been established for newborns, infants, and children Blood specimen (specimen) 01/11/2018 3:57 PM CDT 01/11/2018 3:58 PM CDT Timothy Knott MD LAB - BLOOD ORDERABL ES [facility] [address] [place] [address] * COLONOSCOPY (08/05/2009) Zohra Rosado PA-C PROCEDURES from Last 3 Months or Most Recently Relevant to Health Maintenance Advance Directives For more information, please contact: [phone] Documents on File Type Date Recorded Patient Director Of Research Center Expl anation Advance Directives and Living Will [...] 1:49 AM 10/14/2011 12:53 PM Care Teams Criminal Defense Attorney Relationship Specialty Start Date End Date Elizabeth Rausch MD [facility] [address] [place] [address] PCP - General Family Medicine 03/05/24 System, Provider Not In Clinic 02/03/15 Manoj Holley MD [address] [facility] [address] [place] [address] Hematology & Oncology 04/28/19 Yanelis Galvez Personal Advocate & Liaison (PAL) 12/14/20
--- OUTSIDE RECORDS SUMMARY | 2024-04-26 19:01 | XMS_ITS | Encounter Summary ---
Author Organization [place] Address [address] [place] [address] Care Team Providers Care Zanjero Name Role Phone System, Provider Not In Unavailable Unavaila ble Timothy Knott MD Primary Care Provider [phone] Manoj Holley MD Unavailable [phone] Timothy Knott MD Unavailable [phone] Manoj Holley MD Unavailable [phone] Yanelis Galvez Unavailable Unavailable Alia Miller PA-C Unavailable [phone] Lori Barbosa MD Unavailable + Timothy Knott MD Unavailable [phone] Tierney Panchal APRN WIRE ROLLER Unavailable [phone] Lori Barbosa MD Unavailable + Timothy Knott MD Unavailable [phone] [facility] Unavail able Elizabeth Rausch MD Primary Care Provider Reason for Visit * Reason Comments Medication Refill Encounter Details Date Type Department Care Team (Late st Contact Info) Description 03/15/[address] [address] Lori Barbosa MD [facility] [address] [facility] [address] [place] [address] Medication Refill Social History Tobacco Use Types [...] below and assist patient. JÚNIOR Sanchez, RN [facility] * Telephone Encounter - Tierney Panchal APRN [...] needs to be seen because: SSRIs Protocol [id number]/15/2021 12:29 PM PHQ-9 score less than 5 in past 6 months JÚNIOR Greenwood, RN - Patient Advocate and Liaison (PAL) [facility] [phone] * Telephone Encounter - Elfering, Eleni - [...] any questions or concerns? No Requested Pharmacy: [facility] Okay to leave a detailed message?: Yes at Home number on file [phone] (home) documented in this encounter Plan of [...] documented as of this encounter Care Teams Zanjero Relationship Specialty [place] [address] [place] [address] PCP - General Family Practice 01/11/18 03/04/24 Elizbaeth Rausch MD [facility] [address] [place] [address] PCP - General Family Medicine 03/05/24 System, Provider Not In Clinic 02/03/15 Manoj Holley MD [address] [facility] [address] [place], [place] [address] Hematology & Oncology 04/28/19 [place] [address] [place] [address] Assigned PCP 01/25/20 07/16/21 Manoj Holley MD [address] [facility] [address] [place], [place] [address] Assigned Cancer Care Provider 12/05/20 06/02/22 Yanelis Galvez Personal Advocate & Liaison (PAL) 12/14/20 Alia Miller PA-C [address] [place] [address] Assigned Surgical Provider 01/30/21 07/28/22 Lori Barbosa MD PRIMARY ENT [address] [facility] [address] [address] Assigned PCP 07/17/21 05/26/22 [place] [address] [place] [address] Assigned PCP 05/27/22 06/16/22 Tierney Panchal APRN WIRE ROLLER [address] [place] [address] Assigned PCP 06/17/22 07/21/22 Lori Barbosa MD PRIMARY ENT [address] [place] [address] Assigned PCP 07/22/22 09/01/22 [place] [address] [place] [address] Assigned PCP 09/02/22 01/28/24 Located Within [facility] [address] [place] [address] Assigned PCP 01/29/24 02/28/24 documented as of this encounter
--- OUTSIDE RECORDS SUMMARY | 2024-04-26 19:01 | XMS_ITS | Encounter Summary ---
Author Organization [place] Address [address] [place] [address] Care Team Providers Care Button Puncher Name Role Phone System, Provider Not In Unavailable UnavailTimothy Mata MD Primary Care Provider [phone] Timothy Knott MD Unavailable [phone] Manoj Holley MD Unavailable [phone] Tierney Valencia RN Unavailable Timothy Knott MD Unavailable [phone] Timothy Knott MD Unavailable [phone] Chantale Barboza RN Unavailable Unavailable Manoj Holley MD Unavailable [phone] Radha Trejo DPM, Podiatry /Foot and Ankle Surgery Unavailable Manoj Holley MD Unavailable [phone] Yanelis Galvez Unavailable Unavailable Aila Miller PA-C Unavailable [phone] Lori Barbosa MD Unavailable + Timothy Knott MD Unavailable [phone] Tierney Panchal APRN, CNP Unavailable Lori Barbosa MD Unavailable + Timothy Knott MD Unavailable [phone] Clinic - [facility] Unavail able Elizabeth Rausch MD Primary Care Provider [phone] Reason for Visit * Reason Onset Date Comments Refill Request 02/20/2019 Refill on Metopr olol Encounter Details Date Type Department Care Team (Late st Contact Info) Description 02/20/2019 Refill [facility] [address] [place] [phone] [place] [address] [place], [place] [phone] Refill Request (Refill on Metoprolol) Social History [...] documented as of this encounter Care Teams Button Puncher Relationship Specialty Start Date End Date [place] [address] [place] [id number] PCP - General Family Practice 01/11/18 03/04/24 Elizabeth Rausch MD [facility] [address] [place] [address] PCP - General Family Medicine 03/05/24 System, Provider Not In Clinic 02/03/15 [place] [address] [place], [place] [address] Assigned PCP 11/18/17 11/29/19 Manoj Holley MD [address] [address] Hematology & Oncology 04/28/19 Tierney Valencia RN Lead Rubber Down 05/01/19 0 [place] [address] [place] [address] Assigned PCP 01/25/20 07/16/21 [place] [address] [place] [address] Assigned PCP 11/30/19 01/24/20 Chantale Barboza, RN Personal Advocate & Liaison (PAL) Family Practice 04/05/20 12/02/20 Manoj Holley MD [address] [address] Assigned Cancer Care Provider 04/30/20 10/30/20 Radha Trejo DPM, Podiatry/Foot and Ankle Surgery [address] [place] [address] Assigned Musculoskeletal Provider 04/30/20 11/13/20 Manoj Holley MD 420 [facility] 480 [place], [place] [address] Assigned Cancer Care Provider 12/05/20 06/02/22 Yanelis Galvez Personal Advocate & Liaison (PAL) 12/14/20 Alia Miller PA-C [address] [place] [address] Assigned Surgical Provider 01/30/21 07/28/22 Lori Barbosa MD [facility]IMARY E[facility] [address] [facility] [address] [place] [address] Assigned PCP 07/17/21 05/26/22 [place] [address] [place] [address] Assigned PCP 05/27/22 06/16/22 Tierney Panchal APRN CNP [address] [address] Assigned PCP 06/17/22 07/21/22 Lori Barbosa MD PRIMARY ENT [address] [facility] [address] [place], [place] [address] Assigned PCP 07/22/22 09/01/22 [place] [address] [place], [place] [address] Assigned PCP 09/02/22 01/28/24 Clinic - [facility] [address] [place] [address] Assigned PCP 01/29/24 02/28/24 documented as of this encounter
--- OUTSIDE RECORDS SUMMARY | 2024-04-26 19:01 | XMS_ITS | Encounter Summary ---
Author Organization [place] Address [facility] [place] [address] Care Team Providers Care Event Set Up Specialist Name Role Phone Zohra Rosado PA-C Primary Care Provid er System, Provider Not In Unavailable Unavaila ble System, Provider Not In Primary Care Provider Un available No Ref-Primary, Physician Primary Care Provider Timothy Knott MD Primary Care Provider [phone] Timothy Knott MD Unavailable [phone] Timothy Knott MD Unavailable [phone] Manoj Holley MD Unavailable [phone] Tierney Valencia RN Unavailable [phone] Timothy Knott MD Unavailable [phone] Timothy Knott MD Unavailable [phone] Chantale Barboza RN Unavailable Unavailable Manoj Holley MD Unavailable [phone] Radha Trejo DPM, Podiatry /Foot and Ankle Surgery Unavailable Manoj Holley MD Unavailable [phone] Yanelis Galvez Unavailable Unavailable Alia Miller PA-C Unavailable [phone] Lori Barbosa MD Unavailable + Timothy Knott MD Unavailable Tierney Panchal APRN MEAT CLERK Unavailable Lori Barbosa MD Unavailable + Timothy Knott MD Unavailable [phone] Clinic - [facility] Unavail able Elizabeth Rausch MD Primary Care Provider [phone] Encounter Details Date Type Department Care Team (Late st Contact Info) Description 01/02/2012 [facility] Extended Documentation [facility] [address] [place] [phone] Brenda Pereyra XXX RESIGNED XXX [address] [facility] [address] [place] [address] Social History Tobacco Use Types [...] documented as of this encounter Care Teams Event Set Up Specialist Relationship Specialty Start Date End Date Zohra Rosado PA-C [address] [address] [place] [address] PCP - General Family Practice 11/22/09 02/05/15 System, Provider Not In PCP - General Clinic 05/30/17 11/14/17 No Ref-Primary, Physician PCP - General 11/15/17 01/10/18 [place] [address] [facility] [place] [address] PCP - General Family Practice 01/11/18 03/04/24 [place] [address] [place] [address] PCP - Assigned PCP 11/18/17 09/10/18 Elizabeth Rausch MD [facility] [address], [place] [address] PCP - General Family Medicine 03/05/24 System, Provider Not In Clinic 02/03/15 [place] [address] [place], [place] [address] Assigned PCP 11/18/17 11/29/19 Manoj Holley MD 420 [facility] [address] [place] [address] Hematology & Oncology 04/28/19 Tierney Valencia, RN Lead Storm Door Maker 05/01/19 0 [place] [address] [facility] [place] [address] Assigned PCP 01/25/20 07/16/21 [place] [address] [place] [address] Assigned PCP 11/30/19 01/24/20 Chantale Barboza, RN Personal Advocate & Liaison (PAL) Family Practice 04/05/20 12/02/20 Manoj Holley MD [address] [address] Assigned Cancer Care Provider 04/30/20 10/30/20 Radha Trejo DPM, Podiatry/Foot and Ankle Surgery [address] [facility] [address] [place] [address] Assigned Musculoskeletal Provider 04/30/20 11/13/20 Manoj Holley MD [address] [address] Assigned Cancer Care Provider 12/05/20 06/02/22 Yanelis Galvez Personal Advocate & Liaison (PAL) 12/14/20 Alia Miller, PA-C [address] [place] [address] [address] [place] [address] Assigned Surgical Provider 01/30/21 07/28/22 Lori Barbosa MD PRIMARY ENT [address] [facility] 13 [facility] 350 [place], [place] [address] Assigned PCP 07/17/21 05/26/22 [place] [address] [place] [address] Assigned PCP 05/27/22 06/16/22 Tierney Panchal APRN MEAT CLERK [address] [place] [address] Assigned PCP 06/17/22 07/21/22 Lori Barbosa MD PRIMARY ENT [address] [place] [id number] Assigned PCP 07/22/22 09/01/22 [place] [address] [place], [place] [address] Assigned PCP 09/02/22 01/28/24 [facility] [address] [place], [place] [address] Assigned PCP 01/29/24 02/28/24 documented as of this encounter
--- OUTSIDE RECORDS SUMMARY | 2024-04-26 19:01 | XMS_ITS | Encounter Summary ---
Author Organization [place] Address [address] [place] [address] Care Team Providers Care Building Carpenter Helper Name Role Phone System, Provider Not In Unavailable Unavaila ble Timothy Knott MD Primary Care Provider [phone] KishanManoj champagne MD Unavailable [phone] Manoj Holley MD Unavailable [phone] Yanelis Galvez Unavailable Unavailable Alia Miller PA-C Unavailable [phone] Lori Barbosa MD Unavailable + Timothy Knott MD Unavailable [phone] Tierney Panchal APRN PRODUCTION COORDINATOR Unavailable [phone] Lori Barbosa MD Unavailable + Timothy Knott MD Unavailable [phone] [facility] Unavail able Elizabeth Rausch MD Primary Care Provider + [phone] Encounter Details Date Type Department Care Team [...] Total Score: 1 05/18/20 21 7:29 AM PHYSICIAN REPRESENTATIVE documented as of this encounter Care Teams Building Carpenter Helper Relationship Specialty [place] [address] [place] [address] PCP - General Family Practice 01/11/18 03/04/24 Elizabeth Rausch MD [facility] [address] [place] [address] PCP - General Family Medicine 03/05/24 System, Provider Not In Clinic 02/03/15 Manoj Holley MD [address] [address] Hematology & Oncology 04/28/19 Manoj Holley MD [address] [address] Assigned Cancer Care Provider 12/05/20 06/02/22 Yanelis Galvez Personal Advocate & Liaison (PAL) 12/14/20 Alia Miller, PAMichaelC [address] [place] [address] Assigned Surgical Provider 01/30/21 07/28/22 Lori Barbosa MD PRIMARY ENT [address] [facility] [address] [place] [address] Assigned PCP 07/17/21 05/26/22 [place] [address] [facility], [place] [id number] Assigned PCP 05/27/22 06/16/22 Tierney Panchal APRN PRODUCTION COORDINATOR [address] [place] [address] Assigned PCP 06/17/22 07/21/22 Lori Barbosa MD [facility] [address] [facility] [address] [place] [address] Assigned PCP 07/22/22 09/01/22 [place] [address] [facility], [place] [address] Assigned PCP 09/02/22 01/28/24 [facility] [address] [facility] [place] [address] Assigned PCP 01/29/24 02/28/24 documented as of this encounter
--- OUTSIDE RECORDS SUMMARY | 2024-04-26 19:02 | XMS_ITS | Continuity of Care Document ---
Author Organization [facility] Address [address] [place] [address] Phone Care Team Providers Care Custom Bow Maker Name Role Phone Morgan Mcdowell MD Unavailable Unavailable Allergies, Adverse Reactions, Alerts Substance Reaction Status Criticality Sulfa (Sulfonamide Antibiotics) Active No Information Medications Medication Instructions Dosage Effective Dates (start - stop) Status Comments metoprolol tartrate 25 mg tablet take 0.5 tablet by oral route 2 times every day 12.5 MG - Active lisinopril 5 mg tablet take 1 tablet by oral route every day 5 MG - Active bupropion HCl XL 300 mg 24 hr tablet, extended release take 1 tablet by oral route every day 300 MG - Active bupropion HCl XL 150 mg 24 hr tablet, extended release take 1 tablet by oral route every day 150 MG - Active Advance Directives Directive Yes / No Effective Date File Name No Information Encounters Encounter Description Practice Location Reason(s) For Visit Diagnoses Date Provider Providers Copied on Encounter [facility], [address], [place], [address], tel:[phone] [facility], No Information July Mora. [facility] [address], [place], [address], [place]. tel:[phone] [facility], [address], [place], [address], tel:[phone] [facility], No Information 2 Skemp Morgan. [facility] [address], [place], [address], [place]. tel:[phone] [facility], [address], [place], [address], [place] tel:[phone] [facility], No Information 2 Skemp Morgan. [facility] [address], [place], [address], [place]. tel:[phone] Family History Family Member Type Diagnosis Age At Onset No Information Payers Payer name Insurance type Covered constitution party ID Authoriza tion(s) No Information Social History Type Description Quantity Date Captured Comments Alcohol Use Details Unknown Caffeine Use Details Unknown Tobacco Use Status No Information Smoking Status No Information Sex Female Chief Complaint And Reason For Visit No Information Reason For Referral Reason For Referral No Information History Of Present Illness Encounter Date Complaint History Of Prese nt Illness No Information Functional Status Date Functional Assessmen t No Information Instructions Date Instruction Additional Infor mation No Information Assessments Type Assessment Date No Information Patient Care Teams Name Effective Dates (start - stop) Status Members No Information
--- OUTSIDE RECORDS SUMMARY | 2024-04-26 19:02 | XMS_ITS | Continuity of Care Document ---
Author Organization [facility] Address [address] [address] [place] [address] Phone Care Team Providers Care Clinical Nursing Director Name Role Phone Conrad Nixon MD Unavailable Unavailable Allergies, Adverse Reactions, Alerts Substance Reaction Status Criticality CAYENNE PEPPER Anaphylactic shock Active No Info rmation Sulfa (Sulfonamide Antibiotics) Rash, nausea Active No Information WARNIN allergy(ies) could not be collected because the type is not supported. Please contact the source practice for further details. Medications Medication Instructions Dosage Effective Dates (start - stop) Status Comments Calcium 600 + D(3) 600 mg calcium-200 unit capsule take 1 by Oral route every day 1 - Active GLUCOSAMINE-CHONDR OITIN (unknown strength) take as directed Not Available - Active Lactaid 3,000 unit chewable tablet take orally as needed - Active venlafaxine ER 150 mg tablet,24 hr extended release take 1 tablet (150MG) by oral route every day in the morning at the same time each day with food 150 MG - Active multivitamin Tab Take one tablet by mouth daily - Active Colon Herbal Cleanser Cap use as directed. Pt. states she uses herbal drugs containing senna often for her colon. - No Longer Active Calcium 600 600 mg (1,500 mg) Tab Take one tablet by mouth daily - No Longer Active FISH OIL (unknown strength) one tab orally each day Not Available - No Longer Active Celexa 40 mg Tab Take one tablet by mouth daily - No Longer Active Pamelor 25 mg Cap 1 T daily - No L onger Active Procedures Procedure Date Ugi Endo; W/insrt Guide Wire Ugi Endo; W/bx 1/mx Level Iv-surg Path Gross/micro 13 Colonoscopy Flex; W/bx 1/mx Level Iv-surg Path Gross/micro 10 Advance Directives Directive Yes / No Effective Date File Name Resuscitation Not Answered N/A N/A Life Support Not Answered N/A N/A Intubation Not Answered N/A N/A Antibiotics Not Answered N/A N/A IV Fluid Support Not Answered N/A N/A Tube Feed Not Answered N/A N/A Other Directive N/A N/A WARNING:The information contained in this section is historical and is provided for information only and does not constitute a legal document or any assurance that the information is still accurate. Please verify the information with the mahoney of the legal document before using it for clinical purposes. Encounters Encounter Description Practice Location Reason(s) For Visit Diagnoses Date Provider Providers Copied on Encounter [facility], [address] [address], [place], [place], [address], [place] tel:[phone] [facility] Esoph Stricture/juan atzki RingHiatal HerniaGastrit is W/o BleedEsoph Stricture/juan atzki RingHiatal HerniaGastrit is W/o Bleed 3 Hussain ROMERO Martines. [address], [place], [place], [address], [place]. tel:[phone] Referring Provider: Brenda Quiros MD, [address] [employer] [place], [address]. tel:[phone] [facility], [address] [address], [place], [place], [address], [place] tel:[phone] [facility] Center Polyp-intes/r ect/stom-unc BehBenign Neoplasm Lg BowelDivertic ulosis Of Colon 0 Cherelle Brian. [address] [facility], [place], [place], [address], [place]. tel:[phone] [facility] [place] [address] [address], [place], [place], [address], [place] tel:[phone] [place] No Information 0 No Information Family History Family Member Type Diagnosis Age At Onset No Information Payers Payer name Insurance type Covered democrat ID Authoriza tion(s) No Information Social History [...]
--- OUTSIDE RECORDS SUMMARY | 2024-04-26 19:02 | XMS_ITS | Clinical Summary ---
Author Organization [facility] Address [address] [place] [address] Phone [phone] Care Team Providers Care M48 M60 Armor Crewman Name Role Phone Pcp, No Primary Care Provider Unavailabl e Allergies Active Allergy Reactions Criticality Noted Date Comments Sulfa Antibiotics Itching,Nausea Only,Rash Low 07/24/2008 PN: LW Reaction: Itching, Pruritis Medications metoprolol tartrate (Lopressor) 25 MG tablet TAKE [...] drink = 0.6 oz pur e alcohol) Comments No Sex and Gender Information Value Date Recorded Sex Assigned at Not on file Legal Sex Female 7:36 PM EDT Gender Identity Not on file Sexual Orientation Not on file Last Filed Vital Signs Vital Sign Reading Time Taken Comments Blood Pressure 149/81 11/01/2022 11:10 AM MST Pulse 65 11/01/2022 11:10 AM [facility] Temperature 36.8 ??C (98.3 ??F) 11/01/2022 11:10 AM [facility] Respiratory Rate 18 11/01/2022 11:10 AM MST Oxygen Saturation 97% 11/01/2022 11:10 AM MST Inhaled Oxygen Concentration - - Weight 70.8 kg (156 lb) 11/01/2022 11:10 AM MST Height 160 cm (5' 3) 11/01/2022 11:10 AM MST Body Mass Index 27.63 11/01/2022 11:10 AM [facility] Plan of Treatment Health Maintenance Due Date Last Done Comments Bone Density Scan 1945 Zoster Vaccines (1 of 2) 1995 Pneumococcal Vaccine: 65+ Years (1 of 4 - PCV) 011 Influenza Vaccine (#1) 2024 Insurance [employer] MEDICARE ADVANTAGE Care Teams M48 M60 Armor Crewman Relationship Specialty Start Date End Date NO PCP PCP - General 11/01/22
--- OUTSIDE RECORDS SUMMARY | 2024-04-26 19:02 | XMS_ITS | Continuity of Care Document ---
Author Organization [facility] Address [address] [place] [address] Phone Care Team Providers Care Grades 7 8 Tutor Name Role Phone Joseline Akhtar Unavailable Unavailable Allergies, Adverse Reactions, Alerts Substance Reaction Status Criticality Sulfa (Sulfonamide Antibiotics) Active No Information Medications Medication Instructions Dosage Effective Dates (start - stop) Status Comments bupropion HCl XL 300 mg 24 hr tablet, extended release take 1 tablet by oral route every day 300 MG - Active CALCIUM 500-VIT D3 (unknown strength) Not Available - Active Fish Oil 1,000 mg (120 mg-180 mg) capsule take 1 capsule by oral route every day 1 capsule - Active GUANFACINE HCL (unknown strength) take 1 tablet by oral route every day at bedtime Not Available - Active lisinopril 5 mg tablet take 1 tablet by oral route every day 5 MG - Active metoprolol tartrate 50 mg tablet take 1 tablet by oral route every day with meals 50 MG - Active multivitamin tablet take 1 tablet by oral route every day 1 tablet - Active Probiotic Formula (inulin) 1 billion cell-250 mg capsule - Active senna 8.6 mg tablet take 2 tablet by oral route every day as needed for constipation 2 tablet - Active triamcinolone acetonide 0.1 % topical cream apply by topical route 2 times every day a thin layer to the affected area(s) 0.00 - Active Tylenol Extra Strength 500 mg tablet take 1 tablet by oral route every 4 - 6 hours as needed not to exceed 8 tablets per 24hrs 500 MG - Active Wellbutrin XL 150 mg 24 hr tablet, extended release take 1 tablet by oral route every day 150 MG - Active Procedures Procedure Date ROUTINE VENIPUNCTURE Office/outpatient Visit, [facility] Results Test Name Date and Time Measure Units Reference Range Abnormal Flag Status Comments Panel Description: Cyclic Citrullinated Peptide Final CCP Antibody IgG 08:24:00 <8 U/mL <=16 N Final [place] Barone COGEON [address], [id number] Steward CCP Result 08:24:00 Negative Negative N Final CCP Reference Range:<=16 Biwvbdio82-75 Weak Rzdrdxar91-45 Moderate Positive>=60 Strong PositiveThe following results were obtained with the Elecsys Anti-CCP assay. Results from assays of other manufacturers cannot be used interchangeably. SannaDaqi [address], [id number] Steward Panel Description: Erythrocyte Sedimentation Rat e Final Erythrocyte Sedimentation Rate 08:24:00 24 mm/hr <=30 N Final Erythrocyte Sedimentation Rate (ESR) specimens are stable for 4-6 hours at room temperature, and 24 hours if refrigerated. ESR results trend lower with increased specimen age. Consider use of C-reactive protein (CRP) to assess acute phase responses.Sanna impoka Fliggo [address], [id number] Gates Panel Description: CRP Final CRP 08:24:00 <3.0 mg/L <=4.9 N Final Significant decreases in C-reactive protein may be observed in patients treated with carboxypenicilli ns.PAZSonKitchon[address], [id number] Gates Advance Directives Directive Yes / No Effective Date File Name No Information Encounters Encounter Description Practice Location Reason(s) For Visit Diagnoses Date Provider Providers Copied on Encounter Office/outpa tient Visit, [facility], [address], [place], [place], [id number], tel:[phone] DELICIA Bowen Polyarthral jose(2012) (chief complaint)P OSITIVE Rheumatoid Factor(2023 ) (chief complaint)O steoarthrit is (chief complaint)D DD(LUMBAR ; 2009) (chief complaint) PolyarthralgiaPrima ry osteoarthritis involving multiple jointsRheumatoid factor positiveDDD (degenerative disc disease), lumbar 4 Skip Trevizo. [address], [address], [place], [address], [place]. tel:[phone] Specialist : Saw Alvarez, [address], [place], [address]. tel:[phone] erring Provider: Gerry Thompson MD, [address] [place], [address]. tel:[phone] Family History Family Member Type Diagnosis Age At Onset No Information Payers Payer name Insurance type Covered constitution party ID Authoriza tion(s) [employer] Medicare Adv PPO [id number] CI [id number] Social History Type Description Quantity Date Captured Comments Alcohol Use Details beer 2 beers yearly Caffeine Use Details Unknown Tobacco Use Status Occasional cigarette smoker Smoking Status Former smoker Smoking Tobacco Use Details Cigarette: No Details Available Cigarette: No Details Available Sex Female Vital Signs Date / Time: Height Weight BMI Pulse Rate Blood Pressure Temperature Respiratory Rate Body Surface Area Head Circumference Head Circ. Percentile Wt./Juvenal. Percentile BMI percentile Pulse Ox Inhaled Ox 7:14 AM 63.00 in 75.387 kg (166.20 lbs) 29.4 4 kg/m eter (2) 82 /min 155/77 mm[Hg] 97.50 F 16 /min 1.83 meter(2) 97 % Chief Complaint And Reason For Visit From encounter dated '10/24/2023 07:30'. Polyarthralgia(2012) (chief complaint) POSITIVE Rheumatoid Factor(2023) (chief complaint) Osteoarthritis (chief complaint) DDD(LUMBAR ; 2009) (chief complaint) Reason For Referral Reason For Referral No Information Plan Of Treatment Date Type Action Status Future Order: Radiology Order Fo ot X-ray; Limited (2 views) ([id number]), Ordered on: Ordered Future Order: Radiology Order Raymundo nd X-ray; Limited (2 views) ([id number]), Ordered on: Ordered History Of Present Illness Encounter Date Complaint History Of Prese nt Illness POSITIVE Rheumatoid Factor(2023) Osteoarthritis DDD(LUMBAR ; 2009) Polyarthralgia(2012) Functional Status Date Functional Assessmen t Pain Score 7/10 Instructions Date Instruction Additional Infor bryant Chronic joint pain. Imaging done though [facility]. No synovitis seen on exam. - Obtain records [facility]- Order XR Hands/Feet- Order CCP, CRP/ESR- FU In 4 weeks review results Related to Polyarthralgia Assessments Type Assessment Date assessment Polyarthralgia impression She started noticing joint pain in her knees in 2012 and was getting steroid and gel injections for the pain. She has difficulty grasping objects and her hands feels numb. She says her feet feel very sensitive-difficult to find comfortable shoes. She has had recent imaging of Pelvis on the right side through [facility] and told she has some arthritis. She was given a steroid INJ in her right hip about a month ago from a [facility] Clinic in [place]. Joint pain started in 2012 and is affecting (Back, Knees, Hips, Hands, lower buttock ). Pain level 5-9/10. EMS lasts 4 hours. She feels swollen in hands, feet, knees. . She Pain is aggravated with Cold weather, bending, twisting, sugar, allergy season. Tylenol, warms baths help with pain. She has tried NSAIDS in the past and they hurt her stomach. Referred to Rheumatology for further workup with a positive RF. - S/P Positive RF(98), Negative CCP(09/04/2023) assessment Primary osteoarthritis involving multiple joints impression - S/P Steroid inject ions to KNEES- S/P VISCOSSUPPLEMENTATION to KNEES- S/P NAPROXEN/IBUPROFEN ; upset stomach assessment Rheumatoid factor positive Oct- assessment DDD (degenerative disc disease), lumbar impression - dx'ed in 2009 Mental Status Date Cognitive Assessment Orientation - [place] ed to time, place, person, situation.Normal Orientation Patient Care Teams Name Effective Dates (start - stop) Status Members No Information
--- OUTSIDE RECORDS SUMMARY | 2024-04-26 19:02 | XMS_ITS | Patient Health Record ---
Author Organization [facility] Address [address] , [place] [address] Care Team Providers Care Trial Examiner Name Role Phone Gerry Thompson Primary Care Provider Johny Miller Unavailable [phone] Allergies Allergen (clinical drug ingredient) Drug/Non Drug [...] Risk Notes Problem Transient alteration of awareness (3830440609) Transient alteration of awareness (R40.4) Active confirmed Problem Cognitive disturbance (075711258) Other symptoms and signs involving cognitive functions and awareness (R41.89) Active confirmed Problem Hyperlipidemia (47424825) Hyperlipidemia (E78.5) Active confirmed Problem Sleep apnea (37617641) Sleep apnea (G47.30) Active confirmed Problem Monoclonal paraproteinemia (293745466) 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) Active confirmed Problem Amnesia (08879176) Memory change (R41.3) Active confirmed Problem Chronic kidney disease stage 3A (disorder) (119599813) Chronic kidney disease, stage 3a (N18.31) Active confirmed Plan Of Treatment Pending Test Test Name Order Date MRI BRAIN WITHOUT CONTRAST NEUROQUANT LA OTOCOL W/ 3D RENDERING 08/14/2022 Insurance Providers Payer Name Payer Address Payer Phone Subscriber Number Group Number Insured Name Patient Relationship to Insured Coverage Start Date Coverage End Date [employer] MEDCR ADV [address] [address] [place] [address] [id number] YASH HERNANDEZ Self - patient is the insured Medical (General) History Medical History History ICD Code Gallstones Irritable bowel syndrome Reflux High Blood Pressure Headaches Fibromyalgia Mugus Brain tumor Surgical History Surgery Date(Month/Year) Appendix Brain Gall bladder Wrist- broken Peritonotis Hospitalization History Reason Date(Month/Year) Peritonotis Perit Stones Brain Covid
--- OUTSIDE RECORDS SUMMARY | 2024-04-26 19:02 | XMS_ITS | Patient Health Record ---
Author Organization Onesimo Giuliano Tran DO Address [address] [place], [place] [id number] Care Team Providers Care Freelance Digital Project Manager Name Role Phone Onesimo Tran [phone] ALLERGIES Allergen (clinical drug ingredient) Drug/Non Drug Allergy documented on EMR Reaction Allergy Type Onset Date Status Sulfacet-R Unknown Drug Allergy Active REASON FOR REFERRAL No Information MEDICATIONS Medication SIG (Take, Route, Frequency, Duration) Notes Start Date End Date Status Vaseline vaseline as directed topicall y tid for 30 days Active [place]-Smoothe/FS Scalp 0.01 % 1 applicat ion to [...] Coverage End Date [employer] [address] [place] [address] [id number] Jeannine Zuleta Self - patient is the insured 9
--- OUTSIDE RECORDS SUMMARY | 2024-04-26 19:02 | XMS_ITS | Referral Summary ---
Author Organization [facility] Address [address] [place] [address] Phone [phone] Care Team Providers Care Motorcycle Fabricator Name Role Phone Pcp, No Primary Care [...] AM MST Pulse 65 11/01/2022 11:10 AM [facility] Temperature 36.8 ??C (98.3 ??F) 11/01/2022 11:10 AM [facility] Respiratory Rate 18 11/01/2022 11:10 AM MST Oxygen Saturation 97% 11/01/2022 11:10 AM MST Inhaled Oxygen Concentration - - Weight 70.8 kg (156 lb) 11/01/2022 11:10 AM MST Height 160 cm (5' 3) 11/01/2022 11:10 AM MST Body Mass Index 27.63 11/01/2022 11:10 AM [facility] Plan of Treatment Not on file Insurance [employer] MEDICARE ADVANTAGE Care Teams Motorcycle Fabricator Relationship Specialty Start Date End Date NO PCP PCP - General 11/01/22
== END 2024-04-23 10:45 | disposition home or self-care (01) ==
LOC: NFLDREF 04-26 18:57
PROVIDERS: PCP Emergency Medicine; Referring Provider Emergency Medicine; Visit Provider Emergency Medicine
DX: R21 Rash and other nonspecific skin eruption (principal); M17.11 Unilateral primary osteoarthritis, right knee; E87.1 Hypo-osmolality and hyponatremia
CPT/HCPCS: 84295